=== PATIENT | male | born 1940 | race Caucasian/White ===

== ENCOUNTER → 2017-01-31 | Outpatient (CLI) | payer OTHER, MEDICARE ==
[~2017-01-31] MED LIST: ASPI-435 PO; CHOL100027 PO; CLOP1TAB5 PO; DIVA500T5 PO; FOLIC ACID PO; GLC500 PO; INSDGI SC; INSU100I SC; LAMO1TAB21 PO; LISI-787 PO; LPR50X PO; MULT-506 PO; RANI150C4 PO; ROSU40TA PO
--- NOTE | 2017-01-31 11:24 | DIAGNOSTIC IMAGING REPORT ---
LEFT SHOULDER 3 VIEWS HISTORY: Fall. LEFT SHOULDER PAIN COMPARISON: None. FINDINGS: Poststernotomy changes. Mild degenerative changes within the acromioclavicular and glenohumeral joints. Punctate calcification at the distal supraspinatus tendon consistent with calcific tendinitis. The left clavicle is intact. No radiopaque foreign bodies. IMPRESSION: No fracture or dislocation within the left shoulder. Electronically signed by: Cruz Chery M.D. 01/31/2017 11:23 AM Dictated Date/Time: 01/31/2017 11:21 AM
== END | disposition home or self-care (01) ==
LOC: C.RDSM 10:44
PROVIDERS: ATTEND Physical Medicine & Rehabilitation Sports Medicine
DX: M25.512 Pain in left shoulder (principal)

== ENCOUNTER → 2017-04-19 | Outpatient (CLI) | payer OTHER, MEDICARE ==
[2017-04-19 14:37] LABS: HEMATOCRIT 42.2 % (42-52); MEAN CELL VOLUME 97.9 fL (80-100); MEAN CORPUSCULAR HEMOGLOBIN 31.1 pg (25-34); MEAN CORPUSCULAR HGB CONC 31.8 g/dl (32-36); MEAN PLATELET VOLUME 12.1 fL (7.4-10.4); PLATELET COUNT 276 K/uL (130-400); RED BLOOD COUNT 4.31 M/uL (4.7-6.1); WHITE BLOOD COUNT 8.96 K/uL (4.8-10.8)
[2017-04-19 14:46] LABS: URINE APPEARANCE CLEAR (CLEAR); URINE BILIRUBIN NEG (NEG); URINE COLOR YELLOW; URINE EPITHELIAL CELL AUTO 0-5 /lpf (0-5); URINE NITRITE NEG (NEG); URINE PH 5.5 (4.5-7.5); URINE SPECIFIC GRAVITY 1.021 (1.000-1.030); UROBILINOGEN NEG (NEG)
[2017-04-19 15:01] LABS: BLOOD UREA NITROGEN 24 mg/dl (7-18); BUN/CREATININE RATIO 16.1 (10-20); CARBON DIOXIDE 29 mmol/L (21-32); CHLORIDE 100 mmol/L (98-107); GLUCOSE 233 mg/dl (70-99); PHOSPHORUS 1.7 mg/dl (2.5-4.9); POTASSIUM 4.8 mmol/L (3.5-5.1); SODIUM 137 mmol/L (136-145)
[2017-04-19 15:01] LABS: MANUAL MICROSCOPIC REQUIRED? NO; REVIEW REQ? NO
[2017-04-19 15:15] LABS: URINE PROTIEN/CREAT RATIO 0.6 (0-0.2); URINE TOTAL PROTEIN 56.4 mg/dl (0-11.9)
== END | disposition home or self-care (01) ==
LOC: C.LAB1850 13:06
PROVIDERS: ATTEND Internal Medicine Nephrology
DX: N18.3 Chronic kidney disease, stage 3 (moderate) (principal); D64.9 Anemia, unspecified; E55.9 Vitamin D deficiency, unspecified; R80.9 Proteinuria, unspecified; I12.9 Hypertensive chronic kidney disease with stage 1 through stage 4 chronic kidney disease, or unspecified chronic kidney disease

== ENCOUNTER → 2017-10-14 | Outpatient (CLI) | payer OTHER, MEDICARE ==
[2017-10-14 15:32] LABS: HEMATOCRIT 40.7 % (42-52); MEAN CELL VOLUME 97.6 fL (80-100); MEAN CORPUSCULAR HEMOGLOBIN 31.9 pg (25-34); MEAN CORPUSCULAR HGB CONC 32.7 g/dl (32-36); MEAN PLATELET VOLUME 11.9 fL (7.4-10.4); PLATELET COUNT 241 K/uL (130-400); RED BLOOD COUNT 4.17 M/uL (4.7-6.1)
[2017-10-14 16:01] LABS: ALT/SGPT 21 U/L (12-78); AST/SGOT 25 U/L (15-37); BLOOD UREA NITROGEN 29 mg/dl (7-18); BUN/CREATININE RATIO 18.6 (10-20); CALCIUM 9.3 mg/dl (8.5-10.1); CARBON DIOXIDE 30 mmol/L (21-32); CHLORIDE 97 mmol/L (98-107); CREATININE 1.54 mg/dl (0.60-1.40); GLUCOSE 275 mg/dl (70-99); POTASSIUM 4.4 mmol/L (3.5-5.1); SODIUM 133 mmol/L (136-145)
[2017-10-14 16:04] LABS: ALB/GLOB RATIO 0.8 (0.9-2); ALKALINE PHOSPHATASE 82 U/L (45-117)
[2017-10-14 16:25] LABS: URINE APPEARANCE CLEAR (CLEAR); URINE BILIRUBIN NEG (NEG); URINE COLOR YELLOW; URINE EPITHELIAL CELL AUTO 0-5 /lpf (0-5); URINE NITRITE NEG (NEG); URINE SPECIFIC GRAVITY 1.023 (1.000-1.030); UROBILINOGEN NEG (NEG)
[2017-10-14 16:27] LABS: MANUAL MICROSCOPIC REQUIRED? NO; REVIEW REQ? NO
[2017-10-14 16:46] LABS: URINE PROTIEN/CREAT RATIO 0.5 (0-0.2); URINE TOTAL PROTEIN 87.1 mg/dl (0-11.9)
== END | disposition home or self-care (01) ==
LOC: C.LAB1850 14:49
PROVIDERS: ATTEND Internal Medicine Nephrology
DX: N18.3 Chronic kidney disease, stage 3 (moderate) (principal); I12.9 Hypertensive chronic kidney disease with stage 1 through stage 4 chronic kidney disease, or unspecified chronic kidney disease; D64.9 Anemia, unspecified; R80.9 Proteinuria, unspecified; E55.9 Vitamin D deficiency, unspecified

== ENCOUNTER 2019-03-15 10:54 | Inpatient (IN) ==
[2019-03-15] MEDS ORDERED: SODIUM CHLORIDE 0.9% 1000ML 1,000 ML IV ONE (11:14)
[2019-03-15] MEDS ORDERED: ONDANSETRON INJ 2 MG/ML 2 ML VIAL IV STA (11:14)
[2019-03-15] MEDS ORDERED: MoRPHine SULFATE 4 MG/ML 1 ML CARP\\VIAL IV PRN ×2 (11:14→16:59)
[2019-03-15 11:49] LABS: Basophils # (auto) 0.03 K/uL (0-0.2); Basophils % (auto) 0.3 %; Eosinophils # (auto) 0.27 K/uL (0-0.5); Hematocrit (blood only) 39.4 % (42-52); Hemoglobin 13.3 g/dL (14.0-18.0); Immature Granulocytes # (auto) 0.03 K/uL (0.00-0.02); Immature Granulocytes % (auto) 0.3 %; Lymphocytes # (auto) 3.42 K/uL (1.2-3.4); Lymphocytes % (auto) 37.4 %; Mean Corpuscular Hgb Conc 33.8 g/dL (32-36); Mean Corpuscular Volume 95.6 fL (80-100); Mean Platelet Volume 12.3 fL (7.4-10.4); Monocytes # (auto) 1.28 K/uL (0.11-0.59); Neutrophils # (auto) 4.11 K/uL (1.4-6.5); Platelet Count 210 K/uL (130-400); RDW Coefficient of Variation 13.5 % (11.5-14.5); RDW Standard Deviation 47.2 fL (36.4-46.3); Red Blood Count 4.12 M/uL (4.7-6.1); White Blood Count 9.14 K/uL (4.8-10.8)
[2019-03-15 12:09] LABS: Albumin Level 3.6 gm/dl (3.4-5.0); BUN Creatinine Ratio 18.9 (10-20); Calcium 9.8 mg/dl (8.5-10.1); Creatinine Clr Calc Pharmacy 39.1 ml/min; Est GFR (African American) 39.3; Est GFR (Non-African American) 33.9; Potassium 4.3 mmol/L (3.5-5.1)
[2019-03-15 12:12] LABS: Albumin Globulin Ratio 0.8 (0.9-2); Bilirubin,Total 0.3 mg/dl (0.2-1); Globulin 4.4 gm/dl (2.5-4.0)
[2019-03-15 12:46] LABS: Appearance Urine Clear (Clear); Bacteria Urine Automated Negative (Negative); Bilirubin Urine Negative (Negative); Color Urine Yellow; Glucose Urine UA Negative (Negative); Ketones Urine Negative (Negative); Leukocyte Esterase Urine 2+ (Negative); Nitrite Urine Negative (Negative); Protein Urine Trace (Negative); Specific Gravity Urine 1.016 (1.000-1.030); Urobilinogen Urine Negative (Negative)
[2019-03-15] MEDS ORDERED: GADOBUTROL 65ML VIAL IV PRN (13:22)
--- NOTE | 2019-03-15 14:50 | Magnetic Resonance Report ---
MR lumbar spine wo/w con CLINICAL HISTORY: 78 years-old Male with sent by PCP for MRI, hx of splenectomy. Acute severe low ba ck pain with radiation into the right lower extremity COMPARISON: CT abdomen and pelvis 01/30/2019. TECHNIQUE: Multiplanar, multi sequence MRI of the lumbar spine was performed both with and without th e use of 10 mL Gadavist FINDINGS: The large [id number] disassembler product localizer images demonstrate no gross extraspinal abnormality. Conus me dullaris terminates at the T12-L1 level. Signal within imaged thoracic spinal cord appears unremarkab le. No aortic aneurysm or adenopathy. Bilateral perinephric stranding. Modic type I and II endplate c hanges at L3-L4 and L4-L5. There is no acute fracture or subluxation. Transitional lumbosacral anatom y with small disc space at S1-S2. There is no abnormal enhancement. T12-L1: Mild to moderate facet arthrosis. No central canal or foraminal narrowing. L1-L2: Mild disc space narrowing with mild to moderate facet arthrosis. No central canal or foramina l narrowing. L2-L3: Mild disc space narrowing with spondylitic spurring, small posterior annular disc bulge, mode rate facet arthrosis with ligamentum flavum thickening. Mild central canal stenosis with mild inferio r bilateral foraminal narrowing. L3-L4: Moderate disc space narrowing with spondylitic spurring, circumferential annular disc bulge a nd severe facet arthrosis with ligamentum flavum thickening. There is resultant severe central canal stenosis, AP dimension of the thecal sac measuring 3 mm. Moderate to severe bilateral foraminal narro wing. L4-L5: Moderate to severe disc space narrowing with spondylitic spurring, circumferential annular di sc bulge with central disc extrusion which extends 9 mm above the inferior endplate L4. Severe facet arthrosis with ligamentum flavum thickening. AP dimension of the thecal sac measures 3 mm. There is s evere central canal stenosis with severe bilateral foraminal narrowing. L5-S1: Moderate disc space narrowing with spondylitic spurring, circumferential annular disc bulge, advanced facet arthrosis with ligamentum flavum thickening. Flattening of the ventral thecal sac with out significant central canal stenosis. Mild to moderate bilateral foraminal narrowing. IMPRESSION: 1. No acute fracture or subluxation. 2. Severe central canal stenosis at L3-L4 and L4-L5. 3. Multilevel foraminal narrowing, severe bilaterally at L4-L5. 4. No abnormal enhancement. The above report was generated using voice recognition software. It may contain grammatical, syntax o r spelling errors. Electronically signed by: Vishnu Billings M.D. 03/15/2019 2:49 PM
[2019-03-15] MEDS ORDERED: DEXAMETHASONE SOD INJ 4 MG/ML VIAL IV STA (15:10)
--- NOTE | 2019-03-15 15:35 | History & Physical Report ---
Date of Service March 15, 2019 Assessment & Plan (1) Lumbar spinal stenosis: Patient's clinical symptoms associate with lumbar spinal stenosis is seen on MRI scan. Patient will have steroids given his dexamethasone pain medicines with parenteral opiates and orthopedic spine surgery consultation. 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 be sure that he has his Pneumovax (7) DVT prophylaxis: -Abuse for DVT prevention (8) CKD (chronic kidney disease) stage 3, GFR 30-59 ml/min: Patient is appropriate dosing of medications, creatinine is up from baseline may be having him having some acute kidney injury we will hydrate him and repeat in the morning History of Present Illness Primary Care Provider: Ml Matthews MD 78 yo male presented with radicular b/l leg pain and hyperreflexia and spasticity found to have lumbar spinal stenosis seen on mri, pt has some urinary retention Allergies Allergy/AdvReac Type Severity Reaction Status Date / Time Bactrim Allergy Severe SEVERE RASH Verified 03/16/16 10:11 sulfamethoxazole Allergy Severe SEVERE RASH Verified 03/15/19 11:54 trimethoprim Allergy Severe SEVERE RASH Verified 03/15/19 11:54 amoxicillin AdvReac Mild VOMITING Verified 03/15/19 11:54 clavulanic acid AdvReac Mild VOMITING Verified 03/15/19 11:54 Home Medications Home Medications Medication Instructions Recorded Confirmed Type aspirin 81 mg PO QAM 01/26/19 03/15/19 History cholecalciferol (vitamin D3) 3,000 unit PO QAM 01/26/19 03/15/19 History [Vitamin D3] clopidogrel 75 mg PO QAM 01/26/19 03/15/19 History cyclobenzaprine 5 mg PO BID PRN 01/26/19 03/15/19 History divalproex 500 mg PO BID 01/26/19 03/15/19 History gabapentin 300 mg PO UD 01/26/19 03/15/19 History insulin glargine [Lantus Solostar 28 unit SUBCUT QAM 01/26/19 03/15/19 History U-100 Insulin] insulin lispro [Humalog KwikPen 12 unit SUBCUT QAM 01/26/19 03/15/19 History Insulin] lamotrigine 200 mg PO PM 01/26/19 03/15/19 History lisinopril-hydrochlorothiazide 1 tab PO QAM 01/26/19 03/15/19 History metformin 1,000 mg PO BIDM 01/26/19 03/15/19 History metoprolol tartrate 50 mg PO BID 01/26/19 03/15/19 History nitroglycerin [Nitrostat] 0.4 mg SUBLINGUAL UD 01/26/19 03/15/19 History prednisolone acetate 1 drp OPL QID 01/26/19 03/15/19 History ranitidine HCl 150 mg PO BID 01/26/19 03/15/19 History rosuvastatin 40 mg PO PM 01/26/19 03/15/19 History tramadol 50 mg PO Q4H PRN 01/26/19 03/15/19 History vitamin X80-jexce acid [Foltrate] 1 tab PO QAM 01/26/19 03/15/19 History Past Med/Surg History Family History Other Family history non-contributory Social History Preferred Language: Indonesian Communication Ability: Effective 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 Weapons 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: No Beliefs That Will Affect Care: None Current Living Situation: Significant Other Other Information That Helps Us Care for You: No Feels Safe at Home: Yes Safety Concerns: Feels Safe At This Time Smoking Status: Never smoker Do You Dip or Chew Tobacco: No Second Hand Exposure: No Tobacco Cessation Education Requested by Patient: No Hx Alcohol Use: Yes Alcohol type: beer, wine and hard liquor Hx Substance Use: No Review of Systems Constitutional: + fatigue and + weakness Respiratory: no cough, no chest congestion and no dyspnea Cardiovascular: no chest pain and no dyspnea on exertion Gastrointestinal: no abdominal pain, no nausea and no vomiting Musculoskeletal: no joint pain and no swelling Integumentary: no rash and no lesions Neurologic: Patient has intact sensation pain straight leg raising and hyperreflexia at the patella bilaterally. He claims to have continence of bowel and bladder Physical Exam Physical Exam: The patient appeared well nourished and normally developed. Vital signs as documented. Head exam is unremarkable. normocephalic, atraumatic Neck is without jugular venous distension, thyromegaly, or lymphademopathy Lungs are clear to auscultation and percussion. Cardiac exam reveals Rhythm is regular. First and second heart sounds normal. Abdominal exam reveals normal bowel sounds, no masses, no organomegaly Extremities are nonedematous and both pedal pulses are present Neurologic exam is A&Ox3, patient has decreased sensation but he has definite pain to straight leg raising and hyperreflexia Psychologically seems neither anxious or depressed Skin is warm Dry without bruises or lesions Results & Data Vital Signs (Past 12 Hours) Vital Signs Temp Pulse Pulse Resp BP BP Pulse Ox 03/15/19 13:45 66 20 141/60 H 95 03/15/19 11:27 37 C 62 20 130/74 96 Diagnostic Findings mri lumbar spine No acute fracture or subluxation. Severe central canal stenosis at L3-L4 and L4-L5. Multilevel foraminal narrowing, severe bilaterally at L4-L5. No abnormal enhancement.
--- NOTE | 2019-03-15 16:46 | Emergency Department Note ---
Entered by Ana Luisa Obando acting as a scribe for Ibrahima Alex DO History of Present Illness General Chief complaint: Back Injury/Pain Stated complaint: back pain Time Seen by Provider: 03/15/19 10:57 Source: patient History of Present Illness Provider complaint: back pain Onset (ago): week(s) 2 Location: back Radiation: other (legs, left groin) Quality: + other (pain) Associated symptoms: + other (constipation, urinating slowly) Treatments prior to arrival: other (Gabapentin) The patient is a 78 year old male who presents to the Emergency Department with complaints of constant back pain over the last 2 weeks. He states that his pain began in the lumbar region. He states that he feels like a "bomb is going" and states that his pain also radiates down his legs and left groin, but not to his feet. He states that his pain wakes him in the middle of the night and states that he is only able to sleep for a couple of hours during the night. He reports that he has been urinating slowly. The patient states that he was started on Gabapentin. He states that he also developed a pilonidal cyst which he had drained in the hospital. He states that he was then tapered off of the Gabapentin. He states that he also had Flexeril and Tramadol. The patient states that he does not have a pacemaker. The patient reports a history of diabetes. He states that he has been constipated for 3 days. Home Medications Home Medications Medication Instructions Recorded Confirmed Type aspirin 81 mg PO QAM 01/26/19 03/15/19 History cholecalciferol (vitamin D3) 3,000 unit PO QAM 01/26/19 03/15/19 History [Vitamin D3] clopidogrel 75 mg PO QAM 01/26/19 03/15/19 History cyclobenzaprine 5 mg PO BID PRN 01/26/19 03/15/19 History divalproex 500 mg PO BID 01/26/19 03/15/19 History gabapentin 300 mg PO UD 01/26/19 03/15/19 History insulin glargine [Lantus Solostar 28 unit SUBCUT QAM 01/26/19 03/15/19 History U-100 Insulin] insulin lispro [Humalog KwikPen 12 unit SUBCUT QAM 01/26/19 03/15/19 History Insulin] lamotrigine 200 mg PO PM 01/26/19 03/15/19 History lisinopril-hydrochlorothiazide 1 tab PO QAM 01/26/19 03/15/19 History metformin 1,000 mg PO BIDM 01/26/19 03/15/19 History metoprolol tartrate 50 mg PO BID 01/26/19 03/15/19 History nitroglycerin [Nitrostat] 0.4 mg SUBLINGUAL UD 01/26/19 03/15/19 History prednisolone acetate 1 drp OPL QID 01/26/19 03/15/19 History ranitidine HCl 150 mg PO BID 01/26/19 03/15/19 History rosuvastatin 40 mg PO PM 01/26/19 03/15/19 History tramadol 50 mg PO Q4H PRN 01/26/19 03/15/19 History vitamin P80-[id number] acid [Foltrate] 1 tab PO QAM 01/26/19 03/15/19 History Allergies Allergy/AdvReac Type Severity Reaction Status Date / Time Bactrim Allergy Severe SEVERE RASH Verified 03/16/16 10:11 sulfamethoxazole Allergy Severe SEVERE RASH Verified 03/15/19 11:54 trimethoprim Allergy Severe SEVERE RASH Verified 03/15/19 11:54 amoxicillin AdvReac Mild VOMITING Verified 03/15/19 11:54 clavulanic acid AdvReac Mild VOMITING Verified 03/15/19 11:54 Past Med/Surg History Family History Other Family history non-contributory Social History Preferred Language: Samoan Feels Safe at Home: Yes Smoking Status: Never smoker Review of Systems See HPI for pertinent positives & negatives. and A total of 10 systems reviewed and were otherwise negative Physical Exam Vital Signs Vital Signs - 24 hr 03/15/19 11:27 03/15/19 13:45 03/15/19 13:47 Temperature 37 C Temperature Source Oral Sepsis Recent Fever Within 48 Hours No Sepsis Action Taken by Nursing No Action Required Pulse Rate 62 Pulse Rate [Right Finger] 66 Respiratory Rate 20 20 Blood Pressure 130/74 Blood Pressure [Left Arm] 141/60 H Blood Pressure Mean 92 Blood Pressure Mean [Left Arm] 87 Pulse Oximetry 96 95 Oxygen Delivery Method Room Air Room Air Room Air 03/15/19 15:00 03/15/19 16:31 Temperature Temperature Source Sepsis Recent Fever Within 48 Hours Sepsis Action Taken by Nursing Pulse Rate Pulse Rate [Right Finger] 70 72 Respiratory Rate 20 18 Blood Pressure Blood Pressure [Left Arm] 138/72 126/73 Blood Pressure Mean Blood Pressure Mean [Left Arm] 94 90 Pulse Oximetry 96 94 Oxygen Delivery Method Room Air GENERAL: Patient is awake, alert. Very anxious and uncomfortable appearing. EYES: The conjunctivae are clear. The pupils are round and reactive. EARS, NOSE, MOUTH AND THROAT: The nose is without any evidence of any deformity. Mucous membranes are moist.Tongue is midline NECK: The neck is nontender and supple. RESPIRATORY: Normal respiratory effort is noted. There is no evidence of w heezing rhonchi or rales to auscultation. CARDIOVASCULAR: Regular rate and rhythm noted. There no murmurs rubs or gallops normal S1 normal S2 GASTROINTESTINAL: The abdomen is soft. Bowel sounds are present in all quadrants. Abdomen is nontender. BACK: There is lower lumbar tenderness to palpation. Range of motion elicited significant pain. PELVIS: The Pelvis is stable. No tenderness to palpation is noted. MUSCULOSKELETAL/EXTREMITIES: There is no evidence of gross deformity. Full range of motion is noted in the hips and shoulders. SKIN: There is no obvious evidence of any rash. There are no petechiae, pallor or cyanosis noted. NEUROLOGIC: Patient is awake alert and oriented x3. Strength is symmetric. Patellar reflexes are 2+ bilaterally. Achilles tendon reflexes were 1+ bilaterally. Great toe raise was symmetric. Positive straight leg raise. Course 1108: The patient was evaluated in room C7. A history and physical were performed. 1447: I spoke with Dr. Billings-Radiology who said that the patient has bad canal stenosis. 1450: I updated and reevaluated the patient. He verbalized agreement and understanding of the treatment plan. 1508: I discussed the patient's case with Dr. Desi Moreno who will evaluate the patient for further management. Consultations Consultation #1: Dr. Desi Moreno Time: 15:08 Administered Medications Gadobutrol (Gadavist 65ml) 10 ml IV ONCE PRN PRN Reason: Interaction Checking Stop: 03/19/19 13:21 Last Admin: 03/15/19 13:22 Dose: 10 ml Documented by: [id number] Morphine Sulfate (Morphine Sulfate) 4 mg IV Q15M PRN PRN Reason: Pain Stop: 03/29/19 11:13 Last Admin: 03/15/19 12:10 Dose: 4 mg Documented by: [id number] Discontinued Medications Dexamethasone (Decadron) 10 mg IV NOW STA Stop: 03/15/19 15:11 Last Admin: 03/15/19 15:34 Dose: 10 mg Documented by: [id number] Sodium Chloride (Nss 1000ml) 1,000 mls @ 999 mls/hr IV .Q1H1M ONE Stop: 03/15/19 12:14 Last Infusion: 03/15/19 13:18 Dose: 0 mls/hr Documented by: [id number] Admin: 03/15/19 12:00 Dose: 999 mls/hr Documented by: [id number] Ondansetron HCl (Zofran) 4 mg IV NOW STA Stop: 03/15/19 11:15 Last Admin: 03/15/19 12:10 Dose: 4 mg Documented by: [id number] Medical Decision Making Differential Diagnosis Etiologies such as muscular strain, fracture, metastatic disease, disc herniati on, sciatica, epidural abscess, vertebral osteomyelitis, discitis, spinal epidural hematoma, cord compression, cauda equina/conus medullaris syndrome, aortic disease, infection, shingles, renal colic, gastrointestinal, acute exacerbation of chronic back pain, as well as others were entertained. Medical Records Attestation: I reviewed the patient's medical records. Home Medications Current Medication List: was personally reviewed by me Laboratory Data Attestation: I reviewed the patient's lab results. Result diagrams: 03/15/19 11:37 03/15/19 11:37 Lab Results 03/15/19 03/15/19 03/15/19 Range/Units 11:37 11:37 11:37 WBC 9.14 (4.8-10.8) K/uL RBC 4.12 L (4.7-6.1) M/uL Hgb 13.3 L (14.0-18.0) g/dL Hct 39.4 L (42-52) % MCV 95.6 (80-100) fL MCH 32.3 (25-34) pg MCHC 33.8 (32-36) g/dL RDW Std Deviation 47.2 H (36.4-46.3) fL RDW Coeff of Tennille 13.5 (11.5-14.5) % Plt Count 210 (130-400) K/uL MPV 12.3 H (7.4-10.4) fL Immature Gran % (Auto) 0.3 % Neut % (Auto) 45.0 % Lymph % (Auto) 37.4 % Richardson % (Auto) 14.0 % Eos % (Auto) 3.0 % Baso % (Auto) 0.3 % Immature Gran # (Auto) 0.03 H (0.00-0.02) K/uL Neut # (Auto) 4.11 (1.4-6.5) K/uL Lymph # (Auto) 3.42 H (1.2-3.4) K/uL Richardson # (Auto) 1.28 H (0.11-0.59) K/uL Eos # (Auto) 0.27 (0-0.5) K/uL Baso # (Auto) 0.03 (0-0.2) K/uL Sodium 131 L (136-145) mmol/L Potassium 4.3 (3.5-5.1) mmol/L Chloride 97 L (98-107) mmol/L Carbon Dioxide 29 (21-32) mmol/L Anion Gap 5.0 (3-11) BUN 36 H (7-18) mg/dl Creatinine 1.88 H (0.6-1.4) mg/dl Est Cr Clr Drug Dosing 39.1 ml/min Est GFR ( Amer) 39.3 Est GFR (Non-Af Amer) 33.9 BUN/Creatinine Ratio 18.9 (10-20) Glucose 146 H (70-99) mg/dl Calcium 9.8 (8.5-10.1) mg/dl Total Bilirubin 0.3 (0.2-1) mg/dl AST 26 (15-37) U/L ALT 14 (12-78) U/L Alkaline Phosphatase 75 (45-117) U/L Total Protein 8.0 (6.4-8.2) gm/dl Albumin 3.6 (3.4-5.0) gm/dl Globulin 4.4 H (2.5-4.0) gm/dl Albumin/Globulin Ratio 0.8 L (0.9-2) Lipase 104 (73-393) U/L Urine Color Urine Appearance (Clear) Urine pH (4.5-7.5) Ur Specific Collbran (1.000-1.030) Urine Protein (Negative) Urine Glucose (UA) (Negative) Urine Ketones (Negative) Urine Blood (Negative) Urine Nitrite (Negative) Urine Bilirubin (Negative) Urine Urobilinogen (Negative) Ur Leukocyte Esterase (Negative) Urine WBC (Auto) (0-5) /hpf Urine RBC (Auto) (0-4) /hpf U Hyaline Cast (Auto) (0-5) /lpf U Epithel Cells (Auto) (0-5) /lpf Urine Bacteria (Auto) (Negative) Valproic Acid 54 (50-100) mcg/ml 03/15/19 Range/Units 11:55 WBC (4.8-10.8) K/uL RBC (4.7-6.1) M/uL Hgb (14.0-18.0) g/dL Hct (42-52) % MCV (80-100) fL MCH (25-34) pg MCHC (32-36) g/dL RDW Std Deviation (36.4-46.3) fL RDW Coeff of Tennille (11.5-14.5) % Plt Count (130-400) K/uL MPV (7.4-10.4) fL Immature Gran % (Auto) % Neut % (Auto) % Lymph % (Auto) % Richardson % (Auto) % Eos % (Auto) % Baso % (Auto) % Immature Gran # (Auto) (0.00-0.02) K/uL Neut # (Auto) (1.4-6.5) K/uL Lymph # (Auto) (1.2-3.4) K/uL Richardson # (Auto) (0.11-0.59) K/uL Eos # (Auto) (0-0.5) K/uL Baso # (Auto) (0-0.2) K/uL Sodium (136-145) mmol/L Potassium (3.5-5.1) mmol/L Chloride (98-107) mmol/L Carbon Dioxide (21-32) mmol/L Anion Gap (3-11) BUN (7-18) mg/dl Creatinine (0.6-1.4) mg/dl Est Cr Clr Drug Dosing ml/min Est GFR ( Amer) Est GFR (Non-Af Amer) BUN/Creatinine Ratio (10-20) Glucose (70-99) mg/dl Calcium (8.5-10.1) mg/dl Total Bilirubin (0.2-1) mg/dl AST (15-37) U/L ALT (12-78) U/L Alkaline Phosphatase (45-117) U/L Total Protein (6.4-8.2) gm/dl Albumin (3.4-5.0) gm/dl Globulin (2.5-4.0) gm/dl Albumin/Globulin Ratio (0.9-2) Lipase (73-393) U/L Urine Color Yellow Urine Appearance Clear (Clear) Urine pH 5.0 (4.5-7.5) Ur Specific Collbran 1.016 (1.000-1.030) Urine Protein Trace H (Negative) Urine Glucose (UA) Negative (Negative) Urine Ketones Negative (Negative) Urine Blood Negative (Negative) Urine Nitrite Negative (Negative) Urine Bilirubin Negative (Negative) Urine Urobilinogen Negative (Negative) Ur Leukocyte Esterase 2+ H (Negative) Urine WBC (Auto) 5-10 H (0-5) /hpf Urine RBC (Auto) 0-4 (0-4) /hpf U Hyaline Cast (Auto) 5-10 H (0-5) /lpf U Epithel Cells (Auto) 10-20 H (0-5) /lpf Urine Bacteria (Auto) Negative (Negative) Valproic Acid (50-100) mcg/ml Imaging Data Radiologist's Impression: Radiology results as stated below per my review and the radiologist's interpretation: MR lumbar spine wo/w con CLINICAL HISTORY: 78 years-old Male with sent by PCP for MRI, hx of splenectomy. Acute severe low back pain with radiation into the right lower extremity COMPARISON: CT abdomen and pelvis 01/30/2019. TECHNIQUE: Multiplanar, multi sequence MRI of the lumbar spine was performed both with and without the use of 10 mL Gadavist FINDINGS: The large [id number] child nutrition director localizer images demonstrate no gross extraspinal abnormality. Conus medullaris terminates at the T12-L1 level. Signal within imaged thoracic spinal cord appears unremarkable. No aortic aneurysm or adenopathy. Bilateral perinephric stranding. Modic type I and II endplate c hanges at L3-L4 and L4-L5. There is no acute fracture or subluxation. Transitional lumbosacral anatomy with small disc space at S1-S2. There is no abnormal enhancement. T12-L1: Mild to moderate facet arthrosis. No central canal or foraminal narrowing. L1-L2: Mild disc space narrowing with mild to moderate facet arthrosis. No central canal or foraminal narrowing. L2-L3: Mild disc space narrowing with spondylitic spurring, small posterior annular disc bulge, moderate facet arthrosis with ligamentum flavum thickening. Mild central canal stenosis with mild inferior bilateral foraminal narrowing. L3-L4: Moderate disc space narrowing with spondylitic spurring, circumferential annular disc bulge and severe facet arthrosis with ligamentum flavum thickening. There is resultant severe central canal stenosis, AP dimension of the thecal sac measuring 3 mm. Moderate to severe bilateral foraminal narrowing. L4-L5: Moderate to severe disc space narrowing with spondylitic spurring, circumferential annular disc bulge with central disc extrusion which extends 9 mm above the inferior endplate L4. Severe facet arthrosis with ligamentum flavum thickening. AP dimension of the thecal sac measures 3 mm. There is severe central canal stenosis with severe bilateral foraminal narrowing. L5-S1: Moderate disc space narrowing with spondylitic spurring, circumferential annular disc bulge, advanced facet arthrosis with ligamentum flavum thickening. Flattening of the ventral thecal sac without significant central canal stenosis. Mild to moderate bilateral foraminal narrowing. IMPRESSION: 1. No acute fracture or subluxation. 2. Severe central canal stenosis at L3-L4 and L4-L5. 3. Multilevel foraminal narrowing, severe bilaterally at L4-L5. 4. No abnormal enhancement. The above report was generated using voice recognition software. It may contain grammatical, syntax or spelling errors. Electronically signed by: Vishnu Billings M.D. 03/15/2019 2:49 PM Blood Pressure Blood Pressure Findings: Elevated blood pressure Blood Pressure Disposition: further management by hospitalist CECILIA Mojica The patient is a 78-year-old male who presented to the emergency department for an evaluation of low back pain. The patient has been dealing with low back pain for many months. He has been managed by his primary care physician without relief of his symptoms. He had very severe symptoms and when he went to see his doctor today was sent to the emergency department immediately for further evaluation. The patient had some symptoms which could be consistent with disc herniation versus cauda equina syndrome. For this reason MRI was obtained with and without contrast given the patient's diabetic as well as splenectomy history. The patient treated with pain medication in the emergency department. He was also given IV steroids. On subsequent reevaluation he was only minimally improved. Given his findings and his degree of pain I discussed his case with the on-call [facility] hospitalist. They have agreed to evaluate the patient in the emergency department for further management and disposition. Impression & Plan Lumbar spinal stenosis, Intractable low back pain Discharge Plan Visit Data Chief Complaint: Back Injury/Pain Stated Complaint: back pain ED Provider: Ibrahima Alex Discharge Problem: Lumbar spinal stenosis, Intractable low back pain Patient Disposition: Being Evaluated by Hospitalist Discharge Instructions Interventions: ED Discharge Assessment Last Done: 03/15/19 16:22 Discharge Problem: Lumbar spinal stenosis Qualifiers: Neurogenic claudication status: unspecified Qualified Code(s): M48.061 - Spinal stenosis, lumbar region without neurogenic claudication The scribe's documentation has been prepared under my direction and personally reviewed by me in its entirety. I confirm that the note above accurately reflects all work, treatment, procedures, and medical decision making performed by me.
[2019-03-15] MEDS ORDERED: ACETAMINOPHEN 325 MG TAB PO PRN (16:59)
[2019-03-15] MEDS ORDERED: GLUCOSE 10 TABS/TUBE PO PRN (16:59)
[2019-03-15] MEDS ORDERED: CYCLOBENZAPRINE HCL 5 MG TAB PO PRN (16:59)
[2019-03-15] MEDS ORDERED: ALUMINUM/MAGNESIUM SUSP 30 ML UDC PO PRN (16:59)
[2019-03-15] MEDS ORDERED: NITROGLYCERIN SL 0.4 MG/TAB TAB SL SCH (16:59)
[2019-03-15] MEDS ORDERED: DEXTROSE 50% 50 ML SYRINGE IV PRN (16:59)
[2019-03-15] MEDS ORDERED: ONDANSETRON INJ 2 MG/ML 2 ML VIAL IV PRN (16:59)
[2019-03-15] MEDS ORDERED: GLUCAGON FOR INJ 1 MG VIAL SQ PRN (16:59)
[2019-03-15] MEDS ORDERED: GLUCOSE 40% GEL 15 GM TUBE PO PRN (16:59)
[2019-03-15] MEDS ORDERED: CARBOHYDRATES FOR HYPOGLYCEMIA PO PRN (16:59)
[2019-03-15 17:28] LABS: Prothrombin Time 10.1 Seconds (9.0-12.0)
[2019-03-15] MEDS ORDERED: SODIUM CHLORIDE 0.9% 1000ML 1,000 ML IV SCH (17:45)
[2019-03-15] MEDS ORDERED: DEXAMETHASONE IV SCH (18:00)
[2019-03-15] MEDS ORDERED: DEXTROSE 5% IV SCH (18:00)
[2019-03-15] MEDS: INSULIN ASPART 100 UNITS/ML 3 ML PEN SC SCH ×2 (18:24→21:14)
[2019-03-15] MEDS: prednisoLONE acetate 1% OP SUSP 5 ML BTL OPL SCH ×2 (19:08→20:59)
[2019-03-15] MEDS: OXYCODONE HCL IR 5 MG TAB (IMMEDIATE RELEASE) PO PRN ×2 (19:08→23:29)
[2019-03-15] MEDS: DIVALPROEX DELAY RELEASE 500 MG TAB PO SCH (20:57)
[2019-03-15] MEDS: ROSUVASTATIN CALCIUM 20 MG TAB PO SCH (20:57)
[2019-03-15] MEDS: GABAPENTIN 300 MG CAP PO SCH (20:58)
[2019-03-15] MEDS: lamoTRIgine 100 MG TAB PO SCH (20:58)
[2019-03-15] MEDS: METOPROLOL TARTRATE 50 MG TAB PO SCH (21:06)
[2019-03-15] MEDS: HEPARIN SOD 5,000 UNIT/0.5 ML VIAL SQ SCH (21:15)
[2019-03-15] MEDS: DEXAMETHASONE SOD PHOSPHATE 4 MG in SYRINGE 0 ML IV SCH (21:23)
[2019-03-15] MEDS: POLYETHYLENE (MIRALAX) 17 GM PACK PO SCH (21:40)
[2019-03-16] MEDS ORDERED: Nursing to Pharmacy Communication ONE ×2 (02:18→13:33)
[2019-03-16] MEDS: DEXAMETHASONE SOD PHOSPHATE 4 MG in SYRINGE 0 ML IV SCH ×4 (04:17→21:34)
[2019-03-16] MEDS: INSULIN ASPART 100 UNITS/ML 3 ML PEN SC SCH ×4 (06:36→21:47)
--- NOTE | 2019-03-16 07:03 | Magnetic Resonance Report ---
MR thoracic spine wo con HISTORY: 78 years-old Male eval for additional chord impingement, acute mid back pain with radiation into the right lower extremity. COMPARISON: MRI of the lumbar spine 03/15/2019. TECHNIQUE: Multiplanar multisequence MRI of the thoracic spine was obtained without the use of IV con trast. FINDINGS: Cardiomegaly. The imaged extraspinal structures demonstrate no acute abnormality. Distended urinary b ladder with bladder wall thickening and trabeculation. Degenerative changes are noted throughout the cervical spine. Sternotomy wires are noted. Signal within the imaged cervical and thoracic spinal cor d appears normal. There is no acute fracture, subluxation or focal bone marrow edema. No epidural flu id collections or focal bone mass lesion identified. There is multilevel disc space narrowing with mo derate facet arthrosis and mild uncovertebral spurring. At the T8-T9 level there is a left paracentra l disc protrusion which results in mild central canal and mild to moderate left lateral recess stenos is. No significant associated foraminal narrowing. No additional significant disc bulging, central ca nal or foraminal narrowing identified. IMPRESSION: 1. No acute fracture, subluxation or focal bone marrow edema. 2. Left paracentral disc protrusion at T8-T9 results in mild central canal with mild to moderate left lateral recess stenosis. 3. No significant foraminal narrowing. The above report was generated using voice recognition software. It may contain grammatical, syntax o r spelling errors. Dictated: 03/16/2019 6:51 AM Transcribed: 03/16/2019 7:03 AM [id number] [id number] [email or web address] Electronically signed by: Vishnu Billings M.D. 03/16/2019 7:05 AM
[2019-03-16 07:26] LABS: Estimated Average Glucose 157 mg/dl
[2019-03-16 07:35] LABS: BUN Creatinine Ratio 18.9 (10-20); Creatinine Clr Calc Pharmacy 42.3 ml/min; Est GFR (African American) 44.1; Potassium 4.5 mmol/L (3.5-5.1)
[2019-03-16] MEDS ORDERED: INSULIN GLARGINE SOLOSTAR 100 UNITS/ML 3 ML PEN SQ SCH (09:00)
[2019-03-16] MEDS: GABAPENTIN 300 MG CAP PO SCH ×3 (09:55→21:36)
[2019-03-16] MEDS: METOPROLOL TARTRATE 50 MG TAB PO SCH ×2 (09:57→21:35)
[2019-03-16] MEDS: DIVALPROEX DELAY RELEASE 500 MG TAB PO SCH ×2 (09:58→21:36)
[2019-03-16] MEDS: POLYETHYLENE (MIRALAX) 17 GM PACK PO SCH (09:58)
[2019-03-16] MEDS: LISINOPRIL/HCTZ 20/25MG 1 TAB PO SCH (09:58)
[2019-03-16] MEDS: prednisoLONE acetate 1% OP SUSP 5 ML BTL OPL SCH ×4 (09:59→21:34)
--- NOTE | 2019-03-16 10:36 | Cardiology Consultation ---
Date of Consultation March 16, 2019 Assessment & Plan (1) Lumbar spinal stenosis: 2. CAD s/p CABG x4 in 1994 3. Hypertension 4. Dyslipidemia 5. Diabetes mellitus 6. CKD 7. Prior TIA Patient presented to the ED yesterday with increased bilateral hip/leg pain with associated hyperreflexia and spasticity. MRI demonstrated severe lumbar spinal stenosis and orthopedic spine surgery has been consulted for further evaluation/treatment. He is currently stable and asymptomatic from a cardiovascular standpoint with no anginal symptoms. He has no signs or symptoms of CHF or significant valvular abnormality. Heart rate and blood pressure are adequately controlled. ECG shows sinus rhythm with no acute ischemic changes. If urgent inpatient surgery is indicated given the severe narrowing of his spine, patient is an acceptable risk to proceed with surgery from a cardiovascular standpoint. He should remain on his beta joe therapy throughout the perioperative period. If elective outpatient surgery is the planned course of action, could consider additional cardiovascular evaluation prior to proceeding given his limited functional status. Patient discussed with Dr. Toney, and the plan was made in association with him. History of Present Illness Reason for Consultation: Pre-operative cardiovascular evaluation Requesting Physician: Dr. Deal History of Present Illness Mr. 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 Patient presented to the ED yesterday with worsening pain in his hips and legs with associated hyperreflexia and spasticity. MRI demonstrated severe central canal stenosis at L3-L4 and L4-L5 and multilevel foraminal narrowing, severe bilaterally at L4-L5. He will be seen by orthopedic spine surgery for further evaluation and treatment. He reports today that his leg/hip pain has been chronic and progressive, especially over the last 2 months. His functional status has been rather limited secondary to the discomfort. He has required a cane when ambulating, and he is able to ambulate up-stairs, but he has to take them very slowly. He denies any chest discomfort, other anginal type symptoms, or limiting dyspnea. He further denies shortness of breath at rest, orthopnea, PND, or edema. He denies palpitations, syncope, or presyncope. He denies abnormal bleeding such as melena, hematochezia, or hematuria. He notes some constipation. ROS: All other ROS are reviewed and otherwise negative. Allergies Allergy/AdvReac Type Severity Reaction Status Date / Time Bactrim Allergy Severe SEVERE RASH Verified 03/16/16 10:11 sulfamethoxazole Allergy Severe SEVERE RASH Verified 03/15/19 11:54 trimethoprim Allergy Severe SEVERE RASH Verified 03/15/19 11:54 amoxicillin AdvReac Mild VOMITING Verified 03/15/19 11:54 clavulanic acid AdvReac Mild VOMITING Verified 03/15/19 11:54 Home Medications Home Medications Medication Instructions Recorded Confirmed Type aspirin 81 mg PO QAM 01/26/19 03/15/19 History cholecalciferol (vitamin D3) 3,000 unit PO QAM 01/26/19 03/15/19 History [Vitamin D3] clopidogrel 75 mg PO QAM 01/26/19 03/15/19 History cyclobenzaprine 5 mg PO BID PRN 01/26/19 03/15/19 History divalproex 500 mg PO BID 01/26/19 03/15/19 History gabapentin 300 mg PO UD 01/26/19 03/15/19 History insulin glargine [Lantus Solostar 28 unit SUBCUT QAM 01/26/19 03/15/19 History U-100 Insulin] insulin lispro [Humalog KwikPen 12 unit SUBCUT QAM 01/26/19 03/15/19 History Insulin] lamotrigine 200 mg PO PM 01/26/19 03/15/19 History lisinopril-hydrochlorothiazide 1 tab PO QAM 01/26/19 03/15/19 History metformin 1,000 mg PO BIDM 01/26/19 03/15/19 History metoprolol tartrate 50 mg PO BID 01/26/19 03/15/19 History nitroglycerin [Nitrostat] 0.4 mg SUBLINGUAL UD 01/26/19 03/15/19 History prednisolone acetate 1 drp OPL QID 01/26/19 03/15/19 History ranitidine HCl 150 mg PO BID 01/26/19 03/15/19 History rosuvastatin 40 mg PO PM 01/26/19 03/15/19 History tramadol 50 mg PO Q4H PRN 01/26/19 03/15/19 History vitamin [id number] acid [Foltrate] 1 tab PO QAM 01/26/19 03/15/19 History oxycodone 5 mg PO Q4 PRN #3 tab 03/21/19 Rx Patient History Medical History Diabetes (Chronic) Heart disease (Chronic) Hypertension (Chronic) Surgical History Hx of CABG (Resolved) History of splenectomy (Resolved) Family History Other Family history non-contributory Social History Preferred Language: Welsh Communication Ability: Effective Cuff Stitcher Required: No Beliefs That Will Affect Care: None Current Living Situation: Significant Other Other Information That Helps Us Care for You: No Feels Safe at Home: Yes Safety Concerns: Feels Safe At This Time Smoking Status: Never smoker Do You Dip or Chew Tobacco: No Second Hand Exposure: No Tobacco Cessation Education Requested by Patient: No Hx Alcohol Use: Yes Alcohol type: beer, wine and hard liquor Hx Substance Use: No Physical Exam Physical Exam: Constitutional: Alert, oriented, in no acute distress HEENT: Head is atraumatic and normocephalic. EOMs intact. Sclera anicteric. Face is symmetric. No perioral cyanosis. Mucous membranes moist. Neck: Supple, no JVD Pulmonary: Normal respiratory effort, clear to auscultation bilaterally Cardiac: Regular rate and rhythm, normal S1 and S2, no gallops, no rubs, no murmurs Extremities: No clubbing, cyanosis, or edema. Pulses 2+ and symmetric Abdomen: Normal bowel sounds, soft, non-tender, no abdominal mass palpated Skin: Normal skin color, turgor, and pigmentation, no rash, no skin lesions Neurological: Oriented to person, place, and time Results & Data Vital Signs (Past 12 Hours) Vital Signs Temp Pulse Resp BP Pulse Ox 03/16/19 06:43 36.7 C 58 L 14 129/64 92 03/15/19 23:10 37.2 C 58 L 14 142/55 H 92 Laboratory Results Laboratory Results WBC 9.14 K/uL (4.8-10.8) 03/15/19 11:37 RBC 4.12 M/uL (4.7-6.1) L 03/15/19 11:37 Hgb 13.3 g/dL (14.0-18.0) L 03/15/19 11:37 Hct 39.4 % (42-52) L 03/15/19 11:37 MCV 95.6 fL (80-100) 03/15/19 11:37 MCH 32.3 pg (25-34) 03/15/19 11:37 MCHC 33.8 g/dL (32-36) 03/15/19 11:37 RDW Std Deviation 47.2 fL (36.4-46.3) H 03/15/19 11:37 RDW Coeff of Tennille 13.5 % (11.5-14.5) 03/15/19 11:37 Plt Count 210 K/uL (130-400) 03/15/19 11:37 MPV 12.3 fL (7.4-10.4) H 03/15/19 11:37 Immature Gran % (Auto) 0.3 % 03/15/19 11:37 Neut % (Auto) 45.0 % 03/15/19 11:37 Lymph % (Auto) 37.4 % 03/15/19 11:37 Bell % (Auto) 14.0 % 03/15/19 11:37 Eos % (Auto) 3.0 % 03/15/19 11:37 Baso % (Auto) 0.3 % 03/15/19 11:37 Immature Gran # (Auto) 0.03 K/uL (0.00-0.02) H 03/15/19 11:37 Neut # (Auto) 4.11 K/uL (1.4-6.5) 03/15/19 11:37 Lymph # (Auto) 3.42 K/uL (1.2-3.4) H 03/15/19 11:37 Bell # (Auto) 1.28 K/uL (0.11-0.59) H 03/15/19 11:37 Eos # (Auto) 0.27 K/uL (0-0.5) 03/15/19 11:37 Baso # (Auto) 0.03 K/uL (0-0.2) 03/15/19 11:37 PT 10.1 Seconds (9.0-12.0) 03/15/19 11:45 INR 1.0 (0.9-1.1) 03/15/19 11:45 Sodium 133 mmol/L (136-145) L 03/16/19 06:44 Potassium 4.5 mmol/L (3.5-5.1) 03/16/19 06:44 Chloride 101 mmol/L (98-107) 03/16/19 06:44 Carbon Dioxide 27 mmol/L (21-32) 03/16/19 06:44 Anion Gap 5.0 (3-11) 03/16/19 06:44 BUN 32 mg/dl (7-18) H 03/16/19 06:44 Creatinine 1.71 mg/dl (0.6-1.4) H 03/16/19 06:44 Est Cr Clr Drug Dosing 42.3 ml/min 03/16/19 06:44 Est GFR ( Amer) 44.1 03/16/19 06:44 Est GFR (Non-Af Amer) 38.0 03/16/19 06:44 BUN/Creatinine Ratio 18.9 (10-20) 03/16/19 06:44 Glucose 203 mg/dl (70-99) H 03/16/19 06:44 POC Glucose 201 (70-99) H 03/16/19 06:29 Estimat Average Glucose 157 mg/dl 03/16/19 06:44 Hemoglobin A1c 7.1 % (4.5-5.6) H 03/16/19 06:44 Calcium 9.0 mg/dl (8.5-10.1) 03/16/19 06:44 Total Bilirubin 0.3 mg/dl (0.2-1) 03/15/19 11:37 AST 26 U/L (15-37) 03/15/19 11:37 ALT 14 U/L (12-78) 03/15/19 11:37 Alkaline Phosphatase 75 U/L (45-117) 03/15/19 11:37 Total Protein 8.0 gm/dl (6.4-8.2) 03/15/19 11:37 Albumin 3.6 gm/dl (3.4-5.0) 03/15/19 11:37 Globulin 4.4 gm/dl (2.5-4.0) H 03/15/19 11:37 Albumin/Globulin Ratio 0.8 (0.9-2) L 03/15/19 11:37 Lipase 104 U/L (73-393) 03/15/19 11:37 Urine Color Yellow 03/15/19 11:55 Urine Appearance Clear (Clear) 03/15/19 11:55 Urine pH 5.0 (4.5-7.5) 03/15/19 11:55 Ur Specific Marshall 1.016 (1.000-1.030) 03/15/19 11:55 Urine Protein Trace (Negative) H 03/15/19 11:55 Urine Glucose (UA) Negative (Negative) 03/15/19 11:55 Urine Ketones Negative (Negative) 03/15/19 11:55 Urine Blood Negative (Negative) 03/15/19 11:55 Urine Nitrite Negative (Negative) 03/15/19 11:55 Urine Bilirubin Negative (Negative) 03/15/19 11:55 Urine Urobilinogen Negative (Negative) 03/15/19 11:55 Ur Leukocyte Esterase 2+ (Negative) H 03/15/19 11:55 Urine WBC (Auto) 5-10 /hpf (0-5) H 03/15/19 11:55 Urine RBC (Auto) 0-4 /hpf (0-4) 03/15/19 11:55 U Hyaline Cast (Auto) 5-10 /lpf (0-5) H 03/15/19 11:55 U Epithel Cells (Auto) 10-20 /lpf (0-5) H 03/15/19 11:55 Urine Bacteria (Auto) Negative (Negative) 03/15/19 11:55 Valproic Acid 54 mcg/ml (50-100) 03/15/19 11:37 Diagnostic Findings ECG 03/15/19: Sinus rhythm at 66 bpm. Premature supraventricular complexes. Nonspecific intraventricular conduction delay. Minimal voltage criteria for LVH.
[2019-03-16] MEDS: HEPARIN SOD 5,000 UNIT/0.5 ML VIAL SQ SCH ×2 (12:17→21:37)
[2019-03-16] MEDS ORDERED: PHARMACY GLYCEMIC MGMT CONSULT PRN (15:20)
[2019-03-16] MEDS ORDERED: MAGNESIUM CITRATE 296 ML/BTL PO STA (15:32)
--- NOTE | 2019-03-16 15:32 | Hospitalist Progress Note ---
Date of Service March 16, 2019 Assessment & Plan (1) Lumbar spinal stenosis: Severe central canal stenosis at L3-L4 and L4-L5 & multilevel foraminal narrowing, severe bilaterally at L4-L5 seen on MRI on 03/15. - Orthopedic spine consult - Pain control, gabapentin - Steroids started by admitting physician; will try to quickly taper given his DM (2) CKD (chronic kidney disease) stage 3, GFR 30-59 ml/min: Baseline Cr ~1.3-1.5; eGFR 40-50. - Cr was 1.9 on admission. - On 03/16, after IV fluids, Cr was down to 1.7. - Renally-dose medication - Monitor Cr (3) Diabetes: A1c wa 7.1% on admission. - Continue long-acting and sliding scale insulin - Glycemic pharmacist consult (4) Heart disease: Prior CABG. - Holding ASA/Plavix for possible surgery - Continue lisinopril, metoprolol, statin (5) Hypertension: BP has been 130/65 to 160/75 while inpatient. - Continue ACEi and beta-joe as above (6) Bipolar disorder: Patient is on Lamictal & Depakote for mood stabilization due to his bipolar disorder he states this is been doing well for him. Valproic acid level was 54 (in desired range) on 03/15/2019. 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 - Pneumovax (8) DVT prophylaxis: SCDs for DVT prevention Subjective Still with pain in the lower back with sciatica. Constipation. Review of Systems Review of Systems: All systems reviewed & are unremarkable except as noted in HPI & below Constitutional: + fatigue and + weakness Physical Exam Constitutional: WD/WN, vitals as above Eyes: EOM intact bilaterally; no conjunctival abnormality ENMT: external ear and nose normal, oropharynx normal Neck: trachea midline, no thyromegaly normal visual inspection Respiratory: normal respiratory effort, lungs clear to auscultation no respiratory distress Cardiovascular: RRR, no murmur, no edema Gastrointestinal (Abdomen): Inspection/Auscultation: abdomen normal to inspection; abdomen not distended Musculoskeletal: no cyanosis or clubbing, extremities motor strength 5/5 Skin: no rashes, warm and dry Neurologic: moves all extremities and awake Psychiatric: Orientation: alert, oriented to person and cooperative Results & Data Vital Signs (Past 12 Hours) Vital Signs Temp Pulse Resp BP Pulse Ox 03/16/19 06:43 36.7 C 58 L 14 129/64 92
--- NOTE | 2019-03-16 15:35 | Pharmacy Report ---
Glycemic Control Consultation - Date of Service March 16, 2019 - Scope Scope: Glycemic Pharmacist consulted by Dr Damon Cornejo on 03/16/19 for glycemic control and to write orders per [facility] inpatient glycemic control protocol - Objective Weight: 97.6 kg Accuchecks BSG (last 24hrs): 03/15/19 03/15/19 03/16/19 17:18 21:04 06:29 Glucose POC Glucose 204 H 188 H 201 H 03/16/19 03/16/19 06:44 12:02 Glucose 203 H POC Glucose 173 H Laboratory Data (last 24hrs): 03/16/19 06:44 Potassium 4.5 Carbon Dioxide 27 Anion Gap 5.0 Creatinine 1.71 H Est Cr Clr Drug Dosing 42.3 HbA1c: Hemoglobin A1c 7.1 % (4.5-5.6) H 03/16/19 06:44 - Recent Pertinent Medications Outpatient Anti-diabetic Regimen: * Lantus 28 units SQ qAM * A1c = 7.1 % 03/16/19 The patient is currently receiving: * Basal insulin: Lantus 14 units every 24 hours * Correctional Insulin: Novolog Correction per scale ACHS Goal Range: Low 80 mg/dL - High 140 mg/dL Correction Factor: 20 mg/dL/unit * Prandial insulin: Per carb ratio of 1 unit per 10 grams CHO consumed * Oral Agents: Risk Factors for Insulin Resistance: * Steroids: dexamethasone 10 mg x 1 then dexamethasone 4 mg IV q6 hours * Diet: NPO now T2D - Assessment & Plan Assessment & Plan: ASSESSMENT: * Mr De La Rosa is a 78 y/o M with a PMH of well controlled T2DM who presents with intractable back pain. Patient was previously not eating so blood sugars were not that elevated. Now patient has diet ordered so expect blood sugars to increase substantially. * Patient received half dose of Lantus this morning since he was NPO. Will order subsequent Lantus 14 units now to make 28 units plus additional dose this evening based upon blood sugars. Uncertain how fast blood sugars will trend upwards. * For Novolog, will utilize weight-based stress of 3 for Novolog. Tested patient's home dose of 40 units stressed but weight-based was more aggressive. Utilize this for now. * Pt is maintained on oral antidiabetic agents as an outpatient * Oral agents are not recommended for inpatient use d/t drug interactions, changing PO intake, and difficulty titrating for acute hyper/hypoglycemia. ADA recommends re-initiating outpatient oral agents 1-2 days prior to discharge if/when appropriate if they were held on admission. * Will hold oral agents for admission and utilize SQ basal bolus insulin regimen which is the recommended regimen for inpatient glycemic control. * Will initiate weight based insulin dosing for insulin tr patient and titrate based on BSG trends. PLAN FOR INPATIENT GLYCEMIC CONTROL: * Holding outpatient oral diabetes medications * Basal insulin * Lantus 28 units SQ in AM plus Lantus 0-15 units HS (0 units if blood sugar below 140 mg/dL; 10 units if blood sugar 140-180 mg/dL; 15 units if blood sugar greater than 180 mg/dL) * Bolus insulin * NovoLog per scale ACHS or Q6hrs while NPO * Goal Range: Low 110 mg/dL - High 140 mg/dL * Correction Factor: 15 mg/dL/unit * Nutritional / Prandial insulin per carb ratio of 1 unit per 5 grams CHO consumed * Please note that the plan above was derived based on current level of insulin resistance and hospital stress. These recommendations are appropriate for inpatient admission only. Plan of care upon discharge will need to be reassessed to avoid potential outpatient hypo/hyperglycemia. Thank you.
--- NOTE | 2019-03-16 16:28 | Orthopedic Consultation ---
Date of Consultation March 16, 2019 Assessment & Plan (1) Lumbar spinal stenosis: Patient has severe multilevel spinal stenosis mostly at 3445. Is markedly limiting in nature. We had a long discussion today with his in the room regarding treatment options. We could consider a course of epidural injections however I did emphasize his stenosis is markedly severe and it would not anticipate any significant results. We discussed surgical treatment which would require a lumbar decompression and possible fusion L3-4 L4-5. Risk benefits pros cons and alternatives were outlined in detail. Risks include but not limited to from anesthesia blindness stroke paralysis nerve damage blood loss current transfusion infection requiring reoperation. This will be marked improvement of his neurogenic claudication. This time the patient is markedly uncomfortable like to pursue surgery. We will have him undergo preoperative assessment throughout the weekend and plan for ORIF Tuesday if possible. Present on Admission?: Yes History of Present Illness Reason for Consultation: Back and bilateral leg pain Attending Physician: Blair Cornejo MD History of Present Illness Is a very pleasant 78-year-old male who presents the emergency room last evening with worsening incapacitating back and bilateral leg pain. Is progressed over the past several months. Is markedly limited his ability to stand and ambulate any distance. It has on occasion awaken him from sleep. Denies any loss of bowel bladder control. He is undergone physical therapy many years ago for spinal stenosis has not had any recent epidural injections. Allergies Allergy/AdvReac Type Severity Reaction Status Date / Time Bactrim Allergy Severe SEVERE RASH Verified 03/16/16 10:11 sulfamethoxazole Allergy Severe SEVERE RASH Verified 03/15/19 11:54 trimethoprim Allergy Severe SEVERE RASH Verified 03/15/19 11:54 amoxicillin AdvReac Mild VOMITING Verified 03/15/19 11:54 clavulanic acid AdvReac Mild VOMITING Verified 03/15/19 11:54 Home Medications Home Medications Medication Instructions Recorded Confirmed Type aspirin 81 mg PO QAM 01/26/19 03/15/19 History cholecalciferol (vitamin D3) 3,000 unit PO QAM 01/26/19 03/15/19 History [Vitamin D3] clopidogrel 75 mg PO QAM 01/26/19 03/15/19 History cyclobenzaprine 5 mg PO BID PRN 01/26/19 03/15/19 History divalproex 500 mg PO BID 01/26/19 03/15/19 History gabapentin 300 mg PO UD 01/26/19 03/15/19 History insulin glargine [Lantus Solostar 28 unit SUBCUT QAM 01/26/19 03/15/19 History U-100 Insulin] insulin lispro [Humalog KwikPen 12 unit SUBCUT QAM 01/26/19 03/15/19 History Insulin] lamotrigine 200 mg PO PM 01/26/19 03/15/19 History lisinopril-hydrochlorothiazide 1 tab PO QAM 01/26/19 03/15/19 History metformin 1,000 mg PO BIDM 01/26/19 03/15/19 History metoprolol tartrate 50 mg PO BID 01/26/19 03/15/19 History nitroglycerin [Nitrostat] 0.4 mg SUBLINGUAL UD 01/26/19 03/15/19 History prednisolone acetate 1 drp OPL QID 01/26/19 03/15/19 History ranitidine HCl 150 mg PO BID 01/26/19 03/15/19 History rosuvastatin 40 mg PO PM 01/26/19 03/15/19 History tramadol 50 mg PO Q4H PRN 01/26/19 03/15/19 History vitamin P35-pvwim acid [Foltrate] 1 tab PO QAM 01/26/19 03/15/19 History Patient History Family History Other Family history non-contributory Social History Preferred Language: Portuguese Communication Ability: Effective Floral Specialist Required: No Beliefs That Will Affect Care: None Current Living Situation: Significant Other Other Information That Helps Us Care for You: No Feels Safe at Home: Yes Safety Concerns: Feels Safe At This Time Smoking Status: Never smoker Do You Dip or Chew Tobacco: No Second Hand Exposure: No Tobacco Cessation Education Requested by Patient: No Hx Alcohol Use: Yes Alcohol type: beer, wine and hard liquor Hx Substance Use: No Physical Exam Physical Exam: On exam he has reasonable plantar flexion dorsiflexion extensor hallucis longus. No gross tension signs. He was able to stand for me. But quickly had to sit down secondary to shooting pains in his back and bilateral buttocks. Sensory appears to be symmetric and intact. Results & Data Vital Signs (Past 12 Hours) Vital Signs Temp Pulse Resp BP Pulse Ox 03/16/19 15:35 36.5 C 59 L 17 134/63 96 03/16/19 06:43 36.7 C 58 L 14 129/64 92
[2019-03-16] MEDS ORDERED: INSULIN GLARGINE SOLOSTAR 100 UNITS/ML 3 ML PEN SC ONE (16:30)
[2019-03-16] MEDS: lamoTRIgine 100 MG TAB PO SCH (21:35)
[2019-03-16] MEDS: ROSUVASTATIN CALCIUM 20 MG TAB PO SCH (21:35)
[2019-03-16] MEDS: INSULIN GLARGINE SOLOSTAR 100 UNITS/ML 3 ML PEN SC SCH (21:49)
[2019-03-17] MEDS: DEXAMETHASONE SOD PHOSPHATE 4 MG in SYRINGE 0 ML IV SCH ×3 (04:36→15:20)
[2019-03-17 08:00] LABS: Hemoglobin 12.6 g/dL (14.0-18.0); Mean Corpuscular Hgb Conc 34.1 g/dL (32-36); Mean Corpuscular Volume 94.9 fL (80-100); Mean Platelet Volume 12.5 fL (7.4-10.4); Platelet Count 200 K/uL (130-400); RDW Coefficient of Variation 13.6 % (11.5-14.5); RDW Standard Deviation 47.3 fL (36.4-46.3); White Blood Count 15.76 K/uL (4.8-10.8)
[2019-03-17 08:40] LABS: BUN Creatinine Ratio 23.1 (10-20); Calcium 9.5 mg/dl (8.5-10.1); Creatinine Clr Calc Pharmacy 41.9 ml/min; Est GFR (African American) 43.5; Est GFR (Non-African American) 37.5; Potassium 4.5 mmol/L (3.5-5.1)
[2019-03-17] MEDS ORDERED: INSULIN GLARGINE SOLOSTAR 100 UNITS/ML 3 ML PEN SQ SCH (09:00)
[2019-03-17] MEDS: GABAPENTIN 300 MG CAP PO SCH ×3 (09:04→21:12)
[2019-03-17] MEDS: LISINOPRIL/HCTZ 20/25MG 1 TAB PO SCH (09:05)
[2019-03-17] MEDS: HEPARIN SOD 5,000 UNIT/0.5 ML VIAL SQ SCH ×2 (09:06→21:12)
[2019-03-17] MEDS: METOPROLOL TARTRATE 50 MG TAB PO SCH ×2 (09:07→21:12)
[2019-03-17] MEDS: DIVALPROEX DELAY RELEASE 500 MG TAB PO SCH ×2 (09:07→21:16)
[2019-03-17] MEDS: prednisoLONE acetate 1% OP SUSP 5 ML BTL OPL SCH ×4 (09:07→21:12)
[2019-03-17] MEDS: POLYETHYLENE (MIRALAX) 17 GM PACK PO SCH (09:08)
[2019-03-17] MEDS: INSULIN GLARGINE SOLOSTAR 100 UNITS/ML 3 ML PEN SQ SCH (09:09)
[2019-03-17] MEDS: INSULIN ASPART 100 UNITS/ML 3 ML PEN SC SCH ×4 (09:10→21:14)
--- NOTE | 2019-03-17 09:11 | Pharmacy Report ---
Pharmacy Glycemic Short Note 2 - Date of Service March 17, 2019 - Glycemic Short BSG Results (Last 24 hours): 03/16/19 03/16/19 03/16/19 12:02 17:35 20:08 Glucose POC Glucose 173 H 246 H 301 H* 03/16/19 03/17/19 03/17/19 21:02 07:45 08:10 Glucose 164 H POC Glucose 278 H 177 H OUTPATIENT ANTIDIABETIC REGIMEN: * Lantus 28 units SQ AM * Humalog 12 units AC * Metformin 1,000mg PO BIDM ASSESSMENT: * 78yo T2DM male with excellent outpatient control per A1c of 7.1% on 03/16/19 * Pt with significant, sustained, hyperglycemia secondary to RTC high dose steroids with dexamethasone 4mg IV Q6hrs * Typically patients require ~0.4units/kg (~ 40 units for patient) additional insulin (on top of baseline needs) for high dose steroids. * Will continue outpatient regimen of Lantus 28 units SQ AM for easy transition back to outpatient * Will add HS dose of Lantus and aggressive CF/CR to equal ~ 40 additional units split 50%:50% basal/prandial * Estimated total daily dose ~ 100 units/day while on steroids. * Will decrease steroids with each step down in steroid dosing to prevent hypoglycemia PLAN FOR INPATIENT GLYCEMIC CONTROL: * Hold outpatient oral diabetes medications * Basal insulin * Lantus 28 units SQ AM * Lantus 20-30 units SQ HS depending on degree of hyperglycemia * Bolus insulin: weight and high stress/steroid dosing parameters * NovoLog per scale ACHS or Q6hrs while NPO * Goal Range: Low 110 mg/dL - High 140 mg/dL * Correction Factor: 15 mg/dL/unit * Nutritional / Prandial insulin per carb ratio of 1 unit per 5 grams CHO consumed PLAN FOR DISCHARGE: * No changes needed to outpatient regimen based on adequate A1c. Patient may require insulin adjustment if dc on steroid taper.
--- NOTE | 2019-03-17 11:21 | Orthopedic Progress Note ---
Date of Service March 17, 2019 Assessment & Plan (1) Lumbar spinal stenosis: This time we will plan for surgery on Tuesday. Will require a lumbar decompression and fusion L3-4 and L4-5. He will be off Plavix for several days at this point which is of course ideal. Risk benefits pros cons and description of the surgery were again reviewed. He did hold heparin and make him n.p.o. beginning Tuesday evening. Present on Admission?: Yes Subjective Patient still has back and leg pain though getting some modest results from the steroids. Physical Exam Physical Exam: On exam he was standing for short period time with me today. He does have reasonable strength testing lower extremities. Results & Data Vital Signs (Past 12 Hours) Vital Signs Temp Pulse Pulse Resp BP BP Pulse Ox 03/17/19 08:06 36.7 C 54 L 16 170/80 H 95 03/16/19 23:28 37.0 C 58 L 14 132/67 96 (1) Lumbar spinal stenosis Neurogenic claudication status: unspecified Qualified Code(s): M48.061 - Spinal stenosis, lumbar region without neurogenic claudication
--- NOTE | 2019-03-17 17:31 | Hospitalist Progress Note ---
Date of Service March 17, 2019 Assessment & Plan (1) Lumbar spinal stenosis: Severe central canal stenosis at L3-L4 and L4-L5 & multilevel foraminal narrowing, severe bilaterally at L4-L5 seen on MRI on 03/15. - Orthopedic spine consulted - Plan for surgery on Tuesday - Pain control, gabapentin - Steroids started by admitting physician; will try to quickly taper given his DM Patient has had multiple procedures in the past without anesthesia complications. Fernando Gertrude-operative score is 0.8% (ASA 3, with elevated troponin). Per AHA/ACC guidelines, does not need additional pre-operative testing. Seen by cardiology on 03/16 with thought that if the patient needs urgent inpatient surgery, he is an acceptable risk to proceed with surgery. (2) CKD (chronic kidney disease) stage 3, GFR 30-59 ml/min: Baseline Cr ~1.3-1.5; eGFR 40-50. - Cr was 1.9 on admission. - On 03/16, after IV fluids, Cr was down to 1.7; stable on 03/17 - Renally-dose medications - Monitor Cr (3) Diabetes: A1c wa 7.1% on admission. - Continue long-acting and sliding scale insulin - Glycemic pharmacist consult (4) Heart disease: Prior CABG. - Holding ASA/Plavix for possible surgery - Continue lisinopril, metoprolol, statin (5) Hypertension: BP has been 130/65 to 160/75 while inpatient. - Continue ACEi and beta-joe as above (6) Bipolar disorder: Patient is on Lamictal & Depakote for mood stabilization due to his bipolar disorder he states this is been doing well for him. Valproic acid level was 54 (in desired range) on 03/15/2019. 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 - Pneumovax (8) DVT prophylaxis: SCDs for DVT prevention Subjective Significantly improved on the steroids. Review of Systems Review of Systems: All systems reviewed & are unremarkable except as noted in HPI & below Physical Exam Constitutional: WD/WN, vitals as above Eyes: EOM intact bilaterally; no conjunctival abnormality ENMT: external ear and nose normal, oropharynx normal Neck: trachea midline, no thyromegaly normal visual inspection Respiratory: normal respiratory effort, lungs clear to auscultation no respiratory distress Cardiovascular: RRR, no murmur, no edema Gastrointestinal (Abdomen): Inspection/Auscultation: abdomen normal to inspection; abdomen not distended Musculoskeletal: no cyanosis or clubbing, extremities motor strength 5/5 Skin: no rashes, warm and dry Neurologic: moves all extremities and awake Psychiatric: Orientation: alert, oriented to person and cooperative Results & Data Vital Signs (Past 12 Hours) Vital Signs Temp Pulse Resp BP BP Pulse Ox 03/17/19 15:23 36.9 C 57 L 17 140/82 98 03/17/19 11:45 36.7 C 58 L 18 120/70 99 03/17/19 08:06 36.7 C 54 L 16 170/80 H 95
[2019-03-17] MEDS: INSULIN GLARGINE SOLOSTAR 100 UNITS/ML 3 ML PEN SC SCH (21:13)
[2019-03-17] MEDS: lamoTRIgine 100 MG TAB PO SCH (21:16)
[2019-03-17] MEDS: ROSUVASTATIN CALCIUM 20 MG TAB PO SCH (21:16)
[2019-03-18] MEDS: DEXAMETHASONE SOD PHOSPHATE 4 MG in SYRINGE 0 ML IV SCH ×3 (00:29→15:49)
[2019-03-18] MEDS: LORazepam 0.5 MG/1 ML VIAL IV PRN (00:55)
--- NOTE | 2019-03-18 09:09 | XRay Report ---
TWO VIEW CHEST CLINICAL HISTORY: Preoperative examination.. FINDINGS: PA and lateral chest radiographs are compared to study dated 03/17/2012. The patient is statu s post midline sternotomy. The heart is enlarged and there is atherosclerotic calcification of the th oracic aorta. The pulmonary vasculature is noncongested. The lungs and pleural spaces are clear. The re is no pneumothorax. The skeletal structures are osteopenic. Degenerative change is seen throughout the thoracic spine. The bony thorax appears intact. IMPRESSION: Cardiomegaly with no active disease in the chest. Electronically signed by: Larry Chirinos M.D. 03/18/2019 9:07 AM
[2019-03-18] MEDS: HEPARIN SOD 5,000 UNIT/0.5 ML VIAL SQ SCH (09:39)
[2019-03-18] MEDS: prednisoLONE acetate 1% OP SUSP 5 ML BTL OPL SCH ×4 (09:39→21:28)
[2019-03-18] MEDS: POLYETHYLENE (MIRALAX) 17 GM PACK PO SCH (09:39)
[2019-03-18] MEDS: DIVALPROEX DELAY RELEASE 500 MG TAB PO SCH ×2 (09:39→21:23)
[2019-03-18] MEDS: LISINOPRIL/HCTZ 20/25MG 1 TAB PO SCH (09:39)
[2019-03-18] MEDS: GABAPENTIN 300 MG CAP PO SCH ×3 (09:39→21:24)
[2019-03-18] MEDS: INSULIN GLARGINE SOLOSTAR 100 UNITS/ML 3 ML PEN SQ SCH (09:40)
[2019-03-18] MEDS: INSULIN ASPART 100 UNITS/ML 3 ML PEN SC SCH ×4 (09:41→21:25)
[2019-03-18] MEDS: METOPROLOL TARTRATE 50 MG TAB PO SCH ×2 (09:42→21:23)
--- NOTE | 2019-03-18 12:21 | Pharmacy Report ---
Pharmacy Glycemic Short Note 2 - Date of Service March 18, 2019 - Glycemic Short BSG Results (Last 24 hours): 03/17/19 03/17/19 03/17/19 12:30 17:32 20:46 POC Glucose 260 H 193 H 259 H 03/17/19 03/18/19 23:55 08:13 POC Glucose 213 H 144 H OUTPATIENT ANTIDIABETIC REGIMEN: * Lantus 28 units SQ AM * Humalog 12 units AC * Metformin 1,000mg PO BIDM ASSESSMENT: * 78yo T2DM male with excellent outpatient control per A1c of 7.1% on 03/16/19 * Pt with significant, sustained, hyperglycemia secondary to RTC high dose steroids with dexamethasone 4mg IV Q6hrs --> just tapered to Q8hrs yesterday. May see a mild improvement with this step down in dosing but still need to dose insulin with high stress dosing * Typically patients require ~0.4units/kg (~ 40 units for patient) additional insulin (on top of baseline needs) for high dose steroids. * Will continue outpatient regimen of Lantus 28 units SQ AM for easy transition back to outpatient * Will add HS dose of Lantus and aggressive CF/CR to equal ~ 40 additional units split 50%:50% basal/prandial * Estimated total daily dose ~ 100 units/day while on steroids. * Pt received 121 units of insulin over the past 24hrs * BSGs ranging 144-260 mg/dl * AM fasting BSG in goal range. No changes needed to Lantus * Post-prandial BSGs still elevated, will tighten CR * Will decrease steroids with each step down in steroid dosing to prevent hypoglycemia PLAN FOR INPATIENT GLYCEMIC CONTROL: * Hold outpatient oral diabetes medications * Basal insulin * Lantus 30 units SQ BID * Will need decreased significantly when dxm dc * Bolus insulin: weight and high stress/steroid dosing parameters; tighten CR from 5 to 4 * NovoLog per scale ACHS or Q6hrs while NPO * Goal Range: Low 110 mg/dL - High 140 mg/dL * Correction Factor: 15 mg/dL/unit * Nutritional / Prandial insulin per carb ratio of 1 unit per 4 grams CHO consumed PLAN FOR DISCHARGE: * No changes needed to outpatient regimen based on adequate A1c. Patient may require insulin adjustment if dc on steroid taper.
--- NOTE | 2019-03-18 17:42 | Hospitalist Progress Note ---
Date of Service March 18, 2019 Assessment & Plan (1) Lumbar spinal stenosis: Severe central canal stenosis at L3-L4 and L4-L5 & multilevel foraminal narrowing, severe bilaterally at L4-L5 seen on MRI on 03/15. - Orthopedic spine consulted - Plan for surgery on Tuesday - Pain control, gabapentin - Steroids started by admitting physician; will stop prior to surgery to prevent post-op wound healing issues. (2) CKD (chronic kidney disease) stage 3, GFR 30-59 ml/min: Baseline Cr ~1.3-1.5; eGFR 40-50. - Cr was 1.9 on admission. - On 03/16, after IV fluids, Cr was down to 1.7; stable on 03/17 - Renally-dose medications - Monitor Cr (3) Diabetes: A1c wa 7.1% on admission. - Continue long-acting and sliding scale insulin - Glycemic pharmacist consult (4) Heart disease: Prior CABG. - Continue lisinopril, metoprolol, statin - Holding ASA/Plavix for surgery - Restart when cleared by surgery (5) Hypertension: BP has been 130/65 to 160/75 while inpatient. - Continue ACEi and beta-joe as above (6) Bipolar disorder: Patient is on Lamictal & Depakote for mood stabilization due to his bipolar disorder he states this is been doing well for him. Valproic acid level was 54 (in desired range) on 03/15/2019. 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 - Pneumovax (8) DVT prophylaxis: SCDs for DVT prevention Subjective Back pain almost entirely resolved. Will proceed with surgery tomorrow. Review of Systems Review of Systems: All systems reviewed & are unremarkable except as noted in HPI & below Physical Exam Constitutional: WD/WN, vitals as above Eyes: EOM intact bilaterally; no conjunctival abnormality ENMT: external ear and nose normal, oropharynx normal Neck: trachea midline, no thyromegaly normal visual inspection Respiratory: normal respiratory effort, lungs clear to auscultation no respiratory distress Cardiovascular: RRR, no murmur, no edema Gastrointestinal (Abdomen): Inspection/Auscultation: abdomen normal to inspection; abdomen not distended Musculoskeletal: no cyanosis or clubbing, extremities motor strength 5/5 Skin: no rashes, warm and dry Neurologic: moves all extremities and awake Psychiatric: Orientation: alert, oriented to person and cooperative Results & Data Vital Signs (Past 12 Hours) Vital Signs Temp Pulse Resp BP BP Pulse Ox 03/18/19 16:49 138/71 03/18/19 15:39 36.9 C 56 L 16 181/73 H 97 03/18/19 09:30 71 116/57 L 03/18/19 07:09 36.7 C 48 L 18 133/69 95
[2019-03-18] MEDS: ROSUVASTATIN CALCIUM 20 MG TAB PO SCH (21:24)
[2019-03-18] MEDS: lamoTRIgine 100 MG TAB PO SCH (21:24)
[2019-03-18] MEDS: INSULIN GLARGINE SOLOSTAR 100 UNITS/ML 3 ML PEN SC SCH (21:26)
[2019-03-19] MEDS ORDERED: Nursing to Pharmacy Communication ONE ×2 (01:31→17:22)
--- NOTE | 2019-03-19 04:24 | Progress Note ---
Date of Service March 19, 2019 Received a page from the bedside nurse reviewing patient's recent history, planned surgery today, and noted glucose levels trending downwards. Has been getting steroids. She spoke with pharmacy who recommended, while NPO, to start some dextrose-containing fluids. On brief chart review, no reports of heart failure by history or exam. - Will start D5 1/2 NS at 100 mL/hr. - Glucose checks ongoing. Vishnu Kim, PGY2 Overnight call Results & Data Vital Signs (Past 12 Hours) Vital Signs Temp Pulse Resp BP Pulse Ox 03/18/19 23:15 36.8 C 50 L 14 138/80 94 03/18/19 16:49 138/71
[2019-03-19] MEDS: D5W AND 1/2NSS 1,000 ML IV SCH ×2 (04:34→14:46)
[2019-03-19] MEDS: INSULIN ASPART 100 UNITS/ML 3 ML PEN SC SCH ×4 (06:18→21:54)
[2019-03-19 06:22] LABS: Hematocrit (blood only) 38.2 % (42-52); Hemoglobin 13.2 g/dL (14.0-18.0); Mean Corpuscular Hgb Conc 34.6 g/dL (32-36); Mean Corpuscular Volume 94.8 fL (80-100); Mean Platelet Volume 12.6 fL (7.4-10.4); Platelet Count 208 K/uL (130-400); RDW Coefficient of Variation 13.7 % (11.5-14.5); RDW Standard Deviation 47.3 fL (36.4-46.3); Red Blood Count 4.03 M/uL (4.7-6.1)
[2019-03-19 07:05] LABS: BUN Creatinine Ratio 22.8 (10-20); Calcium 9.1 mg/dl (8.5-10.1); Creatinine Clr Calc Pharmacy 49.3 ml/min; Est GFR (African American) 52.9; Est GFR (Non-African American) 45.7; Magnesium 2.6 mg/dl (1.8-2.4)
[2019-03-19] MEDS: INSULIN GLARGINE SOLOSTAR 100 UNITS/ML 3 ML PEN SQ SCH ×2 (09:17→09:24)
[2019-03-19] MEDS: METOPROLOL TARTRATE 50 MG TAB PO SCH ×2 (09:25→21:48)
[2019-03-19] MEDS: DIVALPROEX DELAY RELEASE 500 MG TAB PO SCH ×2 (09:26→21:48)
[2019-03-19] MEDS: GABAPENTIN 300 MG CAP PO SCH ×3 (09:26→21:48)
[2019-03-19] MEDS: prednisoLONE acetate 1% OP SUSP 5 ML BTL OPL SCH ×4 (09:27→21:49)
[2019-03-19] MEDS: LISINOPRIL/HCTZ 20/25MG 1 TAB PO SCH (09:28)
[2019-03-19] MEDS: POLYETHYLENE (MIRALAX) 17 GM PACK PO SCH (09:28)
[2019-03-19] MEDS ORDERED: fentaNYL citrate 100 MCG/2 ML VIAL ONE ×3 (10:20→13:21)
[2019-03-19] MEDS ORDERED: HYDROmorphone INJ 2 MG/ML SYR/VIAL IV PRN (11:14)
[2019-03-19] MEDS ORDERED: ONDANSETRON INJ 2 MG/ML 2 ML VIAL IV PRN ×2 (11:14→15:53)
[2019-03-19] MEDS ORDERED: fentaNYL citrate 100 MCG/2 ML VIAL IV PRN (11:14)
[2019-03-19] MEDS ORDERED: ATROPINE SULFATE 0.1 MG/ML 10ML SYR IV PRN (11:14)
[2019-03-19] MEDS ORDERED: ePHEDrine sulfate 50 MG/ML AMP IV PRN (11:14)
--- NOTE | 2019-03-19 11:14 | Anesthesiology Consultation ---
Date of Service March 19, 2019 CABG IDDM HTN CKD (resolving TAMY) Bipolar Assessment & Plan (1) Encounter for pre-operative examination: Chart Review Chart Review: Acceptable Risk for Surgery and Patient NOT seen in Pre Admission Testing Consults Requested none ASA ASA3 Proposed Anesthesia Anesthesia Type: General Risk / Benefits Reviewed With: PT / POA / Parent / Guardian, Accepts Plan and Informed Consent Obtained History Surgery Operation Date: 03/19/19 12:05 Proposed Procedures p L3-L4, L4-L5 Lumbar Decompression and Fusion - Dio Rodriguez, Height/Weight Height: 5 ft 9 in Weight: 97.6 kg Allergies Allergy/AdvReac Type Severity Reaction Status Date / Time Bactrim Allergy Severe SEVERE RASH Verified 03/16/16 10:11 sulfamethoxazole Allergy Severe SEVERE RASH Verified 03/15/19 11:54 trimethoprim Allergy Severe SEVERE RASH Verified 03/15/19 11:54 amoxicillin AdvReac Mild VOMITING Verified 03/15/19 11:54 clavulanic acid AdvReac Mild VOMITING Verified 03/15/19 11:54 Medications Home Medications Medication Instructions Recorded Confirmed Last Taken aspirin 81 mg PO QAM 01/26/19 03/15/19 01/30/19 cholecalciferol (vitamin D3) 3,000 unit PO QAM 01/26/19 03/15/19 01/30/19 [Vitamin D3] clopidogrel 75 mg PO QAM 01/26/19 03/15/19 01/30/19 cyclobenzaprine 5 mg PO BID PRN 01/26/19 03/15/19 01/30/19 divalproex 500 mg PO BID 01/26/19 03/15/19 01/30/19 gabapentin 300 mg PO UD 01/26/19 03/15/19 01/30/19 insulin glargine [Lantus Solostar 28 unit SUBCUT QAM 01/26/19 03/15/19 01/30/19 U-100 Insulin] insulin lispro [Humalog KwikPen 12 unit SUBCUT QAM 01/26/19 03/15/19 01/30/19 Insulin] lamotrigine 200 mg PO PM 01/26/19 03/15/19 01/29/19 lisinopril-hydrochlorothiazide 1 tab PO QAM 01/26/19 03/15/19 01/30/19 metformin 1,000 mg PO BIDM 01/26/19 03/15/19 01/30/19 metoprolol tartrate 50 mg PO BID 01/26/19 03/15/19 01/30/19 nitroglycerin [Nitrostat] 0.4 mg SUBLINGUAL UD 01/26/19 03/15/19 Unknown prednisolone acetate 1 drp OPL QID 01/26/19 03/15/19 01/30/19 ranitidine HCl 150 mg PO BID 01/26/19 03/15/19 01/30/19 rosuvastatin 40 mg PO PM 01/26/19 03/15/19 01/29/19 tramadol 50 mg PO Q4H PRN 01/26/19 03/15/19 01/29/19 vitamin [id number] [Foltrate] 1 tab PO QAM 01/26/19 03/15/19 01/30/19 Active Medications Generic Name Dose Route Start Last Admin Trade Name Freq PRN Reason Stop Dose Admin Divalproex Sodium 500 mg 03/15/19 21:00 03/19/19 09:26 Depakote Delay Release PO 04/14/19 20:59 Not Given BID LAMONT Gabapentin 300 mg 03/15/19 21:00 03/19/19 09:26 Neurontin PO 04/14/19 20:59 Not Given TID LAMONT Lisinopril/HCTZ 1 tab 03/16/19 09:00 03/19/19 09:28 Prinzide 20/25mg PO 04/15/19 08:59 Not Given QAM [facility] Heparin Sodium (Porcine) 5,000 units 03/15/19 21:00 03/18/19 09:39 Heparin Sodium (Porcine) SQ 04/14/19 20:59 5,000 units Q12 L[facility]ONT Administration Lorazepam 0.5 mg in 1 mls @ 1 mls/min 03/15/19 16:59 03/18/19 00:55 Ativan IV 04/14/19 16:58 1 mls/min Q4H PRN Administration Agitation Dextrose/Sodium Chloride 1,000 mls @ 100 mls/hr 03/19/19 04:30 03/19/19 06:21 D5w And 1/2nss IV 04/18/19 04:29 100 mls/hr .Q10H L[facility]ONT Infusion Insulin Aspart 0 units 03/19/19 06:00 03/19/19 06:18 Novolog Flexpen SC 04/18/19 05:59 Not Given Q6 [facility] Insulin Glargine 0 units 03/16/19 21:00 03/18/19 21:26 Lantus Solostar Pen SC 04/15/19 20:59 30 units HS LAMONT Administration Protocol Insulin Glargine 0 units 03/17/19 09:00 03/19/19 09:24 Lantus Solostar Pen SQ 04/16/19 08:59 Not Given QAM [facility] Protocol Lamotrigine 200 mg 03/15/19 21:00 03/18/19 21:24 Lamictal PO 04/14/19 20:59 200 mg PM L[facility]ONT Administration Metoprolol Tartrate 50 mg 03/15/19 21:00 03/19/19 09:25 Lopressor PO 04/14/19 20:59 Not Given BID LAMONT Oxycodone HCl 10 mg 03/15/19 16:59 03/15/19 23:29 Roxicodone Immediate Rel PO 03/29/19 16:58 10 mg Q4 PRN Administration Pain Polyethylene Glycol 17 gm 03/15/19 20:00 03/19/19 09:28 Miralax Powder Packet PO 04/14/19 19:59 Not Given DAILY [facility]ONT Prednisolone Acetate 1 drops 03/15/19 17:00 03/19/19 09:27 Pred Forte 1% OPL 04/14/19 16:59 1 drops QID L[facility]ONT Administration Ranitidine HCl 150 mg 03/15/19 21:00 03/19/19 09:27 Zantac PO 04/14/19 20:59 Not Given BID L[facility]ONT Rosuvastatin Calcium 40 mg 03/15/19 21:00 03/18/19 21:24 Crestor PO 04/14/19 20:59 40 mg PM LAMONT Administration NPO Date Last Intake of Fluids: 03/19/19 Time Last Intake of Fluids: 23:15 Last Intake of Fluids Comment: allowed sips with meds. Date Last Intake of Solids: 03/18/19 Time Last Intake of Solids: 23:15 Last Intake of Solids Comment: prior to shift. Past Medical History Medical History Diabetes (Chronic) Heart disease (Chronic) Hypertension (Chronic) Exercise / Class Metabolic Activity II 4-5 Yardwork/Stairs/Walk up hill Past Family History Family History Other Family history non-contributory Past Surgical History Surgical History Hx of CABG (Resolved) History of splenectomy (Resolved) Past Anesthesia History No Hx of Anesthesia Complications and No Family Hx of Anesthesia Complications History of PONV No Hx of PONV and No Hx of Motion Sickness Social History Smoking Status: Never smoker Do You Dip or Chew Tobacco: No Hx Alcohol Use: Yes Alcohol type: beer, wine and hard liquor alcohol intake frequency: 0-2 drinks per day Hx Substance Use: No Physical Exam Vital Signs Last Vital Signs Temp 36.6 C 03/19/19 10:09 Pulse 52 L 03/19/19 10:09 Resp 16 03/19/19 10:09 BP 188/78 H 03/19/19 10:09 Pulse Ox 96 03/19/19 10:09 ENMT Mouth: no dentition abnormality Thyromental Distance: > or= 3.5 Finger Breadths Mallampati Class: II Neck normal visual inspection Respiratory normal respiratory effort Auscultation: lungs clear to auscultation bilaterally Cardiovascular Rate/Rhythm: regular rate and regular rhythm Psychiatric Orientation: alert Testing Laboratory Results 03/19/19 06:00 03/19/19 06:00 PT 10.1 Seconds (9.0-12.0) 03/15/19 11:45 INR 1.0 (0.9-1.1) 03/15/19 11:45 Hemoglobin A1c 7.1 % (4.5-5.6) H 03/16/19 06:44 Urine Color Yellow 03/15/19 11:55 Urine Appearance Clear (Clear) 03/15/19 11:55 Urine pH 5.0 (4.5-7.5) 03/15/19 11:55 Ur Specific [place] 1.016 (1.000-1.030) 03/15/19 11:55 Urine Protein Trace (Negative) H 03/15/19 11:55 Urine Glucose (UA) Negative (Negative) 03/15/19 11:55 Urine Ketones Negative (Negative) 03/15/19 11:55 Urine Nitrite Negative (Negative) 03/15/19 11:55 Ur Leukocyte Esterase 2+ (Negative) H 03/15/19 11:55 Urine WBC (Auto) 5-10 /hpf (0-5) H 03/15/19 11:55 Urine RBC (Auto) 0-4 /hpf (0-4) 03/15/19 11:55 U Hyaline Cast (Auto) 5-10 /lpf (0-5) H 03/15/19 11:55 U Epithel Cells (Auto) 10-20 /lpf (0-5) H 03/15/19 11:55 Urine Bacteria (Auto) Negative (Negative) 03/15/19 11:55 03/15/19 12:23 Urine Culture - Final Urine,Indwelling Cath No growth - less than 1,000 colonies/mL. 03/19/19 03/19/19 03/19/19 10:16 06:01 03:52 POC Glucose 99 92 81 03/19/19 01:57 POC Glucose 111 H
--- NOTE | 2019-03-19 11:17 | History & Physical Bridge Note ---
Date of Service March 19, 2019 History & Physical Bridge Note I have examined the patient, reviewed the History & Physical and in the interval since the performance of the History & Physical I have noted the following changes of clinical significance: no changes noted plan to move forward with a lumbar decompression fusion L3-4 L4-5.
[2019-03-19] MEDS ORDERED: BUPIVACAINE/EPINEPHRINE 0.5% MPF 1:200,000 30 ML VIAL ONE (11:36)
[2019-03-19] MEDS ORDERED: BACITRACIN INJ 50,000 UNIT VIAL ONE (11:36)
[2019-03-19] MEDS ORDERED: CLINDAMYCIN 600 MG/54 ML D5W IV ONE (11:45)
[2019-03-19] MEDS ORDERED: NEOSTIGMINE METHYLSULFATE 1 MG/ML 10ML VIAL ONE (13:13)
[2019-03-19] MEDS ORDERED: PROPOFOL IV EMULSION 10 MG/ML 20 ML VIAL IV ONE (13:13)
[2019-03-19] MEDS ORDERED: ePHEDrine sulfate 50 MG/ML SYR ONE (13:13)
[2019-03-19] MEDS ORDERED: DEXAMETHASONE SOD INJ 4 MG/ML VIAL ONE (13:13)
[2019-03-19] MEDS ORDERED: GLYCOPYRROLATE 0.2 MG/ML VIAL ONE (13:13)
[2019-03-19] MEDS ORDERED: LIDOCAINE HCL 2% 2 ML VIAL/AMP(20MG/ML) INFIL ONE (13:13)
[2019-03-19] MEDS ORDERED: ONDANSETRON INJ 2 MG/ML 2 ML VIAL ONE (13:13)
[2019-03-19] MEDS ORDERED: FLOSEAL HEMOSTATIC MATRIX 10ML TOP ONE (13:29)
[2019-03-19] MEDS ORDERED: PROPOFOL IV EMULSION 10 MG/ML 100 ML VIAL IV ONE (13:33)
--- NOTE | 2019-03-19 14:22 | Operative Report ---
Post Operative Report Pre & Post Diagnosis Operation Date: 03/19/19 12:05 Pre-Op Diagnosis: Intractable Back Pain with severe spinal stenosis Post-Op Diagnosis: Same Procedure Operation Date: 03/19/19 12:05 Actual Procedures #1 lumbar decompression medial facetectomy foraminotomies L2-3 L3-4 L4-5. #2 posterior spinal fusion L3-4 L4-5 per #3 please posterior segmental instrum entation using globus L3-4 L4-5. #4 interbody fusion L3-4 L4-5 per #5 placed a peek cage 11 x 26 mm at L3-4 and L4-5. #6 placement of local autograft in the posterior lateral gutters per #7 placement infuse collagen sponge, mass graft in the posterior lateral gutters and ostial amp and interbody space. Surgeon Dio Rodriguez, DO Supervisor [employer] Jennifer Reddy Estimated Blood Loss 200 Findings See Below Patient is 5 foot 9 and 97 kg with a BMI of 32. Patient is a severe multilevel spinal stenosis this in combination with his body habitus created significant technical difficulty throughout the procedure. He did require our largest retractors and instrumentation to perform the procedure. This added a minimum of 25% increase in total operative time. Specimens None Indications This is a 78-year-old male presents with severe back and bilateral leg pain becoming incapacitating nature with inability to ambulate any distance. Subsequently he elected to go the above-mentioned procedure. Description of Procedure Patient was met with identified and informed consent obtained. Patient was then taken to the operative suite underwent intubation placed in a prone position [facility] frame. All bony prominences well-padded eyes inspected to ensure no external pressure placed upon the peer at this point the lumbar spine was prepped and draped in a normal sterile fashion. Sharp dissection with the assistance of Bovie cautery was performed down to and exposing the lamina and transverse processes of L3-L4 5 bilaterally. From a caudal to cephalad fashion complete laminectomy of L4 L3 and partial imaging of L2 was performed including bilateral medial facetectomies and foraminotomies to address severe multilevel stenosis. Pedicle screws were then placed in L3-L4-L5 bilaterally with assistance of fluoroscopy the purposes tim placed. By way of a transforaminal approach on the right complete discectomy was performed in plate coated to subcortical mean bone and a 11 x 26 mm peek cage filled with osteo-amp bone graft tapped in position. Then proceeded to L3-[address] of transfemoral approach complete discectomy performed in plate graded to subcortical bleeding bone and again an 11 x 26 mm peek cage filled with ostium bone graft tapped in position. The rods were then locked into final position bilaterally. Transverse processes of L3-L4-L5 bur to subcortical B bone. Infuse collagen sponge mass graft local autograft placed in the posterior lateral gutters. 15 round YANIQUE drain inserted. The incision was then closed with 1 Vicryl in the fascia 2-0 Vicryl substantially and 4-0 Monocryl for final skin closure. Steri-Strip sterile dressing placed. Patient will continue PACU stable disc. Please note Jennifer Reddy present on the entire procedure involved in patient positioning complex portions of the surgery and final skin closure. Lastly spinal cord monitoring was utilized throughout the procedure and no abnormalities were noted. I attest to the content of the Intraoperative Record and any orders documented therein. Any exceptions are noted below.
--- NOTE | 2019-03-19 14:28 | Fluoroscopy Report ---
FL lumbar spine 2-3V CLINICAL HISTORY: LUMBAR SPINAL DECOMPRESSION AND FUSION COMPARISON STUDY: Lumbar spine dated 01/26/2019 FLUOROSCOPY TIME: 2 seconds. NUMBER OF FLUOROSCOPIC IMAGES: 3 FINDINGS: 3 intraoperative fluoroscopic spot images reveal postsurgical changes of discectomies and i nterbody fusions at the L3-4 and L4-5 levels. There is evidence for posterior spinal fusion with pedi pj screw fixation. IMPRESSION: Postsurgical changes at L3-L5 spinal decompression and fusion. Electronically signed by: Raul Chatterjee M.D. 03/19/2019 2:27 PM
--- NOTE | 2019-03-19 15:13 | Anesthesiology Progress Note ---
Date of Service March 19, 2019 Anesthesia Post Procedure Vital Signs Vital Signs: Temp Pulse Pulse Pulse Resp BP BP 03/19/19 15:06 54 L 16 133/53 L 03/19/19 14:55 53 L 16 120/56 L 03/19/19 14:45 53 L 16 130/62 03/19/19 14:39 37.1 C 60 16 149/54 H 03/19/19 10:09 36.6 C 52 L 16 188/78 H 03/19/19 09:25 49 L 146/60 H 03/19/19 07:35 36.5 C 50 L 18 166/94 H 03/19/19 01:55 65 151/67 H 03/18/19 23:15 36.8 C 50 L 14 138/80 03/18/19 16:49 138/71 03/18/19 15:39 36.9 C 56 L 16 181/73 H Pulse Ox 03/19/19 15:06 95 03/19/19 14:55 100 03/19/19 14:45 100 03/19/19 14:39 100 03/19/19 10:09 96 03/19/19 09:25 03/19/19 07:35 95 03/19/19 01:55 94 03/18/19 23:15 94 03/18/19 16:49 03/18/19 15:39 97 Pain Intensity Back: Pain Intensity: 5 Transfer of Care Handoff Completed per policy Notes Mental Status: alert / awake / arousable Patient Amnestic to Procedure: Yes Nausea / Vomiting: adequately controlled Pain: adequately controlled Airway Patency, RR, SpO2: stable & adequate BP & HR: stable & adequate Hydration State: stable & adequate Anesthetic Complications: no major complications apparent
--- NOTE | 2019-03-19 15:30 | Pharmacy Report ---
Pharmacy Glycemic Short Note 2 - Date of Service March 19, 2019 - Glycemic Short BSG Results (Last 24 hours): 03/18/19 03/18/19 03/19/19 17:35 20:50 01:57 Glucose POC Glucose 279 H 244 H 111 H 03/19/19 03/19/19 03/19/19 03:52 06:00 06:01 Glucose 89 POC Glucose 81 92 03/19/19 03/19/19 03/19/19 09:23 10:16 14:41 Glucose POC Glucose 100 H 99 124 H OUTPATIENT ANTIDIABETIC REGIMEN: * Lantus 28 units SQ AM * Humalog 12 units AC * Metformin 1,000mg PO BIDM * HbA1c: 7.1% (03/16/19) ASSESSMENT: 03/19/19: * IV Dexamethasone was discontinued yesterday evening. BSGs have been much improved today. * Insulin needs are expected to be significantly reduced with the discontinuation of steroids, so Lantus was reduced this morning and Novolog parameters were loosened. * Patient is NPO today for spinal procedure in the OR today. * IVF with dextrose were added last evening after steroids were d/c'd and when pt became PO. Would recommend discontinuing these fluids when patient's diet is resumed post-op. 03/18/19 * 78yo T2DM male with excellent outpatient control per A1c of 7.1% on 03/16/19 * Pt with significant, sustained, hyperglycemia secondary to RTC high dose steroids with dexamethasone 4mg IV Q6hrs --> just tapered to Q8hrs yesterday. May see a mild improvement with this step down in dosing but still need to dose insulin with high stress dosing * Typically patients require ~0.4units/kg (~ 40 units for patient) additional insulin (on top of baseline needs) for high dose steroids. * Will continue outpatient regimen of Lantus 28 units SQ AM for easy transition back to outpatient * Will add HS dose of Lantus and aggressive CF/CR to equal ~ 40 additional units split 50%:50% basal/prandial * Estimated total daily dose ~ 100 units/day while on steroids. * Pt received 121 units of insulin over the past 24hrs * BSGs ranging 144-260 mg/dl * AM fasting BSG in goal range. No changes needed to Lantus * Post-prandial BSGs still elevated, will tighten CR * Will decrease steroids with each step down in steroid dosing to prevent hypoglycemia PLAN FOR INPATIENT GLYCEMIC CONTROL: * Hold outpatient oral diabetes medications * Basal insulin * Lantus 20 units SQ this morning * Lantus supplemental dose x1 this evening, ONLY if patient is hyperglycemic * goal is to transition back to home dose (Lantus 28 units qAM) tomorrow, if BSGs allow * Bolus insulin: loosened * NovoLog per scale ACHS or Q6hrs while NPO * Goal Range: Low 110 mg/dL - High 140 mg/dL * Correction Factor: 20 mg/dL/unit * Nutritional / Prandial insulin per carb ratio of 1 unit per 8 grams CHO consumed PLAN FOR DISCHARGE: * No changes needed to outpatient regimen based on adequate A1c. * Patient may require insulin adjustment if dc on steroid taper.
[2019-03-19] MEDS ORDERED: ONDANSETRON 4 MG TAB PO PRN (15:53)
[2019-03-19] MEDS ORDERED: METOCLOPRAMIDE HCL INJ 5 MG/ML 2 ML VIAL IV PRN (15:53)
[2019-03-19] MEDS ORDERED: SOD PHOSPHATE/SOD BIPHOSPHATE ENEMA 132 ML BTL PR PRN (15:53)
[2019-03-19] MEDS ORDERED: PROMETHAZINE HCL 12.5 MG in SODIUM CHLORIDE 0.9% 50 ML IV PRN (15:53)
[2019-03-19] MEDS ORDERED: DO NOT ADMINISTER FLU VACCINE PRN (15:53)
[2019-03-19] MEDS ORDERED: ALUMINUM/MAGNESIUM SUSP 30 ML UDC PO PRN (15:53)
[2019-03-19] MEDS ORDERED: DO NOT ADMINISTER PNEUMOCOCCAL VACCINE PRN (15:53)
[2019-03-19] MEDS ORDERED: PHARMACY GLYCEMIC MGMT CONSULT PRN (16:20)
[2019-03-19] MEDS: SODIUM CHLORIDE 0.9% 1000ML 1,000 ML IV SCH ×2 (16:35→23:40)
[2019-03-19] MEDS: ACETAMINOPHEN 1,000 MG/100 ML VIAL IV PRN (16:50)
[2019-03-19] MEDS: OXYCODONE HCL IR 5 MG TAB (IMMEDIATE RELEASE) PO PRN (18:29)
[2019-03-19] MEDS: CLINDAMYCIN 600 MG in DEXTROSE 5% 50 ML IV SCH (21:42)
[2019-03-19] MEDS: DOCUSATE SODIUM/SENNA 50/8.6MG TAB PO SCH (21:47)
[2019-03-19] MEDS: ROSUVASTATIN CALCIUM 20 MG TAB PO SCH (21:49)
[2019-03-19] MEDS: lamoTRIgine 100 MG TAB PO SCH (21:49)
[2019-03-19] MEDS: HYDROmorphone INJ 0.5 MG/0.5 ML SYR IV PRN (23:35)
--- NOTE | 2019-03-19 23:38 | Hospitalist Progress Note ---
Date of Service March 19, 2019 Assessment & Plan (1) Lumbar spinal stenosis: Severe central canal stenosis at L3-L4 and L4-L5 & multilevel foraminal narrowing, severe bilaterally at L4-L5 seen on MRI on 03/15. - Orthopedic spine consulted - Patient had surgery today. - Pain control, gabapentin - Steroids started by admitting physician; stopped prior to surgery to prevent post-op wound healing issues. (2) CKD (chronic kidney disease) stage 3, GFR 30-59 ml/min: Baseline Cr ~1.3-1.5; eGFR 40-50. - Cr was 1.9 on admission. - On 03/16, after IV fluids, Cr was down to 1.7; stable on 03/19 - Renally-dose medications - Monitor Cr (3) Diabetes: A1c wa 7.1% on admission. - Continue long-acting and sliding scale insulin - Glycemic pharmacist consult (4) Heart disease: Prior CABG. - Continue lisinopril, metoprolol, statin - Holding ASA/Plavix for surgery - Restart when cleared by surgery (5) Hypertension: BP has been 130/65 to 160/75 while inpatient. - Continue ACEi and beta-joe as above (6) Bipolar disorder: Patient is on Lamictal & Depakote for mood stabilization due to his bipolar disorder he states this is been doing well for him. Valproic acid level was 54 (in desired range) on 03/15/2019. 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 - Pneumovax (8) DVT prophylaxis: SCDs for DVT prevention Spent 25 minutes in management Subjective Patient reports feeling well after surgery. He currently denies any pain today. Patient has no new complaints. Review of Systems Review of Systems: All systems reviewed & are unremarkable except as noted in HPI & below Physical Exam Physical Exam: Constitutional: WD/WN, vitals as above Eyes: EOM intact bilaterally; no conjunctival abnormality ENMT: external ear and nose normal, oropharynx normal Neck: trachea midline, no thyromegaly normal visual inspection Respiratory: normal respiratory effort, lungs clear to auscultation no respiratory distress Cardiovascular: RRR, no murmur, no edema Gastrointestinal (Abdomen): Inspection/Auscultation: abdomen normal to inspection; abdomen not distended Musculoskeletal: no cyanosis or clubbing, extremities motor strength 5/5 Skin: no rashes, warm and dry Neurologic: moves all extremities and awake Psychiatric: Orientation: alert, oriented to person and cooperative Results & Data Vital Signs (Past 12 Hours) Vital Signs Temp Pulse Pulse Pulse Resp BP BP 03/19/19 21:40 64 120/57 L 03/19/19 18:49 36.6 C 65 18 161/74 H 03/19/19 17:52 36.6 C 54 L 18 168/72 H 03/19/19 16:45 36.3 C L 47 L 18 146/55 H 03/19/19 16:14 36.4 C L 58 L 18 150/61 H 03/19/19 15:45 36.7 C 43 L 18 158/63 H 03/19/19 15:25 36.8 C 44 L 18 146/53 H 03/19/19 15:15 45 L 18 137/56 L 03/19/19 15:06 54 L 16 133/53 L 03/19/19 14:55 53 L 16 120/56 L 03/19/19 14:45 53 L 16 130/62 03/19/19 14:39 37.1 C 60 16 149/54 H Pulse Ox 03/19/19 21:40 03/19/19 18:49 96 03/19/19 17:52 95 03/19/19 16:45 96 03/19/19 16:14 93 03/19/19 15:45 95 03/19/19 15:25 95 03/19/19 15:15 99 03/19/19 15:06 95 03/19/19 14:55 100 03/19/19 14:45 100 03/19/19 14:39 100
[2019-03-20] MEDS: OXYCODONE HCL IR 5 MG TAB (IMMEDIATE RELEASE) PO PRN ×3 (01:54→13:45)
[2019-03-20] MEDS: CLINDAMYCIN 600 MG in DEXTROSE 5% 50 ML IV SCH (04:01)
[2019-03-20] MEDS: HYDROmorphone INJ 0.5 MG/0.5 ML SYR IV PRN ×3 (05:31→15:43)
[2019-03-20] MEDS: SODIUM CHLORIDE 0.9% 1000ML 1,000 ML IV SCH (07:13)
[2019-03-20 07:41] LABS: Hematocrit (blood only) 34.3 % (42-52); Hemoglobin 11.5 g/dL (14.0-18.0); Mean Corpuscular Hgb Conc 33.5 g/dL (32-36); Mean Corpuscular Volume 95.5 fL (80-100); Mean Platelet Volume 12.4 fL (7.4-10.4); Platelet Count 175 K/uL (130-400); RDW Coefficient of Variation 13.8 % (11.5-14.5); RDW Standard Deviation 48.1 fL (36.4-46.3); Red Blood Count 3.59 M/uL (4.7-6.1); White Blood Count 16.76 K/uL (4.8-10.8)
[2019-03-20 08:13] LABS: Calcium 8.4 mg/dl (8.5-10.1); Creatinine Clr Calc Pharmacy 51.4 ml/min; Est GFR (African American) 55.7; Potassium 4.5 mmol/L (3.5-5.1)
[2019-03-20 08:24] LABS: Basophils # (auto) 0.02 K/uL (0-0.2); Basophils % (auto) 0.1 %; Echinocytes 1+; Eosinophils # (auto) 0.03 K/uL (0-0.5); Eosinophils % (auto) 0.2 %; Immature Granulocytes # (auto) 0.08 K/uL (0.00-0.02); Immature Granulocytes % (auto) 0.5 %; Lymphocytes # (auto) 5.78 K/uL (1.2-3.4); Lymphocytes % (auto) 34.5 %; Monocytes # (auto) 2.55 K/uL (0.11-0.59); Monocytes % (auto) 15.2 %; Neutrophils % (auto) 49.5 %
[2019-03-20] MEDS ORDERED: INSULIN LISPRO 12 UNIT SQ SCH (09:00)
[2019-03-20] MEDS: CYANOCOBALAMIN 500 MCG TABLET (VITAMIN B-12) PO SCH (09:17)
[2019-03-20] MEDS: ASPIRIN 81 MG ECTAB PO SCH (09:17)
[2019-03-20] MEDS: CHOLECALCIFEROL 1,000 UNITS TAB PO SCH (09:17)
[2019-03-20] MEDS: GABAPENTIN 300 MG CAP PO SCH ×3 (09:18→21:47)
[2019-03-20] MEDS: LISINOPRIL/HCTZ 20/25MG 1 TAB PO SCH (09:18)
[2019-03-20] MEDS: DIVALPROEX DELAY RELEASE 500 MG TAB PO SCH ×2 (09:18→21:47)
[2019-03-20] MEDS: FOLIC ACID 1 MG TAB PO SCH (09:18)
[2019-03-20] MEDS: POLYETHYLENE (MIRALAX) 17 GM PACK PO SCH (09:18)
[2019-03-20] MEDS: prednisoLONE acetate 1% OP SUSP 5 ML BTL OPL SCH ×4 (09:19→21:47)
[2019-03-20] MEDS: METOPROLOL TARTRATE 50 MG TAB PO SCH ×2 (09:19→21:51)
--- NOTE | 2019-03-20 09:26 | Pharmacy Report ---
Pharmacy Glycemic Short Note 2 - Date of Service March 20, 2019 - Glycemic Short BSG Results (Last 24 hours): 03/19/19 03/19/19 03/19/19 09:23 10:16 14:41 Glucose POC Glucose 100 H 99 124 H 03/19/19 03/19/19 03/20/19 17:58 20:56 07:25 Glucose 147 H POC Glucose 172 H 275 H 03/20/19 08:13 Glucose POC Glucose 163 H OUTPATIENT ANTIDIABETIC REGIMEN: * Lantus 28 units SQ AM * Humalog 12 units AC * Metformin 1,000mg PO BIDM * HbA1c: 7.1% (03/16/19) ASSESSMENT: 03/20/19 * Mr. De La Rosa received only 35 units of insulin yesterday (with 20 of this being basal) * His dextrose IVFs were stopped after surgery since BSGs were improved and diet had resumed. It also appears that he received Decadron in the OR yesterday (up to 12 mg total). No postop steroids have been ordered. * Of note, he did not receive the additional dose of Lantus last night since this order was discontinued on transfer. This would have aided in improved BSG control this AM; however, I was surprised to see the significant improvement in BSG from last night to this AM: 275 -> 147 * Plan for today will be to resume outpatient dose of basal insulin and be more aggressive with prandial coverage until the Decadron wears off (should be by the end of the day) 03/19/19: * IV Dexamethasone was discontinued yesterday evening. BSGs have been much improved today. * Insulin needs are expected to be significantly reduced with the discontinuation of steroids, so Lantus was reduced this morning and Novolog parameters were loosened. * Patient is NPO today for spinal procedure in the OR today. * IVF with dextrose were added last evening after steroids were d/c'd and when pt became PO. Would recommend discontinuing these fluids when patient's diet is resumed post-op. 03/18/19 * 78yo T2DM male with excellent outpatient control per A1c of 7.1% on 03/16/19 * Pt with significant, sustained, hyperglycemia secondary to RTC high dose steroids with dexamethasone 4mg IV Q6hrs --> just tapered to Q8hrs yesterday. May see a mild improvement with this step down in dosing but still need to dose insulin with high stress dosing * Typically patients require ~0.4units/kg (~ 40 units for patient) additional insulin (on top of baseline needs) for high dose steroids. * Will continue outpatient regimen of Lantus 28 units SQ AM for easy transition back to outpatient * Will add HS dose of Lantus and aggressive CF/CR to equal ~ 40 additional units split 50%:50% basal/prandial * Estimated total daily dose ~ 100 units/day while on steroids. * Pt received 121 units of insulin over the past 24hrs * BSGs ranging 144-260 mg/dl * AM fasting BSG in goal range. No changes needed to Lantus * Post-prandial BSGs still elevated, will tighten CR * Will decrease steroids with each step down in steroid dosing to prevent hypoglycemia PLAN FOR INPATIENT GLYCEMIC CONTROL: * Continue to hold outpatient oral diabetes medications * Basal insulin - transition back to outpatient dose * Lantus qAM per the following scale: * 25 units for BSG < 140 * 28 units (home dose) for BSG 140 or above * Bolus insulin: tighten CR * NovoLog per scale ACHS or Q6hrs while NPO * Goal Range: Low 110 mg/dL - High 140 mg/dL * Correction Factor: 20 mg/dL/unit * Nutritional / Prandial insulin per carb ratio of 1 unit per 6 grams CHO consumed PLAN FOR DISCHARGE: * No changes needed to outpatient regimen based on adequate A1c.
[2019-03-20] MEDS: INSULIN ASPART 100 UNITS/ML 3 ML PEN SC SCH ×4 (09:30→22:44)
[2019-03-20] MEDS: INSULIN GLARGINE SOLOSTAR 100 UNITS/ML 3 ML PEN SQ SCH (09:30)
--- NOTE | 2019-03-20 14:22 | Orthopedic Progress Note ---
Date of Service March 20, 2019 Assessment & Plan (1) Lumbar spinal stenosis: At this time we will continue physical therapy monitor his YANIQUE output consider possible rehab in the next day or so. Present on Admission?: Yes Subjective Patient's back pain is controlled leg symptoms improved. Physical Exam Physical Exam: On exam his strength is intact appears comfortable. Results & Data Vital Signs (Past 12 Hours) Vital Signs Temp Pulse Resp BP Pulse Ox 03/20/19 07:17 36.9 C 73 18 116/66 91 03/20/19 03:30 37.0 C 67 16 128/66 96 (1) Lumbar spinal stenosis Neurogenic claudication status: unspecified Qualified Code(s): M48.061 - Spinal stenosis, lumbar region without neurogenic claudication
[2019-03-20] MEDS: ACETAMINOPHEN 1,000 MG/100 ML VIAL IV PRN (15:57)
[2019-03-20] MEDS ORDERED: LACTATED RINGER'S 1,000 ML IV ONE (18:12)
[2019-03-20 18:48] LABS: Hematocrit (blood only) 34.7 % (42-52); Hemoglobin 11.5 g/dL (14.0-18.0)
[2019-03-20] MEDS ORDERED: NURSING DECISION MEDICATION ONE (19:49)
[2019-03-20] MEDS ORDERED: LIDOCAINE 2% JELLY 5 ML TUBE EXT ONE (20:15)
[2019-03-20] MEDS: lamoTRIgine 100 MG TAB PO SCH (21:46)
[2019-03-20] MEDS: ROSUVASTATIN CALCIUM 20 MG TAB PO SCH (21:46)
[2019-03-20] MEDS: DOCUSATE SODIUM/SENNA 50/8.6MG TAB PO SCH (21:47)
--- NOTE | 2019-03-20 21:49 | Progress Note ---
Date of Service March 20, 2019 Received a text page from patient's nurse asking if the patient's metoprolol should be held. She mentions the following blood pressures: "At the beginning of the shift at 1500 he was 106/58. When he was OOB in the chair at 1745 he was 86/56 and the left arm was 98/61. Lying in bed at 1800 he was 124/70. The bolus started at 1835 he was 108/57. At the end of the bolus he was 137/71 at 2000. And the 150/69 is the most recent BP." Plan: - Will hold this evening's dose of metoprolol. - This may need to be restarted in the morning. Vishnu Kim, PGY2 Overnight call Results & Data Vital Signs (Past 12 Hours) Vital Signs Temp Pulse Resp BP Pulse Ox 03/20/19 15:35 36.7 C 75 18 106/58 L 92
--- NOTE | 2019-03-20 22:41 | Hospitalist Progress Note ---
Date of Service March 20, 2019 Assessment & Plan (1) Lumbar spinal stenosis: Severe central canal stenosis at L3-L4 and L4-L5 & multilevel foraminal narrowing, severe bilaterally at L4-L5 seen on MRI on 03/15. - Orthopedic spine consulted - Patient had surgery#1 lumbar decompression medial facetectomy foraminotomies L2- 3 L3-4 L4-5. #2 posterior spinal fusion L3-4 L4-5 per #3 please posterior segmental instrumentation using globus L3-4 L4-5. #4 interbody fusion L3-4 L4-5 per #5 placed a peek cage 11 x 26 mm at L3-4 and L4-5. #6 placement of local autograft in the posterior lateral gutters per #7 placement infuse collagen sponge, mass graft in the posterior lateral gutters and ostial amp and interbody space. - Pain control, gabapentin - Steroids started by admitting physician; stopped prior to surgery to prevent post-op wound healing issues. (2) CKD (chronic kidney disease) stage 3, GFR 30-59 ml/min: Baseline Cr ~1.3-1.5; eGFR 40-50. - Cr was 1.9 on admission. - On 03/16, after IV fluids, Cr was down to 1.7; stable on 03/19 - Renally-dose medications - Monitor Cr (3) Diabetes: A1c wa 7.1% on admission. - Continue long-acting and sliding scale insulin - Glycemic pharmacist consult (4) Heart disease: Prior CABG. - Continue lisinopril, metoprolol, statin - Holding Plavix for surgery - Restart when cleared by surgery Back on ASA. (5) Hypertension: BP has been 130/65 to 160/75 while inpatient. - Continue ACEi and beta-joe as above (6) Bipolar disorder: Patient is on Lamictal & Depakote for mood stabilization due to his bipolar disorder he states this is been doing well for him. Valproic acid level was 54 (in desired range) on 03/15/2019. 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 - Pneumovax (8) Orthostatic hypotension: Likely from blood loss from surgery. Palced on IVF. will be monitoring hemoglobin. Patient will remain in bed in afternoon to evening. will recheck in AM. (9) DVT prophylaxis: SCDs for DVT prevention Spent 25 minutes in management Subjective Patient reports no new complaints aside from having dizzzinees when sitting up. I was called by nurse as BP was low when he stood up. But BP normalized when he laid down. Patient denies any other symptoms Review of Systems Review of Systems: All systems reviewed & are unremarkable except as noted in HPI & below Physical Exam Physical Exam: Constitutional: WD/WN, vitals as above Eyes: EOM intact bilaterally; no conjunctival abnormality ENMT: external ear and nose normal, oropharynx normal Neck: trachea midline, no thyromegaly normal visual inspection Respiratory: normal respiratory effort, lungs clear to auscultation no respiratory distress Cardiovascular: RRR, no murmur, no edema Gastrointestinal (Abdomen): Inspection/Auscultation: abdomen normal to inspection; abdomen not distended Musculoskeletal: no cyanosis or clubbing, extremities motor strength 5/5 Skin: no rashes, warm and dry Neurologic: moves all extremities and awake Psychiatric: Orientation: alert, oriented to person and cooperative Results & Data Vital Signs (Past 12 Hours) Vital Signs Temp Pulse Resp BP Pulse Ox 03/20/19 15:35 36.7 C 75 18 106/58 L 92
[2019-03-21] MEDS: LORazepam 0.5 MG/1 ML VIAL IV PRN (00:30)
[2019-03-21] MEDS: OXYCODONE HCL IR 5 MG TAB (IMMEDIATE RELEASE) PO PRN (04:22)
[2019-03-21] MEDS: TRAMADOL HCL 50 MG TABLET PO PRN ×3 (07:35→23:46)
[2019-03-21] MEDS: prednisoLONE acetate 1% OP SUSP 5 ML BTL OPL SCH ×4 (09:13→21:48)
[2019-03-21] MEDS: GABAPENTIN 300 MG CAP PO SCH ×3 (09:13→21:47)
[2019-03-21] MEDS: CHOLECALCIFEROL 1,000 UNITS TAB PO SCH (09:13)
[2019-03-21] MEDS: CYANOCOBALAMIN 500 MCG TABLET (VITAMIN B-12) PO SCH (09:13)
[2019-03-21] MEDS: ASPIRIN 81 MG ECTAB PO SCH (09:14)
[2019-03-21] MEDS: FOLIC ACID 1 MG TAB PO SCH (09:14)
[2019-03-21] MEDS: POLYETHYLENE (MIRALAX) 17 GM PACK PO SCH (09:14)
[2019-03-21] MEDS: LISINOPRIL/HCTZ 20/25MG 1 TAB PO SCH (09:14)
[2019-03-21] MEDS: DIVALPROEX DELAY RELEASE 500 MG TAB PO SCH ×2 (09:14→21:47)
[2019-03-21] MEDS: INSULIN ASPART 100 UNITS/ML 3 ML PEN SC SCH ×4 (09:16→21:54)
[2019-03-21] MEDS: INSULIN GLARGINE SOLOSTAR 100 UNITS/ML 3 ML PEN SQ SCH (09:17)
[2019-03-21] MEDS: MAGNESIUM HYDROXIDE SUSP 30 ML UDC PO PRN ×2 (09:25→18:40)
--- NOTE | 2019-03-21 13:28 | Pharmacy Report ---
Glycemic Control Progress Note - Date of Service March 21, 2019 - Scope Glycemic Pharmacist consulted for glycemic control to write orders per [facility] inpatient glycemic control protocol. - Objective Accuchecks BSG(last 24 hours):: 03/20/19 03/20/19 03/20/19 17:10 21:32 22:25 POC Glucose 120 H 109 H 110 H 03/21/19 08:19 POC Glucose 175 H HbA1c:: Hemoglobin A1c 7.1 % (4.5-5.6) H 03/16/19 06:44 - Recent Pertinent Medications The patient is currently receiving: * Basal insulin: Lantus 25-28 units every 24 hours * Correctional Insulin: Novolog Correction per scale ACHS Goal Range: Low 110 mg/dL - High 140 mg/dL Correction Factor: 20 mg/dL/unit * Prandial insulin: Per carb ratio of 1 unit per 6 grams CHO consumed - Outpatient Anti-Diabetic Meds Lantus 28 units in the morning + Humalog 12 units TID metformin 1 gm PO BID - Assessment & Plan ASSESSMENT: * See progress note from 03/17/19 for more background info, in short: * Pt receiving SQ basal bolus insulin regimen for hyperglycemia secondary to baseline DM (outpatient regimen on hold), POD 2 for lumbar surgery. * Patient is currently receiving an average of 56 units of insulin per day * 28 units of basal insulin * 28 units of prandial/correctional insulin * BSGs ranging 110 - 198 mg/dl over the past 24hrs * Changes needed to insulin regimen: * AM Fasting BSG = 175 mg/dl. This is slightly above goal range for patient based on inpatient targets and co-morbidities. Will provide a higher basal dose if blood sugar continues to trend upwards tomorrow. Patient is at his home dose for Lantus so hesitant to increase Lantus much more. * Post-prandial BSGs are in range therefore no changes needed to CF/CR. * Total daily dose = ~60 units. * Additional notes / comments: Patient is post-op day 2 plus has good kidney f unction and good PO intake. Restart metformin. PLAN FOR INPATIENT GLYCEMIC CONTROL: * Increasing Lantus to 25-31 units SQ BID * Lantus 25 units if blood sugar under 120 mg/dL * Lantus 28 units if blood sugar 120-180 mg/dL * Lantus 31 units if blood sugar over 180 mg/dL * Continuing correction factor of 20 mg/dl/unit * Continuing carb ratio of 1 unit per 6 grams CHO consumed * Continuing goal range of Low 110 mg/dL - High 140 mg/dL RECOMMENDATIONS FOR DISCHARGE: * please see note from 03/20/19 * Please note that the plan above was derived based on current level of insulin resistance and hospital stress. These recommendations are appropriate for inpatient admission only. Plan of care upon discharge will need to be reassessed to avoid potential outpatient hypo/hyperglycemia. Thank you.
--- NOTE | 2019-03-21 14:27 | Orthopedic Progress Note ---
Date of Service March 21, 2019 Assessment & Plan (1) Lumbar spinal stenosis: This time we will continue physical therapy occupational therapy monitor his YANIQUE output anticipate discharge to rehab in the next few days. Present on Admission?: Yes Subjective Patient's back pain is controlled leg symptoms improved. Physical Exam Physical Exam: On exam he is in bed at this time. Resting comfortably. Is good strength testing. Results & Data Vital Signs (Past 12 Hours) Vital Signs Temp Pulse Resp BP Pulse Ox 03/21/19 11:46 102/59 L 03/21/19 11:41 37.0 C 94 H 16 71/50 L 96 03/21/19 07:25 37.3 C 89 18 107/56 L 95
[2019-03-21] MEDS: METFORMIN HCL 500 MG TAB PO SCH (17:44)
[2019-03-21] MEDS ORDERED: MAGNESIUM HYDROXIDE SUSP 30 ML UDC PO ONE (18:16)
[2019-03-21] MEDS: DOCUSATE SODIUM/SENNA 50/8.6MG TAB PO SCH (21:47)
[2019-03-21] MEDS: lamoTRIgine 100 MG TAB PO SCH (21:47)
[2019-03-21] MEDS: ROSUVASTATIN CALCIUM 20 MG TAB PO SCH (21:48)
--- NOTE | 2019-03-21 23:46 | Hospitalist Progress Note ---
Date of Service March 21, 2019 Assessment & Plan (1) Lumbar spinal stenosis: Severe central canal stenosis at L3-L4 and L4-L5 & multilevel foraminal narrowing, severe bilaterally at L4-L5 seen on MRI on 03/15. - Orthopedic spine consulted - Patient had surgery on 03/19: lumbar decompression medial facetectomy foraminotomies L2-3 L3-4 L4-5. #2 posterior spinal fusion L3-4 L4-5 per #3 please posterior segmental instrumentation using globus L3-4 L4-5. #4 interbody fusion L3-4 L4-5 per #5 placed a peek cage 11 x 26 mm at L3-4 and L4-5. #6 placement of local autograft in the posterior lateral gutters per #7 placement infuse collagen sponge, mass graft in the posterior lateral gutters and ostial amp and interbody space. - Pain control, gabapentin - Steroids started by admitting physician; stopped prior to surgery to prevent post-op wound healing issues. (2) CKD (chronic kidney disease) stage 3, GFR 30-59 ml/min: Baseline Cr ~1.3-1.5; eGFR 40-50. - Cr was 1.9 on admission. - On 03/16, after IV fluids, Cr was down to 1.7; stable on 03/19 - Renally-dose medications - Monitor Cr (3) Diabetes: A1c wa 7.1% on admission. - Continue long-acting and sliding scale insulin - Glycemic pharmacist consult (4) Heart disease: Prior CABG. - Continue lisinopril, metoprolol, statin - Holding Plavix for surgery - Restart when cleared by surgery -hOLDING PLAVIX ATIENT WAS HAVING LARGE AMOUNT OF DR-On ASA. (5) Hypertension: BP has been 130/65 to 160/75 while inpatient. - Continue ACEi and beta-joe as above (6) Bipolar disorder: Patient is on Lamictal & Depakote for mood stabilization due to his bipolar disorder he states this is been doing well for him. Valproic acid level was 54 (in desired range) on 03/15/2019. 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 - Pneumovax (8) Orthostatic hypotension: Likely from blood loss from surgery. Hemglobin has stayed relatively normal: droppped from 13 to 11, but has stayed at same level since. Clinically appears to be improving today. Patient does not require any transfusions at this time. (9) DVT prophylaxis: SCDs for DVT prevention Spent 25 minutes in management Subjective D/W nurse, patient appears to be doing better. Patient reports that he feels his dizziness has improved, it is still present when he sits up but it is less prominent. Review of Systems Review of Systems: All systems reviewed & are unremarkable except as noted in HPI & below Physical Exam Physical Exam: Constitutional: WD/WN, vitals as above Eyes: EOM intact bilaterally; no conjunctival abnormality ENMT: external ear and nose normal, oropharynx normal Neck: trachea midline, no thyromegaly normal visual inspection Respiratory: normal respiratory effort, lungs clear to auscultation no respiratory distress Cardiovascular: RRR, no murmur, no edema Gastrointestinal (Abdomen): Inspection/Auscultation: abdomen normal to inspection; abdomen not distended Musculoskeletal: no cyanosis or clubbing, extremities motor strength 5/5 Skin: no rashes, warm and dry Neurologic: moves all extremities and awake Psychiatric: Orientation: alert, oriented to person and cooperative Results & Data Vital Signs (Past 12 Hours) Vital Signs Temp Pulse Resp BP Pulse Ox 03/21/19 15:31 36.7 C 92 H 18 106/67 93
[2019-03-22] MEDS: METFORMIN HCL 500 MG TAB PO SCH ×2 (08:26→17:21)
[2019-03-22] MEDS: CHOLECALCIFEROL 1,000 UNITS TAB PO SCH (08:27)
[2019-03-22] MEDS: DIVALPROEX DELAY RELEASE 500 MG TAB PO SCH ×2 (08:27→22:25)
[2019-03-22] MEDS: LISINOPRIL/HCTZ 20/25MG 1 TAB PO SCH (08:27)
[2019-03-22] MEDS: ASPIRIN 81 MG ECTAB PO SCH (08:27)
[2019-03-22] MEDS: CYANOCOBALAMIN 500 MCG TABLET (VITAMIN B-12) PO SCH (08:27)
[2019-03-22] MEDS: GABAPENTIN 300 MG CAP PO SCH ×3 (08:28→22:15)
[2019-03-22] MEDS: FOLIC ACID 1 MG TAB PO SCH (08:28)
[2019-03-22] MEDS: POLYETHYLENE (MIRALAX) 17 GM PACK PO SCH ×4 (08:28→19:42)
[2019-03-22] MEDS: prednisoLONE acetate 1% OP SUSP 5 ML BTL OPL SCH ×4 (08:28→22:26)
--- NOTE | 2019-03-22 08:30 | Orthopedic Progress Note ---
Date of Service March 22, 2019 Assessment & Plan (1) Lumbar spinal stenosis: This time we will advance his bowel regiment we are working for possible rehab placement tomorrow. Present on Admission?: Yes Subjective Back pain is controlled leg symptoms improved. Physical Exam Physical Exam: Patient appears comfortable has good strength testing. Results & Data Vital Signs (Past 12 Hours) Vital Signs Temp Pulse Resp BP Pulse Ox 03/22/19 07:32 36.5 C 88 20 121/67 95 03/21/19 23:33 36.6 C 94 H 16 105/64 94 (1) Lumbar spinal stenosis Neurogenic claudication status: unspecified Qualified Code(s): M48.061 - Spinal stenosis, lumbar region without neurogenic claudication
[2019-03-22] MEDS: INSULIN ASPART 100 UNITS/ML 3 ML PEN SC SCH ×4 (09:43→22:11)
[2019-03-22] MEDS: INSULIN GLARGINE SOLOSTAR 100 UNITS/ML 3 ML PEN SQ SCH (09:44)
[2019-03-22] MEDS: BISACODYL 10 MG SUPP PR PRN (13:04)
[2019-03-22] MEDS: OXYCODONE HCL IR 5 MG TAB (IMMEDIATE RELEASE) PO PRN (17:20)
--- NOTE | 2019-03-22 22:14 | Hospitalist Progress Note ---
Date of Service March 22, 2019 Assessment & Plan (1) Lumbar spinal stenosis: Severe central canal stenosis at L3-L4 and L4-L5 & multilevel foraminal narrowing, severe bilaterally at L4-L5 seen on MRI on 03/15. - Orthopedic spine consulted - Patient had surgery on 03/19: #1 lumbar decompression medial facetectomy foraminotomies L2-3 L3-4 L4-5. #2 posterior spinal fusion L3-4 L4-5 per #3 please posterior segmental instrumentation using globus L3-4 L4-5. #4 interbody fusion L3-4 L4-5 per #5 placed a peek cage 11 x 26 mm at L3-4 and L4-5. #6 placement of local autograft in the posterior lateral gutters per #7 placement infuse collagen sponge, mass graft in the posterior lateral gutters and ostial amp and interbody space. - Pain control, gabapentin - Steroids started by admitting physician; stopped prior to surgery to prevent post-op wound healing issues. (2) CKD (chronic kidney disease) stage 3, GFR 30-59 ml/min: Baseline Cr ~1.3-1.5; eGFR 40-50. - Cr was 1.9 on admission. - On 03/16, after IV fluids, Cr was down to 1.7; stable on 03/20 -improved to 1.41 on 03/20; patient still making urine 03/22 - Renally-dose medications - Monitor Cr (3) Diabetes: A1c wa 7.1% on admission. - Continue long-acting and sliding scale insulin - Glycemic pharmacist consult (4) Heart disease: Prior CABG. - Continue lisinopril, metoprolol, statin - Holding Plavix for surgery - Restart when cleared by surgery -hOLDING PLAVIX PATIENT WAS HAVING LARGE AMOUNT OF DR-On ASA. (5) Hypertension: BP has been 130/65 to 160/75 while inpatient. - Continue ACEi and beta-joe as above (6) Bipolar disorder: Patient is on Lamictal & Depakote for mood stabilization due to his bipolar disorder he states this is been doing well for him. Valproic acid level was 54 (in desired range) on 03/15/2019. 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 - Pneumovax (8) Orthostatic hypotension: Likely from blood loss from surgery. Hemglobin has stayed relatively normal: droppped from 13 to 11, but has stayed at same level since. Clinically appears to be improving today. Patient does not require any transfusions at this time. (9) DVT prophylaxis: SCDs for DVT prevention Spent 25 minutes in management Subjective Patient appears to be less confused today. He looks less pale as well. He is a poor historian due to his confusion. Review of Systems Review of Systems: Unobtainable due to mental health condition Physical Exam Physical Exam: Constitutional: WD/WN, vitals as above Eyes: EOM intact bilaterally; no conjunctival abnormality ENMT: external ear and nose normal, oropharynx normal Neck: trachea midline, no thyromegaly normal visual inspection Respiratory: normal respiratory effort, lungs clear to auscultation no respiratory distress Cardiovascular: RRR, no murmur, no edema Gastrointestinal (Abdomen): Inspection/Auscultation: abdomen normal to inspection; abdomen not distended Musculoskeletal: no cyanosis or clubbing, extremities motor strength 5/5 Skin: no rashes, warm and dry Neurologic: moves all extremities and awake Psychiatric: Orientation: alert, oriented to person and cooperative Results & Data Vital Signs (Past 12 Hours) Vital Signs Temp Pulse Resp BP Pulse Ox Pulse Ox 03/22/19 15:38 36.9 C 88 18 110/63 92 03/22/19 15:02 78 18 146/77 H 95 03/22/19 12:54 91 03/22/19 10:47 70/40 L
[2019-03-22] MEDS: ROSUVASTATIN CALCIUM 20 MG TAB PO SCH (22:16)
[2019-03-22] MEDS: lamoTRIgine 100 MG TAB PO SCH (22:16)
[2019-03-22] MEDS: DOCUSATE SODIUM/SENNA 50/8.6MG TAB PO SCH (22:25)
[2019-03-23] MEDS ORDERED: LISINOPRIL 20 MG TAB PO SCH (09:00)
[2019-03-23] MEDS: FOLIC ACID 1 MG TAB PO SCH (09:33)
[2019-03-23] MEDS: DIVALPROEX DELAY RELEASE 500 MG TAB PO SCH ×2 (09:33→20:41)
[2019-03-23] MEDS: ASPIRIN 81 MG ECTAB PO SCH (09:34)
[2019-03-23] MEDS: METFORMIN HCL 500 MG TAB PO SCH (09:34)
[2019-03-23] MEDS: GABAPENTIN 300 MG CAP PO SCH ×3 (09:34→20:39)
[2019-03-23] MEDS: INSULIN ASPART 100 UNITS/ML 3 ML PEN SC SCH ×4 (09:35→20:44)
[2019-03-23] MEDS: INSULIN GLARGINE SOLOSTAR 100 UNITS/ML 3 ML PEN SQ SCH (09:37)
[2019-03-23] MEDS: CHOLECALCIFEROL 1,000 UNITS TAB PO SCH (09:49)
[2019-03-23] MEDS: prednisoLONE acetate 1% OP SUSP 5 ML BTL OPL SCH ×4 (09:49→20:43)
[2019-03-23] MEDS: CYANOCOBALAMIN 500 MCG TABLET (VITAMIN B-12) PO SCH (09:50)
[2019-03-23 12:05] LABS: Hematocrit (blood only) 27.3 % (42-52); Hemoglobin 9.2 g/dL (14.0-18.0); Mean Corpuscular Hgb Conc 33.7 g/dL (32-36); Mean Corpuscular Volume 94.8 fL (80-100); Platelet Count 147 K/uL (130-400); RDW Coefficient of Variation 14.1 % (11.5-14.5); RDW Standard Deviation 49.1 fL (36.4-46.3); Red Blood Count 2.88 M/uL (4.7-6.1); White Blood Count 14.26 K/uL (4.8-10.8)
[2019-03-23 12:29] LABS: BUN Creatinine Ratio 20.2 (10-20); Calcium 9.1 mg/dl (8.5-10.1); Creatinine Clr Calc Pharmacy 23.4 ml/min; Est GFR (African American) 21.5; Est GFR (Non-African American) 18.5; Potassium 4.2 mmol/L (3.5-5.1)
[2019-03-23 14:00] LABS: Basophils # (auto) 0.01 K/uL (0-0.2); Basophils % (auto) 0.1 %; Echinocytes 1+; Eosinophils # (auto) 0.34 K/uL (0-0.5); Eosinophils % (auto) 2.4 %; Immature Granulocytes # (auto) 0.07 K/uL (0.00-0.02); Immature Granulocytes % (auto) 0.5 %; Lymphocytes # (auto) 1.87 K/uL (1.2-3.4); Lymphocytes % (auto) 13.1 %; Monocytes # (auto) 1.93 K/uL (0.11-0.59); Monocytes % (auto) 13.5 %; Neutrophils # (auto) 10.04 K/uL (1.4-6.5); Neutrophils % (auto) 70.4 %; Polychromasia 1+
--- NOTE | 2019-03-23 14:47 | Orthopedic Progress Note ---
Date of Service March 23, 2019 Assessment & Plan (1) Lumbar spinal stenosis: This time we will continue to advance his bowel regiment. We are hoping for placement to rehab facility soon. Present on Admission?: Yes Subjective Patient states his back pain is controlled and that he is tolerating physical therapy. Physical Exam Physical Exam: On exam is good strength testing. He is in bed. Results & Data Vital Signs (Past 12 Hours) Vital Signs Temp Pulse Resp BP Pulse Ox 03/23/19 11:07 96 03/23/19 08:01 36.7 C 81 18 115/64 92 (1) Lumbar spinal stenosis Neurogenic claudication status: unspecified Qualified Code(s): M48.061 - Spinal stenosis, lumbar region without neurogenic claudication
--- NOTE | 2019-03-23 15:34 | Pharmacy Report ---
Pharmacy Glycemic Short Note 2 - Date of Service March 23, 2019 - Glycemic Short BSG Results (Last 24 hours): 03/22/19 03/22/19 03/23/19 17:36 20:43 08:03 Glucose POC Glucose 190 H 203 H 206 H 03/23/19 03/23/19 11:40 12:02 Glucose 145 H POC Glucose 154 H OUTPATIENT ANTIDIABETIC REGIMEN: * Lantus 28 units SQ AM * Humalog 12 units AC * Metformin 1,000mg PO BIDM * HbA1c: 7.1% (03/16/19) ASSESSMENT: * Patient received total of 54 units of insulin yesterday, of which 28 units was basal Lantus. * Fasting BSG was high today; AM Lantus order based on scale so pt received 31 units this AM. * Novolog CF and CR was tightened this AM due to high fasting BSG if 206 but since lunch BSG was 50 units lower at 154; CR was loosened again for lunch. * Patient's home dose of Metformin was resumed on 03/21; however creatinine increased to 3.1 (Crcl = 23) today. Metformin is contra-indicated for Crcl less than 30 so it was put on hold. Pt did receive AM dose of Metformin. PLAN FOR INPATIENT GLYCEMIC CONTROL: * Hold Metformin for increased creatinine. * Basal insulin - continued * Lantus qAM per the following scale: * 25 units for BSG < 120 * 28 units (home dose) for BSG 120-180 * 31 units for BSG > 180 * Bolus insulin: tightened CF * NovoLog per scale ACHS or Q6hrs while NPO * Goal Range: Low 110 mg/dL - High 140 mg/dL * Correction Factor: 18 mg/dL/unit * Nutritional / Prandial insulin per carb ratio of 1 unit per 6 grams CHO consumed PLAN FOR DISCHARGE: * No changes needed to outpatient regimen based on adequate A1c.
[2019-03-23] MEDS ORDERED: LACTATED RINGER'S 1,000 ML IV ONE (17:45)
[2019-03-23] MEDS: ROSUVASTATIN CALCIUM 20 MG TAB PO SCH (20:42)
[2019-03-23] MEDS: lamoTRIgine 100 MG TAB PO SCH (20:43)
[2019-03-23 22:10] LABS: Hematocrit (blood only) 26.2 % (42-52); Hemoglobin 8.9 g/dL (14.0-18.0)
--- NOTE | 2019-03-23 22:13 | Progress Note ---
Date of Service March 23, 2019 Assessment & Plan (1) Confusion: Called regarding plan for confusion. Nursing was awaiting order for blood per Dr. Parra. No consent on record. Plan; 1. Reviewed H/H--Hgb of 9.2, vitals stable, WNL 2. Reordered labs 3. Holding off on giving blood with an H/H of 9.2 with stability and no signs of acute blood loss. 4. Nursing, please message me with the results of the labs or if there are significant mental status changes Results & Data Vital Signs (Past 12 Hours) Vital Signs Temp Pulse Resp BP Pulse Ox 03/23/19 21:00 36.9 C 91 H 20 120/66 99 03/23/19 19:24 124/62 03/23/19 15:15 36.5 C 91 H 17 94/54 L 90 03/23/19 11:07 96
[2019-03-23 22:28] LABS: BUN Creatinine Ratio 23.1 (10-20); Calcium 9.2 mg/dl (8.5-10.1); Creatinine Clr Calc Pharmacy 23.9 ml/min; Est GFR (African American) 22.1; Est GFR (Non-African American) 19.1; Potassium 4.3 mmol/L (3.5-5.1)
[2019-03-23] MEDS ORDERED: SODIUM CHLORIDE 0.9% 1000ML 1,000 ML IV SCH (22:30)
--- NOTE | 2019-03-23 23:57 | Hospitalist Progress Note ---
Date of Service March 23, 2019 Assessment & Plan (1) Lumbar spinal stenosis: Severe central canal stenosis at L3-L4 and L4-L5 & multilevel foraminal narrowing, severe bilaterally at L4-L5 seen on MRI on 03/15. - Orthopedic spine consulted - Patient had surgery on 03/19: #1 lumbar decompression medial facetectomy foraminotomies L2-3 L3-4 L4-5. #2 posterior spinal fusion L3-4 L4-5 per #3 please posterior segmental instrumentation using globus L3-4 L4-5. #4 interbody fusion L3-4 L4-5 per #5 placed a peek cage 11 x 26 mm at L3-4 and L4-5. #6 placement of local autograft in the posterior lateral gutters per #7 placement infuse collagen sponge, mass graft in the posterior lateral gutters and ostial amp and interbody space. - Pain control, gabapentin - Steroids started by admitting physician; stopped prior to surgery to prevent post-op wound healing issues. (2) CKD (chronic kidney disease) stage 3, GFR 30-59 ml/min: Baseline Cr ~1.3-1.5; eGFR 40-50. - Cr was 1.9 on admission. - -improved to 1.41 on 03/20; but worsened to over 3 on 03/23. Will restart fluids. This is likley worsened with the diarrhea as well. Givne his elevated BUN, this is likely from dehydration. -Anemia may also be contributing to this. - Renally-dose medications - Monitor Cr (3) Diabetes: A1c wa 7.1% on admission. - Continue long-acting and sliding scale insulin - Glycemic pharmacist consult (4) Heart disease: Prior CABG. - Continue lisinopril, metoprolol, statin - Holding Plavix for surgery - Restart when cleared by surgery -HOLDING PLAVIX PATIENT WAS HAVING LARGE AMOUNT OF [place]-On ASA. (5) Hypertension: BP has been 130/65 to 160/75 while inpatient. - Continue ACEi and beta-joe as above (6) Bipolar disorder: Patient is on Lamictal & Depakote for mood stabilization due to his bipolar disorder he states this is been doing well for him. Valproic acid level was 54 (in desired range) on 03/15/2019. 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 - Pneumovax (8) Orthostatic hypotension: Likely from blood loss from surgery. Hemglobin has stayed relatively normal: droppped from 13 to 11 and now to 9, Concern that patient may even be lower as he is hemoconcentrated. Will reinitaite IVF and will place on [place]. Clinically appears to be improving today. May consider transfusion but discussed with evening Doc, will monitor hemoglobin and if it drops will transfuse/. (9) Diarrhea: will monitor diarrhea. check c. diff. will hold agents such as laxatives and stool softeners for the moment. (10) Metabolic encephalopathy: Likely uremic encephalopathy. Will rehydrate and replace the fluid loss likely from anemia and GI fluid loss with a bolus of LR. Expect confusion to improve once he is replenished. (11) DVT prophylaxis: SCDs for DVT prevention Spent 45 minutes in management Subjective 78 YO male continues to be more confused. He has not been making much urine today. His is at bedside and is updated. D/W nurse patient has not been very active, and has been having large bouts of diarrhea. Review of Systems Review of Systems: Unobtainable due to mental health condition Physical Exam Physical Exam: Constitutional: WD/WN, vitals as above Eyes: EOM intact bilaterally; no conjunctival abnormality ENMT: external ear and nose normal, oropharynx normal Neck: trachea midline, no thyromegaly normal visual inspection Respiratory: normal respiratory effort, lungs clear to auscultation no respiratory distress Cardiovascular: RRR, no murmur, no edema Gastrointestinal (Abdomen): Inspection/Auscultation: abdomen normal to inspection; abdomen not distended Musculoskeletal: no cyanosis or clubbing, extremities motor strength 5/5 Skin: no rashes, warm and dry Neurologic: moves all extremities and awake Psychiatric: Orientation: alert, oriented to person and cooperative Results & Data Vital Signs (Past 12 Hours) Vital Signs Temp Pulse Resp BP Pulse Ox 03/23/19 23:05 36.4 C L 79 18 117/54 L 95 03/23/19 21:00 36.9 C 91 H 20 120/66 99 03/23/19 19:24 124/62 03/23/19 15:15 36.5 C 91 H 17 94/54 L 90
[2019-03-24 07:53] LABS: Eosinophils # (auto) 0.49 K/uL (0-0.5); Eosinophils % (auto) 3.4 %; Hematocrit (blood only) 26.1 % (42-52); Hemoglobin 8.8 g/dL (14.0-18.0); Immature Granulocytes # (auto) 0.08 K/uL (0.00-0.02); Immature Granulocytes % (auto) 0.6 %; Lymphocytes # (auto) 1.54 K/uL (1.2-3.4); Lymphocytes % (auto) 10.6 %; Mean Corpuscular Hgb Conc 33.7 g/dL (32-36); Mean Corpuscular Volume 94.6 fL (80-100); Mean Platelet Volume 11.8 fL (7.4-10.4); Monocytes # (auto) 2.07 K/uL (0.11-0.59); Monocytes % (auto) 14.3 %; Neutrophils % (auto) 71.1 %; Platelet Count 175 K/uL (130-400); RDW Coefficient of Variation 13.9 % (11.5-14.5); RDW Standard Deviation 48.3 fL (36.4-46.3); Red Blood Count 2.76 M/uL (4.7-6.1); White Blood Count 14.48 K/uL (4.8-10.8)
[2019-03-24 08:22] LABS: Albumin Level 1.8 gm/dl (3.4-5.0); BUN Creatinine Ratio 25.9 (10-20); Calcium 9.1 mg/dl (8.5-10.1); Creatinine Clr Calc Pharmacy 30.2 ml/min; Est GFR (African American) 29.3; Est GFR (Non-African American) 25.3; Potassium 4.1 mmol/L (3.5-5.1)
[2019-03-24 08:25] LABS: Albumin Globulin Ratio 0.4 (0.9-2); Bilirubin,Total 0.3 mg/dl (0.2-1); Globulin 4.2 gm/dl (2.5-4.0)
[2019-03-24] MEDS: prednisoLONE acetate 1% OP SUSP 5 ML BTL OPL SCH ×4 (09:34→21:06)
[2019-03-24] MEDS: CHOLECALCIFEROL 1,000 UNITS TAB PO SCH (09:35)
[2019-03-24] MEDS: DIVALPROEX DELAY RELEASE 500 MG TAB PO SCH ×2 (09:35→21:10)
[2019-03-24] MEDS: CYANOCOBALAMIN 500 MCG TABLET (VITAMIN B-12) PO SCH (09:36)
[2019-03-24] MEDS: GABAPENTIN 300 MG CAP PO SCH ×3 (09:36→21:07)
[2019-03-24] MEDS: ASPIRIN 81 MG ECTAB PO SCH (09:36)
[2019-03-24] MEDS: FOLIC ACID 1 MG TAB PO SCH (09:37)
[2019-03-24] MEDS: INSULIN GLARGINE SOLOSTAR 100 UNITS/ML 3 ML PEN SQ SCH (09:38)
[2019-03-24] MEDS: INSULIN ASPART 100 UNITS/ML 3 ML PEN SC SCH ×4 (09:38→21:11)
--- NOTE | 2019-03-24 11:04 | XRay Report ---
XR chest 1V portable CLINICAL HISTORY: hypoxia dyspnea COMPARISON STUDY: 03/18/2019 FINDINGS: Mild stable cardiomegaly. Prior median sternotomy. The lungs remain clear. The diaphragms a re smooth. IMPRESSION: Mild stable cardiomegaly. No acute process. The above report was generated using voice recognition software. It may contain grammatical, syntax or spelling errors. Electronically signed by: Renard Guthrie M.D. 03/24/2019 11:03 AM
--- NOTE | 2019-03-24 11:07 | Orthopedic Progress Note ---
Date of Service March 24, 2019 Assessment & Plan (1) Lumbar spinal stenosis: This time I would hope that he could begin more physical therapy today with ambulation in the halls. He would be scheduled for rehab placement next week. Present on Admission?: Yes Subjective Patient is alert today. He states his back pain is controlled. Denies any leg pain. Physical Exam Physical Exam: On exam he is sitting in bed. He does appear more alert today. His is at the bedside. He is neurologically intact. Results & Data Vital Signs (Past 12 Hours) Vital Signs Temp Pulse Resp BP Pulse Ox 03/24/19 07:18 36.4 C L 76 18 128/72 91
[2019-03-24] MEDS: ROSUVASTATIN CALCIUM 20 MG TAB PO SCH (21:09)
[2019-03-24] MEDS: lamoTRIgine 100 MG TAB PO SCH (21:10)
--- NOTE | 2019-03-24 22:29 | Hospitalist Progress Note ---
Date of Service March 24, 2019 Assessment & Plan (1) Lumbar spinal stenosis: Severe central canal stenosis at L3-L4 and L4-L5 & multilevel foraminal narrowing, severe bilaterally at L4-L5 seen on MRI on 03/15. - Orthopedic spine consulted - Patient had surgery on 03/19: #1 lumbar decompression medial facetectomy foraminotomies L2-3 L3-4 L4-5. #2 posterior spinal fusion L3-4 L4-5 per #3 please posterior segmental instrumentation using globus L3-4 L4-5. #4 interbody fusion L3-4 L4-5 per #5 placed a peek cage 11 x 26 mm at L3-4 and L4-5. #6 placement of local autograft in the posterior lateral gutters per #7 placement infuse collagen sponge, mass graft in the posterior lateral gutters and ostial amp and interbody space. - Pain control, gabapentin - Steroids started by admitting physician; stopped prior to surgery to prevent post-op wound healing issues. (2) CKD (chronic kidney disease) stage 3, GFR 30-59 ml/min: Baseline Cr ~1.3-1.5; eGFR 40-50. - Cr was 1.9 on admission. - -improved to 1.41 on 03/20; but worsened to over 3 on 03/23. Will restart fluids. [place] down on 03/24. This is likely exacerbated by diarrhea as well. Givne his elevated BUN, this is likely from dehydration. -Anemia may also be contributing to this. - Renally-dose medications - Monitor Cr (3) Diabetes: A1c wa 7.1% on admission. - Continue long-acting and sliding scale insulin - Glycemic pharmacist consult (4) Heart disease: Prior CABG. - Continue lisinopril, metoprolol, statin - Holding Plavix for surgery - Restart when cleared by surgery -HOLDING PLAVIX PATIENT WAS HAVING LARGE AMOUNT OF [place]-On ASA. (5) Hypertension: BP has been 130/65 to 160/75 while inpatient. - Continue beta-joe as above -Held Jenaro inhibitor due to renal failure (6) Bipolar disorder: Patient is on Lamictal & Depakote for mood stabilization due to his bipolar disorder he states this is been doing well for him. Valproic acid level was 54 (in desired range) on 03/15/2019. 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 - Pneumovax (8) Orthostatic hypotension: Likely from blood loss from surgery. Hemglobin has stayed relatively normal: droppped from 13 to 11 and now to 9, Concern that patient may even be lower as he is hemoconcentrated. Will reinitaite IVF and will place on [place]. Clinically appears to be improving today. May consider transfusion but discussed with evening Doc, will monitor hemoglobin and if it drops will transfuse/. (9) Diarrhea: will monitor diarrhea. check c. diff. will hold agents such as laxatives and stool softeners for the moment. (10) Metabolic encephalopathy: Likely uremic encephalopathy. Will rehydrate and replace the fluid loss likely from anemia and GI fluid loss with a bolus of LR. continue OVF fluids Expect confusion to improve once he is replenished. (11) DVT prophylaxis: SCDs for DVT prevention Spent 35 minutes in management Subjective Patient continues to be confused and is apoor historian. is at bedside and is updated. Review of Systems Review of Systems: Unobtainable due to mental health condition Physical Exam Physical Exam: Constitutional: WD/WN, vitals as above Eyes: EOM intact bilaterally; no conjunctival abnormality ENMT: external ear and nose normal, oropharynx normal Neck: trachea midline, no thyromegaly normal visual inspection Respiratory: normal respiratory effort, lungs clear to auscultation no respiratory distress Cardiovascular: RRR, no murmur, no edema Gastrointestinal (Abdomen): Inspection/Auscultation: abdomen normal to inspection; abdomen not distended Musculoskeletal: no cyanosis or clubbing, extremities motor strength 5/5 Skin: no rashes, warm and dry Neurologic: moves all extremities and awake Psychiatric: Orientation: alert, oriented to person and cooperative Results & Data Vital Signs (Past 12 Hours) Vital Signs Temp Pulse Resp BP Pulse Ox 03/24/19 15:15 36.4 C L 75 16 127/64 97
[2019-03-24] MEDS: LACTATED RINGER'S 1,000 ML IV SCH (22:50)
[2019-03-25] MEDS: LACTATED RINGER'S 1,000 ML IV SCH ×3 (06:39→23:30)
[2019-03-25] MEDS: TRAMADOL HCL 50 MG TABLET PO PRN (08:21)
[2019-03-25] MEDS: MAGNESIUM HYDROXIDE SUSP 30 ML UDC PO PRN (08:21)
[2019-03-25] MEDS: DIVALPROEX DELAY RELEASE 500 MG TAB PO SCH ×2 (08:22→21:08)
[2019-03-25] MEDS: FOLIC ACID 1 MG TAB PO SCH (08:22)
[2019-03-25] MEDS: ASPIRIN 81 MG ECTAB PO SCH (08:23)
[2019-03-25] MEDS: GABAPENTIN 300 MG CAP PO SCH ×3 (08:23→21:07)
[2019-03-25] MEDS: CYANOCOBALAMIN 500 MCG TABLET (VITAMIN B-12) PO SCH (08:23)
[2019-03-25] MEDS: CHOLECALCIFEROL 1,000 UNITS TAB PO SCH (08:23)
[2019-03-25] MEDS: prednisoLONE acetate 1% OP SUSP 5 ML BTL OPL SCH ×4 (08:23→21:08)
[2019-03-25] MEDS: INSULIN GLARGINE SOLOSTAR 100 UNITS/ML 3 ML PEN SQ SCH (08:24)
[2019-03-25] MEDS: INSULIN ASPART 100 UNITS/ML 3 ML PEN SC SCH ×4 (08:36→21:18)
--- NOTE | 2019-03-25 09:58 | Pharmacy Report ---
Pharmacy Glycemic Short Note 2 - Date of Service March 25, 2019 - Glycemic Short BSG Results (Last 24 hours): 03/24/19 03/24/19 03/24/19 12:10 17:13 20:17 POC Glucose 207 H 185 H 201 H 03/25/19 08:10 POC Glucose 116 H OUTPATIENT ANTIDIABETIC REGIMEN: * Lantus 28 units SQ AM * Humalog 12 units AC * Metformin 1,000mg PO BIDM * HbA1c: 7.1% (03/16/19) ASSESSMENT: * Reji received total of 57 units of insulin yesterday * 28 units of basal insulin * 29 units of bolus insulin * Fasting BSG of 116 mg/dL is at goal. No changes will be made to basal insulin. * Post prandial BSGs were elevated over the past 24 hours. I will tighten Novolog carb ratio. PLAN FOR INPATIENT GLYCEMIC CONTROL: * Hold Metformin for increased creatinine. * Basal insulin * Lantus 28 units SQ qAM * Bolus insulin: tightened carb ratio * NovoLog per scale ACHS or Q6hrs while NPO * Goal Range: Low 110 mg/dL - High 140 mg/dL * Correction Factor: 18 mg/dL/unit * Nutritional / Prandial insulin per carb ratio of 1 unit per 5 grams CHO consumed PLAN FOR DISCHARGE: * No changes needed to outpatient regimen based on adequate A1c.
--- NOTE | 2019-03-25 11:04 | Orthopedic Progress Note ---
Date of Service March 25, 2019 Assessment & Plan (1) Lumbar spinal stenosis: At this time we will hopefully begin transfers from bed to chair today. Ambulate as tolerated. A long discussion with his today regarding his condition. I suspect he will improve over the course of the next few days. Present on Admission?: Yes Subjective Back pain is still limiting. He has no leg pain. Physical Exam Physical Exam: On exam his incision is clean dry and intact. He is neurologically intact. He is still very sensitive. He cries easily. Does appear to be alert and oriented however. Results & Data Vital Signs (Past 12 Hours) Vital Signs Temp Pulse Pulse Resp BP BP Pulse Ox 03/25/19 07:18 36.5 C 67 18 158/68 H 95 03/24/19 23:13 36.8 C 72 16 137/67 96
[2019-03-25 11:07] LABS: Basophils # (auto) 0.01 K/uL (0-0.2); Basophils % (auto) 0.1 %; Eosinophils # (auto) 0.36 K/uL (0-0.5); Eosinophils % (auto) 2.7 %; Hematocrit (blood only) 30.2 % (42-52); Hemoglobin 10.5 g/dL (14.0-18.0); Immature Granulocytes # (auto) 0.08 K/uL (0.00-0.02); Immature Granulocytes % (auto) 0.6 %; Lymphocytes # (auto) 1.45 K/uL (1.2-3.4); Mean Corpuscular Hgb Conc 34.8 g/dL (32-36); Mean Corpuscular Volume 94.1 fL (80-100); Mean Platelet Volume 11.3 fL (7.4-10.4); Monocytes # (auto) 1.35 K/uL (0.11-0.59); Monocytes % (auto) 10.2 %; Neutrophils # (auto) 9.93 K/uL (1.4-6.5); Neutrophils % (auto) 75.4 %; Platelet Count 252 K/uL (130-400); RDW Coefficient of Variation 14.1 % (11.5-14.5); RDW Standard Deviation 48.8 fL (36.4-46.3); Red Blood Count 3.21 M/uL (4.7-6.1); White Blood Count 13.18 K/uL (4.8-10.8)
[2019-03-25 11:30] LABS: BUN Creatinine Ratio 27.4 (10-20); Calcium 9.6 mg/dl (8.5-10.1); Creatinine Clr Calc Pharmacy 44.4 ml/min; Est GFR (African American) 46.7; Est GFR (Non-African American) 40.3; Potassium 3.9 mmol/L (3.5-5.1)
[2019-03-25] MEDS: ROSUVASTATIN CALCIUM 20 MG TAB PO SCH (21:05)
[2019-03-25] MEDS: lamoTRIgine 100 MG TAB PO SCH (21:07)
--- NOTE | 2019-03-25 22:38 | Hospitalist Progress Note ---
Date of Service March 25, 2019 Assessment & Plan (1) Lumbar spinal stenosis: Severe central canal stenosis at L3-L4 and L4-L5 & multilevel foraminal narrowing, severe bilaterally at L4-L5 seen on MRI on 03/15. - Orthopedic spine consulted - Patient had surgery on 03/19: #1 lumbar decompression medial facetectomy foraminotomies L2-3 L3-4 L4-5. #2 posterior spinal fusion L3-4 L4-5 per #3 please posterior segmental instrumentation using globus L3-4 L4-5. #4 interbody fusion L3-4 L4-5 per #5 placed a peek cage 11 x 26 mm at L3-4 and L4-5. #6 placement of local autograft in the posterior lateral gutters per #7 placement infuse collagen sponge, mass graft in the posterior lateral gutters and ostial amp and interbody space. - Pain control, gabapentin - Steroids started by admitting physician; stopped prior to surgery to prevent post-op wound healing issues. (2) CKD (chronic kidney disease) stage 3, GFR 30-59 ml/min: Baseline Cr ~1.3-1.5; eGFR 40-50. - Cr was 1.9 on admission. - -improved to 1.41 on 03/20; but worsened to over 3 on 03/23. Will restart fluids. [place] down on 03/25. Now down to 1.6 This was likely exacerbated by diarrhea, anemia as well. Given his elevated BUN, this is likely from dehydration. - Renally-dose medications - Monitor Cr -continue IVF. On andersen for monitoring Is and Os (3) Diabetes: A1c wa 7.1% on admission. - Continue long-acting and sliding scale insulin - Glycemic pharmacist consult (4) Heart disease: Prior CABG. - Continue lisinopril, metoprolol, statin - Holding Plavix for surgery - Restart when cleared by surgery -HOLDING PLAVIX PATIENT WAS HAVING LARGE AMOUNT OF [place]-On ASA. (5) Hypertension: BP has been 130/65 to 160/75 while inpatient. - Continue beta-joe as above -Held Jenaro inhibitor due to renal failure (6) Bipolar disorder: Patient is on Lamictal & Depakote for mood stabilization due to his bipolar disorder he states this is been doing well for him. Valproic acid level was 54 (in desired range) on 03/15/2019. 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 - Pneumovax (8) Orthostatic hypotension: Likely from blood loss from surgery. Hemglobin has stayed relatively normal: droppped from 13 to 11 and now to 9, Concern that patient may even be lower as he is hemoconcentrated. Will reinitaite IVF and will place on [place]. Clinically appears to be improving today. May consider transfusion but discussed with evening Doc, will monitor hemoglobin and if it drops will transfuse/. (9) Diarrhea: will monitor diarrhea. Improving. check c. diff: this was negative. will hold agents such as laxatives and stool softeners for the moment. (10) Metabolic encephalopathy: Likely uremic encephalopathy. Will rehydrate and replace the fluid loss likely from anemia and GI fluid loss with a bolus of LR. continue IVF fluids Expect confusion to improve once he is replenished. On andersen as patient is receiving IVF, so that he does not need to awaken overnight to urinate and perhaps help with his delirium. Will continue to monitor (11) DVT prophylaxis: SCDs for DVT prevention Spent 25 minutes in management Subjective Patient continues to be a poor historian. He communicates better and is more awake than yesterday. However he continues to discuss topics that are not pertinent to the hospital stay. Review of Systems Review of Systems: Unobtainable due to mental health condition Physical Exam Physical Exam: Constitutional: WD/WN, vitals as above Eyes: EOM intact bilaterally; no conjunctival abnormality ENMT: external ear and nose normal, oropharynx normal Neck: trachea midline, no thyromegaly normal visual inspection Respiratory: normal respiratory effort, lungs clear to auscultation no respiratory distress Cardiovascular: RRR, no murmur, no edema Gastrointestinal (Abdomen): Inspection/Auscultation: abdomen normal to inspecti on; abdomen not distended Musculoskeletal: no cyanosis or clubbing, extremities motor strength 5/5 Skin: no rashes, warm and dry Neurologic: moves all extremities and awake Psychiatric: Orientation: alert, oriented to person and cooperative Results & Data Vital Signs (Past 12 Hours) Vital Signs Temp Pulse Resp BP Pulse Ox 03/25/19 15:16 36.5 C 73 17 127/66 92
[2019-03-26] MEDS: TRAMADOL HCL 50 MG TABLET PO PRN (04:04)
[2019-03-26] MEDS: LACTATED RINGER'S 1,000 ML IV SCH ×2 (07:52→16:07)
[2019-03-26 07:55] LABS: Hematocrit (blood only) 25.4 % (42-52); Hemoglobin 8.4 g/dL (14.0-18.0); Mean Corpuscular Hgb Conc 33.1 g/dL (32-36); Mean Corpuscular Volume 95.1 fL (80-100); Mean Platelet Volume 10.9 fL (7.4-10.4); Platelet Count 267 K/uL (130-400); RDW Coefficient of Variation 14.2 % (11.5-14.5); RDW Standard Deviation 49.6 fL (36.4-46.3); Red Blood Count 2.67 M/uL (4.7-6.1); White Blood Count 14.82 K/uL (4.8-10.8)
[2019-03-26 08:30] LABS: BUN Creatinine Ratio 26.7 (10-20); Calcium 9.4 mg/dl (8.5-10.1); Creatinine Clr Calc Pharmacy 52.5 ml/min; Est GFR (African American) 57.2; Est GFR (Non-African American) 49.3; Potassium 4.2 mmol/L (3.5-5.1)
[2019-03-26] MEDS: FOLIC ACID 1 MG TAB PO SCH (08:57)
[2019-03-26] MEDS: ASPIRIN 81 MG ECTAB PO SCH (08:57)
[2019-03-26] MEDS: DIVALPROEX DELAY RELEASE 500 MG TAB PO SCH ×2 (08:57→20:10)
[2019-03-26] MEDS: CYANOCOBALAMIN 500 MCG TABLET (VITAMIN B-12) PO SCH (08:58)
[2019-03-26] MEDS: prednisoLONE acetate 1% OP SUSP 5 ML BTL OPL SCH ×4 (08:58→20:11)
[2019-03-26] MEDS: GABAPENTIN 300 MG CAP PO SCH ×2 (08:58→13:19)
[2019-03-26] MEDS: CHOLECALCIFEROL 1,000 UNITS TAB PO SCH (08:58)
[2019-03-26] MEDS: INSULIN GLARGINE SOLOSTAR 100 UNITS/ML 3 ML PEN SQ SCH (08:59)
[2019-03-26] MEDS: INSULIN ASPART 100 UNITS/ML 3 ML PEN SC SCH ×4 (09:00→21:44)
--- NOTE | 2019-03-26 09:37 | Hospitalist Progress Note ---
Date of Service March 26, 2019 Assessment & Plan (1) Lumbar spinal stenosis: Severe central canal stenosis at L3-L4 and L4-L5 & multilevel foraminal narrowing, severe bilaterally at L4-L5 seen on MRI on 03/15. - Orthopedic spine consulted - Patient had surgery on 03/19: #1 lumbar decompression medial facetectomy foraminotomies L2-3 L3-4 L4-5. #2 posterior spinal fusion L3-4 L4-5 per #3 please posterior segmental instrumentation using globus L3-4 L4-5. #4 interbody fusion L3-4 L4-5 per #5 placed a peek cage 11 x 26 mm at L3-4 and L4-5. #6 placement of local autograft in the posterior lateral gutters per #7 placement infuse collagen sponge, mass graft in the posterior lateral gutters and ostial amp and interbody space. - Pain control, gabapentin - Steroids started by admitting physician; stopped prior to surgery to prevent post-op wound healing issues. (2) CKD (chronic kidney disease) stage 3, GFR 30-59 ml/min: Baseline Cr ~1.3-1.5; eGFR 40-50. - Cr was 1.9 on admission. this pt likely had acute kidney injury in the setting of dehydration and acute blood loss anemia( after the surgery) treated wtih IVF - -improved to 1.41 on 03/20; but worsened to over 3 on 03/23. Will restart fluids. Trending down on 03/25. Now down to 1.6 This was likely exacerbated by diarrhea, anemia as well. Given his elevated BUN, this is likely from dehydration. - Renally-dose medications - Monitor Cr -continue IVF. On andersen for monitoring Is and Os (3) Diabetes: A1c wa 7.1% on admission. - Continue long-acting and sliding scale insulin - Glycemic pharmacist consult (4) Heart disease: Prior CABG. - Continue lisinopril, metoprolol, statin - Holding Plavix for surgery - Restart when cleared by surgery -HOLDING PLAVIX PATIENT WAS HAVING LARGE AMOUNT OF Dra[place]age-On ASA. (5) Hypertension: BP has been 130/65 to 160/75 while inpatient. - Continue beta-joe as above -Held Jenaro inhibitor due to renal failure (6) Bipolar disorder: Patient is on Lamictal & Depakote for mood stabilization due to his bipolar disorder he states this is been doing well for him. Valproic acid level was 54 (in desired range) on 03/15/2019. 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 - Pneumovax (8) Orthostatic hypotension: Likely from blood loss from surgery. Hemeglobin has stayed relatively normal: droppped from 13 to 11 and now to 9, Concern that patient may even be lower as he is hemoconcentrated. Will re-initiate IVF and will place on Andersen. (9) Diarrhea: will monitor diarrhea. Improving. checked c. diff: this was negative. will hold agents such as laxatives and stool softeners for the moment. (10) Metabolic encephalopathy: confusion continues, will check urine culture, stop any offending toxic meds and follow (11) DVT prophylaxis: SCDs for DVT prevention Subjective Mr. De La Rosa is slightly confused and a little bit more than last I remember him. He had back surgery for spinal stenosis. Many medications on his ER which could be contributing to some of his encephalopathy these were all held on 03/26 additionally we are doing a urine analysis to look for urinary tract infection which could be Andersen catheter related and would cause metabolic encephalopathy he does have a persistent elevation of his white count although having no diarrhea at this time Review of Systems Review of Systems: ROS: well nourished well developed. No double vision blurry vision No problems with speech or swallowing No palpitations, chest pain or pressure No Wheezing or breathing issues No abdominal pain nausea vomiting diarrhea changes in appetite or weight No burning urine urine frequency or changes in color No focal joint pain or muscle pain No skin rashes or oral lesions No unusual bruising or bleeding Persistent but improved lower back pain but no numbness or loss of strength Slight confusion Physical Exam Physical Exam: The patient appeared well nourished and normally developed. Vital signs as documented. Head exam is unremarkable. normocephalic, atraumatic Neck is without jugular venous distension, thyromegaly, or lymphademopathy Lungs are clear to auscultation and percussion. Cardiac exam reveals Rhythm is regular. First and second heart sounds normal. Abdominal exam reveals normal bowel sounds, no masses, no organomegaly Extremities are nonedematous and both pedal pulses are present Neurologic exam is A&Ox2, no focal deficits, strength is equal bilateral, sensation intact to feet Psychologically seems neither anxious or depressed Skin is warm Dry without bruises or lesions Results & Data Vital Signs (Past 12 Hours) Vital Signs Temp Pulse Pulse Resp BP BP Pulse Ox 03/26/19 09:12 94 03/26/19 07:35 37.1 C 68 17 158/64 H 92 03/25/19 22:50 36.3 C L 73 16 124/66 93
--- NOTE | 2019-03-26 11:16 | Orthopedic Progress Note ---
Date of Service March 26, 2019 Assessment & Plan (1) Lumbar spinal stenosis: At this time we will continue to encourage bed to chair activity and ambulate as tolerated. Present on Admission?: Yes Subjective Patient is improving today. Back pain is controlled. He was in the chair for several hours and tolerated well. Physical Exam Physical Exam: On exam he is more alert and oriented today. He is neurologically intact. Results & Data Vital Signs (Past 12 Hours) Vital Signs Temp Pulse Resp BP Pulse Ox 03/26/19 09:12 94 03/26/19 07:35 37.1 C 68 17 158/64 H 92 (1) Lumbar spinal stenosis Neurogenic claudication status: unspecified Qualified Code(s): M48.061 - Spi nal stenosis, lumbar region without neurogenic claudication
--- NOTE | 2019-03-26 13:47 | Pharmacy Report ---
Pharmacy Glycemic Short Note 2 - Date of Service March 26, 2019 - Glycemic Short BSG Results (Last 24 hours): 03/25/19 03/25/19 03/26/19 17:26 21:03 07:40 Glucose 103 H POC Glucose 149 H 153 H 03/26/19 03/26/19 08:14 12:09 Glucose POC Glucose 109 H 171 H OUTPATIENT ANTIDIABETIC REGIMEN: * Lantus 28 units SQ AM * Humalog 12 units AC * Metformin 1,000mg PO BIDM * HbA1c: 7.1% (03/16/19) ASSESSMENT: 03/26 * Reji received 60 units of insulin yesterday * 28 units of basal * 32 units of bolus * Fasting 109 is slightly below goal of 110, currently on home dosing, will continue but may need decreased if downtrend continues * Post-prandial BSGs slightly above goal, improving with tightened parameters, will continue * TAMY improving, metformin continues to be on hold 03/25 * Reji received total of 57 units of insulin yesterday * 28 units of basal insulin * 29 units of bolus insulin * Fasting BSG of 116 mg/dL is at goal. No changes will be made to basal insulin. * Post prandial BSGs were elevated over the past 24 hours. I will tighten Novolog carb ratio. PLAN FOR INPATIENT GLYCEMIC CONTROL: * Hold Metformin for increased creatinine. * Basal insulin-no change * Lantus 28 units SQ qAM * Bolus insulin: no change * NovoLog per scale ACHS or Q6hrs while NPO * Goal Range: Low 110 mg/dL - High 140 mg/dL * Correction Factor: 18 mg/dL/unit * Nutritional / Prandial insulin per carb ratio of 1 unit per 5 grams CHO consumed PLAN FOR DISCHARGE: * No changes needed to outpatient regimen based on adequate A1c.
[2019-03-26 18:16] LABS: Appearance Urine Clear (Clear); Bacteria Urine Automated Negative (Negative); Bilirubin Urine Negative (Negative); Color Urine Yellow; Epithelial Cell Urine Auto >30 /lpf (0-5); Glucose Urine UA Negative (Negative); Ketones Urine Negative (Negative); Leukocyte Esterase Urine Negative (Negative); Nitrite Urine Negative (Negative); Protein Urine 1+ (Negative); Specific Gravity Urine 1.016 (1.000-1.030); Urobilinogen Urine Negative (Negative)
[2019-03-26 18:25] LABS: Renal Epithelial Cells Urine 0-5 /lpf (0-5)
[2019-03-26] MEDS: lamoTRIgine 100 MG TAB PO SCH (20:10)
[2019-03-26] MEDS: ROSUVASTATIN CALCIUM 20 MG TAB PO SCH (20:10)
[2019-03-26] MEDS ORDERED: GABAPENTIN 300 MG CAP PO SCH (21:00)
[2019-03-27] MEDS: LACTATED RINGER'S 1,000 ML IV SCH ×4 (00:03→23:39)
[2019-03-27 07:01] LABS: BUN Creatinine Ratio 20.1 (10-20); Calcium 9.3 mg/dl (8.5-10.1); Creatinine Clr Calc Pharmacy 53.2 ml/min; Est GFR (African American) 58.2; Est GFR (Non-African American) 50.2; Potassium 4.2 mmol/L (3.5-5.1)
[2019-03-27] MEDS: MAGNESIUM HYDROXIDE SUSP 30 ML UDC PO PRN (08:10)
[2019-03-27] MEDS: CYANOCOBALAMIN 500 MCG TABLET (VITAMIN B-12) PO SCH (08:46)
[2019-03-27] MEDS: CHOLECALCIFEROL 1,000 UNITS TAB PO SCH (08:46)
[2019-03-27] MEDS: ASPIRIN 81 MG ECTAB PO SCH (08:47)
[2019-03-27] MEDS: FOLIC ACID 1 MG TAB PO SCH (08:47)
[2019-03-27] MEDS: DIVALPROEX DELAY RELEASE 500 MG TAB PO SCH ×2 (08:47→22:04)
[2019-03-27] MEDS: INSULIN GLARGINE SOLOSTAR 100 UNITS/ML 3 ML PEN SQ SCH (08:48)
[2019-03-27] MEDS: prednisoLONE acetate 1% OP SUSP 5 ML BTL OPL SCH ×4 (08:48→22:09)
[2019-03-27] MEDS: INSULIN ASPART 100 UNITS/ML 3 ML PEN SC SCH ×4 (08:49→22:10)
[2019-03-27] MEDS: ACETAMINOPHEN 500 MG TAB PO PRN ×2 (09:00→18:04)
--- NOTE | 2019-03-27 12:47 | Orthopedic Progress Note ---
Date of Service March 27, 2019 Assessment & Plan (1) Lumbar spinal stenosis: This time we will continue physical therapy urged him to ambulate as much as tolerated. Present on Admission?: Yes Subjective Patient is not complaining of pain at this time. Physical Exam Physical Exam: Neurologically intact. Appears comfortable. Results & Data Vital Signs (Past 12 Hours) Vital Signs Temp Pulse Resp BP Pulse Ox 03/27/19 07:11 36.9 C 69 16 169/62 H 91 (1) Lumbar spinal stenosis Neurogenic claudication status: unspecified Qualified Code(s): M48.061 - Spinal stenosis, lumbar region without neurogenic claudication
--- NOTE | 2019-03-27 18:48 | Hospitalist Progress Note ---
Date of Service March 27, 2019 Assessment & Plan (1) Lumbar spinal stenosis: Severe central canal stenosis at L3-L4 and L4-L5 & multilevel foraminal narrowing, severe bilaterally at L4-L5 seen on MRI on 03/15. - Orthopedic spine consulted - Patient had surgery on 03/19: #1 lumbar decompression medial facetectomy foraminotomies L2-3 L3-4 L4-5. #2 posterior spinal fusion L3-4 L4-5 per #3 please posterior segmental instrumentation using globus L3-4 L4-5. #4 interbody fusion L3-4 L4-5 per #5 placed a peek cage 11 x 26 mm at L3-4 and L4-5. #6 placement of local autograft in the posterior lateral gutters per #7 placement infuse collagen sponge, mass graft in the posterior lateral gutters and ostial amp and interbody space. - Pain control, is acceptable now off gabapentin altogether to avoid any COM[employer]ACH[employer]PERATOR influence - Steroids have been discontinued (2) CKD (chronic kidney disease) stage 3, GFR 30-59 ml/min: Baseline Cr ~1.3-1.5; eGFR 40-50. - Cr was 1.9 on admission. this pt likely had acute kidney injury in the setting of dehydration and acute blood loss anemia( after the surgery) treated wtih IVF - This was likely exacerbated by diarrhea, acute blood loss anemia as well. - Renally-dose medications - Please discontinued (3) Diabetes: A1c wa 7.1% on admission. - Continue long-acting and sliding scale insulin - Glycemic pharmacist consult (4) Heart disease: Prior CABG. is mainly symptomatic - Continue lisinopril, metoprolol, statin Resume antiplatelet agents likely time of discharge (5) Hypertension: - Continue beta-joe as above -Held Jenaro inhibitor due to renal failure Blood pressures been variable but acceptable (6) Bipolar disorder: Patient is on Lamictal & Depakote for mood stabilization due to his bipolar disorder he states this is been doing well for him. 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 - Pneumovax (8) Orthostatic hypotension: Hypovolemia from blood loss from surgery. Has been stable (9) Diarrhea: checked c. diff: this was negative. will hold agents such as laxatives and stool softeners for the moment. (10) Metabolic encephalopathy: confusion continues, pending final urine culture, continue gabapentin altogether patient has had some improvement over the last 24 hours (11) DVT prophylaxis: SCDs for DVT prevention Subjective Patient still in his baseline but remains somewhat lethargic or confused he is oriented upon questioning but tends to be tangential in his reasoning He is still no radicular discomfort his back pain is acceptable he has been able to urinate without his catheter is at the bedside and updated Review of Systems Review of Systems: ROS: well nourished well developed. He is slightly off of his mental thinking No double vision blurry vision No problems with speech or swallowing No palpitations, chest pain or pressure No Wheezing or breathing issues No abdominal pain nausea vomiting diarrhea changes in appetite or weight No burning urine urine frequency or changes in color still with some difficulty urinating after catheter removed No focal joint pain or muscle pain No skin rashes or oral lesions No unusual bruising or bleeding No focused back pain or numbness or loss of strength No new changes in memory or confusion Physical Exam Physical Exam: The patient appeared well nourished and normally developed. Vital signs as documented. Head exam is unremarkable. normocephalic, atraumatic Neck is without jugular venous distension, thyromegaly, or lymphademopathy Lungs are clear to auscultation and percussion. Cardiac exam reveals Rhythm is regular. First and second heart sounds normal. Abdominal exam reveals normal bowel sounds, no masses, no organomegaly Extremities are nonedematous and both pedal pulses are present Neurologic exam is A&Ox3, no focal deficits, strength is equal bilateral Psychologically somewhat depressed Skin is warm Dry without bruises or lesions Results & Data Vital Signs (Past 12 Hours) Vital Signs Temp Pulse Resp BP Pulse Ox 03/27/19 16:00 165/62 H 03/27/19 15:07 36.5 C 81 19 186/69 H 94 03/27/19 07:11 36.9 C 69 16 169/62 H 91
[2019-03-27] MEDS: lamoTRIgine 100 MG TAB PO SCH (22:05)
[2019-03-27] MEDS: ROSUVASTATIN CALCIUM 20 MG TAB PO SCH (22:05)
[2019-03-28] MEDS: ACETAMINOPHEN 500 MG TAB PO PRN ×2 (01:03→18:23)
[2019-03-28] MEDS ORDERED: KETOROLAC TROMETHAMINE 15 MG/ML VIAL IV ONE (07:02)
[2019-03-28 07:56] LABS: Hemoglobin 9.2 g/dL (14.0-18.0); Mean Corpuscular Hgb Conc 32.9 g/dL (32-36); Mean Corpuscular Volume 95.6 fL (80-100); Mean Platelet Volume 10.3 fL (7.4-10.4); Platelet Count 409 K/uL (130-400); RDW Coefficient of Variation 14.3 % (11.5-14.5); RDW Standard Deviation 50.1 fL (36.4-46.3); Red Blood Count 2.93 M/uL (4.7-6.1); White Blood Count 12.93 K/uL (4.8-10.8)
[2019-03-28] MEDS: LACTATED RINGER'S 1,000 ML IV SCH ×2 (08:11→16:29)
[2019-03-28 08:16] LABS: BUN Creatinine Ratio 17.3 (10-20); Calcium 9.6 mg/dl (8.5-10.1); Creatinine Clr Calc Pharmacy 52.9 ml/min; Est GFR (African American) 57.7; Est GFR (Non-African American) 49.7; Potassium 4.2 mmol/L (3.5-5.1)
[2019-03-28] MEDS: ASPIRIN 81 MG ECTAB PO SCH (08:23)
[2019-03-28] MEDS: CYANOCOBALAMIN 500 MCG TABLET (VITAMIN B-12) PO SCH (08:23)
[2019-03-28] MEDS: CHOLECALCIFEROL 1,000 UNITS TAB PO SCH (08:23)
[2019-03-28] MEDS: FOLIC ACID 1 MG TAB PO SCH (08:23)
[2019-03-28] MEDS: DIVALPROEX DELAY RELEASE 500 MG TAB PO SCH ×2 (08:23→20:29)
[2019-03-28] MEDS: prednisoLONE acetate 1% OP SUSP 5 ML BTL OPL SCH ×4 (08:24→20:29)
[2019-03-28] MEDS: INSULIN GLARGINE SOLOSTAR 100 UNITS/ML 3 ML PEN SQ SCH (09:33)
[2019-03-28] MEDS: INSULIN ASPART 100 UNITS/ML 3 ML PEN SC SCH ×4 (09:34→21:57)
[2019-03-28] MEDS ORDERED: BISACODYL 10 MG SUPP PR STA (11:43)
[2019-03-28] MEDS: OXYCODONE HCL IR 5 MG TAB (IMMEDIATE RELEASE) PO PRN (12:22)
--- NOTE | 2019-03-28 12:34 | Orthopedic Progress Note ---
Date of Service March 28, 2019 Assessment & Plan (1) Lumbar spinal stenosis: This time we will continue physical therapy anticipate discharge to rehab tomorrow. Present on Admission?: Yes Subjective Back pain is controlled leg pain improved. Physical Exam Physical Exam: On exam he is in the chair at the bedside. Is much more alert today. He is neurologically intact. Results & Data Vital Signs (Past 12 Hours) Vital Signs Temp Pulse Resp BP Pulse Ox 03/28/19 11:56 36.8 C 74 22 175/78 H 96 03/28/19 07:55 37 C 80 22 170/70 H 92 (1) Lumbar spinal stenosis Neurogenic claudication status: unspecified Qualified Code(s): M48.061 - Spinal stenosis, lumbar region without neurogenic claudication
--- NOTE | 2019-03-28 17:28 | Hospitalist Progress Note ---
Date of Service March 28, 2019 Assessment & Plan (1) Lumbar spinal stenosis: Severe central canal stenosis at L3-L4 and L4-L5 & multilevel foraminal narrowing, severe bilaterally at L4-L5 seen on MRI on 03/15. - Orthopedic spine consulted - Patient had surgery on 03/19: #1 lumbar decompression medial facetectomy foraminotomies L2-3 L3-4 L4-5. #2 posterior spinal fusion L3-4 L4-5 per #3 please posterior segmental instrumentation using globus L3-4 L4-5. #4 interbody fusion L3-4 L4-5 per #5 placed a peek cage 11 x 26 mm at L3-4 and L4-5. #6 placement of local autograft in the posterior lateral gutters per #7 placement infuse collagen sponge, mass graft in the posterior lateral gutters and ostial amp and interbody space. - Pain control, is acceptable now off gabapentin altogether offering low doses of oxycodone as needed - Steroids have been discontinued (2) CKD (chronic kidney disease) stage 3, GFR 30-59 ml/min: Baseline Cr ~1.3-1.5; eGFR 40-50. - Cr was 1.9 on admission. this pt likely had acute kidney injury in the setting of dehydration and acute blood loss anemia( after the surgery) treated wtih IVF - This was likely exacerbated by diarrhea, acute blood loss anemia as well. - Renally-dose medications - (3) Diabetes: A1c wa 7.1% on admission. - Continue long-acting and sliding scale insulin - Glycemic pharmacist consult (4) Heart disease: Prior CABG. is mainly symptomatic -Remains on lisinopril, metoprolol, statin Resume antiplatelet agents likely time of discharge (5) Hypertension: - Continue beta-joe as above -Held Jenaro inhibitor due to renal failure Blood pressures been variable but acceptable (6) Bipolar disorder: Patient is on Lamictal & Depakote for mood stabilization due to his bipolar disorder he states this is been doing well for him. 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 - Pneumovax (8) Orthostatic hypotension: Hypovolemia from blood loss from surgery. Has been stable (9) Diarrhea: checked c. diff: this was negative. will hold agents such as laxatives and stool softeners for the moment. (10) Metabolic encephalopathy: This is likely not metabolic encephalopathy with toxic encephalopathy urine culture is been negative (11) DVT prophylaxis: SCDs for DVT prevention Subjective Patient is mentally more clear after discontinuation of the final doses of his gabapentin. He still having some minor back pain and complains of constipation. If he continues to improve in this way will likely have him moved to rehab facility Review of Systems Review of Systems: ROS: well nourished well developed. No double vision blurry vision No problems with speech or swallowing No palpitations, chest pain or pressure No Wheezing or breathing issues No abdominal pain nausea vomiting diarrhea changes in appetite or weight No burning urine urine frequency or changes in color No focal joint pain or muscle pain No skin rashes or oral lesions No unusual bruising or bleeding Minor postoperative back pain which is acceptable at this point of his healing Improving changes in memory or confusion Physical Exam Physical Exam: The patient appeared well nourished and normally developed. Vital signs as documented. Head exam is unremarkable. normocephalic, atraumatic Neck is without jugular venous distension, thyromegaly, or lymphademopathy Lungs are clear to auscultation and percussion. Cardiac exam reveals Rhythm is regular. First and second heart sounds normal. Abdominal exam reveals normal bowel sounds, no masses, no organomegaly Extremities are nonedematous and both pedal pulses are present Neurologic exam is A&Ox3, no focal deficits, strength is equal bilateral Psychologically seems more clear Skin is warm Dry without bruises or lesions wound on his back is clean dry and intact Results & Data Vital Signs (Past 12 Hours) Vital Signs Temp Pulse Pulse Resp BP Pulse Ox 03/28/19 14:58 36.6 C 86 19 170/66 H 94 03/28/19 11:56 36.8 C 74 22 175/78 H 96 03/28/19 07:55 37 C 80 22 170/70 H 92
[2019-03-28] MEDS: MAGNESIUM HYDROXIDE SUSP 30 ML UDC PO PRN (18:23)
[2019-03-28] MEDS: ROSUVASTATIN CALCIUM 20 MG TAB PO SCH (20:29)
[2019-03-28] MEDS: lamoTRIgine 100 MG TAB PO SCH (20:29)
[2019-03-29] MEDS: OXYCODONE HCL IR 5 MG TAB (IMMEDIATE RELEASE) PO PRN ×2 (04:05→09:00)
[2019-03-29 07:25] LABS: BUN Creatinine Ratio 15.6 (10-20); Calcium 9.1 mg/dl (8.5-10.1); Est GFR (African American) 59.2; Est GFR (Non-African American) 51.1; Potassium 4.3 mmol/L (3.5-5.1)
[2019-03-29] MEDS: BISACODYL 10 MG SUPP PR PRN (07:49)
[2019-03-29] MEDS ORDERED: SOD PHOSPHATE/SOD BIPHOSPHATE ENEMA 132 ML BTL PR PRN (07:50)
[2019-03-29] MEDS: prednisoLONE acetate 1% OP SUSP 5 ML BTL OPL SCH ×4 (09:00→21:36)
[2019-03-29] MEDS: DIVALPROEX DELAY RELEASE 500 MG TAB PO SCH ×2 (09:00→21:35)
[2019-03-29] MEDS: CYANOCOBALAMIN 500 MCG TABLET (VITAMIN B-12) PO SCH (09:01)
[2019-03-29] MEDS: FOLIC ACID 1 MG TAB PO SCH (09:01)
[2019-03-29] MEDS: ASPIRIN 81 MG ECTAB PO SCH (09:01)
[2019-03-29] MEDS: CHOLECALCIFEROL 1,000 UNITS TAB PO SCH (09:01)
[2019-03-29] MEDS: INSULIN GLARGINE SOLOSTAR 100 UNITS/ML 3 ML PEN SQ SCH (09:02)
[2019-03-29] MEDS: INSULIN ASPART 100 UNITS/ML 3 ML PEN SC SCH ×4 (09:05→21:28)
--- NOTE | 2019-03-29 09:36 | Pharmacy Report ---
Pharmacy Glycemic Short Note 2 - Date of Service March 29, 2019 - Glycemic Short BSG Results (Last 24 hours): 03/28/19 03/28/19 03/28/19 12:24 16:56 20:35 Glucose POC Glucose 123 H 108 H 175 H 03/29/19 03/29/19 06:27 08:13 Glucose 113 H POC Glucose 117 H OUTPATIENT ANTIDIABETIC REGIMEN: * Lantus 28 units SQ AM * Humalog 12 units AC * Metformin 1,000mg PO BIDM * HbA1c: 7.1% (03/16/19) ASSESSMENT: 03/29 * Blood sugars at goal, no changes needed at this time * Per ortho - pt may be discharged today 03/26 * Reji received 60 units of insulin yesterday * 28 units of basal * 32 units of bolus * Fasting 109 is slightly below goal of 110, currently on home dosing, will continue but may need decreased if downtrend continues * Post-prandial BSGs slightly above goal, improving with tightened parameters, will continue * TAMY improving, metformin continues to be on hold 03/25 * Reji received total of 57 units of insulin yesterday * 28 units of basal insulin * 29 units of bolus insulin * Fasting BSG of 116 mg/dL is at goal. No changes will be made to basal insulin. * Post prandial BSGs were elevated over the past 24 hours. I will tighten Novolog carb ratio. PLAN FOR INPATIENT GLYCEMIC CONTROL: * Hold Metformin for increased creatinine. * Basal insulin-no change * Lantus 28 units SQ qAM * Bolus insulin: no change * NovoLog per scale ACHS or Q6hrs while NPO * Goal Range: Low 110 mg/dL - High 140 mg/dL * Correction Factor: 18 mg/dL/unit * Nutritional / Prandial insulin per carb ratio of 1 unit per 5 grams CHO consumed PLAN FOR DISCHARGE: * No changes needed to outpatient regimen based on adequate A1c for patient's age and comorbidities.
--- NOTE | 2019-03-29 15:44 | Hospitalist Progress Note ---
Date of Service March 29, 2019 Assessment & Plan (1) Lumbar spinal stenosis: Severe central canal stenosis at L3-L4 and L4-L5 & multilevel foraminal narrowing, severe bilaterally at L4-L5 seen on MRI on 03/15. - Orthopedic spine consulted - s/p surgery on 03/19: #1 lumbar decompression medial facetectomy foraminotomies L2-3 L3-4 L4-5. #2 posterior spinal fusion L3-4 L4-5 per #3 please posterior segmental instrumentation using globus L3-4 L4-5. #4 interbody fusion L3-4 L4-5 per #5 placed a peek cage 11 x 26 mm at L3-4 and L4-5. #6 placement of local autograft in the posterior lateral gutters per #7 placement infuse collagen sponge, mass graft in the posterior lateral gutters and ostial amp and interbody space. Patient has significant postoperative delirium and encephalopathy this improved with removal of many of the BRICK PICKER affecting medications and will probably improve after removal of gabapentin. Patient is using PRN oxycodone for pain control (2) CKD (chronic kidney disease) stage 3, GFR 30-59 ml/min: Baseline Cr ~1.3-1.5; eGFR 40-50. - Cr was 1.9 on admission. this pt likely had acute kidney injury in the setting of dehydration and acute blood loss anemia( after the surgery) treated wtih IVF - This was likely exacerbated by diarrhea, acute blood loss anemia as well. The patient is constipated - Renally-dose medications - (3) Diabetes: A1c wa 7.1% on admission. - Continue long-acting and sliding scale insulin we will continue basal bolus insulin while rehab facility (4) Heart disease: Prior CABG. is mainly symptomatic and stable -Remains on lisinopril, metoprolol, statin Resume antiplatelet agents likely time of discharge (5) Hypertension: Controlled with beta-joe as above -Holding Jenaro inhibitor due to renal failure Blood pressures have been acceptable (6) Bipolar disorder: Patient is on Lamictal & Depakote for mood stabilization due to his bipolar disorder he states this is been doing well for him. 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 - Pneumovax (8) Orthostatic hypotension: Hypovolemia from blood loss from surgery. Resolved (9) Diarrhea: Resolved previously had checked c. diff: this was negative. (10) Metabolic encephalopathy: This is likely not metabolic encephalopathy with toxic encephalopathy urine culture is been negative (11) DVT prophylaxis: SCDs for DVT prevention Subjective Patient's biggest concern now seems revolve around he said some small bowel movement productions but nothing significant. His mental status has cleared greatly with cessation of many of his pain control medication PRN oxycodone for pain control at this time Review of Systems Review of Systems: ROS: well nourished well developed. No double vision blurry vision No problems with speech or swallowing No palpitations, chest pain or pressure No Wheezing or breathing issues Patient having mild abdominal pain feeling rectal urgency and constipation No burning urine urine frequency or changes in color No focal joint pain some back pain in his surgical site nothing that would raise alarm No skin rashes or oral lesions No unusual bruising or bleeding other than the surgical site No numbness or radicular pain down his legs No changes in memory or confusion Physical Exam Physical Exam: The patient appeared well nourished and normally developed. Vital signs as documented. Head exam is unremarkable. normocephalic, atraumatic Neck is without jugular venous distension, thyromegaly, or lymphademopathy Lungs are clear to auscultation and percussion. Cardiac exam reveals Rhythm is regular. First and second heart sounds normal. Abdominal exam reveals normal bowel sounds, mild distention no focal guarding or acute abdomen Extremities are nonedematous and both pedal pulses are present Neurologic exam is A&Ox3, no focal deficits, strength is equal bilateral but diminished his lower legs this is improving daily Psychologically seems neither anxious or depressed Skin is warm Dry without bruises or lesions Results & Data Vital Signs (Past 12 Hours) Vital Signs Temp Pulse Resp BP BP Pulse Ox 03/29/19 15:11 36.9 C 78 18 171/73 H 93 03/29/19 11:57 145/79 H 03/29/19 07:35 37.1 C 79 18 160/70 H 93
--- NOTE | 2019-03-29 17:18 | XRay Report ---
XR abdomen 2V w PA chest CLINICAL HISTORY: eval for obstipation ABDOMINAL DISCOMFORT COMPARISON STUDY: Chest x-ray dated 03/24/2019 FINDINGS: The heart is mildly enlarged. There are postsurgical changes of a midline sternotomy. There is blunting of both lateral costophrenic angle suggesting trace effusions. There is no free intraper itoneal air. Erect and supine views the abdomen reveal postsurgical changes within the lumbar spine. There is moderate fecal retention. There are no transition zones indicate bowel obstruction. IMPRESSION: 1. No evidence of bowel obstruction. No evidence of free air 2. Moderate fecal retention Electronically signed by: Raul Chatterjee M.D. 03/29/2019 5:17 PM
[2019-03-29] MEDS: LAVAGE SOLUTION 4000ML PO SCH ×3 (17:39→23:55)
[2019-03-29] MEDS: ROSUVASTATIN CALCIUM 20 MG TAB PO SCH (21:35)
[2019-03-29] MEDS: lamoTRIgine 100 MG TAB PO SCH (21:35)
[2019-03-29] MEDS: METOPROLOL TARTRATE 50 MG TAB PO SCH (22:29)
[2019-03-30] MEDS: OXYCODONE HCL IR 5 MG TAB (IMMEDIATE RELEASE) PO PRN (00:36)
[2019-03-30] MEDS: LAVAGE SOLUTION 4000ML PO SCH ×2 (03:06→06:10)
[2019-03-30 06:31] LABS: Hematocrit (blood only) 27.3 % (42-52); Hemoglobin 9.1 g/dL (14.0-18.0); Mean Corpuscular Hgb Conc 33.3 g/dL (32-36); Mean Corpuscular Volume 95.1 fL (80-100); Mean Platelet Volume 10.1 fL (7.4-10.4); Platelet Count 515 K/uL (130-400); RDW Coefficient of Variation 14.2 % (11.5-14.5); RDW Standard Deviation 49.3 fL (36.4-46.3); Red Blood Count 2.87 M/uL (4.7-6.1)
[2019-03-30 07:01] LABS: BUN Creatinine Ratio 13.9 (10-20); Calcium 9.2 mg/dl (8.5-10.1); Creatinine Clr Calc Pharmacy 53.6 ml/min; Est GFR (African American) 58.7; Est GFR (Non-African American) 50.6; Potassium 4.5 mmol/L (3.5-5.1)
--- NOTE | 2019-03-30 08:53 | Orthopedic Progress Note ---
Date of Service March 30, 2019 Assessment & Plan (1) Lumbar spinal stenosis: This time he is scheduled for rehab possibly today. In the office the next 1 to 2 weeks to obtain x-rays and assess his progress. Present on Admission?: Yes Subjective Patient's back pain is well controlled. He denies any leg pain. Physical Exam Physical Exam: On exam he is sitting in a chair at the bedside. He is alert and oriented much more comfortable today. Strength is intact. Results & Data Vital Signs (Past 12 Hours) Vital Signs Temp Pulse Pulse Pulse Resp BP BP 03/30/19 07:35 36.5 C 82 17 158/80 H 03/29/19 23:00 36.6 C 73 16 158/62 H 03/29/19 21:38 71 162/70 H 157/85 H Pulse Ox 03/30/19 07:35 82 L 03/29/19 23:00 92 03/29/19 21:38 (1) Lumbar spinal stenosis Neurogenic claudication status: unspecified Qualified Code(s): M48.061 - Spinal stenosis, lumbar region without neurogenic claudication
[2019-03-30] MEDS: INSULIN ASPART 100 UNITS/ML 3 ML PEN SC SCH ×2 (09:17→13:29)
[2019-03-30] MEDS: INSULIN GLARGINE SOLOSTAR 100 UNITS/ML 3 ML PEN SQ SCH (09:17)
[2019-03-30] MEDS: METOPROLOL TARTRATE 50 MG TAB PO SCH (09:18)
[2019-03-30] MEDS: CYANOCOBALAMIN 500 MCG TABLET (VITAMIN B-12) PO SCH (09:19)
[2019-03-30] MEDS: CHOLECALCIFEROL 1,000 UNITS TAB PO SCH (09:19)
[2019-03-30] MEDS: FOLIC ACID 1 MG TAB PO SCH (09:19)
[2019-03-30] MEDS: prednisoLONE acetate 1% OP SUSP 5 ML BTL OPL SCH ×2 (09:19→14:21)
[2019-03-30] MEDS: DIVALPROEX DELAY RELEASE 500 MG TAB PO SCH (09:19)
[2019-03-30] MEDS: ASPIRIN 81 MG ECTAB PO SCH (09:19)
--- NOTE | 2019-03-30 18:30 | Discharge Summary ---
Date of Service March 30, 2019 Admission HPI Per Admitting Provider 78 yo male presented with radicular b/l leg pain and hyperreflexia and spasticity found to have lumbar spinal stenosis seen on mri, pt has some urinary retention Principal Diagnosis spinal stenosis s/p surgery post op toxic encephalopathy post op constipation Discharge Exam The patient appeared well nourished and normally developed. Vital signs as documented. Head exam is unremarkable. normocephalic, atraumatic Neck is without jugular venous distension, thyromegaly, or lymphademopathy Lungs are clear to auscultation and percussion. Cardiac exam reveals Rhythm is regular. First and second heart sounds normal. Abdominal exam reveals normal bowel sounds, no masses, no organomegaly Extremities are nonedematous and both pedal pulses are present Neurologic exam is A&Ox3, no focal deficits, strength is equal bilateral Psychologically seems neither anxious or depressed Skin is warm Dry without bruises or lesions Discharge Data Allergies Allergy/AdvReac Type Severity Reaction Status Date / Time Bactrim Allergy Severe SEVERE RASH Verified 03/16/16 10:11 sulfamethoxazole Allergy Severe SEVERE RASH Verified 03/15/19 11:54 trimethoprim Allergy Severe SEVERE RASH Verified 03/15/19 11:54 amoxicillin AdvReac Mild VOMITING Verified 03/15/19 11:54 clavulanic acid AdvReac Mild VOMITING Verified 03/15/19 11:54 Consultations 03/15/19 15:05 ED Decision to Admit Stat 03/15/19 16:59 Consult Case Management - Discharge Planning Routine 03/15/19 17:31 Consult Cardiology Routine 03/15/19 20:12 Consult Orthopedic Surgery Routine 03/16/19 09:05 Consult Patient Rep / Service Excellence [Consult Patient Services] Routine 03/19/19 15:53 Consult Case Management - Discharge Planning Routine Procedures Performed Operation Date: 03/19/19 12:05 Actual Procedures p L3-L4, L4-L5 Lumbar Decompression and Fusion, Interbody fusion using infuse, osteoamp and spinal cord monitoring(Not Applicable) - Dio Rodriguez, Ordered Studies 03/15/19 11:14 MR lumbar spine wo/w con Stat 03/16/19 00:20 MR thoracic spine wo con Routine 03/19/19 12:00 FL fluoroscopy <1hr Routine FL lumbar spine 2-3V Routine Hospital Course (1) Lumbar spinal stenosis: Severe central canal stenosis at L3-L4 and L4-L5 & multilevel foraminal narrowing, severe bilaterally at L4-L5 seen on MRI on 03/15. - Orthopedic spine consulted - s/p surgery on 03/19: #1 lumbar decompression medial facetectomy foraminotomies L2-3 L3-4 L4-5. #2 posterior spinal fusion L3-4 L4-5 per #3 please posterior segmental instrumentation using globus L3-4 L4-5. #4 interbody fusion L3-4 L4-5 per #5 placed a peek cage 11 x 26 mm at L3-4 and L4-5. #6 placement of local autograft in the posterior lateral gutters per #7 placement infuse collagen sponge, mass graft in the posterior lateral gutters and ostial amp and interbody space. Patient had significant postoperative delirium and encephalopathy this improved with removal of many of the TRAINING COORDINATOR affecting medications and will probably improve after removal of gabapentin. Patient is using PRN oxycodone for pain control without deleterious effects on his mental state (2) CKD (chronic kidney disease) stage 3, GFR 30-59 ml/min: Baseline Cr ~1.3-1.5; eGFR 40-50. - Cr was 1.9 on admission. this pt likely had acute kidney injury in the setting of dehydration and acute blood loss anemia( after the surgery) treated wtih IVF - This was likely exacerbated by diarrhea, acute blood loss anemia as well. The patient is constipated - Renally-dose medications - (3) Diabetes: A1c wa 7.1% on admission. 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 - Pneumovax (8) Orthostatic hypotension: Hypovolemia from blood loss from surgery. Resolved (9) Diarrhea: Resolved previously had checked c. diff: this was negative. (10) Metabolic encephalopathy: This is likely not metabolic encephalopathy with toxic encephalopathy urine culture is been negative Total Time Total Time Spent Total Time Spent (In Minutes): greater than 30 minutes were required to prepare discharge Discharge Plan Discharge Items Patient Disposition: Transfer Inpatient Rehab Fac Reason For Visit: INTRACTABLE BACK PAIN Discharge Diagnosis: lumbar stenosis Discharge Goals: Improve function Activity: Per 'Additional Instructions' section Non-emergency contact: Primary Care Provider Call non-emergency contact if: you have any medication questions Follow-up/Referrals: Ml Matthews MD [Primary Care Provider] - Diet: Regular Addtl Provider Instructions: ACTIVITY RECOMMENDATIONS: SELF CARE INSTRUCTIONS AFTER THORACIC/LUMBAR FUSIONS 1. You may walk to your tolerance. It is good exercise for your legs and back. Expect some back and intermittent leg aches and pains. 2. You may perform "counter-top" level activities (make a sandwich, amara with a project, etc.). 3. No bending or lifting of more than 10 pounds or back twisting of any nature (roll like a log when turning in bed). 4. You may ride in a car for 20-30 minutes at a time. No driving until after your first visit with your doctor. 5. Frequent changes of position and restricting sitting to 30 minutes at a time will help limit the amount of back spasms and stiffness you may experience. 6. You may discontinue the use of ambulatory aids (cane, crutches, etc.) once your strength and confidence allow. 7. You may leaf binner the shower and let water strike your incision when you arrive home at least once daily. Do not take a tub bath, sit in a hot tub or go into a swimming pool until after your first recheck in the office. SPECIAL CARE INSTRUCTIONS: VERY IMPORTANT TO READ AND REVIEW A. Your surgical incision has been closed with a cosmetic suture under the skin that will dissolve in about 6 weeks. In 14 days, you can use a pair of clean scissors and cut the suture that is left outside of the skin at the ends of your incision. 1. The small skin tapes can be removed 7 days after surgery if they have not fallen off by that point. 2. You may keep the wound open to air as much as possible to promote healing after post-op day number 5 unless told otherwise by your doctor. 3. If you think the wound looks like it is becoming infected (redness or worsening drainage) and/or you are experiencing fever, chill or worsening back pain and muscle spasms, contact the office so that we may evaluate you as soon as possible. B. Complications are uncommon, but please contact us if you have any signs or symptoms of: 1. wound infection (fever higher than 102.5 degrees F, redness, separation of wound, drainage, or increasing pain from the incision) 2. blood clots in legs (pain, swelling, redness and warmth in legs) 3. urinary tract infection (fever higher than 102.5 degrees F, burning upon urination or increased frequency of urination) 4. nerve problems (inability to walk on your toes or heels, numbness, loss of bowel or bladder control) 5. any other symptoms that concern you C. Please call the office at if you have any concerns or questions about your operation or recovery. D. No smoking! Smoking drastically decreases the chance of a solid fusion. E. Do not take any anti-inflammatory medications (Indocin, Advil, Motrin, Aspirin, Naprosyn, etc.) as these may inhibit the chance of a solid fusion. Tylenol is okay to take for pain. MANAGING PAIN AFTER SPINAL SURGERY 1. Narcotic medication is intended for short-term use and will be provided for surgical pain. Surgical pain usually lasts for a period of 4-6 weeks. Narcotic medication includes Percocet, Vicodin, Darvocet, Tylenol #3 or Lortab. 2. Longer-term pain is more appropriately treated with non-narcotic medication such as Tylenol ES. 3. Muscle spasm is not appropriately treated with narcotics. Muscle relaxers such as Soma, Flexeril or Skelaxin can be used along with Tylenol ES. 4. Remember that we all live with some "aches and pains". This is not unusual or uncommon after an injury or as we get older. a. Back pain is expected and may include muscle spasms for 4 to 6 weeks after surgery. The pain should gradually improve. If the pain worsens for no apparent reason, please contact the office. b. Intermittent leg pain may also be experienced and should not be concerned about unless it worsens for no apparent reason. If so, please contact the office. 5. We will provide appropriate medication within the normal guidelines of their prescribed use. We will also be very cautious and aware of potential abuse and extended duration of patients' medication needs. a. Pain medications are for your comfort and to assist with sleep and rest so that the tissue can heal. They are not provided in order to return to normal activity and should not be used through the day. To do so or worsening pain at night can result from ongoing tissue damage and development of tolerance to the prescribed medicine. 6. Please allow 2-3 days to process refills. Prescriptions will not be mailed but must be picked up at the office. FOLLOW UP VISIT: Keep your scheduled follow-up appointment. Any questions, please call the office at . Prescriptions: New oxycodone 5 mg Tablet 5 mg PO Q4 PRN (Reason: Pain) Qty: 3 RF: 0 sennosides-docusate sodium [Senokot-S] 8.6-50 mg Tablet 2 tab PO HS Qty: 60 RF: 0 Novolog Flexpen U-100 Insulin 100 unit/mL (3 mL) Insulin Pen 1 units SC ACHS Qty: 15 RF: 0 Continued clopidogrel 75 mg tablet 75 mg PO QAM RF: 0 divalproex 500 mg tablet,delayed release (DR/EC) 500 mg PO BID RF: 0 aspirin 81 mg Tablet,Delayed Release (Dr/Ec) 81 mg PO QAM RF: 0 prednisolone acetate 1 % drops,suspension 1 drp OPL QID RF: 0 metformin 1,000 mg tablet 1,000 mg PO BIDM RF: 0 ranitidine HCl 150 mg tablet 150 mg PO BID RF: 0 metoprolol tartrate 50 mg tablet 50 mg PO BID RF: 0 nitroglycerin [Nitrostat] 0.4 mg Tablet, Sublingual 0.4 mg Sublingual UD RF: 0 lisinopril-hydrochlorothiazide 20-25 mg tablet 1 tab PO QAM RF: 0 lamotrigine 100 mg tablet 200 mg PO PM RF: 0 rosuvastatin 40 mg tablet 40 mg PO PM RF: 0 Foltrate 0.5-1 mg Tablet 1 tab PO QAM RF: 0 cholecalciferol (vitamin D3) [Vitamin D3] 1,000 unit Tablet 3,000 unit PO QAM RF: 0 Lantus Solostar U-100 Insulin 100 unit/mL (3 mL) insulin pen 28 unit subcut QAM RF: 0 Discontinued tramadol 50 mg tablet 50 mg PO Q4H PRN (Reason: Pain) RF: 0 insulin lispro [Humalog KwikPen Insulin] 100 unit/mL insulin pen 12 unit subcut QAM RF: 0 cyclobenzaprine 5 mg tablet 5 mg PO BID PRN (Reason: Muscle Spasm) RF: 0 gabapentin 300 mg capsule 300 mg PO UD RF: 0 Stand-Alone Forms: [facility], [facility] [employer]/Other Patient Handouts: Safety Back Bending, Safety Back Lifting, Safety Back Push Pull, Safety Back Sleep Pos, Safety Back Sit, Safety Back Stand, Safety Back Turning Discharge Orders: Discharge Order (Routine); Ordered 03/30/19 Ordered By: Dontae Deal Skilled Items Patient informed of condition?: Yes DNR: No Discharge Level of Care: Acute rehab Communicable Disease: No Discharge Prognosis: Stable Admission Data Admit Date/Time: 03/15/19 15:30 Attending Provider: Dontae Deal Admit Provider: Dontae Deal Primary Care Provider: Ml Matthews Other Providers: Dontae Deal ; Dio Rodriguez George A Service: Surgical Services Other Interventions: Discharge Summary Assessment (RN) Last Done: 03/30/19 11:55 DC Date/Time DO NOT enter until pt leaves facility: 03/30/19 15:46
== END 2019-03-30 15:46 | DRG 453 ==
LOC: ED 10:54 → 3N 15:30 → SUATTDRO 15:30 → 3N 16:22

== ENCOUNTER 2021-06-01 11:25 | Observation (INO) ==
[2021-06-01] MEDS ORDERED: SODIUM CHLORIDE 0.9% 1000ML 1,000 ML IV ONE (13:54)
[2021-06-01 14:32] LABS: Basophils # (auto) 0.03 K/uL (0-0.2); Basophils % (auto) 0.2 %; Eosinophils # (auto) 0.23 K/uL (0-0.5); Eosinophils % (auto) 1.6 %; Hemoglobin 10.6 g/dL (14.0-18.0); Immature Granulocytes # (auto) 0.09 K/uL (0.00-0.02); Immature Granulocytes % (auto) 0.6 %; Lymphocytes % (auto) 20.3 %; Mean Corpuscular Hemoglobin 31.8 pg (25-34); Mean Corpuscular Hgb Conc 33.1 g/dL (32-36); Mean Corpuscular Volume 96.1 fL (80-100); Mean Platelet Volume 10.5 fL (7.4-10.4); Monocytes # (auto) 1.68 K/uL (0.11-0.59); Monocytes % (auto) 11.7 %; Neutrophils # (auto) 9.37 K/uL (1.4-6.5); Neutrophils % (auto) 65.6 %; Platelet Count 522 K/uL (130-400); RDW Standard Deviation 49.5 fL (36.4-46.3); Red Blood Count 3.33 M/uL (4.7-6.1)
[2021-06-01 14:47] LABS: Partial Thromboplastin Time 26.9 Seconds (21.0-31.0); Prothrombin Time 10.5 Seconds (9.0-12.0)
--- NOTE | 2021-06-01 14:50 | XRay Report ---
XR chest 1V portable CLINICAL HISTORY: Chest Pain chest radiograph January 08, 2021. Chest CT August 07, 2019. COMPARISON STUDY: No previous studies for comparison. FINDINGS: Lung volumes are normal. There is no pneumothorax or pleural effusion. Median sternotomy wi res and mediastinal surgical clips are noted. Cardiomegaly is unchanged. There is no evidence for pul monary edema. IMPRESSION: No acute cardiopulmonary findings. No change in appearance of the chest. ACT 112: Negative or not required by law. Electronically signed by: Larry Ghosh M.D. 06/01/2021 2:49 PM
[2021-06-01 14:51] LABS: Alanine Aminotransferase 76 U/L (12-78); Albumin Level 2.3 gm/dl (3.4-5.0); Aspartate Aminotransferase 111 U/L (15-37); BUN Creatinine Ratio 20.8 (10-20); Bilirubin Direct 0.1 mg/dl (0-0.2); Blood Urea Nitrogen 35 mg/dl (7-18); Calcium 9.5 mg/dl (8.5-10.1); Carbon Dioxide 27 mmol/L (21-32); Chloride 99 mmol/L (98-107); Est GFR (African American) 44.8 ml/min; Est GFR (Non-African American) 38.6 ml/min; Glucose 137 mg/dl (70-99); Lipase 131 U/L (73-393); Magnesium 2.9 mg/dl (1.8-2.4); Potassium 4.3 mmol/L (3.5-5.1); Sodium 132 mmol/L (136-145)
[2021-06-01 15:00] LABS: Albumin Globulin Ratio 0.3 (0.9-2); Alkaline Phosphatase 109 U/L (45-117); Bilirubin,Total 0.3 mg/dl (0.2-1); Globulin 6.8 gm/dl (2.5-4.0); Phosphorus 2.5 mg/dl (2.5-4.9); Total Protein 9.1 gm/dl (6.4-8.2); Troponin I < 0.015 ng/ml (0-0.045)
[2021-06-01] MEDS ORDERED: OPTIRAY 320 125ml IV ONE (15:07)
--- NOTE | 2021-06-01 15:19 | CT Scan Report ---
CT head/brain wo con CLINICAL HISTORY: confusion, dizziness, imbalance COMPARISON STUDY: No previous studies for comparison. TECHNIQUE: Axial CT of the brain is performed from the vertex to the skull base. IV contrast was not administered for this examination. A dose lowering technique was utilized adhering to the principles of ALARA. CT DOSE: FINDINGS: No acute intracranial hemorrhage, no midline shift or space occupying lesions are seen. Tubbs-white matter differentiation is preserved. Diffuse atrophic changes of brain parenchyma are seen associated with ex vacuo dilatation of ventricl es. Diffuse mild decrease in attenuation within periventricular white matter might represent chronic smal l vessel ischemia. There is no acute depressed skull fractures are seen. Visualized paranasal sinuses and mastoid air ce lls are patent and well-aerated. IMPRESSION: 1. No acute intracranial hemorrhage, no midline shift or space occupying lesions. 2. Diffuse atrophic changes of brain parenchyma associated with ex vacuo dilatation of ventricles. 3. Chronic small vessel ischemia. ACT 112: Negative or not required by law. The above report was generated using voice recognition software. It may contain grammatical, syntax o r spelling errors. Electronically signed by: Juana Sousa DO 06/01/2021 3:18 PM
--- NOTE | 2021-06-01 15:24 | CT Scan Report ---
CT ANGIOGRAM OF THE BRAIN CLINICAL HISTORY: Change in mental status. Dizziness. COMPARISON STUDY: Unenhanced CT of the brain performed concurrently on 06/01/2021. TECHNIQUE: Following the IV administration of 120 cc of Optiray 320, CT angiogram of the brain was pe rformed from the skull base to the vertex. Images are reviewed in the axial, sagittal, and coronal pl anes. 3-D MIPS images are created and assessed. IV contrast was administered without complication. A dose lowering technique was utilized adhering to the principles of ALARA. FINDINGS: Brain parenchyma: There is age-related involutional change noting mild to moderate subcortical and pe riventricular microangiopathic disease. There is no hemorrhage, mass effect, or evidence of acute ter ritorial ischemia by CT criteria. There is no evidence of enhancing mass lesion on the angiogram phas e images. No extra-axial fluid collection is seen. Tubbs-white matter differentiation is preserved. Ventricles, sulci, and cisterns: Prominent secondary to involutional change. CT angiogram of the brain: There is atherosclerotic calcification of the cavernous carotid and verteb ral arteries. There is a large right posterior communicating artery. The internal carotid arteries ar e widely patent, as are the anterior and middle cerebral arteries. The vertebrobasilar system and pos terior cerebral arteries are widely patent. The right vertebral artery is dominant. There is no aneur ysm, high-grade stenosis, or focal vessel cutoff identified throughout the intracranial circulation. Dural sinuses: Clear as visualized. Orbits: The bony orbits are intact. The orbital contents are normal as visualized noting bilateral oc ular lens implants. Sinuses and mastoids: The paranasal sinuses are clear. The mastoid air cells are well pneumatized. Calvarium: Unremarkable. IMPRESSION: 1. There is no evidence of hemorrhage, mass effect, or acute territorial ischemia by CT criteria noti ng angiographic phase technique. 2. Unremarkable CT angiogram of the brain. ACT 112: Negative or not required by law. Electronically signed by: Larry Chirinos M.D. 06/01/2021 3:22 PM
--- NOTE | 2021-06-01 15:28 | CT Scan Report ---
CT angio neck with con CLINICAL HISTORY: confusion, dizziness, imbalance COMPARISON STUDY: No previous studies for comparison. TECHNIQUE: CT angiography was performed from the aortic arch to the skull base. MIP imaging was perfo rmed. The patient was scanned in a dynamic helical fashion during intravenous administration of 120 c c of Optiray. A dose lowering technique was utilized adhering to the principles of ALARA. CT DOSE: 1277.20 mGy.cm Technique: CT angiogram of the carotid and vertebral arteries was obtained using intravenous contrast and 3-D reconstruction. NASCET criteria was utilized. Findings: The right carotid revealed no evidence of aneurysm and no evidence of dissection. There is no evidenc e of hemodynamic significant stenosis. There is moderate atheromatous changes the level the left carotid bulb without evidence of hemodynami nitin significant stenosis. There is no evidence of dissection. There is a 30% diameter stenosis of both vertebral artery origins. There is no evidence of hemodynami nitin significant vertebral artery stenosis. There is no evidence of vertebral artery dissection. IMPRESSION: 1. Mild to moderate atherosclerotic changes 2. No evidence of hemodynamically significant carotid or vertebral artery stenosis. No evidence of di ssection. ACT 112: Negative or not required by law. Electronically signed by: Raul Chatterjee M.D. 06/01/2021 3:26 PM
--- NOTE | 2021-06-01 16:04 | Electrocardiogram Report ---
Test Reason : Blood Pressure : / mmHG Vent. Rate : 074 BPM Atrial Rate : 074 BPM P-R Int : 176 ms QRS Dur : 118 ms QT Int : 424 ms P-R-T Axes : -11 -10 092 degrees QTc Int : 470 ms Normal sinus rhythm Poor R wave progression, consider anterior [place] vs. lead placement vs. LVH Abnormal ECG When compared with ECG of 08-APR-2019 09:02, Premature atrial complexes are no longer Present Nonspecific T wave abnormality, worse in Anterolateral leads Confirmed by Ibrahima Toney ([id number]) on 06/01/2021 4:04:10 PM Referred By: Cedric Alvarenga Confirmed By:Ibrahima Toney
--- NOTE | 2021-06-01 16:18 | Emergency Department Note ---
Impression & Plan Confusion, Word finding difficulty, Ambulatory dysfunction, Cerebral microvascular disease, Borderline results on serologic testing for Lyme disease ED Provider Note NAME: WIL WEIR IV AGE: 81 SEX: M ARRIVES VIA: Walk-In INFORMANT: Patient, ED PROVIDER(S): Miguel Webber MD CHIEF COMPLAINT: Word finding difficulty. Balance problems. PLAN: Disposition: Admit MEDICAL DECISION MAKING: The patient is a pleasant 81-year-old gentleman with a past medical history of hypertension, hyperlipidemia, CAD, status post CABG, diabetes, CKD bipolar dis order who presents emergency department accompanied by his for evaluation of worsening gait instability and word finding difficulty/confusion that became more severe over the past week in the setting of having a fall over May weekend where he did not seek medical evaluation despite having a head strike. They describe this event as the onset of his symptoms yet he has been seen by his PCP and in the emergency department twice and the patient had not noted any concern for these symptoms. Patient denies any fevers, chills, cough, congestion, GI or symptoms. Both he and his describe that they had a very difficult emotional time over the past week due to attending a of the of the patient's [id number] due to suicide. He does become tearful when thinking about this and his own health in concerns for the new onset of his aphasia and gait disturbance. On arrival the patient is fatigued appearing no acute distress, afebrile with stable vital signs. He appears clinically dry. He has intermittent subtle word finding difficulty but no overt aphasia or dysarthria. He has normal uytszl-[id number]-rmpi and alternating palms. 5/5 strength and SILT x 4 extremities. EKG without overt acute ischemia. Chest x-ray negative for acute cardiopulmonary process. WBC 14.3, nonspecific and similar to recent. H/H 10.6/32 within prior range of values. Platelets 500K nonspecific. Chemistry without metabolic acidosis. Creatinine 1.6 within prior advised in the setting of CKD. LFTs without significant abnormality. Electrolytes without significant abnormality. AST is elevated at 111 where he has had similar values in the past. Ammonia was undetectable. Troponin negative/undetectable. Depakote level was not elevated. Blood alcohol was undetectable. COVID-[address] of the head and CT of the head and neck were performed did not show evidence of acute ICH or CVA. Note is made of diffuse atrophic changes of brain parenchyma associated with ex vacuo dilatation of ventricles. and chronic small vessel ischemia. Findings were reviewed with the patient and his at the bedside. Given they report that the patient's symptoms are entirely new reasonable to admit the patient for further evaluation for possible stroke. The patient and his at the bedside are in agreement with this plan. Case was discussed with Dr. Vera [facility] hospitalist, who will evaluate the patient for admission. Lyme screen subsequently equivocal for IgM AB. Will defer decision for treatment per admitting team. Triage Nursing notes reviewed and agree them. Prior medical records reviewed Vital Signs: reviewed and remarkable for no significant abnormalities Differential diagnosis: Infection, dehydration, metabolic abnormality, hypo/hyperglycemia, electrolyte disturbance, anemia, hypoxia, cardiac sources, intracerebral event, toxicologic, neurologic, as well as other pathologies. ER treatment provided: See below. Diagnostics interpreted by me: ECG: Normal sinus rhythm, 74 bpm, no ectopy, no overt ST elevation or depression, QTC 470, QRS 118. Cardiac Monitoring: An order for continuous cardiac monitoring was placed and demonstrated Normal sinus rhythm, 74 bpm, no ectopy. Laboratory studies: See below Imaging studies: See below Consultation(s): Case was discussed with Dr. Vera [facility] hospitalist, who will evaluate the patient for admission. HPI: The patient is a pleasant 81-year-old gentleman with a past medical history of hypertension, hyperlipidemia, CAD, status post CABG, diabetes, CKD bipolar disorder who presents emergency department accompanied by his for evaluation of worsening gait instability and word finding difficulty/confusion that became more severe over the past week in the setting of having a fall over May weekend where he did not seek medical evaluation despite having a head strike. They describe this event as the onset of his symptoms yet he has been seen by his PCP and in the emergency department twice and the patient had not noted any concern for these symptoms. Patient denies any fevers, chills, cough, congestion, GI or symptoms. Both he and his describe that they had a very difficult emotional time over the past week due to attending a of the of the patient's [id number] due to suicide. He does become tearful when thinking about this and his own health in concerns for the new onset of his aphasia and gait disturbance. ROS: See above HPI for pertinent positives & negatives. A total of 10 systems reviewed and were otherwise negative. PAST MEDICAL HISTORY:See Below PAST SURGICAL HISTORY:See Below FAMILY HISTORY:See Below SOCIAL HISTORY:See Below HOME MEDICATIONS:See Below ALLERGIES:See Below VITALS:See Below PHYSICAL EXAMINATION: GENERAL: Awake, alert, fatigued/melancholy-appearing, in no distress HENT: Normocephalic, atraumatic. Oropharynx with dry mucous membranes and otherwise unremarkable. EYES: Normal conjunctiva. Sclera non-icteric. EOMI. No nystamgus. PEARRL. NECK: Supple. No nuchal rigidity. FROM. No JVD. RESPIRATORY: Clear to auscultation. CARDIAC: Regular rate, normal rhythm. Extremities warm and well perfused. Pulses equal. ABDOMEN: Soft, non-distended. No tenderness to palpation. No rebound or guarding. No masses. RECTAL: Deferred. MUSCULOSKELETAL: Chest examination reveals no tenderness. The back is sym metrical on inspection without obvious abnormality. There is no CVA tenderness to palpation. No joint edema. LOWER EXTREMITIES: Calves are equal size bilaterally and non-tender. No edema. No discoloration. NEURO: Normal sensorium. No sensory or motor deficits noted. 5/5 strength and SILT x 4 extremities. Cerebellar function intact including [id number]-[id number], alternating palms. SKIN: Light blanchable patch of erythema on dorsal aspect of right ankle. No warmth or tenderness. No rash or jaundice noted. Miguel Webber MD Past Med/Surg History Medical History (Updated 06/01/21 @ 22:05 by Miguel Webber MD) Bipolar disorder Chronic kidney disease, stage III (moderate) Confusion Diabetes Diarrhea Dyslipidemia Hypertension Intractable low back pain Lumbar spinal stenosis Metabolic encephalopathy Old inferior wall myocardial infarction Orthostatic hypotension Parotitis Vitamin D deficiency Surgical History H/O submandibular gland removal Hx of CABG (1994) Hx of decompressive lumbar laminectomy (03/2019) S/P cystoscopy S/P splenectomy (~195) Family History Brother Prostate cancer Social History Smoking Status: Never smoker Second Hand Exposure: No; Hx Alcohol Use: No Hx Substance Use: No Preferred Language: Kuwaiti Communication Ability: Effective Part Maker Required: No Beliefs That Will Affect Care: None Current Living Situation: Spouse Other Information That Helps Us Care for You: No Feels Safe at Home: Yes Safety Concerns: Feels Safe At This Time Assistive Devices: None Allergies Allergies Allergy/AdvReac Type Severity Reaction Status Date / Time sulfamethoxazole Allergy Severe SEVERE RASH Verified 06/01/21 14:50 trimethoprim Allergy Severe SEVERE RASH Verified 06/01/21 14:50 amoxicillin AdvReac Mild VOMITING Verified 06/01/21 14:50 clavulanic acid AdvReac Mild VOMITING Verified 06/01/21 14:50 Home Meds Home Medications Medication Instructions Recorded Confirmed aspirin 81 mg tablet,delayed 81 mg PO QAM 01/26/19 06/01/21 release clopidogrel 75 mg tablet 75 mg PO QAM 01/26/19 06/01/21 divalproex 500 mg tablet,delayed 500 mg PO BID 01/26/19 06/01/21 release metformin 1,000 mg tablet 1,000 mg PO BIDM 01/26/19 06/01/21 metoprolol tartrate 50 mg tablet 50 mg PO BID 01/26/19 06/01/21 rosuvastatin 40 mg tablet 40 mg PO PM 01/26/19 06/01/21 multivitamin (Daily Multi-Vitamin) 1 tab PO BID tab 06/06/19 06/01/21 insulin syringe-needle U-100 0.5 #1 ea 06/12/19 04/22/21 mL 30 gauge x 1/2" (BD Insulin Syringe Ultra-Fine) lamotrigine 100 mg tablet 100 mg PO PM tab 10/29/19 06/01/21 prednisolone acetate 1 % eye 1 drp OPL 4XWK ml 10/29/19 06/01/21 drops,suspension insulin glargine 100 unit/mL (3 24 units SUBCUT QAM ml 12/13/19 06/01/21 mL) subcutaneous pen (Lantus Solostar U-100 Insulin) insulin lispro 100 unit/mL 1 sliding scale dose SQ 04/16/20 06/01/21 subcutaneous solution (Humalog USEASDIRECTD U-100 Insulin) lisinopril 20 1 tab PO QAM 06/17/20 06/01/21 mg-hydrochlorothiazide 12.5 mg tablet famotidine 20 mg tablet 20 mg PO BID 06/01/21 06/01/21 nitroglycerin 0.4 mg sublingual 0.4 mg SUBLINGUAL DIRECTED PRN 06/01/21 06/01/21 tablet (Nitrostat) Results & Data (ED) Vital Signs Vital Signs - 24 hr 06/01/21 11:41 06/01/21 14:23 06/01/21 14:25 Temperature 36.8 C Temperature Source Temporal Artery Scan Pulse Rate 78 76 Pulse Rate [Apical] 73 Pulse Rate from SpO2 Sensor 76 Pulse Rhythm [Apical] Pulse Strength [Apical] Respiratory Rate 19 18 Respiratory Effort / Characteristics Respiratory Depth Respiratory Pattern Blood Pressure 104/64 133/73 Blood Pressure [Left Arm] 133/73 Blood Pressure Mean 77 93 Blood Pressure Mean [Left Arm] 93 Blood Pressure Position [Left Arm] Semi-fowlers Pulse Oximetry 96 95 96 Oxygen Delivery Method Room Air Room Air Room Air Sepsis Recent Fever Within 48 Hours No Sepsis New/Unexplained Change in Mental Status N/A Sepsis Action Taken by Nursing No Action Required 06/01/21 15:00 06/01/21 15:44 06/01/21 15:45 Temperature Temperature Source Pulse Rate 70 74 Pulse Rate [Apical] 76 Pulse Rate from SpO2 Sensor 74 Pulse Rhythm [Apical] Regular Pulse Strength [Apical] Normal Respiratory Rate 20 20 19 Respiratory Effort / Characteristics Non-Labored Spontaneous Respiratory Depth Normal Respiratory Pattern Regular Blood Pressure 136/72 133/74 Blood Pressure [Left Arm] 133/74 Blood Pressure Mean 93 93 Blood Pressure Mean [Left Arm] 93 Blood Pressure Position [Left Arm] Sitting Pulse Oximetry 96 96 95 Oxygen Delivery Method Room Air Room Air Room Air Sepsis Recent Fever Within 48 Hours Sepsis New/Unexplained Change in Mental Status Sepsis Action Taken by Nursing 06/01/21 16:00 06/01/21 17:00 Temperature Temperature Source Pulse Rate 73 75 Pulse Rate [Apical] Pulse Rate from SpO2 Sensor 73 75 Pulse Rhythm [Apical] Pulse Strength [Apical] Respiratory Rate 18 24 Respiratory Effort / Characteristics Respiratory Depth Respiratory Pattern Blood Pressure 127/57 L 139/67 Blood Pressure [Left Arm] Blood Pressure Mean 80 91 Blood Pressure Mean [Left Arm] Blood Pressure Position [Left Arm] Pulse Oximetry 95 96 Oxygen Delivery Method Room Air Sepsis Recent Fever Within 48 Hours Sepsis New/Unexplained Change in Mental Status Sepsis Action Taken by Nursing Laboratory Data Attestation: I reviewed the patient's lab results. Result diagrams: 06/01/21 14:18 06/01/21 14:18 Lab Results 06/01/21 06/01/21 06/01/21 Range/Units 13:27 14:18 14:18 WBC 14.30 H (4.8-10.8) K/uL RBC 3.33 L (4.7-6.1) M/uL Hgb 10.6 L (14.0-18.0) g/dL Hct 32.0 L (42-52) % MCV 96.1 (80-100) fL MCH 31.8 (25-34) pg MCHC 33.1 (32-36) g/dL RDW Std Deviation 49.5 H (36.4-46.3) fL RDW Coeff of Tennille 14.0 (11.5-14.5) % Plt Count 522 H (130-400) K/uL MPV 10.5 H (7.4-10.4) fL Immature Gran % (Auto) 0.6 % Neut % (Auto) 65.6 % Lymph % (Auto) 20.3 % Mccone % (Auto) 11.7 % Eos % (Auto) 1.6 % Baso % (Auto) 0.2 % Neut # (Auto) 9.37 H (1.4-6.5) K/uL Lymph # (Auto) 2.90 (1.2-3.4) K/uL Mccone # (Auto) 1.68 H (0.11-0.59) K/uL Eos # (Auto) 0.23 (0-0.5) K/uL Baso # (Auto) 0.03 (0-0.2) K/uL Immature Gran # (Auto) 0.09 H (0.00-0.02) K/uL PT 10.5 (9.0-12.0) Seconds INR 1.0 (0.9-1.1) APTT 26.9 (21.0-31.0) Seconds PTT Ratio 1.0 Sodium (136-145) mmol/L Potassium (3.5-5.1) mmol/L Chloride (98-107) mmol/L Carbon Dioxide (21-32) mmol/L Anion Gap (3-11) BUN (7-18) mg/dl Creatinine (0.6-1.4) mg/dl Est Cr Clr Drug Dosing Est GFR ( Amer) ml/min Est GFR (Non-Af Amer) ml/min BUN/Creatinine Ratio (10-20) Glucose (70-99) mg/dl POC Glucose 189 H (70-99) mg/dl Calcium (8.5-10.1) mg/dl Phosphorus (2.5-4.9) mg/dl Magnesium (1.8-2.4) mg/dl Total Bilirubin (0.2-1) mg/dl Direct Bilirubin (0-0.2) mg/dl AST (15-37) U/L ALT (12-78) U/L Alkaline Phosphatase (45-117) U/L Ammonia (11-32) umol/L Troponin I (0-0.045) ng/ml Total Protein (6.4-8.2) gm/dl Albumin (3.4-5.0) gm/dl Globulin (2.5-4.0) gm/dl Albumin/Globulin Ratio (0.9-2) Lipase (73-393) U/L TSH (0.300-4.500) uIu/ml Valproic Acid (50-100) mcg/ml Ethyl Alcohol mg/dL (0-3) mg/dl Lyme Disease IgG Ab (Negative) Lyme Disease IgM Ab (Negative) COVID-19 Eval Order SARS-CoV-2 (PCR) (Negative) 06/01/21 06/01/21 06/01/21 Range/Units 14:18 14:18 14:18 WBC (4.8-10.8) K/uL RBC (4.7-6.1) M/uL Hgb (14.0-18.0) g/dL Hct (42-52) % MCV (80-100) fL MCH (25-34) pg MCHC (32-36) g/dL RDW Std Deviation (36.4-46.3) fL RDW Coeff of Tennille (11.5-14.5) % Plt Count (130-400) K/uL MPV (7.4-10.4) fL Immature Gran % (Auto) % Neut % (Auto) % Lymph % (Auto) % Mccone % (Auto) % Eos % (Auto) % Baso % (Auto) % Neut # (Auto) (1.4-6.5) K/uL Lymph # (Auto) (1.2-3.4) K/uL Mccone # (Auto) (0.11-0.59) K/uL Eos # (Auto) (0-0.5) K/uL Baso # (Auto) (0-0.2) K/uL Immature Gran # (Auto) (0.00-0.02) K/uL PT (9.0-12.0) Seconds INR (0.9-1.1) APTT (21.0-31.0) Seconds PTT Ratio Sodium 132 L (136-145) mmol/L Potassium 4.3 (3.5-5.1) mmol/L Chloride 99 (98-107) mmol/L Carbon Dioxide 27 (21-32) mmol/L Anion Gap 6.0 (3-11) BUN 35 H (7-18) mg/dl Creatinine 1.66 H (0.6-1.4) mg/dl Est Cr Clr Drug Dosing Not Reportable Est GFR ( Amer) 44.8 ml/min Est GFR (Non-Af Amer) 38.6 ml/min BUN/Creatinine Ratio 20.8 H (10-20) Glucose 137 H (70-99) mg/dl POC Glucose (70-99) mg/dl Calcium 9.5 (8.5-10.1) mg/dl Phosphorus 2.5 (2.5-4.9) mg/dl Magnesium 2.9 H (1.8-2.4) mg/dl Total Bilirubin 0.3 (0.2-1) mg/dl Direct Bilirubin 0.1 (0-0.2) mg/dl AST 111 H (15-37) U/L ALT 76 (12-78) U/L Alkaline Phosphatase 109 (45-117) U/L Ammonia (11-32) umol/L Troponin I < 0.015 (0-0.045) ng/ml Total Protein 9.1 H (6.4-8.2) gm/dl Albumin 2.3 L (3.4-5.0) gm/dl Globulin 6.8 H (2.5-4.0) gm/dl Albumin/Globulin Ratio 0.3 L (0.9-2) Lipase 131 (73-393) U/L TSH 1.490 (0.300-4.500) uIu/ml Valproic Acid (50-100) mcg/ml Ethyl Alcohol mg/dL < 3.0 (0-3) mg/dl Lyme Disease IgG Ab Negative (Negative) Lyme Disease IgM Ab Equivocal A (Negative) COVID-19 Eval Order SARS-CoV-2 (PCR) (Negative) 06/01/21 06/01/21 06/01/21 Range/Units 14:18 14:18 14:24 WBC (4.8-10.8) K/uL RBC (4.7-6.1) M/uL Hgb (14.0-18.0) g/dL Hct (42-52) % MCV (80-100) fL MCH (25-34) pg MCHC (32-36) g/dL RDW Std Deviation (36.4-46.3) fL RDW Coeff of Tennille (11.5-14.5) % Plt Count (130-400) K/uL MPV (7.4-10.4) fL Immature Gran % (Auto) % Neut % (Auto) % Lymph % (Auto) % Mccone % (Auto) % Eos % (Auto) % Baso % (Auto) % Neut # (Auto) (1.4-6.5) K/uL Lymph # (Auto) (1.2-3.4) K/uL Mccone # (Auto) (0.11-0.59) K/uL Eos # (Auto) (0-0.5) K/uL Baso # (Auto) (0-0.2) K/uL Immature Gran # (Auto) (0.00-0.02) K/uL PT (9.0-12.0) Seconds INR (0.9-1.1) APTT (21.0-31.0) Seconds PTT Ratio Sodium (136-145) mmol/L Potassium (3.5-5.1) mmol/L Chloride (98-107) mmol/L Carbon Dioxide (21-32) mmol/L Anion Gap (3-11) BUN (7-18) mg/dl Creatinine (0.6-1.4) mg/dl Est Cr Clr Drug Dosing Est GFR ( Amer) ml/min Est GFR (Non-Af Amer) ml/min BUN/Creatinine Ratio (10-20) Glucose (70-99) mg/dl POC Glucose (70-99) mg/dl Calcium (8.5-10.1) mg/dl Phosphorus (2.5-4.9) mg/dl Magnesium (1.8-2.4) mg/dl Total Bilirubin (0.2-1) mg/dl Direct Bilirubin (0-0.2) mg/dl AST (15-37) U/L ALT (12-78) U/L Alkaline Phosphatase (45-117) U/L Ammonia < 10.0 L (11-32) umol/L Troponin I (0-0.045) ng/ml Total Protein (6.4-8.2) gm/dl Albumin (3.4-5.0) gm/dl Globulin (2.5-4.0) gm/dl Albumin/Globulin Ratio (0.9-2) Lipase (73-393) U/L TSH (0.300-4.500) uIu/ml Valproic Acid 48 L (50-100) mcg/ml Ethyl Alcohol mg/dL (0-3) mg/dl Lyme Disease IgG Ab (Negative) Lyme Disease IgM Ab (Negative) COVID-19 Eval Order Covid19 at [facility] SARS-CoV-2 (PCR) (Negative) 06/01/21 Range/Units 14:24 WBC (4.8-10.8) K/uL RBC (4.7-6.1) M/uL Hgb (14.0-18.0) g/dL Hct (42-52) % MCV (80-100) fL MCH (25-34) pg MCHC (32-36) g/dL RDW Std Deviation (36.4-46.3) fL RDW Coeff of Tennille (11.5-14.5) % Plt Count (130-400) K/uL MPV (7.4-10.4) fL Immature Gran % (Auto) % Neut % (Auto) % Lymph % (Auto) % Mccone % (Auto) % Eos % (Auto) % Baso % (Auto) % Neut # (Auto) (1.4-6.5) K/uL Lymph # (Auto) (1.2-3.4) K/uL Mccone # (Auto) (0.11-0.59) K/uL Eos # (Auto) (0-0.5) K/uL Baso # (Auto) (0-0.2) K/uL Immature Gran # (Auto) (0.00-0.02) K/uL PT (9.0-12.0) Seconds INR (0.9-1.1) APTT (21.0-31.0) Seconds PTT Ratio Sodium (136-145) mmol/L Potassium (3.5-5.1) mmol/L Chloride (98-107) mmol/L Carbon Dioxide (21-32) mmol/L Anion Gap (3-11) BUN (7-18) mg/dl Creatinine (0.6-1.4) mg/dl Est Cr Clr Drug Dosing Est GFR ( Amer) ml/min Est GFR (Non-Af Amer) ml/min BUN/Creatinine Ratio (10-20) Glucose (70-99) mg/dl POC Glucose (70-99) mg/dl Calcium (8.5-10.1) mg/dl Phosphorus (2.5-4.9) mg/dl Magnesium (1.8-2.4) mg/dl Total Bilirubin (0.2-1) mg/dl Direct Bilirubin (0-0.2) mg/dl AST (15-37) U/L ALT (12-78) U/L Alkaline Phosphatase (45-117) U/L Ammonia (11-32) umol/L Troponin I (0-0.045) ng/ml Total Protein (6.4-8.2) gm/dl Albumin (3.4-5.0) gm/dl Globulin (2.5-4.0) gm/dl Albumin/Globulin Ratio (0.9-2) Lipase (73-393) U/L TSH (0.300-4.500) uIu/ml Valproic Acid (50-100) mcg/ml Ethyl Alcohol mg/dL (0-3) mg/dl Lyme Disease IgG Ab (Negative) Lyme Disease IgM Ab (Negative) COVID-19 Eval Order SARS-CoV-2 (PCR) NEGATIVE (Negative) Administered Medications Divalproex Sodium (Divalproex Delay Release 500 Mg Tab) 500 mg PO BID LAMONT Stop: 07/01/21 20:59 Last Admin: 06/01/21 20:52 Dose: 500 mg Documented by: [id number] Famotidine (Famotidine 20 Mg Tab) 20 mg PO BID LAMONT Stop: 07/01/21 20:59 Last Admin: 06/01/21 20:52 Dose: 20 mg Documented by: [id number] Insulin Aspart (Insulin Aspart 100 Units/Ml 3 Ml Pen) 0 units SC ACHS LAMONT Stop: 07/01/21 20:59 Last Admin: 06/01/21 21:02 Dose: 1 units Documented by: [id number] Cosigned by: [id number] Lamotrigine (Lamotrigine 100 Mg Tab) 100 mg PO PM LAMONT Stop: 07/01/21 20:59 Last Admin: 06/01/21 20:53 Dose: 100 mg Documented by: [id number] Metoprolol Tartrate (Metoprolol Tartrate 50 Mg Tab) 50 mg PO BID LAMONT Stop: 07/01/21 20:59 Last Admin: 06/01/21 20:59 Dose: 50 mg Documented by: [id number] Multivitamins (Multivitamin Tab) 1 tab PO BID LAMONT Stop: 07/01/21 20:59 Last Admin: 06/01/21 20:55 Dose: 1 tab Documented by: [id number] Rosuvastatin Calcium (Rosuvastatin Calcium 20 Mg Tab) 40 mg PO PM LAMONT Stop: 07/01/21 20:59 Last Admin: 06/01/21 20:54 Dose: 40 mg Documented by: [id number] Discontinued Medications Sodium Chloride (Nss 1000ml) 1,000 mls @ 999 mls/hr IV .Q1H1M ONE Stop: 06/01/21 14:54 Last Infusion: 06/01/21 15:22 Dose: 0 mls/hr Documented by: [id number] Admin: 06/01/21 14:00 Dose: 999 mls/hr Documented by: [id number] Ioversol (Optiray 320 125ml) 120 ml IV ONCE ONE Stop: 06/01/21 15:08 Last Admin: 06/01/21 15:08 Dose: 120 ml Documented by: [id number] Imaging Data Radiologist's Impression: Chest X-Ray 06/01/21 13:42 XR chest 1V portable CLINICAL HISTORY: Chest Pain chest radiograph January 08, 2021. Chest CT August 07, 2019. COMPARISON STUDY: No previous studies for comparison. FINDINGS: Lung volumes are normal. There is no pneumothorax or pleural effusion. Median sternotomy wires and mediastinal surgical clips are noted. Cardiomegaly is unchanged. There is no evidence for pulmonary edema. IMPRESSION: No acute cardiopulmonary findings. No change in appearance of the chest. ACT 112: Negative or not required by law. Electronically signed by: Larry Ghosh M.D. 06/01/2021 2:[address] 06/01/21 13:48 CT head/brain wo con CLINICAL HISTORY: confusion, dizziness, imbalance COMPARISON STUDY: No previous studies for comparison. TECHNIQUE: Axial CT of the brain is performed from the vertex to the skull base. IV contrast was not administered for this examination. A dose lowering technique was utilized adhering to the principles of ALARA. CT DOSE: FINDINGS: No acute intracranial hemorrhage, no midline shift or space occupying lesions are seen. Tubbs-white matter differentiation is preserved. Diffuse atrophic changes of brain parenchyma are seen associated with ex vacuo dilatation of ventricles. Diffuse mild decrease in attenuation within periventricular white matter might represent chronic small vessel ischemia. There is no acute depressed skull fractures are seen. Visualized paranasal sinuses and mastoid air cells are patent and well-aerated. IMPRESSION: 1. No acute intracranial hemorrhage, no midline shift or space occupying lesions. 2. Diffuse atrophic changes of brain parenchyma associated with ex vacuo dilatation of ventricles. 3. Chronic small vessel ischemia. ACT 112: Negative or not required by law. The above report was generated using voice recognition software. It may contain grammatical, syntax or spelling errors. Electronically signed by: Juana Sousa DO 06/01/2021 3:18 PM Head CTA 06/01/21 13:48 CT ANGIOGRAM OF THE BRAIN CLINICAL HISTORY: Change in mental status. Dizziness. COMPARISON STUDY: Unenhanced CT of the brain performed concurrently on 06/01/2021. TECHNIQUE: Following the IV administration of 120 cc of Optiray 320, CT angiogram of the brain was performed from the skull base to the vertex. Images are reviewed in the axial, sagittal, and coronal planes. 3-D MIPS images are created and assessed. IV contrast was administered without complication. A dose lowering technique was utilized adhering to the principles of ALARA. FINDINGS: Brain parenchyma: There is age-related involutional change noting mild to moderate subcortical and periventricular microangiopathic disease. There is no hemorrhage, mass effect, or evidence of acute territorial ischemia by CT criteria. There is no evidence of enhancing mass lesion on the angiogram phase images. No extra-axial fluid collection is seen. Tubbs-white matter differentiation is preserved. Ventricles, sulci, and cisterns: Prominent secondary to involutional change. CT angiogram of the brain: There is atherosclerotic calcification of the cavernous carotid and vertebral arteries. There is a large right posterior communicating artery. The internal carotid arteries are widely patent, as are th e anterior and middle cerebral arteries. The vertebrobasilar system and posterior cerebral arteries are widely patent. The right vertebral artery is dominant. There is no aneurysm, high-grade stenosis, or focal vessel cutoff identified throughout the intracranial circulation. Dural sinuses: Clear as visualized. Orbits: The bony orbits are intact. The orbital contents are normal as visualized noting bilateral ocular lens implants. Sinuses and mastoids: The paranasal sinuses are clear. The mastoid air cells are well pneumatized. Calvarium: Unremarkable. IMPRESSION: 1. There is no evidence of hemorrhage, mass effect, or acute territorial ischemia by CT criteria noting angiographic phase technique. 2. Unremarkable CT angiogram of the brain. ACT 112: Negative or not required by law. Electronically signed by: Larry Chirinos M.D. 06/01/2021 3:22 PM Neck CTA 06/01/21 13:48 CT angio neck with con CLINICAL HISTORY: confusion, dizziness, imbalance COMPARISON STUDY: No previous studies for comparison. TECHNIQUE: CT angiography was performed from the aortic arch to the skull base. MIP imaging was performed. The patient was scanned in a dynamic helical fashion during intravenous administration of 120 cc of Optiray. A dose lowering technique was utilized adhering to the principles of ALARA. CT DOSE: 1277.20 mGy.cm Technique: CT angiogram of the carotid and vertebral arteries was obtained using intravenous contrast and 3-D reconstruction. NASCET criteria was utilized. Findings: The right carotid revealed no evidence of aneurysm and no evidence of dissection. There is no evidence of hemodynamic significant stenosis. There is moderate atheromatous changes the level the left carotid bulb without evidence of hemodynamically significant stenosis. There is no evidence of dissection. There is a 30% diameter stenosis of both vertebral artery origins. There is no evidence of hemodynamically significant vertebral artery stenosis. There is no evidence of vertebral artery dissection. IMPRESSION: 1. Mild to moderate atherosclerotic changes 2. No evidence of hemodynamically significant carotid or vertebral artery stenosis. No evidence of dissection. ACT 112: Negative or not required by law. Electronically signed by: Raul Chatterjee M.D. 06/01/2021 3:26 PM Discharge Plan Visit Data Chief Complaint: Fall Stated Complaint: HEAD PAIN, FALL ED Provider: Miguel Webber Discharge Problem: Confusion, Word finding difficulty, Ambulatory dysfunction, Cerebral microvascular disease, Borderline results on serologic testing for Lyme disease Patient Disposition: Admitted As Inpatient Discharge Instructions Interventions: ED Discharge Assessment Last Done: 06/01/21 18:20
[2021-06-01 16:21] LABS: Lyme Ab IgG w/WB Rflx Negative (Negative)
[2021-06-01 16:47] LABS: Lyme Ab IgM w/WB Rflx Equivocal (Negative)
--- NOTE | 2021-06-01 17:14 | History & Physical Report ---
Date of Service June 01, 2021 Assessment & Plan (1) Confusion: Plan: Work-up seems negative so far and patient is apparently at his baseline. Consider mild senile dementia versus depression versus mild postconcussive syndrome. CVA certainly possible seems much less likely Placed in monitored observation Neurochecks every 4 hours Check MRI of brain Continue medications as ordered, Plavix 75 mg and a low-dose aspirin PT/OT evaluation for ambulation We will ask neurology to evaluate for further recommendations Consider psychiatry evaluation as well (2) Diabetes mellitus, type 2: Plan: Patient is on glargine insulin along with lispro. We will add sliding scale Hold Metformin for 48 hours after dye studies Carb controlled diet Check hemoglobin A1c (3) Chronic kidney disease, stage III (moderate): Plan: Creatinine 1.66, actually seems around baseline. I will continue to monitor (4) Dyslipidemia: Plan: Patient is on Crestor 40 mg daily, will continue versus substitution with pharmacy equivalent Check fasting lipids (5) Infected pilonidal cyst: Plan: Patient was seen in the ER 05/23 for removal of packing of infected pilonidal cyst. Continue wound care with nursing. Does not appear any further treatment was recommended at that time. (6) Bipolar disorder: Plan: Continue Depakote and Lamictal as ordered History of Present Illness Chief Complaint: Aphasia and ataxia Primary Care Provider: Ml Matthews MD This is a 81-year-old male with past medical history of hypertension, hyperlipidemia, CAD, bipolar disorder on medication that presents today with chief complaint of aphasia and ataxia. Patient is accompanied by his , both give a good history. Patient feels that initial symptoms started on May 17. He was walking up stairs and fell backwards while carrying some trees. He struck the back of his head. He did not lose consciousness and was able to get up under his own power. Since then, the notices that he has had some ataxia, seems to think this is more of a balance issue. He does seem slightly more forgetful, forgetting names and places. He has had no dysphagia, weakness or numbness of any limbs, or other issues at this time. Over the last week, the patient attended a for his [id number] who had committed suicide. This is apparently very emotional for both the patient and the . The noticed that during this week the patient had more pronounced symptoms, seem to be much more forgetful had difficulty ambulating. Again, she did not note any localized neurological symptoms such as numbness, paresthesias, weakness. Patient denies any visual disturbances, headache, or other issues. At this time, they are concerned regarding possible CVA and presented emergency room for evaluation upon returning from [place]. The patient is awake and alert, speech is fluid and does not appear to have any acute localizing symptoms. Therefore, the patient would not be a TPA candidate. Allergies Allergy/AdvReac Type Severity Reaction Status Date / Time sulfamethoxazole Allergy Severe SEVERE RASH Verified 06/01/21 14:50 trimethoprim Allergy Severe SEVERE RASH Verified 06/01/21 14:50 amoxicillin AdvReac Mild VOMITING Verified 06/01/21 14:50 clavulanic acid AdvReac Mild VOMITING Verified 06/01/21 14:50 Home Medications Medication Instructions Recorded Confirmed Type aspirin 81 mg tablet,delayed 81 mg PO QAM 01/26/19 06/01/21 History release clopidogrel 75 mg tablet 75 mg PO QAM 01/26/19 06/01/21 History divalproex 500 mg tablet,delayed 500 mg PO BID 01/26/19 06/01/21 History release metformin 1,000 mg tablet 1,000 mg PO BIDM 01/26/19 06/01/21 History metoprolol tartrate 50 mg tablet 50 mg PO BID 01/26/19 06/01/21 History rosuvastatin 40 mg tablet 40 mg PO PM 01/26/19 06/01/21 History multivitamin (Daily Multi-Vitamin) 1 tab PO BID tab 06/06/19 06/01/21 History insulin syringe-needle U-100 0.5 #1 ea 06/12/19 04/22/21 History mL 30 gauge x 1/2" (BD Insulin Syringe Ultra-Fine) lamotrigine 100 mg tablet 100 mg PO PM tab 10/29/19 06/01/21 History prednisolone acetate 1 % eye 1 drp OPL 4XWK ml 10/29/19 06/01/21 History drops,suspension insulin glargine 100 unit/mL (3 24 units SUBCUT QAM ml 12/13/19 06/01/21 History mL) subcutaneous pen (Lantus Solostar U-100 Insulin) insulin lispro 100 unit/mL 1 sliding scale dose SQ 04/16/20 06/01/21 History subcutaneous solution (Humalog USEASDIRECTD U-100 Insulin) lisinopril 20 1 tab PO QAM 06/17/20 06/01/21 History mg-hydrochlorothiazide 12.5 mg tablet famotidine 20 mg tablet 20 mg PO BID 06/01/21 06/01/21 History nitroglycerin 0.4 mg sublingual 0.4 mg SUBLINGUAL DIRECTED PRN 06/01/21 06/01/21 History tablet (Nitrostat) Past Med/Surg History Medical History Bipolar disorder Chronic kidney disease, stage III (moderate) Confusion Diabetes Diarrhea Dyslipidemia Hypertension Intractable low back pain Lumbar spinal stenosis Metabolic encephalopathy Old inferior wall myocardial infarction Orthostatic hypotension Parotitis Vitamin D deficiency Surgical History H/O submandibular gland removal Hx of CABG (1994) Hx of decompressive lumbar laminectomy (03/2019) S/P cystoscopy S/P splenectomy (~1956) Family History Brother Prostate cancer Social History Smoking Status: Never smoker Second Hand Exposure: No; Hx Alcohol Use: Yes Alcohol type: beer, wine and hard liquor Hx Substance Use: No Preferred Language: [place]ian Communication Ability: Effective 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 Beliefs That Will Affect Care: None Current Living Situation: Significant Other Feels Safe at Home: Yes Assistive Devices: Walker Review of Systems Constitutional: no fever, no chills, no weakness, no weight loss and no weight gain Eyes: as per Subjective / HPI Respiratory: no cough, no chest congestion, no dyspnea and no dyspnea on exertion Cardiovascular: no chest pain, no orthopnea, no palpitations, no lightheadedness and no edema Gastrointestinal: no abdominal pain, no nausea, no vomiting, no constipation and no diarrhea/loose stools Musculoskeletal: no back pain, no neck pain, no joint pain, no stiffness and no myalgia Integumentary: no rash Neurologic: + gait abnormality, + unsteadiness, + falls, + lack of coordination, + abnormal speech and + memory loss; no generalized weakness, no tremor(s) and no seizure-like activity Results & Data Results & Data ([facility]) Vital Signs (Past 12 Hours) Vital Signs Temp Pulse Pulse Resp BP BP Pulse Ox 06/01/21 17:00 75 24 139/67 96 06/01/21 16:00 73 18 127/57 L 95 06/01/21 15:45 74 19 133/74 95 06/01/21 15:44 76 20 133/74 96 06/01/21 15:00 70 20 136/72 96 06/01/21 14:25 73 133/73 96 06/01/21 14:23 76 18 133/73 95 06/01/21 11:41 36.8 C 78 19 104/64 96 Laboratory Results Laboratory Results WBC 14.30 K/uL (4.8-10.8) H 06/01/21 14:18 RBC 3.33 M/uL (4.7-6.1) L 06/01/21 14:18 Hgb 10.6 g/dL (14.0-18.0) L 06/01/21 14:18 Hct 32.0 % (42-52) L 06/01/21 14:18 MCV 96.1 fL (80-100) 06/01/21 14:18 MCH 31.8 pg (25-34) 06/01/21 14:18 MCHC 33.1 g/dL (32-36) 06/01/21 14:18 RDW Std Deviation 49.5 fL (36.4-46.3) H 06/01/21 14:18 RDW Coeff of [place] 14.0 % (11.5-14.5) 06/01/21 14:18 Plt Count 522 K/uL (130-400) H 06/01/21 14:18 MPV 10.5 fL (7.4-10.4) H 06/01/21 14:18 Immature Gran % (Auto) 0.6 % 06/01/21 14:18 Neut % (Auto) 65.6 % 06/01/21 14:18 Lymph % (Auto) 20.3 % 06/01/21 14:18 [place] % (Auto) 11.7 % 06/01/21 14:18 Eos % (Auto) 1.6 % 06/01/21 14:18 Baso % (Auto) 0.2 % 06/01/21 14:18 Neut # (Auto) 9.37 K/uL (1.4-6.5) H 06/01/21 14:18 Lymph # (Auto) 2.90 K/uL (1.2-3.4) 06/01/21 14:18 [place] # (Auto) 1.68 K/uL (0.11-0.59) H 06/01/21 14:18 Eos # (Auto) 0.23 K/uL (0-0.5) 06/01/21 14:18 Baso # (Auto) 0.03 K/uL (0-0.2) 06/01/21 14:18 Immature Gran # (Auto) 0.09 K/uL (0.00-0.02) H 06/01/21 14:18 PT 10.5 Seconds (9.0-12.0) 06/01/21 14:18 INR 1.0 (0.9-1.1) 06/01/21 14:18 APTT 26.9 Seconds (21.0-31.0) 06/01/21 14:18 PTT Ratio 1.0 06/01/21 14:18 Sodium 132 mmol/L (136-145) L 06/01/21 14:18 Potassium 4.3 mmol/L (3.5-5.1) 06/01/21 14:18 Chloride 99 mmol/L (98-107) 06/01/21 14:18 Carbon Dioxide 27 mmol/L (21-32) 06/01/21 14:18 Anion Gap 6.0 (3-11) 06/01/21 14:18 BUN 35 mg/dl (7-18) H 06/01/21 14:18 Creatinine 1.66 mg/dl (0.6-1.4) H 06/01/21 14:18 Est Cr Clr Drug Dosing Not Reportable 06/01/21 14:18 Est GFR ( Amer) 44.8 ml/min 06/01/21 14:18 Est GFR (Non-Af Amer) 38.6 ml/min 06/01/21 14:18 BUN/Creatinine Ratio 20.8 (10-20) H 06/01/21 14:18 Glucose 137 mg/dl (70-99) H 06/01/21 14:18 POC Glucose 189 mg/dl (70-99) H 06/01/21 13:27 Calcium 9.5 mg/dl (8.5-10.1) 06/01/21 14:18 Phosphorus 2.5 mg/dl (2.5-4.9) 06/01/21 14:18 Magnesium 2.9 mg/dl (1.8-2.4) H 06/01/21 14:18 Total Bilirubin 0.3 mg/dl (0.2-1) 06/01/21 14:18 Direct Bilirubin 0.1 mg/dl (0-0.2) 06/01/21 14:18 AST 111 U/L (15-37) H 06/01/21 14:18 ALT 76 U/L (12-78) 06/01/21 14:18 Alkaline Phosphatase 109 U/L (45-117) 06/01/21 14:18 Ammonia < 10.0 umol/L (11-32) L 06/01/21 14:18 Troponin I < 0.015 ng/ml (0-0.045) 06/01/21 14:18 Total Protein 9.1 gm/dl (6.4-8.2) H 06/01/21 14:18 Albumin 2.3 gm/dl (3.4-5.0) L 06/01/21 14:18 Globulin 6.8 gm/dl (2.5-4.0) H 06/01/21 14:18 Albumin/Globulin Ratio 0.3 (0.9-2) L 06/01/21 14:18 Lipase 131 U/L (73-393) 06/01/21 14:18 TSH 1.490 uIu/ml (0.300-4.500) 06/01/21 14:18 Valproic Acid 48 mcg/ml (50-100) L 06/01/21 14:18 Ethyl Alcohol mg/dL < 3.0 mg/dl (0-3) 06/01/21 14:18 Lyme Disease IgG Ab Negative (Negative) 06/01/21 14:18 Lyme Disease IgM Ab Equivocal (Negative) A 06/01/21 14:18 COVID-19 Eval Order Covid19 at [facility] 06/01/21 14:24 SARS-CoV-2 (PCR) NEGATIVE (Negative) 06/01/21 14:24 Impressions Chest X-Ray 06/01/21 13:42 XR chest 1V portable CLINICAL HISTORY: Chest Pain chest radiograph January 08, 2021. Chest CT August 07, 2019. COMPARISON STUDY: No previous studies for comparison. FINDINGS: Lung volumes are normal. There is no pneumothorax or pleural effusion. Median sternotomy wires and mediastinal surgical clips are noted. Cardiomegaly is unchanged. There is no evidence for pulmonary edema. IMPRESSION: No acute cardiopulmonary findings. No change in appearance of the chest. ACT 112: Negative or not required by law. Electronically signed by: Larry Ghosh M.D. 06/01/2021 2:[address] 06/01/21 13:48 CT head/brain wo con CLINICAL HISTORY: confusion, dizziness, imbalance COMPARISON STUDY: No previous studies for comparison. TECHNIQUE: Axial CT of the brain is performed from the vertex to the skull base. IV contrast was not administered for this examination. A dose lowering technique was utilized adhering to the principles of ALARA. CT DOSE: FINDINGS: No acute intracranial hemorrhage, no midline shift or space occupying lesions are seen. Tubbs-white matter differentiation is preserved. Diffuse atrophic changes of brain parenchyma are seen associated with ex vacuo dilatation of ventricles. Diffuse mild decrease in attenuation within periventricular white matter might represent chronic small vessel ischemia. There is no acute depressed skull fractures are seen. Visualized paranasal sinuses and mastoid air cells are patent and well-aerated. IMPRESSION: 1. No acute intracranial hemorrhage, no midline shift or space occupying lesions. 2. Diffuse atrophic changes of brain parenchyma associated with ex vacuo dilatation of ventricles. 3. Chronic small vessel ischemia. ACT 112: Negative or not required by law. The above report was generated using voice recognition software. It may contain grammatical, syntax or spelling errors. Electronically signed by: Juana Sousa DO 06/01/2021 3:18 PM Head CTA 06/01/21 13:48 CT ANGIOGRAM OF THE BRAIN CLINICAL HISTORY: Change in mental status. Dizziness. COMPARISON STUDY: Unenhanced CT of the brain performed concurrently on 06/01/2021. TECHNIQUE: Following the IV administration of 120 cc of Optiray 320, CT angiogram of the brain was performed from the skull base to the vertex. Images are reviewed in the axial, sagittal, and coronal planes. 3-D MIPS images are created and assessed. IV contrast was administered without complication. A dose lowering technique was utilized adhering to the principles of ALARA. FINDINGS: Brain parenchyma: There is age-related involutional change noting mild to moderate subcortical and periventricular microangiopathic disease. There is no hemorrhage, mass effect, or evidence of acute territorial ischemia by CT criteria. There is no evidence of enhancing mass lesion on the angiogram phase images. No extra-axial fluid collection is seen. Tubbs-white matter differentiation is preserved. Ventricles, sulci, and cisterns: Prominent secondary to involutional change. CT angiogram of the brain: There is atherosclerotic calcification of the cavernous carotid and vertebral arteries. There is a large right posterior communicating artery. The internal carotid arteries are widely patent, as are the anterior and middle cerebral arteries. The vertebrobasilar system and posterior cerebral arteries are widely patent. The right vertebral artery is dominant. There is no aneurysm, high-grade stenosis, or focal vessel cutoff identified throughout the intracranial circulation. Dural sinuses: Clear as visualized. Orbits: The bony orbits are intact. The orbital contents are normal as visualized noting bilateral ocular lens implants. Sinuses and mastoids: The paranasal sinuses are clear. The mastoid air cells are well pneumatized. Calvarium: Unremarkable. IMPRESSION: 1. There is no evidence of hemorrhage, mass effect, or acute territorial ischemia by CT criteria noting angiographic phase technique. 2. Unremarkable CT angiogram of the brain. ACT 112: Negative or not required by law. Electronically signed by: Larry Chirinos M.D. 06/01/2021 3:22 PM Neck CTA 06/01/21 13:48 CT angio neck with con CLINICAL HISTORY: confusion, dizziness, imbalance COMPARISON STUDY: No previous studies for comparison. TECHNIQUE: CT angiography was performed from the aortic arch to the skull base. MIP imaging was performed. The patient was scanned in a dynamic helical fashion during intravenous administration of 120 cc of Optiray. A dose lowering technique was utilized adhering to the principles of ALARA. CT DOSE: 1277.20 mGy.cm Technique: CT angiogram of the carotid and vertebral arteries was obtained using intravenous contrast and 3-D reconstruction. NASCET criteria was utilized. Findings: The right carotid revealed no evidence of aneurysm and no evidence of dissection. There is no evidence of hemodynamic significant stenosis. There is moderate atheromatous changes the level the left carotid bulb without evidence of hemodynamically significant stenosis. There is no evidence of dissection. There is a 30% diameter stenosis of both vertebral artery origins. There is no evidence of hemodynamically significant vertebral artery stenosis. There is no evidence of vertebral artery dissection. IMPRESSION: 1. Mild to moderate atherosclerotic changes 2. No evidence of hemodynamically significant carotid or vertebral artery stenosis. No evidence of dissection. ACT 112: Negative or not required by law. Electronically signed by: Raul Chatterjee M.D. 06/01/2021 3:26 PM PG Care Time/CCT Total # of Minutes Spent Total Time Spent with Patient: Total time spent is greater than 50% in coordination of care (as documented) at patient's floor/unit and/or counseling patient: Coding Level of Care Code INT OBSERVATION CARE 70M LVL 3 Diagnoses Diabetes mellitus, type 2 E11.9 Chronic kidney disease, stage III (moderate) N18.3 Dyslipidemia E78.5 Confusion R41.0 Infected pilonidal cyst L05.91 Bipolar disorder F31.9
[2021-06-01] MEDS ORDERED: DEXTROSE 50% 50 ML SYRINGE IV PRN (19:06)
[2021-06-01] MEDS ORDERED: GLUCOSE 10 TABS/TUBE PO PRN (19:06)
[2021-06-01] MEDS ORDERED: GLUCAGON FOR INJ 1 MG VIAL SQ PRN (19:06)
[2021-06-01] MEDS ORDERED: GLUCOSE 40% GEL 15 GM TUBE PO PRN (19:06)
[2021-06-01] MEDS ORDERED: CARBOHYDRATES FOR HYPOGLYCEMIA PO PRN (19:06)
[2021-06-01] MEDS ORDERED: ACETAMINOPHEN 325 MG TAB PO PRN (19:06)
[2021-06-01] MEDS: FAMOTIDINE 20 MG TAB PO SCH (20:52)
[2021-06-01] MEDS: DIVALPROEX DELAY RELEASE 500 MG TAB PO SCH (20:52)
[2021-06-01] MEDS: MULTIVITAMIN TAB PO SCH (20:55)
[2021-06-01] MEDS: METOPROLOL TARTRATE 50 MG TAB PO SCH (20:59)
[2021-06-01] MEDS ORDERED: lamoTRIgine 100 MG TAB PO SCH (21:00)
[2021-06-01] MEDS ORDERED: ROSUVASTATIN CALCIUM 20 MG TAB PO SCH (21:00)
[2021-06-01] MEDS: INSULIN ASPART 100 UNITS/ML 3 ML PEN SC SCH (21:02)
[2021-06-01] MEDS: HEPARIN SOD 5,000 UNIT/0.5 ML VIAL SQ SCH (22:04)
[2021-06-02] MEDS: HEPARIN SOD 5,000 UNIT/0.5 ML VIAL SQ SCH ×2 (05:26→14:36)
[2021-06-02 06:30] LABS: Basophils # (auto) 0.02 K/uL (0-0.2); Basophils % (auto) 0.2 %; Eosinophils # (auto) 0.29 K/uL (0-0.5); Eosinophils % (auto) 2.6 %; Hematocrit (blood only) 30.2 % (42-52); Hemoglobin 9.8 g/dL (14.0-18.0); Immature Granulocytes # (auto) 0.06 K/uL (0.00-0.02); Immature Granulocytes % (auto) 0.5 %; Lymphocytes # (auto) 2.22 K/uL (1.2-3.4); Lymphocytes % (auto) 19.7 %; Mean Corpuscular Hemoglobin 31.3 pg (25-34); Mean Corpuscular Hgb Conc 32.5 g/dL (32-36); Mean Corpuscular Volume 96.5 fL (80-100); Mean Platelet Volume 10.6 fL (7.4-10.4); Monocytes % (auto) 11.5 %; Neutrophils # (auto) 7.38 K/uL (1.4-6.5); Neutrophils % (auto) 65.5 %; Platelet Count 498 K/uL (130-400); RDW Coefficient of Variation 14.3 % (11.5-14.5); RDW Standard Deviation 51.1 fL (36.4-46.3); Red Blood Count 3.13 M/uL (4.7-6.1); White Blood Count 11.27 K/uL (4.8-10.8)
[2021-06-02 07:10] LABS: Creatinine Clr Calc Pharmacy 50.5 ml/min; Est GFR (African American) 54.5 ml/min; Magnesium 2.7 mg/dl (1.8-2.4); Potassium 4.5 mmol/L (3.5-5.1)
[2021-06-02 07:37] LABS: Estimated Average Glucose 192 mg/dl; Hemoglobin A1C 8.3 % (4.5-5.6)
[2021-06-02] MEDS: METOPROLOL TARTRATE 50 MG TAB PO SCH (08:13)
[2021-06-02] MEDS: FAMOTIDINE 20 MG TAB PO SCH (08:13)
[2021-06-02] MEDS: DIVALPROEX DELAY RELEASE 500 MG TAB PO SCH (08:14)
[2021-06-02] MEDS: MULTIVITAMIN TAB PO SCH (08:14)
[2021-06-02] MEDS: INSULIN ASPART 100 UNITS/ML 3 ML PEN SC SCH ×2 (08:16→12:32)
[2021-06-02] MEDS ORDERED: LISINOPRIL/HCTZ 20/12.5MG 1 TAB TAB PO SCH (09:00)
[2021-06-02] MEDS ORDERED: ASPIRIN 81 MG ECTAB PO SCH (09:00)
[2021-06-02] MEDS ORDERED: INSULIN GLARGINE SOLOSTAR 100 UNITS/ML 3 ML PEN SQ SCH (09:00)
[2021-06-02] MEDS ORDERED: CLOPIDOGREL BISULFATE 75 MG TAB PO SCH (09:00)
--- NOTE | 2021-06-02 09:08 | Neurology Consultation ---
Date of Consultation June 02, 2021 Assessment & Plan (1) Head trauma: (2) Concussion: (3) Word finding difficulty: (4) Neck pain: (5) Ambulatory dysfunction: (6) Diabetic polyneuropathy: (7) Lumbar spinal stenosis: This patient has suffered a fall with closed head trauma May 17 resul ting in a concussion with head pain and increased neck pain. He has typical concussion symptoms with wooziness/vertiginous symptoms at 1st, balance difficulties, some confusion and word-finding difficulties, and headache. Currently he has scalp tenderness, neck pain with some radicular symptoms into the upper right upper extremity, and ambulatory dysfunction. there are no focal neurologic deficits. There is no encephalopathy or meningeal signs. If he has a very mild underlying dementia there is not much sign of that currently (his mentation seems quite good today ). The patient has a diabetic polyneuropathy and likely a sensory ataxia giving him ambulatory dysfunction ( the concussion just made his balance a little bit worse ). he also has a history of lumbar spinal stenosis post surgery in December of 2018. His legs and back were stable although the fall stirred his back pain up a little bit. He has new neck pain and radicular symptoms in the right upper extremity since the fall. I cannot exclude spinal stenosis in the cervical spine but there are no upper motor neuron signs on exam. Unfortunately, the presence of a polyneuropathy might mask potential upper motor neuron signs. The patient has a history of bipolar disorder stable on Depakote and Lamictal. Recommendations: 1. Consider MRI of the brain without contrast - I cannot totally exclude a small /mini-stroke 2. Consider MRI of the cervical spine. He likely has cervical spinal degenerative changes much like his lumbar spine. He is currently having radicular symptoms since the fall and we need to assess for cervical spinal stenosis. 3. Otherwise increase activity as able with physical and occupational therapy. Overall, I spent a total of 100 minutes with this case including review of records, review of CT films, direct evaluation the patient at bedside, and discussion of the case with patient at bedside, RN at bedside, and Dr. Vera including differential diagnosis and treatment options. History of Present Illness Reason for Consultation: patient is a 81-year-old, was asked to see at the request of Dr. Vera, for neurologic consultation regarding balance issues and recent head trauma Requesting Physician: Dr. Vera Attending Physician: Cecilio Vera, DO History of Present Illness patient has a longstanding history of hypertension , coronary artery disease, diabetes and bipolar disorder. He has been on aspirin for probably 40 years and Plavix since the year 1999 when he had some sort of TIA. We do not have these records. He has been on Depakote and Lamictal for bipolar disorder since 1999 also. He is post splenectomy. he has chronic kidney disease stage 3 ( moderate) followed by Dr. Pace. His edi coordinator is Dr. Balbuena. In March of 2019 he underwent decompression at L2 through L5 with fusion and cage by Dr. Rodriguez. He continues to have low back pain although he has made improvements over the last 2 years. His walking had been reasonable and he had not been falling. Patient has had numbness in his feet for many years and this has been labeled as a diabetic polyneuropathy. Patient was in his usual state of health when on May 17 he was coming up outside concrete steps carrying a tray, when he hit the top step he turned to see his coming into the driveway and then somehow lost his balance falling straight backward hitting his occipital on concrete. He also injured his right arm. He does not think he had a loss of consciousness because he remembers standing up by the time she got out of the car and walk over to the front porch. He felt woozy and somewhat lightheaded need to hold on to the door. He had a severe occipital headache with photophobia. He had neck pain and pain radiating down the right side of the neck into the right shoulder and into the upper arm on the right. Movement made his wooziness worse, and he felt that he had to lay down. His wanted to take him to the emergency but he declined. int erestingly, he came to the emergency room on May 21 but he only was therefore an infected pilonidal cyst. He continues to have tenderness of his occipital scalp bilaterally and some headache although the headache itself is better. He still has balance issues but does not have wooziness or vertiginous symptoms with movement. He has no vision problems or lightheadedness. He denies any pain, weakness, or numbness in the upper extremities but still has right-sided neck pain Into the right shoulder girdle. His legs are strong but have numbness and tingling in the feet. He has urgency and frequency but no incontinence. Because of gait issues and some word-finding problems he came to the emergency room June 01. At 1141 temperature was 36.8, pulse 78, respiratory rate 19, blood pressure 104/64, and O2 saturation 96 percent. He had some subtle word-finding difficulties but he was not encephalopathic and had no focal findings on exam. Gait was cautious. CT scan of the head showed atrophy and hydrocephalus ex vacuo and no acute changes. CT angiography of the head and neck were unremarkable with no significant vascular stenoses. CBC showed elevated white count and mild anemia. Chem profile had an elevated glucose and AST. Platelet count was elevated as well. Depakote level was 48 and TSH was 1.4. BUN was 35 and creatinine 1.6. This morning white count was elevated and he was still anemic with a hemoglobin A1c of 8.3. Total cholesterol was 149 and triglycerides 156. Blood pressure this morning was 148/70. Allergies Allergy/AdvReac Type Severity Reaction Status Date / Time sulfamethoxazole Allergy Severe SEVERE RASH Verified 06/01/21 14:50 trimethoprim Allergy Severe SEVERE RASH Verified 06/01/21 14:50 amoxicillin AdvReac Mild VOMITING Verified 06/01/21 14:50 clavulanic acid AdvReac Mild VOMITING Verified 06/01/21 14:50 Home Medications Medication Instructions Recorded Confirmed Type aspirin 81 mg tablet,delayed 81 mg PO QAM 01/26/19 06/01/21 History release clopidogrel 75 mg tablet 75 mg PO QAM 01/26/19 06/01/21 History divalproex 500 mg tablet,delayed 500 mg PO BID 01/26/19 06/01/21 History release metformin 1,000 mg tablet 1,000 mg PO BIDM 01/26/19 06/01/21 History metoprolol tartrate 50 mg tablet 50 mg PO BID 01/26/19 06/01/21 History rosuvastatin 40 mg tablet 40 mg PO PM 01/26/19 06/01/21 History multivitamin (Daily Multi-Vitamin) 1 tab PO BID tab 06/06/19 06/01/21 History insulin syringe-needle U-100 0.5 #1 ea 06/12/19 04/22/21 History mL 30 gauge x 1/2" (BD Insulin Syringe Ultra-Fine) lamotrigine 100 mg tablet 100 mg PO PM tab 10/29/19 06/01/21 History prednisolone acetate 1 % eye 1 drp OPL 4XWK ml 10/29/19 06/01/21 History drops,suspension insulin glargine 100 unit/mL (3 24 units SUBCUT QAM ml 12/13/19 06/01/21 History mL) subcutaneous pen (Lantus Solostar U-100 Insulin) insulin lispro 100 unit/mL 1 sliding scale dose SQ 04/16/20 06/01/21 History subcutaneous solution (Humalog USEASDIRECTD U-100 Insulin) lisinopril 20 1 tab PO QAM 06/17/20 06/01/21 History mg-hydrochlorothiazide 12.5 mg tablet famotidine 20 mg tablet 20 mg PO BID 06/01/21 06/01/21 History nitroglycerin 0.4 mg sublingual 0.4 mg SUBLINGUAL DIRECTED PRN 06/01/21 06/01/21 History tablet (Nitrostat) Patient History Medical History (Updated 06/02/21 @ 09:30 by Alphonse Mercado MD) Bipolar disorder Chronic kidney disease, stage III (moderate) Confusion Diabetes Diarrhea Dyslipidemia Hypertension Intractable low back pain Lumbar spinal stenosis Metabolic encephalopathy Old inferior wall myocardial infarction Orthostatic hypotension Parotitis Vitamin D deficiency Surgical History H/O submandibular gland removal Hx of CABG (1994) Hx of decompressive lumbar laminectomy (03/2019) S/P cystoscopy S/P splenectomy (~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) Family History Brother Prostate cancer Father , age 68 of GI cancer Cancer Mother , age 88 of non-Hodgkin's lymphoma Non Hodgkin's lymphoma Social History Smoking Status: Never smoker Second Hand Exposure: No; Hx Alcohol Use: Yes Alcohol type: hard liquor Alcohol Intake Frequency Comment: averages 2-3 drinks of vodka per day Hx Substance Use: No Preferred Language: Macedonian Communication Ability: Effective O And M Supervisor Required: No Beliefs That Will Affect Care: None Current Living Situation: Spouse current occupational status: retired 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 Other Information That Helps Us Care for You: No Feels Safe at Home: Yes Safety Concerns: Feels Safe At This Time Assistive Devices: Wheelchair Review of Systems Constitutional: no fever, no fatigue and no weakness Eyes: no diplopia, no eye pain and no worsening vision Ear, Nose, Mouth, Throat: no ear pain, no tinnitus, no hearing loss, no dizziness, no hoarseness and no dysphagia Respiratory: no cough and no dyspnea Cardiovascular: no chest pain, no palpitations and no lightheadedness Gastrointestinal: no abdominal pain, no nausea and no vomiting Musculoskeletal: + back pain and + neck pain; no radicular pain, no joint pain and no myalgia Integumentary: no rash and no lesions Neurologic: + gait abnormality and + numbness; no localized weakness, no generalized weakness, no tingling, no tremor(s), no abnormal movements, no headache(s), no abnormal speech, no confusion and no memory loss Psychiatric: + depression; no irritability, no anxiety, no difficulty concentrating, no confusion and no hallucinations Endocrine: no fatigue and no flushing Hematologic / Lymphatic: no easy bleeding and no easy bruising Allergy / Immunological: no urticaria and no problem reported Exam (Neuro) Physical Exam: The patient is right-handed. The patient is awake, alert, and attentive. Speech is normal without any aphasia or dysarthria. The patient can name objects, repeat phrases, and has normal spontaneous speech. Mentation and thought processes are intact, with orientation to person, place and time, and normal fund of knowledge. Attention and concentration are normal. Mood and affect are normal and appropriate. General appearance and grooming are normal. Short and long-term memory seem intact to conversation. Pupils are 3 mm bilaterally and reactive to light. Extraocular eye muscles are intact without nystagmus. Visual acuity and visual sy seem normal grossly to confrontation. There are no deficits to sensation in the face in all 3 distributions of the fifth cranial nerve bilaterally. Corneal reflexes are positive bilaterally. Facial strength and symmetry was normal bilaterally. Hearing seems normal bilaterally. Palate moves well without asymmetry. There is normal sternocleidomastoid and trapezius (shoulder shrug) strength bilaterally. Tongue is midline with good strength bilaterally. Neck has a full range of motion with some discomfort on the right with head turning to the right. There are no cervical bruits bilaterally. There are no cranial or ocular bruits. Heart is without murmur. There is a regular rhythm and rate. Cervical spine is tender on the right with paraspinals in the lateral aspect of the with spinous processesspared. Thoracic and lumbar spine are nontender to palpation. Gait is narrow based with good arm swing and he is very slow and cautious. Feet together and eyes open is unsteady and deteriorates more with eyes closed. With outstretched arms there is no drift. There are no resting, postural, or action tremors. There is no ataxia with finger to nose testing. There is good facility in the hands. No other abnormal involuntary movements are noted. Motor strength is 5/5 diffusely in the arms bilaterally including deltoids, biceps, triceps, brachioradialis, wrist flexors and extensors, tie in hand, and intrinsic hand muscles. Motor strength is 5/5 diffusely in the legs bilaterally including hip flexors, quadriceps, hamstrings, gastrocnemius, tibialis anterior, tibialis posterior, and Peroneii muscles. Toe extensors are normal and there is good bulk in the extensor digitorum brevis muscles bilaterally. The limbs have good tone without rigidity or spasticity. There is no atrophy noted in the muscles. Muscle bulk is normal, there is no tenderness to palpation, no myotonia to percussion, and no fasciculations seen. Sensory examination Reveals a stocking decreased pinprick sense loss to the mid lower legs bilaterally. There is moderate vibratory sense loss in the feet. Hand seems spared. Reflexes are 1/4 in the biceps, triceps, brachioradialis and quadriceps tendons bilaterally. Achilles tendon reflexes are absent bilaterally. There is no clonus bilaterally. Toes are downgoing with plantar stimulation bilaterally. Peripheral pulses are present and of normal quality distally in all 4 limbs. There is no peripheral edema noted in the limbs. Results & Data ([facility]) Vital Signs (Past 12 Hours) Vital Signs Temp Pulse Pulse Resp BP Pulse Ox 06/02/21 08:28 37.1 C 85 18 148/70 H 93 06/02/21 07:09 74 06/02/21 03:40 36.5 C 69 18 124/64 97 06/02/21 00:43 37.3 C 06/01/21 22:56 38.5 C H 75 18 117/64 93 06/01/21 22:20 80 PG Care Time/CCT Total # of Minutes Spent Total Time Spent with Patient: Total time spent is greater than 50% in coordination of care (as documented) at patient's floor/unit and/or counseling patient: Coding Level of Care Code 09231 Office/Outpt Visit, New Diagnoses Head trauma S09.90XA Concussion S06.0X9A Word finding difficulty R47.89 Ambulatory dysfunction R26.2 Diabetic polyneuropathy E11.42 Lumbar spinal stenosis M48.061 Neck pain M54.2 Time Spent (min) 100
--- NOTE | 2021-06-02 14:32 | Magnetic Resonance Report ---
MRI OF THE BRAIN WITHOUT CONTRAST CLINICAL HISTORY: Confusion. COMPARISON STUDY: Head CT and CTA of the head June 01, 2021. TECHNIQUE: Utilizing a 1.5 Mary magnet and dedicated coil, multiplanar, multiecho imaging of the bra in was performed without IV contrast. FINDINGS: There are no foci of restricted diffusion to suggest acute infarct. No acute intracranial h emorrhage, midline shift or mass effect is present. Ventricular system is unremarkable for age. Basil ar cisterns are patent. There are no extra-axial collections. No intracranial masses are identified o n this unenhanced exam. There is moderate atrophy. White matter T2 hyperintense foci suggest moderate small vessel disease. Calvarial signal is normal. There is no evidence for sinusitis. There is no ma stoid fluid. IMPRESSION: No acute intracranial findings. ACT 112: Negative or not required by law. Electronically signed by: Larry Ghosh M.D. 06/02/2021 2:31 PM
--- NOTE | 2021-06-02 14:52 | Magnetic Resonance Report ---
MR cervical spine wo con CLINICAL HISTORY: polyneuropathy TECHNIQUE: Sagittal and axial T1, T2 and STIR images were obtained. COMPARISON STUDY: No previous studies for comparison. There are no suspicious areas of marrow replacement. No intrinsic cervical cord lesions are visualize d. Multilevel degenerative changes of the spine and exaggerated cervical lordosis are seen. C2-3: Intervertebral disc space is preserved with disc desiccation and diffuse bulge of the disc whic h is causing flattening of thecal sac. Minimal narrowing of the right neural foramina. Left neurofora nuris is patent. C3-4: Intervertebral disc space is preserved. Disc desiccation and posterior osteophytes are seen. Th ere is right paracentral bulge of the disc is seen causing flattening of thecal sac. Moderate stenosi s of the right neuroforamina and mild stenosis of the left neuroforamina are seen at this level. C4-5: Intervertebral disc space is preserved. Disc desiccation and posterior osteophytes are seen. Di ffuse right paracentral bulge of the disc is seen causing mild stenosis of the central canal and terrence re stenosis of bilateral neuroforamina. C5-6 :Intervertebral disc space is preserved. Disc desiccation and posterior osteophytes are seen. Th ere is mild stenosis of the central canal. Moderate stenosis of bilateral neuroforamina are seen at t his level. C6-7: Intervertebral disc space is preserved. Disc desiccation and posterior osteophytes are seen. Mi ld stenosis of the central canal and moderate stenosis of bilateral neuroforamina are seen at this le candida. C7-T1: There is no evidence of disc bulge or focal herniation. There is no evidence of spinal or fora chau stenosis. IMPRESSION: 1. Multilevel degenerative changes of the spine with disc bulging, central canal and neural foramina l stenosis as detailed above. ACT 112: Positive. There are findings on this exam that require communication between the performing entity and the patient following Patient Test Result Information Act ([place] Act 112) guidelines. The above report was generated using voice recognition software. It may contain grammatical, syntax o r spelling errors. Electronically signed by: Juana Sousa DO 06/02/2021 2:50 PM
--- NOTE | 2021-06-02 15:14 | Discharge Summary ---
Date of Service June 02, 2021 Admission HPI Per Admitting Provider This is a 81-year-old male with past medical history of hypertension, hyperlipidemia, CAD, bipolar disorder on medication that presents today with chief complaint of aphasia and ataxia. Patient is accompanied by his , both give a good history. Patient feels that initial symptoms started on May 17. He was walking up stairs and fell backwards while carrying some trees. He struck the back of his head. He did not lose consciousness and was able to get up under his own power. Since then, the notices that he has had some ataxia, seems to think this is more of a balance issue. He does seem slightly more forgetful, forgetting names and places. He has had no dysphagia, weakness or numbness of any limbs, or other issues at this time. Over the last week, the patient attended a for his [id number] who had committed suicide. This is apparently very emotional for both the patient and the . The noticed that during this week the patient had more pronounced symptoms, seem to be much more forgetful had difficulty ambulating. Again, she did not note any localized neurological symptoms such as numbness, paresthesias, weakness. Patient denies any visual disturbances, headache, or o ther issues. At this time, they are concerned regarding possible CVA and presented emergency room for evaluation upon returning from [place]. The patient is awake and alert, speech is fluid and does not appear to have any acute localizing symptoms. Therefore, the patient would not be a TPA candidate. Admission Exam Per Admitting Provider General: Awake alert and oriented x3, no apparent distress. Speech fluid HEENT: Mucous membranes moist, oropharynx is clear Heart: Regular rate, no murmurs, no chest wall tenderness Pulm: Lungs clear to auscultation all sy GI: Abdomen is soft, nontender, nondistended. Good bowel sounds Neuro: Cranial nerves II to XII are intact, moving all limbs equally. EOMI. PERRLA Extremities: No edema Principal Diagnosis 0 Discharge Exam Constitutional cooperative; no acute distress Neck trachea midline, no thyromegaly Respiratory normal respiratory effort Auscultation: lungs clear to auscultation bilaterally; no crackles, no rales, no rhonchi and no wheezes Cardiovascular Rate/Rhythm: regular rate and regular rhythm Heart Sounds: normal S1 and normal S2 Gastrointestinal (Abdomen) Inspection/Auscultation: abdomen normal to inspection Percussion/Palpation: abdomen soft; abdomen nontender, no guarding, abdomen not rigid and no hepatosplenomegaly Skin no rashes, warm and dry Discharge Data Allergies Allergy/AdvReac Type Severity Reaction Status Date / Time sulfamethoxazole Allergy Severe SEVERE RASH Verified 06/01/21 14:50 trimethoprim Allergy Severe SEVERE RASH Verified 06/01/21 14:50 amoxicillin AdvReac Mild VOMITING Verified 06/01/21 14:50 clavulanic acid AdvReac Mild VOMITING Verified 06/01/21 14:50 Consultations 06/01/21 16:36 ED Decision to Admit Stat 06/01/21 19:06 Consult Neurology Routine Ordered Studies 06/01/21 13:48 CT angio head w con Stat CT angio neck with con Stat CT head/brain wo con Stat 06/02/21 09:46 MR cervical spine wo con Routine 06/02/21 12:28 MR brain wo con Routine Hospital Course (1) Confusion: Patient had no neurological changes in the 24 hours after admission. He was seen by neurology who felt that his symptoms may be secondary to recent concussion when he fell and hit the back of his head. He recommended an MRI of the brain along with the cervical spine. These were performed, no acute changes were found. Patient does have fairly extensive cervical disc disease but nothing that appear to be fractured or related to the injury in question. PT/OT saw the patient, there was the recommendation of possible short stay at acute rehab. However, the patient had wanted to go home and felt that he would do well using a cane that can be provided by his . Therefore, the patient be discharged home today in stable condition. He is to continue his medications as ordered including the aspirin and Plavix as per his previous medication list. He should follow with his primary care physician. I did also give the information a neurologist there is further concern regarding neurological symptoms has he described on this presentation. (2) Diabetes mellitus, type 2: Patient is on glargine insulin along with lispro. We will add sliding scale Hold Metformin for 48 hours after dye studies Carb controlled diet Check hemoglobin A1c (3) Chronic kidney disease, stage III (moderate): Creatinine 1.66, actually seems around baseline. I will continue to monitor (4) Dyslipidemia: Patient is on Crestor 40 mg daily, will continue versus substitution with pharmacy equivalent Check fasting lipids (5) Infected pilonidal cyst: Patient was seen in the ER 05/23 for removal of packing of infected pilonidal cyst. Continue wound care with nursing. Does not appear any further treatment was recommended at that time. (6) Bipolar disorder: Continue Depakote and Lamictal as ordered Total Time Total Time Spent Total Time Spent (In Minutes): 28 Discharge Plan Discharge Items Patient Disposition: Home - Self-Care Reason For Visit: ATAXIC GAIT Discharge Diagnosis: 1. Mild confusion/word finding difficulty, felt to be secondary to head trauma/concussion 2. Insulin-dependent diabetes mellitus 3. Diabetic polyneuropathy 4. Cervical disc degenerative disease 5. Chronic kidney disease stage III 6. History of infected pilonidal cyst 7. History of bipolar disorder Activity: Resume your previous activity Non-emergency contact: Primary Care Provider and Neurologist Call non-emergency contact if: you have any medication questions and your symptoms worsen Follow-up/Referrals: Alphonse Mercado MD [Physician] - (As needed if you have further concerns) Ml Matthews MD [Primary Care Provider] - Diet: Carb Consistent or DM2 Addtl Attending Provider Instructions: none Pending Studies at Discharge: No Stand-Alone Forms: My [employer], Smoking Cessation Medications and DC Order Prescriptions: Continued insulin lispro [Humalog U-100 Insulin] 100 unit/mL solution 1 sliding scale dose SQ USEASDIRECTD RF: 0 multivitamin [Daily Multi-Vitamin] tablet 1 tab PO BID RF: 0 (DME) insulin syringe-needle U-100 [BD Insulin Syringe Ultra-Fine] 0.5 mL 30 gauge x 1/2" syringe See Dose Instructions .ROUTE .MEDSUPPLY Qty: 1 RF: 0 lisinopril-hydrochlorothiazide 20-12.5 mg tablet 1 tab PO QAM RF: 0 clopidogrel 75 mg tablet 75 mg PO QAM RF: 0 divalproex 500 mg tablet,delayed release (DR/EC) 500 mg PO BID RF: 0 aspirin 81 mg Tablet,Delayed Release (Dr/Ec) 81 mg PO QAM RF: 0 metformin 1,000 mg tablet 1,000 mg PO BIDM RF: 0 metoprolol tartrate 50 mg tablet 50 mg PO BID RF: 0 rosuvastatin 40 mg tablet 40 mg PO PM RF: 0 prednisolone acetate 1 % drops,suspension 1 drp OPL [id number] RF: 0 lamotrigine 100 mg tablet 100 mg PO PM RF: 0 Lantus Solostar U-100 Insulin 100 unit/mL (3 mL) insulin pen 24 units subcut QAM RF: 0 famotidine 20 mg Tablet 20 mg PO BID RF: 0 nitroglycerin [Nitrostat] 0.4 mg tablet, sublingual 0.4 mg Sublingual DIRECTED PRN (Reason: Chest Pain) RF: 0 Discharge Orders: Discharge Order (Routine); Ordered 06/02/21 Ordered By: Cecilio Evans/Other Patient Handouts: A1C, High Blood Sugar (Hyperglycemia), Hypoglycemia (Low Blood Sugar), Managing Type 2 Diabetes Admission Data Admit Date/Time: 06/01/21 17:45 Attending Provider: Cecilio Vera Admit Provider: Cecilio Vera Primary Care Provider: Ml Matthews Other Providers: Cecilio Vera ; Alphonse Mercado Other Interventions: Discharge Summary Assessment (RN) Last Done: 06/02/21 15:03 Coding Level of Care Code 71826 OBS Care - Discharge Diagnoses Confusion R41.0 Diabetes mellitus, type 2 E11.9 Chronic kidney disease, stage III (moderate) N18.3 Dyslipidemia E78.5 Infected pilonidal cyst L05.91 Bipolar disorder F31.9
[2021-06-05 06:42] LABS: 18KDIGG Band NON-REACTIVE; 23KDIGG Band REACTIVE; 23KDIGM Band NON-REACTIVE; 28KDIGG Band NON-REACTIVE; 30KDIGG Band NON-REACTIVE; 39KDIGG Band REACTIVE; 39KDIGM Band NON-REACTIVE; 41KDIGG Band REACTIVE; 41KDIGM Band NON-REACTIVE; 45KDIGG Band NON-REACTIVE; 58KDIGG Band REACTIVE; 66KDIGG Band NON-REACTIVE; 93KDIGG Band REACTIVE; Lyme Antibodies, WB IgG POSITIVE (NEGATIVE); Lyme Antibodies, WB IgM NEGATIVE (NEGATIVE)
== END 2021-06-02 15:52 | disposition home or self-care (01) ==
LOC: ED 11:25 → 2N 11:25

== ENCOUNTER 2021-08-05 14:32 | Inpatient (IN) ==
[2021-08-05 15:15] LABS: Basophils # (auto) 0.02 K/uL (0-0.2); Basophils % (auto) 0.1 %; Eosinophils # (auto) 0.01 K/uL (0-0.5); Eosinophils % (auto) 0.1 %; Hematocrit (blood only) 32.4 % (42-52); Hemoglobin 10.3 g/dL (14.0-18.0); Immature Granulocytes # (auto) 0.03 K/uL (0.00-0.02); Immature Granulocytes % (auto) 0.2 %; Lymphocytes # (auto) 1.89 K/uL (1.2-3.4); Mean Corpuscular Hemoglobin 29.7 pg (25-34); Mean Corpuscular Hgb Conc 31.8 g/dL (32-36); Mean Corpuscular Volume 93.4 fL (80-100); Mean Platelet Volume 10.7 fL (7.4-10.4); Monocytes # (auto) 1.63 K/uL (0.11-0.59); Monocytes % (auto) 12.1 %; Neutrophils # (auto) 9.93 K/uL (1.4-6.5); Neutrophils % (auto) 73.5 %; Platelet Count 407 K/uL (130-400); RDW Coefficient of Variation 16.6 % (11.5-14.5); RDW Standard Deviation 56.9 fL (36.4-46.3); Red Blood Count 3.47 M/uL (4.7-6.1); White Blood Count 13.51 K/uL (4.8-10.8)
[2021-08-05 15:24] LABS: Prothrombin Time 10.5 Seconds (9.0-12.0)
--- NOTE | 2021-08-05 15:31 | Emergency Department Note ---
Impression & Plan Hypoxia, Non-ST elevation CT (NSTEMI), COVID-19, Weakness ED Provider Note Provider: David Redman MD DATE OF SERVICE: 08/05/2021 CHIEF COMPLAINT: Shortness of breath weak, fevers HISTORY OF PRESENT ILLNESS: Patient is a 81-year-old woman history of hypertension, CABG, CKD, prior concussion presenting here today with family with worsening illness over the past 2 days. Patient on Tuesday began with some slight cold type symptoms. This is worsened today and overnight. Coughing up a good amount of green sputum. with some mild cold symptoms. Patient is vaccinated for Covid. Patient had to be hypoxic and 79% at home and after telehealth with this came here for further evaluation. Patient states he is feeling weak with general myalgias. Denies significant focal chest pain or abdominal pain. Decreased oral intake today. Does relate some concern about his blood sugar as he not been eating well. REVIEW OF SYSTEMS: A total of 10 review of systems was obtained and negative except as stated above in the HPI. PAST MEDICAL HISTORY: As noted above MEDICATIONS: Reviewed home medications SOCIAL HISTORY: Non-smoker, lives at home with PHYSICAL EXAM: GENERAL: alert and oriented fatigued appearing on the distress or intermittently coughing. Head: normocephalic and atraumatic EYES: No injection, discharge or icterus. NECK: Trachea midline. ENT: Mucous membranes pink and moist. LUNGS: Airway patent. No retractions. Breath sounds clear diminished in the bases however with some mild transmitted upper airway secretion sounds HEART: Regular rate and rhythm. No chest wall tenderness ABDOMEN: Soft and non-tender, without guarding or rebound. SKIN: Acyanotic, warm, dry, without rashes EXTREMITIES: Without swelling, tenderness or deformity NEUROLOGICAL: No focal deficits. No aphasia. No facial droop or slurred speech. Patient does have some mild forgetfulness at times. EK bpm normal sinus rhythm with sinus arrhythmia. No PVC or PAC. No acute ST segment elevation. Some nonspecific anterior T wave flattening noted with a QTC of 469. CONTINUOUS CARDIAC MONITORING: was ordered and showed a heart rate of 70s to 90s bpm in normal sinus rhythm Patient's laboratory studies and imaging reviewed. Differential includes Reactive airway disease, pneumonia, pneumothorax, COPD, CHF, infections, cardiac ischemia, pulmonary embolism, musculoskeletal, gastrointestinal, as well as other pathologies. IMPRESSION/MEDICAL DECISION MAKING: Patient appears fatigued and with new oxygen requirement. Significant phlegm production and some subjective fevers reported with worsening overnight. Patient previously vaccinated for Covid however testing today returned positive for Covid. with some mild symptoms. Patient with 6 L now of oxygen supple mentation here. With a significant productive cough, elevated procalcitonin, and some mild leukocytosis (although some degree of chronicity) cover empirically with cefepime for broad coverage. Patient was hospitalized this prior May. Lactate minimally elevated but not significantly hypotensive here. Troponin is elevated and given additional aspirin here. Patient without active chest pain and EKG here without evidence of acute STEMI. Strongly believe this is likely demand from his generalized illness and likely his hypoxia at home. Given dose of dexamethasone with hypoxic Covid. Is requiring 4 to 6 L of nasal cannula oxygen for his hypoxia here in the ER. Discussed with and patient at bedside findings and need for further care here at the hospital. states very mild symptoms and she will continue to follow her self at home and quarantine. She will seek outpatient testing. Patient needs admission and the hospitalist was contacted. DIAGNOSIS: COVID-19 pneumonia, hypoxia, NSTEMI, weakness DISPOSITION: Hospitalist will evaluate Patient was agreeable with this plan. Critical Care I have personally spent 38 minutes of critical care time in the direct management of this patient. This includes bedside care, interpretation of diagnostic studies, and testing, discussion with consultants, patient, and family members, and other required patient management activities. These 38 minutes is in excess of all separately billable procedures. Past Med/Surg History Medical History (Updated 08/05/21 @ 18:10 by David Redman M.D.) Bipolar disorder Chronic kidney disease, stage III (moderate) Confusion Diabetes Diarrhea Dyslipidemia Hypertension Intractable low back pain Lumbar spinal stenosis Metabolic encephalopathy Old inferior wall myocardial infarction Orthostatic hypotension Parotitis Vitamin D deficiency Surgical History H/O submandibular gland removal Hx of CABG (1994) Hx of decompressive lumbar laminectomy (03/2019) S/P cystoscopy S/P splenectomy (~195) Family History Father Mother Prostate cancer Brother Non Hodgkin's lymphoma Mother Cancer Father Social History Smoking Status: Former smoker Tobacco Type: Cigarettes Second Hand Exposure: No; Hx Alcohol Use: Yes Alcohol type: hard liquor Alcohol Intake Frequency Comment: averages 2-3 drinks of vodka per day Hx Substance Use: No Preferred Language: Lao Communication Ability: Effective [employer] C[employer] Required: No Beliefs That Will Affect Care: None Current Living Situation: Spouse current occupational status: retired 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 Safe at Home: Yes Assistive Devices: Walker Allergies Allergies Allergy/AdvReac Type Severity Reaction Status Date / Time sulfamethoxazole Allergy Severe SEVERE RASH Verified 08/05/21 16:28 trimethoprim Allergy Severe SEVERE RASH Verified 08/05/21 16:28 amoxicillin AdvReac Mild VOMITING Verified 08/05/21 16:28 clavulanic acid AdvReac Mild VOMITING Verified 08/05/21 16:28 Home Meds Home Medications Medication Instructions Recorded Confirmed aspirin 81 mg tablet,delayed 81 mg PO QAM 01/26/19 08/05/21 release clopidogrel 75 mg tablet 75 mg PO QAM 01/26/19 08/05/21 divalproex 500 mg tablet,delayed 500 mg PO BID 01/26/19 08/05/21 release metformin 1,000 mg tablet 1,000 mg PO BIDM 01/26/19 08/05/21 metoprolol tartrate 50 mg tablet 50 mg PO BID 01/26/19 08/05/21 rosuvastatin 40 mg tablet 40 mg PO PM 01/26/19 08/05/21 multivitamin (Daily Multi-Vitamin) 1 tab PO BID tab 06/06/19 08/05/21 insulin syringe-needle U-100 0.5 #1 ea 06/12/19 07/27/21 mL 30 gauge x 1/2" (BD Insulin Syringe Ultra-Fine) lisinopril 20 1 tab PO QAM 06/17/20 08/05/21 mg-hydrochlorothiazide 12.5 mg tablet famotidine 20 mg tablet 20 mg PO BID 06/01/21 08/05/21 nitroglycerin 0.4 mg sublingual 0.4 mg SUBLINGUAL DIRECTED PRN 06/01/21 08/05/21 tablet (Nitrostat) lamotrigine 200 mg tablet 200 mg PO DAILY 06/18/21 08/05/21 insulin glargine 100 unit/mL (3 24 unit SUBCUT QAM ml 07/27/21 08/05/21 mL) subcutaneous pen (Lantus Solostar U-100 Insulin) insulin regular human 100 unit/mL 5 - 15 unit SUBCUT TIDM 08/05/21 08/05/21 (3 mL) subcutaneous pen (Novolin R Flexpen) Results & Data (ED) Vital Signs Vital Signs - 24 hr 08/05/21 14:41 08/05/21 14:53 08/05/21 17:58 Temperature 36.3 C L Temperature Source Oral Pulse Rate 89 84 85 Pulse Rate from SpO2 Sensor 85 Respiratory Rate 22 16 16 Respiratory Effort / Characteristics Non-Labored Spontaneous Respiratory Depth Normal Blood Pressure 173/77 H Blood Pressure Mean 109 Blood Pressure Position Sitting Pulse Oximetry 96 98 93 Oxygen Delivery Method Nasal Cannula Room Air Oxygen Flow Rate 4 Sepsis Recent Fever Within 48 Hours No Sepsis New/Unexplained Change in Mental Status N/A Sepsis Action Taken by Nursing No Action Required Laboratory Data Result diagrams: 08/05/21 15:06 08/05/21 15:06 Lab Results 08/05/21 08/05/21 08/05/21 Range/Units 14:59 14:59 15:06 WBC 13.51 H (4.8-10.8) K/uL RBC 3.47 L (4.7-6.1) M/uL Hgb 10.3 L (14.0-18.0) g/dL Hct 32.4 L (42-52) % MCV 93.4 (80-100) fL MCH 29.7 (25-34) pg MCHC 31.8 L (32-36) g/dL RDW Std Deviation 56.9 H (36.4-46.3) fL RDW Coeff of Tennille 16.6 H (11.5-14.5) % Plt Count 407 H (130-400) K/uL MPV 10.7 H (7.4-10.4) fL Immature Gran % (Auto) 0.2 % Neut % (Auto) 73.5 % Lymph % (Auto) 14.0 % Gregory % (Auto) 12.1 % Eos % (Auto) 0.1 % Baso % (Auto) 0.1 % Neut # (Auto) 9.93 H (1.4-6.5) K/uL Lymph # (Auto) 1.89 (1.2-3.4) K/uL Gregory # (Auto) 1.63 H (0.11-0.59) K/uL Eos # (Auto) 0.01 (0-0.5) K/uL Baso # (Auto) 0.02 (0-0.2) K/uL Immature Gran # (Auto) 0.03 H (0.00-0.02) K/uL PT (9.0-12.0) Seconds INR (0.9-1.1) VBG pH (7.36-7.41) VBG pCO2 (38-50) mmHg VBG pO2 mmHg VBG HCO3 mmol/L VBG O2 Saturation % VBG Base Excess mEq/L Barometric Pressure mm/Hg Sodium (136-145) mmol/L Potassium (3.5-5.1) mmol/L Chloride (98-107) mmol/L Carbon Dioxide (21-32) mmol/L Anion Gap (3-11) BUN (7-18) mg/dl Creatinine (0.6-1.4) mg/dl Est Cr Clr Drug Dosing Est GFR ( Amer) ml/min Est GFR (Non-Af Amer) ml/min BUN/Creatinine Ratio (10-20) Glucose (70-99) mg/dl Lactate (0.4-2.0) mmol/L Calcium (8.5-10.1) mg/dl Magnesium (1.8-2.4) mg/dl Total Bilirubin (0.2-1) mg/dl AST (15-37) U/L ALT (12-78) U/L Alkaline Phosphatase (45-117) U/L Troponin I (0-0.045) ng/ml Total Protein (6.4-8.2) gm/dl Albumin (3.4-5.0) gm/dl Globulin (2.5-4.0) gm/dl Albumin/Globulin Ratio (0.9-2) Procalcitonin (0-0.5) ng/ml TSH (0.300-4.500) uIu/ml Nasal Screen MRSA (PCR) (Negative) Valproic Acid (50-100) mcg/ml COVID-19 Eval Order Covid19 at [facility] SARS-CoV-2 (PCR) POSITIVE A* (Negative) 08/05/21 08/05/21 08/05/21 Range/Units 15:06 15:06 15:06 WBC (4.8-10.8) K/uL RBC (4.7-6.1) M/uL Hgb (14.0-18.0) g/dL Hct (42-52) % MCV (80-100) fL MCH (25-34) pg MCHC (32-36) g/dL RDW Std Deviation (36.4-46.3) fL RDW Coeff of Tennille (11.5-14.5) % Plt Count (130-400) K/uL MPV (7.4-10.4) fL Immature Gran % (Auto) % Neut % (Auto) % Lymph % (Auto) % Gregory % (Auto) % Eos % (Auto) % Baso % (Auto) % Neut # (Auto) (1.4-6.5) K/uL Lymph # (Auto) (1.2-3.4) K/uL Gregory # (Auto) (0.11-0.59) K/uL Eos # (Auto) (0-0.5) K/uL Baso # (Auto) (0-0.2) K/uL Immature Gran # (Auto) (0.00-0.02) K/uL PT 10.5 (9.0-12.0) Seconds INR 1.0 (0.9-1.1) VBG pH (7.36-7.41) VBG pCO2 (38-50) mmHg VBG pO2 mmHg VBG HCO3 mmol/L VBG O2 Saturation % VBG Base Excess mEq/L Barometric Pressure mm/Hg Sodium 132 L (136-145) mmol/L Potassium 4.1 (3.5-5.1) mmol/L Chloride 97 L (98-107) mmol/L Carbon Dioxide 25 (21-32) mmol/L Anion Gap 11.0 (3-11) BUN 27 H (7-18) mg/dl Creatinine 1.79 H (0.6-1.4) mg/dl Est Cr Clr Drug Dosing Not Reportable Est GFR ( Amer) 40.9 ml/min Est GFR (Non-Af Amer) 35.3 ml/min BUN/Creatinine Ratio 15.3 (10-20) Glucose 201 H (70-99) mg/dl Lactate 2.2 H* (0.4-2.0) mmol/L Calcium 9.7 (8.5-10.1) mg/dl Magnesium 1.9 (1.8-2.4) mg/dl Total Bilirubin 0.2 (0.2-1) mg/dl AST 28 (15-37) U/L ALT 8 L (12-78) U/L Alkaline Phosphatase 76 (45-117) U/L Troponin I 1.640 H* (0-0.045) ng/ml Total Protein 8.9 H (6.4-8.2) gm/dl Albumin 2.9 L (3.4-5.0) gm/dl Globulin 6.0 H (2.5-4.0) gm/dl Albumin/Globulin Ratio 0.5 L (0.9-2) Procalcitonin (0-0.5) ng/ml TSH 2.110 (0.300-4.500) uIu/ml Nasal Screen MRSA (PCR) (Negative) Valproic Acid (50-100) mcg/ml COVID-19 Eval Order SARS-CoV-2 (PCR) (Negative) 08/05/21 08/05/21 08/05/21 Range/Units 15:06 15:06 15:19 WBC (4.8-10.8) K/uL RBC (4.7-6.1) M/uL Hgb (14.0-18.0) g/dL Hct (42-52) % MCV (80-100) fL MCH (25-34) pg MCHC (32-36) g/dL RDW Std Deviation (36.4-46.3) fL RDW Coeff of Tennille (11.5-14.5) % Plt Count (130-400) K/uL MPV (7.4-10.4) fL Immature Gran % (Auto) % Neut % (Auto) % Lymph % (Auto) % Gregory % (Auto) % Eos % (Auto) % Baso % (Auto) % Neut # (Auto) (1.4-6.5) K/uL Lymph # (Auto) (1.2-3.4) K/uL Gregory # (Auto) (0.11-0.59) K/uL Eos # (Auto) (0-0.5) K/uL Baso # (Auto) (0-0.2) K/uL Immature Gran # (Auto) (0.00-0.02) K/uL PT (9.0-12.0) Seconds INR (0.9-1.1) VBG pH 7.38 (7.36-7.41) VBG pCO2 46 (38-50) mmHg VBG pO2 19 mmHg VBG HCO3 27 mmol/L VBG O2 Saturation < 60.0 % VBG Base Excess 1.3 mEq/L Barometric Pressure 728.4 mm/Hg Sodium (136-145) mmol/L Potassium (3.5-5.1) mmol/L Chloride (98-107) mmol/L Carbon Dioxide (21-32) mmol/L Anion Gap (3-11) BUN (7-18) mg/dl Creatinine (0.6-1.4) mg/dl Est Cr Clr Drug Dosing Est GFR ( Amer) ml/min Est GFR (Non-Af Amer) ml/min BUN/Creatinine Ratio (10-20) Glucose (70-99) mg/dl Lactate (0.4-2.0) mmol/L Calcium (8.5-10.1) mg/dl Magnesium (1.8-2.4) mg/dl Total Bilirubin (0.2-1) mg/dl AST (15-37) U/L ALT (12-78) U/L Alkaline Phosphatase (45-117) U/L Troponin I (0-0.045) ng/ml Total Protein (6.4-8.2) gm/dl Albumin (3.4-5.0) gm/dl Globulin (2.5-4.0) gm/dl Albumin/Globulin Ratio (0.9-2) Procalcitonin 1.10 H (0-0.5) ng/ml TSH (0.300-4.500) uIu/ml Nasal Screen MRSA (PCR) (Negative) Valproic Acid 40 L (50-100) mcg/ml COVID-19 Eval Order SARS-CoV-2 (PCR) (Negative) 08/05/21 08/05/21 Range/Units 16:17 17:16 WBC (4.8-10.8) K/uL RBC (4.7-6.1) M/uL Hgb (14.0-18.0) g/dL Hct (42-52) % MCV (80-100) fL MCH (25-34) pg MCHC (32-36) g/dL RDW Std Deviation (36.4-46.3) fL RDW Coeff of Tennille (11.5-14.5) % Plt Count (130-400) K/uL MPV (7.4-10.4) fL Immature Gran % (Auto) % Neut % (Auto) % Lymph % (Auto) % Gregory % (Auto) % Eos % (Auto) % Baso % (Auto) % Neut # (Auto) (1.4-6.5) K/uL Lymph # (Auto) (1.2-3.4) K/uL Gregory # (Auto) (0.11-0.59) K/uL Eos # (Auto) (0-0.5) K/uL Baso # (Auto) (0-0.2) K/uL Immature Gran # (Auto) (0.00-0.02) K/uL PT (9.0-12.0) Seconds INR (0.9-1.1) VBG pH (7.36-7.41) VBG pCO2 (38-50) mmHg VBG pO2 mmHg VBG HCO3 mmol/L VBG O2 Saturation % VBG Base Excess mEq/L Barometric Pressure mm/Hg Sodium (136-145) mmol/L Potassium (3.5-5.1) mmol/L Chloride (98-107) mmol/L Carbon Dioxide (21-32) mmol/L Anion Gap (3-11) BUN (7-18) mg/dl Creatinine (0.6-1.4) mg/dl Est Cr Clr Drug Dosing Est GFR ( Amer) ml/min Est GFR (Non-Af Amer) ml/min BUN/Creatinine Ratio (10-20) Glucose (70-99) mg/dl Lactate 1.3 (0.4-2.0) mmol/L Calcium (8.5-10.1) mg/dl Magnesium (1.8-2.4) mg/dl Total Bilirubin (0.2-1) mg/dl AST (15-37) U/L ALT (12-78) U/L Alkaline Phosphatase (45-117) U/L Troponin I (0-0.045) ng/ml Total Protein (6.4-8.2) gm/dl Albumin (3.4-5.0) gm/dl Globulin (2.5-4.0) gm/dl Albumin/Globulin Ratio (0.9-2) Procalcitonin (0-0.5) ng/ml TSH (0.300-4.500) uIu/ml Nasal Screen MRSA (PCR) Negative (Negative) Valproic Acid (50-100) mcg/ml COVID-19 Eval Order SARS-CoV-2 (PCR) (Negative) Administered Medications Remdesivir 200 mg/ Sodium (Chloride) 250 mls @ 125 mls/hr IV ONE STA; Protocol Stop: 08/05/21 18:40 Last Admin: 08/05/21 17:51 Dose: 125 mls/hr Documented by: [id number] Discontinued Medications Aspirin (Aspirin Chew 324 Mg) 324 mg PO NOW STA Stop: 08/05/21 16:14 Last Admin: 08/05/21 16:19 Dose: 324 mg Documented by: [id number] Dexamethasone Sodium Phosphate (DexamethasonePf 10 Mg/Ml Vial) 6 mg IV NOW ONE Stop: 08/05/21 16:10 Last Admin: 08/05/21 16:12 Dose: 6 mg Documented by: [id number] Cefepime HCl (Maxipime) 20 mls @ 5 mls/min IV NOW STA Stop: 08/05/21 15:54 Last Admin: 08/05/21 16:04 Dose: 5 mls/min Documented by: [id number] Lactated Ringer's (Lr) 1,000 mls @ 999 mls/hr IV .Q1H1M ONE Stop: 08/05/21 16:50 Last Admin: 08/05/21 16:23 Dose: Not Given Documented by: [id number] Imaging Data Radiologist's Impression: Chest X-Ray 08/05/21 14:59 XR chest 1V portable HISTORY: 81 years-old Male weakness acute weakness COMPARISON: Chest CT 06/12/2021, chest radiograph 06/01/2021 TECHNIQUE: Portable AP view of the chest FINDINGS: Cardiac silhouette is enlarged. Prior median sternotomy with CABG. No pneumothorax, large pleural effusion or overt pulmonary edema. No lobar airspace consolidation. Minimal bibasilar densities. Degenerative changes of the shoulders and spine. IMPRESSION: 1. Minimal bibasilar densities suggest atelectasis. A mild pneumonitis is considered less likely. 2. Cardiomegaly without overt pulmonary edema. ACT 112: Negative or not required by law. The above report was generated using voice recognition software. It may contain grammatical, syntax or spelling errors. Electronically signed by: Fuad Billings M.D. 08/05/2021 3:46 PM Discharge Plan Visit Data Chief Complaint: Illness Stated Complaint: COUGH,LOW BLOOD OXYGEN ED Provider: David Redman Discharge Problem: Hypoxia, Non-ST elevation CT (NSTEMI), COVID-19, Weakness Forms Stand Alone Forms: [facility] [employer] Prescriptions Prescriptions: No Action lamotrigine 200 mg tablet 200 mg PO DAILY RF: 0 multivitamin [Daily Multi-Vitamin] tablet 1 tab PO BID RF: 0 (DME) insulin syringe-needle U-100 [BD Insulin Syringe Ultra-Fine] 0.5 mL 30 gauge x 1/2" syringe See Dose Instructions .ROUTE .MEDSUPPLY Qty: 1 RF: 0 lisinopril-hydrochlorothiazide 20-12.5 mg tablet 1 tab PO QAM RF: 0 clopidogrel 75 mg tablet 75 mg PO QAM RF: 0 divalproex 500 mg tablet,delayed release (DR/EC) 500 mg PO BID RF: 0 aspirin 81 mg Tablet,Delayed Release (Dr/Ec) 81 mg PO QAM RF: 0 metformin 1,000 mg tablet 1,000 mg PO BIDM RF: 0 metoprolol tartrate 50 mg tablet 50 mg PO BID RF: 0 rosuvastatin 40 mg tablet 40 mg PO PM RF: 0 Lantus Solostar U-100 Insulin 100 unit/mL (3 mL) insulin pen 24 unit subcut QAM RF: 0 Novolin R Flexpen 100 unit/mL (3 mL) insulin pen 5 - 15 unit SUBCUT TIDM RF: 0 famotidine 20 mg Tablet 20 mg PO BID RF: 0 nitroglycerin [Nitrostat] 0.4 mg tablet, sublingual 0.4 mg Sublingual DIRECTED PRN (Reason: Chest Pain) RF: 0 Referrals Referrals: Ml Matthews MD [Primary Care Provider] -
[2021-08-05 15:34] LABS: Alanine Aminotransferase 8 U/L (12-78); Albumin Level 2.9 gm/dl (3.4-5.0); Aspartate Aminotransferase 28 U/L (15-37); BUN Creatinine Ratio 15.3 (10-20); Blood Urea Nitrogen 27 mg/dl (7-18); Calcium 9.7 mg/dl (8.5-10.1); Carbon Dioxide 25 mmol/L (21-32); Chloride 97 mmol/L (98-107); Est GFR (African American) 40.9 ml/min; Est GFR (Non-African American) 35.3 ml/min; Glucose 201 mg/dl (70-99); Magnesium 1.9 mg/dl (1.8-2.4); Potassium 4.1 mmol/L (3.5-5.1); Sodium 132 mmol/L (136-145)
[2021-08-05 15:38] LABS: Base Excess VBG 1.3 mEq/L; HCO3 VBG 27 mmol/L; PCO2 VBG 46 mmHg (38-50); PO2 VBG 19 mmHg; pH VBG 7.38 (7.36-7.41)
[2021-08-05 15:39] LABS: Oxygen Saturation VBG < 60.0 %
[2021-08-05 15:47] LABS: Albumin Globulin Ratio 0.5 (0.9-2); Alkaline Phosphatase 76 U/L (45-117); Bilirubin,Total 0.2 mg/dl (0.2-1); Total Protein 8.9 gm/dl (6.4-8.2)
--- NOTE | 2021-08-05 15:47 | XRay Report ---
XR chest 1V portable HISTORY: 81 years-old Male weakness acute weakness COMPARISON: Chest CT 06/12/2021, chest radiograph 06/01/2021 TECHNIQUE: Portable AP view of the chest FINDINGS: Cardiac silhouette is enlarged. Prior median sternotomy with CABG. No pneumothorax, large pleural eff usion or overt pulmonary edema. No lobar airspace consolidation. Minimal bibasilar densities. Degener ative changes of the shoulders and spine. IMPRESSION: 1. Minimal bibasilar densities suggest atelectasis. A mild pneumonitis is considered less likely. 2. Cardiomegaly without overt pulmonary edema. ACT 112: Negative or not required by law. The above report was generated using voice recognition software. It may contain grammatical, syntax o r spelling errors. Electronically signed by: Fuad Billings M.D. 08/05/2021 3:46 PM
[2021-08-05] MEDS ORDERED: LACTATED RINGER'S 1,000 ML IV ONE (15:50)
[2021-08-05] MEDS ORDERED: CEFEPIME 20 ML IV STA (15:51)
[2021-08-05] MEDS ORDERED: dexAMETHasone**PF** 10 MG/ML VIAL IV ONE (16:09)
[2021-08-05] MEDS ORDERED: ASPIRIN CHEW 324 MG PO STA (16:13)
--- NOTE | 2021-08-05 16:15 | History & Physical Report ---
Date of Service August 05, 2021 Assessment & Plan (1) Acute respiratory failure with hypoxia: Plan: Patient presents with acute hypoxemia has a Covid positive state, symptoms will admit for 2 days. He is hypoxic in the emergency department does qualify for remdesivir and dexamethasone although does not formally have significant changes on chest x-ray. He is coughing with production of sputum will therefore cover him for bronchitis but likely I expect his chest x-ray to progress given his clinical scenario Patient is a distant smoking history but does not usually require oxygen therapy We will check a CRP in the morning Patient will be on twice daily Covid DVT prevention (2) Bronchitis: Plan: Patient coughing green mucus in the emergency department we will add azithromycin at this time given the lack of focal infiltrates to treat for bronchitis and also hopefully help with anti-inflammatory effects. (3) Hypertension: Plan: Metoprolol and lisinopril hydrochlorothiazide are typical home medications hydrochlorothiazide will be held given his acute kidney injury if his creatinine does not improve lisinopril will also be held in subsequent days (4) Elevated troponin: Plan: Elevation of troponin with the absence of acute coronary syndrome symptoms. EKG is unrevealing. We will trend troponins but this likely may be due to his hypoxemia or even Covid, patient be started on aspirin consideration of echocardiogram in his convalescent phase of his acute hospital stay Patient may have an NSTEMI on presentation serial troponins will be checked as well as EKGs with chest pain patient denies any recent chest pain with exertion or nitroglycerin use at home (5) Diabetes: Plan: Patient on insulin and metformin he will be on basal bolus insulin with glycemic pharmacy oversight (6) Elevated lactic acid level: Plan: Mild elevation of lactic acid Covid pneumonia notes caution with overhydration try to avoid pulmonary edema therefore will follow his lactic acid if continues to go up we may consider fluid resuscitation (7) Bipolar disorder: Plan: Depakote and Lamictal (8) Concussion: Plan: Patient is being treated for concussion in short-term memory loss from physician in [place]. is concerned he is a fall risk and may need a sitter at times History of Present Illness Primary Care Provider: Ml Matthews MD 81-year-old male who presents with upper respiratory symptoms fever x2 days. He is Covid positive. He is acute hypoxic respiratory failure requiring supplemental oxygen. His cough is expectorating significant amount of green mucus however does not have a lobar infiltrate on chest x-ray. There is a history of CABG but has elevated troponin to 1.6 with a nonacute EKG he has acute kidney injury with creatinine 1.7 typically chronic kidney disease stage III, elevated lactic acid in 2 Patient did have a virtual visit with his primary care physician on 08/04 was given Mucinex and Tessalon Perles does not help his cough or mucus production he has very significant mucus production and upper airway breath sounds during my examination. Allergies Allergy/AdvReac Type Severity Reaction Status Date / Time sulfamethoxazole Allergy Severe SEVERE RASH Verified 08/05/21 16:28 trimethoprim Allergy Severe SEVERE RASH Verified 08/05/21 16:28 amoxicillin AdvReac Mild VOMITING Verified 08/05/21 16:28 clavulanic acid AdvReac Mild VOMITING Verified 08/05/21 16:28 Home Medications Medication Instructions Recorded Confirmed Type aspirin 81 mg tablet,delayed 81 mg PO QAM 01/26/19 08/05/21 History release clopidogrel 75 mg tablet 75 mg PO QAM 01/26/19 08/05/21 History divalproex 500 mg tablet,delayed 500 mg PO BID 01/26/19 08/05/21 History release metformin 1,000 mg tablet 1,000 mg PO BIDM 01/26/19 08/05/21 History metoprolol tartrate 50 mg tablet 50 mg PO BID 01/26/19 08/05/21 History rosuvastatin 40 mg tablet 40 mg PO PM 01/26/19 08/05/21 History multivitamin (Daily Multi-Vitamin) 1 tab PO BID tab 06/06/19 08/05/21 History insulin syringe-needle U-100 0.5 #1 ea 06/12/19 07/27/21 History mL 30 gauge x 1/2" (BD Insulin Syringe Ultra-Fine) lisinopril 20 1 tab PO QAM 06/17/20 08/05/21 History mg-hydrochlorothiazide 12.5 mg tablet famotidine 20 mg tablet 20 mg PO BID 06/01/21 08/05/21 History nitroglycerin 0.4 mg sublingual 0.4 mg SUBLINGUAL DIRECTED PRN 06/01/21 08/05/21 History tablet (Nitrostat) lamotrigine 200 mg tablet 200 mg PO DAILY 06/18/21 08/05/21 History insulin glargine 100 unit/mL (3 24 unit SUBCUT QAM ml 07/27/21 08/05/21 History mL) subcutaneous pen (Lantus Solostar U-100 Insulin) insulin regular human 100 unit/mL 5 - 15 unit SUBCUT TIDM 08/05/21 08/05/21 History (3 mL) subcutaneous pen (Novolin R Flexpen) Past Med/Surg History Medical History (Updated 08/05/21 @ 17:15 by Dontae Deal MD) Bipolar disorder Chronic kidney disease, stage III (moderate) Confusion Diabetes Diarrhea Dyslipidemia Hypertension Intractable low back pain Lumbar spinal stenosis Metabolic encephalopathy Old inferior wall myocardial infarction Orthostatic hypotension Parotitis Vitamin D deficiency Surgical History H/O submandibular gland removal Hx of CABG (1994) Hx of decompressive lumbar laminectomy (03/2019) S/P cystoscopy S/P splenectomy (~1956) Family History Father Mother Prostate cancer Brother Non Hodgkin's lymphoma Mother Cancer Father Social History Smoking Status: Former smoker Tobacco Type: Cigarettes Second Hand Exposure: No; Hx Alcohol Use: Yes Alcohol type: hard liquor Alcohol Intake Frequency Comment: averages 2-3 drinks of vodka per day Hx Substance Use: No Preferred Language: Latvian Communication Ability: Effective Ingredient Mixer Required: No Beliefs That Will Affect Care: None Current Living Situation: Spouse current occupational status: retired 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 Feels Safe at Home: Yes Assistive Devices: Walker Review of Systems Review of Systems: Moderate distress and fatigue no headache, no visual changes no speech or swallowing issues no chest pain, pressure or palpitations Patient has baseline shortness of breath productive cough and upper airway breath sounds easily audible across the room no abdominal pain, nausea or vomiting, diarrhea or constipation no dysuria, hematuria or frequency no focal joint pain or swelling no back pain, CVA tenderness or radicular pain no bruising, bleeding or rashes no focal signs of weakness or numbness or altered sensation no complaints of anxiety or depression.. Physical Exam Physical Exam: The patient appeared well nourished and normally developed. Vital signs as documented. Head exam is normocephalic atraumatic Neck is without JVD, thyromegaly, or carotid bruits. There is no stridor Lungs are with coarse rhonchi which is likely mostly transmitted breath sounds from upper airway or tubular breath sounds from bronchitis Cardiac exam, Rhythm is regular.. No murmurs, rubs or gallops. Abdominal exam reveals normal bowel sounds, soft non tender, no masses Extremities are nonedematous and both pedal pulses are present Neurologic exam is alert and oriented, no focal loss of strength or sensation Skin is without bruises or rashes Psychologically is without concerns for anxiety or depression Results & Data Results & Data ([facility]) Vital Signs (Past 12 Hours) Vital Signs Temp Pulse Resp Pulse Ox 08/05/21 14:41 97.3 F L 89 22 96 Diagnostic Findings Chest x-ray performed 08/05/2021 shows mild basilar densities suggestive of atelectasis or possible mild pneumonitis but does consider less likely cardiomegaly without overt pulmonary edema PG Care Time/CCT Total # of Minutes Spent Total Time Spent with Patient: Total time spent is greater than 50% in coordination of care (as documented) at patient's floor/unit and/or counseling patient: Coding Level of Care Code 59863 Initial Inpt Care Lvl 3 Diagnoses Diabetes E11.9 Hypertension I10 Bipolar disorder F31.9 Acute respiratory failure with hypoxia J96.01 Elevated troponin R77.8 Elevated lactic acid level R79.89 Bronchitis J40 Concussion S06.0X9A
[2021-08-05] MEDS ORDERED: REMDESIVIR 200 MG in SODIUM CHLORIDE 0.9% 210 ML IV STA (16:41)
[2021-08-05] MEDS ORDERED: NON-FORMULARY MEDICATION (Prednisolone Acetate 1 % drops,suspension) OPL SCH (22:16)
[2021-08-05] MEDS ORDERED: GLUCOSE 40% GEL 15 GM TUBE PO PRN (22:16)
[2021-08-05] MEDS ORDERED: ALUMINUM/MAGNESIUM SUSP 30 ML UDC PO PRN (22:16)
[2021-08-05] MEDS ORDERED: CARBOHYDRATES FOR HYPOGLYCEMIA PO PRN (22:16)
[2021-08-05] MEDS ORDERED: ACETAMINOPHEN 325 MG TAB PO PRN (22:16)
[2021-08-05] MEDS ORDERED: ONDANSETRON INJ 2 MG/ML 2 ML VIAL IV PRN (22:16)
[2021-08-05] MEDS ORDERED: DEXTROSE 50% 50 ML SYRINGE IV PRN (22:16)
[2021-08-05] MEDS ORDERED: PHARMACY GLYCEMIC MGMT CONSULT PRN (22:16)
[2021-08-05] MEDS ORDERED: GLUCAGON FOR INJ 1 MG VIAL SQ PRN (22:16)
[2021-08-05] MEDS ORDERED: NITROGLYCERIN SL 0.4 MG/TAB TAB SL PRN (22:16)
[2021-08-05] MEDS ORDERED: GLUCOSE 10 TABS/TUBE PO PRN (22:16)
[2021-08-05] MEDS: ENOXAPARIN INJ 40 MG/0.4 ML SYR SQ SCH (23:50)
[2021-08-05] MEDS: AZITHROMYCIN 500 MG in DEXTROSE 5% 250 ML IV SCH (23:50)
[2021-08-05] MEDS: guaiFENesin 600 MG TABCR PO SCH (23:50)
[2021-08-05] MEDS: DIVALPROEX DELAY RELEASE 500 MG TAB PO SCH (23:51)
[2021-08-05] MEDS: METOPROLOL TARTRATE 50 MG TAB PO SCH (23:51)
[2021-08-05] MEDS: FAMOTIDINE 20 MG TAB PO SCH (23:51)
[2021-08-05] MEDS: ROSUVASTATIN CALCIUM 20 MG TAB PO SCH (23:51)
[2021-08-05] MEDS: cefTRIAXone SODIUM 2,000 MG in DEXTROSE 5% 50 ML IV SCH (23:52)
[2021-08-05] MEDS: MULTIVITAMIN TAB PO SCH (23:52)
[2021-08-05] MEDS: INSULIN ASPART 100 UNITS/ML 3 ML PEN SC ONE (23:54)
[2021-08-05] MEDS: INSULIN ASPART 100 UNITS/ML 3 ML PEN SC SCH (23:56)
[2021-08-06] MEDS: INSULIN ASPART 100 UNITS/ML 3 ML PEN SC ONE (03:40)
[2021-08-06 04:03] LABS: Appearance Urine Clear (Clear); Bilirubin Urine Negative (Negative); Blood Urine Trace (Negative); Color Urine Dark Yellow; Epithelial Cell Urine Auto 20-30 /lpf (0-5); Glucose Urine UA Negative (Negative); Ketones Urine Trace (Negative); Leukocyte Esterase Urine Negative (Negative); Nitrite Urine Negative (Negative); Protein Urine 3+ (Negative); RBC Urine Automated 0-4 /hpf (0-4); Specific Gravity Urine 1.027 (1.000-1.030); Urobilinogen Urine Negative (Negative)
[2021-08-06 05:03] LABS: Bacteria Urine Automated 1+ (Negative)
[2021-08-06 05:05] LABS: Mucus Urine Present (None Prsent)
[2021-08-06 07:56] LABS: BUN Creatinine Ratio 17.8 (10-20); Creatinine Clr Calc Pharmacy 40.4 ml/min; Est GFR (African American) 47.5 ml/min; Magnesium 2.2 mg/dl (1.8-2.4)
[2021-08-06 07:57] LABS: Estimated Average Glucose 163 mg/dl; Hemoglobin A1C 7.3 % (4.5-5.6)
[2021-08-06 08:15] LABS: Troponin I 1.08 ng/ml (0-0.045)
[2021-08-06] MEDS: ASPIRIN 81 MG ECTAB PO SCH (08:48)
[2021-08-06] MEDS: CLOPIDOGREL BISULFATE 75 MG TAB PO SCH (08:48)
[2021-08-06] MEDS: DIVALPROEX DELAY RELEASE 500 MG TAB PO SCH ×2 (08:48→21:02)
[2021-08-06] MEDS: guaiFENesin 600 MG TABCR PO SCH ×2 (08:49→21:01)
[2021-08-06] MEDS: FAMOTIDINE 20 MG TAB PO SCH ×2 (08:49→21:00)
[2021-08-06] MEDS: MULTIVITAMIN TAB PO SCH ×2 (08:50→21:00)
[2021-08-06] MEDS: lamoTRIgine 100 MG TAB PO SCH (08:50)
[2021-08-06] MEDS: METOPROLOL TARTRATE 50 MG TAB PO SCH ×2 (08:50→21:00)
[2021-08-06] MEDS ORDERED: INSULIN GLARGINE SOLOSTAR 100 UNITS/ML 3 ML PEN SC SCH (09:00)
[2021-08-06] MEDS: INSULIN ASPART 100 UNITS/ML 3 ML PEN SC SCH ×3 (09:55→18:09)
[2021-08-06] MEDS: dexAMETHasone 6 MG in SYRINGE 0 ML IV SCH (09:55)
[2021-08-06] MEDS: INSULIN GLARGINE SOLOSTAR 100 UNITS/ML 3 ML PEN SC SCH (09:57)
[2021-08-06] MEDS: INSULIN HUMAN NPH SC SCH (09:58)
--- NOTE | 2021-08-06 10:31 | Electrocardiogram Report ---
Test Reason : Blood Pressure : / mmHG Vent. Rate : 073 BPM Atrial Rate : 073 BPM P-R Int : 192 ms QRS Dur : 110 ms QT Int : 416 ms P-R-T Axes : 047 064 121 degrees QTc Int : 458 ms Sinus rhythm with Premature atrial complexes Incomplete right bundle branch block Poor R wave progression, consider anterior [place] vs. lead placement vs. LVH Abnormal ECG When compared with ECG of 01-JUN-2021 14:11, Premature atrial complexes are now Present T wave inversion now evident in Anterior leads Confirmed by Sanchez Balbuena ([id number]) on 08/06/2021 10:31:40 AM Referred By: REFERRED SELF Confirmed By:Sanchez Balbuena
[2021-08-06] MEDS: ENOXAPARIN INJ 40 MG/0.4 ML SYR SQ SCH (10:56)
--- NOTE | 2021-08-06 12:05 | Pharmacy Report ---
Pharmacy Glycemic Short Note 2 - Date of Service August 06, 2021 - Glycemic Short BSG Results (Last 24 hours): 08/05/21 08/05/21 08/06/21 15:06 23:35 06:29 Glucose 201 H 131 H POC Glucose 233 H 08/06/21 08:23 Glucose POC Glucose 108 H OUTPATIENT ANTIDIABETIC REGIMEN: * Lantus 6 units SQ daily * Novolin R per sliding scale (5-15 units per meal) * Metformin 1000mg PO BID * A1c = 7.3% ASSESSMENT: * Type 2 diabetic admitted for hypoxemic resp failure in the setting of COVID19 * BSGs did climb into the low 200s yesterday however down to 108 this AM with receipt of 9 units correctional insulin * Will begin low dose Lantus once daily in the AM along with low dose NPH to offset post-prandial hyperglycemia associated with IV dexamethasone administration. Will provide half usual NPH dose for this indication as pt's out-pt insulin requirements were relatively low and A1c shows good control with outpt regimen. * Novolog doses were initially started at "severe" stress level based upon weight due to steroid provision. Will follow post-prandial BSG trend w/ NPH on board and adjust as needed. PLAN FOR INPATIENT GLYCEMIC CONTROL: * Hold outpatient oral diabetes medications (metformin) * Basal insulin * Lantus 10 units SQ Q AM * NPH 15 units once daily in the AM when IV dexamethasone given * Bolus insulin * NovoLog per scale ACHS or Q6hrs while NPO * Goal Range: Low 110 mg/dL - High 140 mg/dL * Correction Factor: 15 mg/dL/unit * Nutritional / Prandial insulin per carb ratio of 1 unit per 6 grams CHO consumed PLAN FOR DISCHARGE: * A1c 7.3% is at or near goal for this patient given age. Would recommend resuming outpt insulin and metformin regimen on discharge if not experiencing hypoglycemic episodes and if not contraindications to metformin therapy present at time of discharge.
--- NOTE | 2021-08-06 12:59 | XRay Report ---
XR chest 1V portable INDICATION: MN ^COVID pneumonia and/or CHF. TECHNIQUE: Single frontal radiograph of the chest was obtained. Comparison: Comparison is made to chest one view 08/05/2021 FINDINGS: Stable median sternotomy wires. The cardiomediastinal silhouette is normal. Left retrocardiac and rig ht lower lung airspace opacities are seen. A left pleural effusion is seen. IMPRESSION: 1. Bilateral lower lung predominant airspace opacities which may represent atelectasis, pneumonia, l ayering effusion, and/or aspiration. 2. Pleural effusion on the left. ACT 112: Negative or not required by law. Electronically signed by: Thanh Ware M.D. 08/06/2021 12:57 PM
[2021-08-06] MEDS ORDERED: Heparin IV Adult Wt-Based Standard *NO* Bolus Protocol IV SCH (15:35)
[2021-08-06] MEDS: HEPARIN SODIUM/DEXTROSE 25,000 UNITS/500 ML BAG IV SCH (16:21)
[2021-08-06 16:34] LABS: INR 1.1 (0.9-1.1); Partial Thromboplastin Ratio 1.3; Partial Thromboplastin Time 33.9 Seconds (21.0-31.0); Prothrombin Time 11.2 Seconds (9.0-12.0)
--- NOTE | 2021-08-06 17:25 | XCELERA ---
[id number]
[2021-08-06] MEDS ORDERED: FUROSEMIDE 20 MG in SYRINGE 0 ML IV ONE (18:46)
[2021-08-06] MEDS ORDERED: FUROSEMIDE 20 MG TAB PO ONE (18:49)
[2021-08-06] MEDS: REMDESIVIR 100 MG in SODIUM CHLORIDE 0.9% 230 ML IV SCH (20:59)
[2021-08-06] MEDS: ROSUVASTATIN CALCIUM 20 MG TAB PO SCH (21:01)
--- NOTE | 2021-08-06 21:38 | Hospitalist Progress Note ---
Date of Service August 06, 2021 Assessment & Plan (1) Pneumonia due to 2019-nCoV: Plan: Mod-severe. I am concerned that he is quite hypoxic only 5-6 days into the illness with marked CRP elevation. He has been vaccinated thus this is a "breakthrough" case. 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 He has the potential to worsen in the next few days. If his hypoxia worsens may be Tocilizumab candidate. In meantime - * cont dexamethasone 6mg IV daily; day 2 today * cont Remdesivir - day 2 of 5 today * cont NC O2 support to keep sats 92% or greater * added flutter and incentive * add bronchodilators given his rhonchi/wheezes * discussed proning - may not be able to do such due to chronic L-spine issues; thus, encourage at least side positioning * recheck CRP in am * procal mildly high - and given asplenic state - could have bacterial superinfection; Day 2 of rocephin, Day 2 of zithromax * DVT proph - heparin drip (see below) (2) Acute respiratory failure with hypoxia: Plan: 2nd to COVID-19 pneumonia. Can't exclude bacterial component (procal elevated, copious purulent sputum, asplenic state). Can't exclude element of pulmonary edema. See #1 above. (3) Non-ST elevation NV (NSTEMI): Plan: EKG today shows significant anterior T wave inversions. Prior EKGs demonstrated either upright or mildly flat T waves. His troponin was already high at time of ER presentation. Possible he could have had a small NSTEMI event in the days leading up to the admission. The troponin already peaked and has come down. Echo today shows old inferior wall akinesis with low-normal EF. His grafts are 27 years old and thus there is a strong likelihood that one or more grafts are occluded or significantly diseased. Would treat as if he had small NSTEMI. Start IV heparin x 48 hours. Asa, plavix, BB, statin. LDL 98 in May 2021 - is on max dose of crestor. Recheck LDL this admission and if LDL >70 still add zetia. Can't exclude noncompliance with crestor, however, given his memory issues this summer in midst of concussion. May need to involve Dr Balbuena from cardiology but as of this moment he is too sick to entertain invasive procedures (cath, etc). (4) Hx of CABG: Plan: 4-vessel, 27 years ago [facility]. No stents or NV events since. Follows w/ Dr Balbuena [facility]. (5) Bipolar disorder: Plan: Depakote. Lamictal. Depakote level 40 on 08/05/21. Son reports he has not seen psych in some time - will need to get him linked back up post-d/c down the line. 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 combo of NPH, lantus, and novology. thus far his BSGs are acceptable. (9) Post concussion syndrome: Plan: following with [facility] concussion clinic and [facility] [place] [place]. some memory issues have occurred since. supportive care. (10) Metabolic encephalopathy: Plan: based on son's report some of what I am seeing today could be superimposed met encephalopathy in setting of COVID. supportive care. (11) DVT prophylaxis: Plan: heparin infusion (12) Elevated C-reactive protein (CRP): Plan: repeat in am 2nd COVID-19 poor prognostic indicator Plan: son, Jerald - lives in [facility] - extensively updated by phone this evening total care coordination time today 65 min between ordering multiple studies, interpreting those studies, speaking with his son, bedside care, etc Admission and Anticipated Discharge Date Admission Date: August 05, 2021 Subjective tele overnight wnl during rounds the patient was resting comfortably in bed after introducing myself the patient immediately began to recount the events of his concussion from earlier this summer apparently had fallen at home and struck the back of his head has been to [facility] several times to their concussion clinic later in the evening I spoke with the pt's son, Jerald, who resides in [facility] he states that since the concussion his father has been quite sedentary and has had memory difficulties since the injury patient reports being sick since sometime last weekend he has mild TAPIA but none at rest he has very hoarse voice and severe cough with copious sputum production with respect to his CAD - had CABG ~27 yrs ago at [facility] no stents, NV events, etc since his 4-vessel CABG follows w/ Dr Balbuena [facility] patient denies any recent chest pain and in particular in the days leading up to this hospitalization does have chest tightness when he coughs Review of Systems Review of Systems: gen - fatigue, weakness, poor appetite CV - no angina/chest pain during or before the hospital stay pulm - TAPIA, cough, sputum GI - no pain, nausea/emesis psych - memory issues Physical Exam Physical Exam: gen - looks unwell, tends to repeat things and have slight thought blocking before speaking, mild tachypnea noted HEENT - MMM; hoarse voice neck - mild JVD heart - RRR, s1 s2 lungs - diffuse rhonchi and wheezes, minimal crackles - b/l; mild tachypnea abd - soft NT ND BS+ chest - sternal scar present ext - no edema, pulses 2+ b/l Results & Data Results & Data ([facility]) Vital Signs (Past 12 Hours) Vital Signs Temp Pulse Pulse Resp BP Pulse Ox 08/06/21 20:45 37.1 C 68 16 122/59 L 92 08/06/21 16:10 36.4 C L 66 20 108/50 L 94 08/06/21 15:41 68 08/06/21 12:24 37.4 C 70 18 108/50 L 91 Laboratory Results Laboratory Results - last 24 hr 08/05/21 08/06/21 08/06/21 23:35 03:15 06:28 PT INR APTT PTT Ratio Sodium Potassium Chloride Carbon Dioxide Anion Gap BUN Creatinine Est Cr Clr Drug Dosing Est GFR ( Amer) Est GFR (Non-Af Amer) BUN/Creatinine Ratio Glucose POC Glucose 233 H Estimat Average Glucose Hemoglobin A1c Calcium Magnesium Troponin I C-Reactive Protein C-React Prot High Sens Pending Urine Color Dark Yellow Urine Appearance Clear Urine pH 5.0 Ur Specific Ford 1.027 Urine Protein 3+ H Urine Glucose (UA) Negative Urine Ketones Trace H Urine Blood Trace H Urine Nitrite Negative Urine Bilirubin Negative Urine Urobilinogen Negative Ur Leukocyte Esterase Negative Urine WBC (Auto) 1-5 Urine RBC (Auto) 0-4 U Hyaline Cast (Auto) 1-5 U Epithel Cells (Auto) 20-30 H Urine Bacteria (Auto) 1+ H Granular Casts 5-10 H Urine Mucus Present A 08/06/21 08/06/21 08/06/21 06:29 06:29 08:23 PT INR APTT PTT Ratio Sodium 132 L Potassium 4.0 Chloride 100 Carbon Dioxide 28 Anion Gap 4.0 BUN 28 H Creatinine 1.58 H Est Cr Clr Drug Dosing 40.4 Est GFR ( Amer) 47.5 Est GFR (Non-Af Amer) 41.0 BUN/Creatinine Ratio 17.8 Glucose 131 H POC Glucose 108 H Estimat Average Glucose 163 Hemoglobin A1c 7.3 H Calcium 9.0 Magnesium 2.2 Troponin I 1.080 H* C-Reactive Protein C-React Prot High Sens Urine Color Urine Appearance Urine pH Ur Specific Ford Urine Protein Urine Glucose (UA) Urine Ketones Urine Blood Urine Nitrite Urine Bilirubin Urine Urobilinogen Ur Leukocyte Esterase Urine WBC (Auto) Urine RBC (Auto) U Hyaline Cast (Auto) U Epithel Cells (Auto) Urine Bacteria (Auto) Granular Casts Urine Mucus 08/06/21 08/06/21 08/06/21 12:23 15:52 15:56 PT 11.2 INR 1.1 APTT 33.9 H PTT Ratio 1.3 Sodium Potassium Chloride Carbon Dioxide Anion Gap BUN Creatinine Est Cr Clr Drug Dosing Est GFR ( Amer) Est GFR (Non-Af Amer) BUN/Creatinine Ratio Glucose POC Glucose 154 H Estimat Average Glucose Hemoglobin A1c Calcium Magnesium Troponin I C-Reactive Protein 16.80 H C-React Prot High Sens Urine Color Urine Appearance Urine pH Ur Specific Ford Urine Protein Urine Glucose (UA) Urine Ketones Urine Blood Urine Nitrite Urine Bilirubin Urine Urobilinogen Ur Leukocyte Esterase Urine WBC (Auto) Urine RBC (Auto) U Hyaline Cast (Auto) U Epithel Cells (Auto) Urine Bacteria (Auto) Granular Casts Urine Mucus 08/06/21 08/06/21 16:32 21:14 PT INR APTT PTT Ratio Sodium Potassium Chloride Carbon Dioxide Anion Gap BUN Creatinine Est Cr Clr Drug Dosing Est GFR ( Amer) Est GFR (Non-Af Amer) BUN/Creatinine Ratio Glucose POC Glucose 159 H 179 H Estimat Average Glucose Hemoglobin A1c Calcium Magnesium Troponin I C-Reactive Protein C-React Prot High Sens Urine Color Urine Appearance Urine pH Ur Specific Ford Urine Protein Urine Glucose (UA) Urine Ketones Urine Blood Urine Nitrite Urine Bilirubin Urine Urobilinogen Ur Leukocyte Esterase Urine WBC (Auto) Urine RBC (Auto) U Hyaline Cast (Auto) U Epithel Cells (Auto) Urine Bacteria (Auto) Granular Casts Urine Mucus PG Care Time/CCT Total # of Minutes Spent Total Time Spent with Patient: Total time spent is greater than 50% in coordination of care (as documented) at patient's floor/unit and/or counseling patient: Prolonged Care Time Prolonged Care Time: Yes (65 minutes ) Coding Level of Care Code 72991 Subseq Hosp Care Lvl 3 (25 - SIGNIFICANT, SEPARATELY IDENTIFIABLE ) Diagnoses Pneumonia due to 2019-nCoV U07.1; J12.82 Acute respiratory failure with hypoxia J96.01 Non-ST elevation NV (NSTEMI) I21.4 Hx of CABG Z95.1 Bipolar disorder F31.9 S/P splenectomy Z90.81 Chronic kidney disease, stage III (moderate) N18.3 Diabetes mellitus, type 2 E11.9 Post concussion syndrome F07.81 Metabolic encephalopathy G93.41 DVT prophylaxis Z29.9 Elevated C-reactive protein (CRP) R79.82 Additional Codes Prolonged Care Time - Prolonged Care Time: Yes ([id number])
[2021-08-06 23:05] LABS: Partial Thromboplastin Ratio 2.4
[2021-08-06 23:07] LABS: Partial Thromboplastin Time 64.3 Seconds (21.0-31.0)
[2021-08-07] MEDS: SODIUM CHLORIDE 0.9% 10ML FLUSH IV SCH ×2 (00:44→20:36)
[2021-08-07] MEDS: INSULIN ASPART 100 UNITS/ML 3 ML PEN SC SCH ×5 (00:44→21:52)
[2021-08-07] MEDS: cefTRIAXone SODIUM 2,000 MG in DEXTROSE 5% 50 ML IV SCH ×2 (01:06→22:29)
[2021-08-07] MEDS: AZITHROMYCIN 500 MG in DEXTROSE 5% 250 ML IV SCH ×2 (01:06→23:13)
[2021-08-07 06:34] LABS: Hematocrit (blood only) 27.2 % (42-52); Hemoglobin 8.5 g/dL (14.0-18.0); Mean Corpuscular Hemoglobin 28.7 pg (25-34); Mean Corpuscular Hgb Conc 31.3 g/dL (32-36); Mean Corpuscular Volume 91.9 fL (80-100); Mean Platelet Volume 11.5 fL (7.4-10.4); Platelet Count 330 K/uL (130-400); RDW Coefficient of Variation 16.6 % (11.5-14.5); RDW Standard Deviation 55.4 fL (36.4-46.3); Red Blood Count 2.96 M/uL (4.7-6.1); White Blood Count 12.33 K/uL (4.8-10.8)
[2021-08-07 07:01] LABS: Alanine Aminotransferase < 6 U/L (12-78); Aspartate Aminotransferase 23 U/L (15-37); BUN Creatinine Ratio 21.9 (10-20); Blood Urea Nitrogen 37 mg/dl (7-18); Calcium 9.1 mg/dl (8.5-10.1); Carbon Dioxide 28 mmol/L (21-32); Chloride 99 mmol/L (98-107); Creatinine Clr Calc Pharmacy 40.9 ml/min; Est GFR (African American) 43.5 ml/min; Est GFR (Non-African American) 37.5 ml/min; Glucose 134 mg/dl (70-99); Potassium 3.8 mmol/L (3.5-5.1); Sodium 134 mmol/L (136-145)
[2021-08-07 07:05] LABS: Creatine Kinase 64 U/L (39-308)
[2021-08-07 07:06] LABS: Partial Thromboplastin Ratio 2.9
[2021-08-07 07:13] LABS: Partial Thromboplastin Time 77.1 Seconds (21.0-31.0)
[2021-08-07] MEDS: ALBUTEROL HFA 8 GM INHALER INH SCH ×4 (07:51→20:06)
[2021-08-07] MEDS: IPRATROPIUM BROMIDE HFA INHALER INH SCH ×4 (07:51→20:05)
[2021-08-07] MEDS: DIVALPROEX DELAY RELEASE 500 MG TAB PO SCH ×2 (08:54→20:36)
[2021-08-07] MEDS: dexAMETHasone 6 MG in SYRINGE 0 ML IV SCH (08:54)
[2021-08-07] MEDS: METOPROLOL TARTRATE 50 MG TAB PO SCH ×2 (08:54→20:41)
[2021-08-07] MEDS: lamoTRIgine 100 MG TAB PO SCH (08:54)
[2021-08-07] MEDS: ASPIRIN 81 MG ECTAB PO SCH (08:55)
[2021-08-07] MEDS: FAMOTIDINE 20 MG TAB PO SCH ×2 (08:55→20:39)
[2021-08-07] MEDS: guaiFENesin 600 MG TABCR PO SCH ×2 (08:55→20:40)
[2021-08-07] MEDS: MULTIVITAMIN TAB PO SCH ×2 (08:55→20:41)
[2021-08-07] MEDS: CLOPIDOGREL BISULFATE 75 MG TAB PO SCH (08:55)
[2021-08-07] MEDS ORDERED: IPRATROPIUM BROMIDE/ALBUTEROL respimat INH INH SCH (09:00)
[2021-08-07] MEDS: INSULIN GLARGINE SOLOSTAR 100 UNITS/ML 3 ML PEN SC SCH (09:56)
[2021-08-07] MEDS: INSULIN HUMAN NPH SC SCH (09:56)
[2021-08-07] MEDS: HEPARIN SODIUM/DEXTROSE 25,000 UNITS/500 ML BAG IV SCH (09:57)
--- NOTE | 2021-08-07 10:28 | Pulmonary Consultation ---
Date of Consultation August 07, 2021 Assessment & Plan (1) Pneumonia due to 2019-nCoV: (2) COVID-19: (3) Acute respiratory failure with hypoxia: (4) Pleural effusion: Chest x-ray 08/06/21 personally reviewed: Portable film, fair inspiratory effort, increased cardiac silhouette, haziness in the left lower lobe, left costophrenic angle is blunted, minimal blunting of the right costophrenic angle as well --Acute hypoxic respiratory failure Secondary to multilobar COVID-19 pneumonia Patient is vaccinated against COVID-19. COVID-19 PCR positive CRP 18.8 Procalcitonin 1.1 (patient does have CKD) Continue with O2 supplementation to keep oxygen saturation between 90-92%. Awake proning will be helpful Continue with incentive spirometry Continue with flutter valve. Recommend patient to be kept euvolemic to negative balance Patient is agreeable to intubation if need be. 2D echo August 03, 2021: EF 50-55%, mild concentric LVH, right ventricle normal in size and function. Inferobasal akinesis/dyskinesis with wall thinning --Bilateral pleural effusion More in the left side Likely from underlying diastolic CHF Continue with diuresis --History of splenectomy Secondary to trauma Plan: Recommend diuresis to keep the patient negative balance. Strict in and out. I think patient is going to benefit from noninvasive ventilation like BiPAP/CPAP given that he has history of CHF Patient will be a candidate for Tocilizumab but unfortunately did not have yoly quate dose. He is at very high risk for opportunistic infection given the history of splenectomy. Giving any immunosuppressive medication will be high risk. In a patient who has CKD, history of CABG intubation would be very high risk. Follow BNP, continue with antibiotics. Patient's QTC is 458 would recommend monitoring it given that he is getting azithromycin. Increase dexamethasone 10 mg on a daily basis On the right side of the more beneficial for the patient given that he has been on the left Keep a close eye on GFR as patient is getting remdesivir. Please note the above document was generated using voice recognition software. It may contain grammatical, syntax or spelling errors.Any formal questions or concerns about the content, text or information contained within the body of this dictation should be directly addressed to the provider for clarification. History of Present Illness Attending Physician: Cedric R Siuta History of Present Illness 81-year-old male past medical history of CKD, CABG, history of splenectomy in the past present to the hospital with complaints of upper respiratory symptoms and shortness of breath going on since the last 2 days Patient was positive for COVID-19 Patient has been vaccinated against COVID-19 Pulmonary were consulted for increasing oxygen requirement Case was discussed with Dr. Rodriguez on the phone When I went into the room to see the patient he was on 90% FiO2, 50 L flow saturating 90% I gradually went down to 55% and 40 L. He was still saturating 93-94% He was lying in the left decubitus position. He was talking in full sentences. He says he is bringing up phlegm which is mostly clear now. He does not have any difficulty bringing up the phlegm. He seems to be doing better on high flow compared to when he was on nasal cannula. Denies any chest pain No dizziness No blurry vision. No fever no chills Fair appetite. Social history: Smoked from age of 17 to 22. Less than [id number] smoking history. Social alcohol, denies any illicit drug use Asthma: No personal or family history of asthma Allergies Allergy/AdvReac Type Severity Reaction Status Date / Time sulfamethoxazole Allergy Severe SEVERE RASH Verified 08/05/21 16:28 trimethoprim Allergy Severe SEVERE RASH Verified 08/05/21 16:28 amoxicillin AdvReac Mild VOMITING Verified 08/05/21 16:28 clavulanic acid AdvReac Mild VOMITING Verified 08/05/21 16:28 Home Medications Medication Instructions Recorded Confirmed Type aspirin 81 mg tablet,delayed 81 mg PO QAM 01/26/19 08/05/21 History release clopidogrel 75 mg tablet 75 mg PO QAM 01/26/19 08/05/21 History divalproex 500 mg tablet,delayed 500 mg PO BID 01/26/19 08/05/21 History release metformin 1,000 mg tablet 1,000 mg PO BIDM 01/26/19 08/05/21 History metoprolol tartrate 50 mg tablet 50 mg PO BID 01/26/19 08/05/21 History rosuvastatin 40 mg tablet 40 mg PO PM 01/26/19 08/05/21 History multivitamin (Daily Multi-Vitamin) 1 tab PO BID tab 06/06/19 08/05/21 History insulin syringe-needle U-100 0.5 #1 ea 06/12/19 07/27/21 History mL 30 gauge x 1/2" (BD Insulin Syringe Ultra-Fine) lisinopril 20 1 tab PO QAM 06/17/20 08/05/21 History mg-hydrochlorothiazide 12.5 mg tablet famotidine 20 mg tablet 20 mg PO BID 06/01/21 08/05/21 History nitroglycerin 0.4 mg sublingual 0.4 mg SUBLINGUAL DIRECTED PRN 06/01/21 08/05/21 History tablet (Nitrostat) lamotrigine 200 mg tablet 200 mg PO DAILY 06/18/21 08/05/21 History insulin glargine 100 unit/mL (3 6 unit SUBCUT QAM ml 07/27/21 08/06/21 History mL) subcutaneous pen (Lantus Solostar U-100 Insulin) insulin regular human 100 unit/mL 5 - 15 unit SUBCUT TIDM 08/05/21 08/05/21 History (3 mL) subcutaneous pen (Novolin R Flexpen) Patient History Medical History (Updated 08/07/21 @ 10:17 by Nicole Trimble MD) Bipolar disorder Chronic kidney disease, stage III (moderate) Confusion Diabetes Diarrhea Dyslipidemia Hypertension Intractable low back pain Lumbar spinal stenosis Metabolic encephalopathy Old inferior wall myocardial infarction Orthostatic hypotension Parotitis Vitamin D deficiency Surgical History H/O submandibular gland removal Hx of CABG (1994) Hx of decompressive lumbar laminectomy (03/2019) S/P cystoscopy S/P splenectomy (~195) Family History Father Mother Prostate cancer Brother Non Hodgkin's lymphoma Mother Cancer Father Social History Smoking Status: Former smoker Tobacco Type: Cigarettes Second Hand Exposure: No; Hx Alcohol Use: Yes Alcohol type: hard liquor Alcohol Intake Frequency Comment: averages 2-3 drinks of vodka per day Hx Substance Use: No Preferred Language: Bermudian Communication Ability: Effective Physical Therapist Clinic Director Required: No Beliefs That Will Affect Care: None Current Living Situation: Spouse current occupational status: retired 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 Other Information That Helps Us Care for You: No Feels Safe at Home: Yes Safety Concerns: Feels Safe At This Time Assistive Devices: Oxygen - Continuous Assistive Devices Comment: glasses for reading only Review of Systems Review of Systems: All systems reviewed & are unremarkable except as noted in HPI & below Physical Exam Physical Exam: Constitutional: No acute distress HEENT: EOMI, PERRLA Respiratory system: Decreased air entry bilaterally, no wheeze, rhonchi, positive crackles bilaterally CVS: S1-S2 positive, no murmurs or gallops Abdomen: Soft, nontender, nondistended, positive bowel sounds x4 Extremities: +2 pulses bilaterally radialis/ dorsalis pedis, no cyanosis, no edema Neuro: Awake alert oriented x3 Psych: Normal mood and affect G/U: Positive Malone Skin: no rashes, warm and dry Lymphatic: no cervical or axillary lymphadenopathy Results & Data Results & Data ([facility]) Vital Signs (Past 12 Hours) Vital Signs Temp Pulse Pulse Resp BP BP Pulse Ox 08/07/21 10:02 19 89 L 08/07/21 08:00 08/07/21 07:55 68 16 93 08/07/21 07:18 37.3 C 77 18 116/44 L 94 08/07/21 06:16 68 08/07/21 05:41 36.8 C 74 16 133/48 L 91 08/07/21 01:03 37.1 C 62 16 117/41 L 92 Pulse Ox 08/07/21 10:02 08/07/21 08:00 94 08/07/21 07:55 08/07/21 07:18 08/07/21 06:16 08/07/21 05:41 08/07/21 01:03 08/07/21 05:37 08/07/21 05:36 PG Care Time/CCT Total # of Minutes Spent Total Time Spent with Patient: Total time spent is greater than 50% in coordination of care (as documented) at patient's floor/unit and/or counseling patient: Coding Level of Care Code 09057 Initial Inpt Care Lvl 3 Diagnoses Pneumonia due to 2019-nCoV U07.1; J12.82 COVID-19 U07.1 Acute respiratory failure with hypoxia J96.01 Pleural effusion J90
[2021-08-07] MEDS ORDERED: dexAMETHasone 4 MG in SYRINGE 0 ML IV ONE (10:30)
[2021-08-07 12:01] LABS: C-Reactive Protein High Sens. >10.0 mg/L
[2021-08-07] MEDS ORDERED: FUROSEMIDE 20 MG in SYRINGE 0 ML IV ONE (12:15)
[2021-08-07] MEDS ORDERED: FUROSEMIDE 40 MG/4 ML VIAL IV ONE (12:23)
--- NOTE | 2021-08-07 13:47 | Hospitalist Progress Note ---
Date of Service August 07, 2021 Assessment & Plan (1) Pneumonia due to 2019-nCoV: Plan: Severe. Progressive. Significantly worse O2 requirement this am relative to yesterday am. Now on HFNC. CRP remains very elevated. He has been fully vaccinated thus this is a "breakthrough" case. 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 I consulted Dr Trimble from [facility] to determine if Mr De La Rosa is a candidate for immune-based therapy. We do not have tocilizumab however we may be able to secure baricitinib. This is an oral agent given for 14 days. Checking with pharmacy on this medication. In meantime - * cont dexamethasone IV daily; day 3 today - dose increased to 10mg by Dr Trimble * cont Remdesivir - day 3 of 5 today * cont HFNC support to keep sats 92% or greater * cont flutter and incentive * cont bronchodilators given his rhonchi/wheezes * discussed proning - he has stated several times he simply cannot do such; encouraged side positioning * procal mildly high - and given asplenic state - could have bacterial superinfection; Day 3 of rocephin, Day 3 of zithromax * DVT proph - heparin drip (see below) (2) Acute respiratory failure with hypoxia: Plan: 2nd to COVID-19 pneumonia. worse today. Can't exclude bacterial component (procal elevated, copious purulent sputum, asplenic state). Can't exclude element of pulmonary edema. See #1 above and #3, #4 below. (3) Non-ST elevation WI (NSTEMI): Plan: EKGs at admission showed anterior T wave inversions. Prior EKGs demonstrated either upright or mildly flat T waves anteriorly. His troponin was already high at time of ER presentation (1.6, trending down to 1 thereafter). Possible he could have had a small NSTEMI event in the days leading up to the admission. Echo shows old inferior wall akinesis with low-normal EF. His grafts are 27 years old and thus there is a strong likelihood that one or more grafts are occluded or significantly diseased. Would treat as if he had small NSTEMI. IV heparin x 48 hours. Started yesterday afternoon, 08/06. Cont Asa, plavix, BB, statin. LDL 98 in May 2021 - is on max dose of crestor. Recheck LDL this admission and if LDL >70 consider adding zetia. Can't exclude noncompliance with crestor, however, given his memory issues this summer in midst of concussion. 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 (4) Acute pulmonary edema: Plan: Suspected. Low-normal EF of 50-55%. BNP elevated >3000. Gave PO lasix yesterday; will give IV lasix today. I asked Dr Balbuena to check size of IVC on echo -- normal to reduced in size. Follow response to lasix and redose his diuretics if needed. (5) Sepsis: Plan: 2nd to COVID-19 pneumonia, possible bacterial pneumonia component, etc. Cont supportive care, IV abx, etc. Follow blood cx's. (6) Hx of CABG: Plan: 4-vessel, 27 years ago [facility]. No stents or WI events since. Follows w/ Dr Balbuena [facility]. (7) Bipolar disorder: Plan: Depakote. Lamictal. Depakote level 40 on 08/05/21. Son reports he has not seen psych in some time - will need to get him linked back up post-d/c down the line. 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 combo of NPH, lantus, and novology. thus far his BSGs are acceptable. (11) Post concussion syndrome: Plan: following with [facility] concussion clinic and [facility] neurology locally. some memory issues have occurred since. supportive care. concussion occurred early summer 2020 - fell & struck his head at home. (12) Metabolic encephalopathy: Plan: mentation modestly improved today with Rx of all of the above issues supportive care (13) DVT prophylaxis: Plan: heparin infusion (14) Elevated C-reactive protein (CRP): Plan: repeat again markedly elevated 2nd COVID-19 poor prognostic indicator Plan: sonJerald - lives in [facility] - extensively updated by phone 9/23 extensively updated by phone today she, too, is now experiencing COVID symptoms and is awaiting her COVID testing discussed current issues, plan of care, etc Admission and Anticipated Discharge Date Admission Date: August 05, 2021 Subjective was called early this am by nursing staff that patient's o2 sats were in the 70s high-flow NC ordered shortly after I entered COVID unit he was on 50 L and 90% FiO2 w/ sats in the low 90s he was not having distress he complained of ongoing anorexia, cough, sputum production and simply feeling unwell denied chest pain tele overnight wnl Review of Systems Review of Systems: gen - fatigue, weakness, anorexia pulm - cough, congestion, dyspnea CV - no chest pain or pleuritic pain GI - no nausea or emesis, no diarrhea - urinary incontinence Physical Exam Physical Exam: gen - looks unwell, very tired appearing, no distress, high- flow NC in place HEENT - MMM; hoarse voice improved today neck - no JVD heart - RRR, s1 s2, no murmur lungs - diffuse wheezes b/l; mild tachypnea but otherwise no distress; no crackles abd - soft NT ND BS+ chest - sternal scar present ext - no edema, pulses 2+ b/l Results & Data Results & Data ([facility]) Vital Signs (Past 12 Hours) Vital Signs Temp Pulse Pulse Resp BP Pulse Ox Pulse Ox 08/07/21 11:22 37.6 C H 73 20 139/70 94 08/07/21 11:19 74 20 94 08/07/21 10:02 19 95 08/07/21 08:00 94 08/07/21 07:55 68 16 93 08/07/21 07:18 37.3 C 77 18 116/44 L 94 08/07/21 06:16 68 08/07/21 05:41 36.8 C 74 16 133/48 L 91 Laboratory Results Laboratory Results - last 24 hr 08/06/21 08/06/21 08/07/21 06:28 22:20 05:36 WBC RBC Hgb Hct MCV MCH MCHC RDW Std Deviation RDW Coeff of [place] Plt Count MPV APTT 64.3 H* PTT Ratio 2.4 Sodium 134 L Potassium 3.8 Chloride 99 Carbon Dioxide 28 Anion Gap 7.0 BUN 37 H Creatinine 1.70 H Est Cr Clr Drug Dosing 40.9 Est GFR ( Amer) 43.5 Est GFR (Non-Af Amer) 37.5 BUN/Creatinine Ratio 21.9 H Glucose 134 H POC Glucose Calcium 9.1 AST 23 ALT < 6 L Total Creatine Kinase 64 C-Reactive Protein 16.20 H C-React Prot High Sens >10.0 H NT-Pro-B Natriuret Pep 08/07/21 08/07/21 08/07/21 05:36 05:36 05:37 WBC 12.33 H RBC 2.96 L Hgb 8.5 L Hct 27.2 L MCV 91.9 MCH 28.7 MCHC 31.3 L RDW Std Deviation 55.4 H RDW Coeff of [place] 16.6 H Plt Count 330 MPV 11.5 H APTT 77.1 H* PTT Ratio 2.9 Sodium Potassium Chloride Carbon Dioxide Anion Gap BUN Creatinine Est Cr Clr Drug Dosing Est GFR ( Amer) Est GFR (Non-Af Amer) BUN/Creatinine Ratio Glucose POC Glucose Calcium AST ALT Total Creatine Kinase C-Reactive Protein C-React Prot High Sens NT-Pro-B Natriuret Pep 3095 H 08/07/21 08/07/21 08/07/21 08:15 14:02 16:36 WBC RBC Hgb Hct MCV MCH MCHC RDW Std Deviation RDW Coeff of [place] Plt Count MPV APTT 65.6 H* PTT Ratio 2.5 Sodium Potassium Chloride Carbon Dioxide Anion Gap BUN Creatinine Est Cr Clr Drug Dosing Est GFR ( Amer) Est GFR (Non-Af Amer) BUN/Creatinine Ratio Glucose POC Glucose 123 H 177 H Calcium AST ALT Total Creatine Kinase C-Reactive Protein C-React Prot High Sens NT-Pro-B Natriuret Pep 08/07/21 20:45 WBC RBC Hgb Hct MCV MCH MCHC RDW Std Deviation RDW Coeff of [place] Plt Count MPV APTT PTT Ratio Sodium Potassium Chloride Carbon Dioxide Anion Gap BUN Creatinine Est Cr Clr Drug Dosing Est GFR ( Amer) Est GFR (Non-Af Amer) BUN/Creatinine Ratio Glucose POC Glucose 230 H Calcium AST ALT Total Creatine Kinase C-Reactive Protein C-React Prot High Sens NT-Pro-B Natriuret Pep PG Care Time/CCT Total # of Minutes Spent Total Time Spent with Patient: Total time spent is greater than 50% in coordination of care (as documented) at patient's floor/unit and/or counseling patient: Coding Level of Care Code 16421 Subseq Hosp Care Lvl 3 Diagnoses Pneumonia due to 2019-nCoV U07.1; J12.82 Acute respiratory failure with hypoxia J96.01 Non-ST elevation WI (NSTEMI) I21.4 Hx of CABG Z95.1 Bipolar disorder F31.9 S/P splenectomy Z90.81 Chronic kidney disease, stage III (moderate) N18.3 Diabetes mellitus, type 2 E11.9 Post concussion syndrome F07.81 Metabolic encephalopathy G93.41 DVT prophylaxis Z29.9 Elevated C-reactive protein (CRP) R79.82 Sepsis A41.9 Acute pulmonary edema J81.0
[2021-08-07 14:49] LABS: Partial Thromboplastin Ratio 2.5
[2021-08-07 14:51] LABS: Partial Thromboplastin Time 65.6 Seconds (21.0-31.0)
[2021-08-07] MEDS: REMDESIVIR 100 MG in SODIUM CHLORIDE 0.9% 230 ML IV SCH (19:35)
[2021-08-07] MEDS: ROSUVASTATIN CALCIUM 20 MG TAB PO SCH (20:42)
[2021-08-08] MEDS: HEPARIN SODIUM/DEXTROSE 25,000 UNITS/500 ML BAG IV SCH ×3 (03:23→22:21)
[2021-08-08] MEDS: IPRATROPIUM BROMIDE HFA INHALER INH SCH ×4 (07:41→20:24)
[2021-08-08] MEDS: ALBUTEROL HFA 8 GM INHALER INH SCH ×4 (07:41→20:24)
[2021-08-08] MEDS ORDERED: BARICITINIB 2 MG TAB PO SCH (09:00)
[2021-08-08 09:05] LABS: Hemoglobin 8.8 g/dL (14.0-18.0); Mean Corpuscular Hemoglobin 28.6 pg (25-34); Mean Corpuscular Hgb Conc 31.4 g/dL (32-36); Mean Corpuscular Volume 90.9 fL (80-100); Mean Platelet Volume 11.7 fL (7.4-10.4); Platelet Count 343 K/uL (130-400); RDW Coefficient of Variation 16.6 % (11.5-14.5); Red Blood Count 3.08 M/uL (4.7-6.1); White Blood Count 11.38 K/uL (4.8-10.8)
[2021-08-08] MEDS: dexAMETHasone 6 MG in SYRINGE 0 ML IV SCH (09:17)
[2021-08-08] MEDS: ASPIRIN 81 MG ECTAB PO SCH (09:18)
[2021-08-08] MEDS: FAMOTIDINE 20 MG TAB PO SCH ×2 (09:19→20:49)
[2021-08-08] MEDS: CLOPIDOGREL BISULFATE 75 MG TAB PO SCH (09:19)
[2021-08-08] MEDS: DIVALPROEX DELAY RELEASE 500 MG TAB PO SCH ×2 (09:19→20:49)
[2021-08-08] MEDS: METOPROLOL TARTRATE 50 MG TAB PO SCH ×2 (09:19→20:51)
[2021-08-08] MEDS: MULTIVITAMIN TAB PO SCH ×2 (09:19→20:51)
[2021-08-08] MEDS: guaiFENesin 600 MG TABCR PO SCH ×2 (09:19→20:50)
[2021-08-08] MEDS: lamoTRIgine 100 MG TAB PO SCH (09:19)
[2021-08-08 09:34] LABS: BUN Creatinine Ratio 26.1 (10-20); Calcium 8.7 mg/dl (8.5-10.1); Creatinine Clr Calc Pharmacy 48.8 ml/min; Est GFR (African American) 53.6 ml/min; Est GFR (Non-African American) 46.3 ml/min; Partial Thromboplastin Time 78.3 Seconds (21.0-31.0); Potassium 4.1 mmol/L (3.5-5.1)
[2021-08-08] MEDS: INSULIN HUMAN NPH SC SCH ×2 (09:38→11:24)
[2021-08-08] MEDS: INSULIN GLARGINE SOLOSTAR 100 UNITS/ML 3 ML PEN SC SCH ×2 (09:38→11:23)
[2021-08-08] MEDS: INSULIN ASPART 100 UNITS/ML 3 ML PEN SC SCH ×5 (09:38→21:46)
[2021-08-08] MEDS ORDERED: FUROSEMIDE 20 MG in SYRINGE 0 ML IV ONE (09:47)
[2021-08-08] MEDS ORDERED: FUROSEMIDE 40 MG/4 ML VIAL IV SCH (10:00)
[2021-08-08] MEDS ORDERED: dexAMETHasone 10 MG in SYRINGE 0 ML IV SCH (10:00)
--- NOTE | 2021-08-08 11:37 | Pulmonology Progress Note ---
Date of Service August 08, 2021 Assessment & Plan (1) Pneumonia due to 2019-nCoV: (2) COVID-19: (3) Acute respiratory failure with hypoxia: (4) Pleural effusion: Plan: Chest x-ray 08/06/21 personally reviewed: Portable film, fair inspiratory effort, increased cardiac silhouette, haziness in the left lower lobe, left costophrenic angle is blunted, minimal blunting of the right costophrenic angle as well --Acute hypoxic respiratory failure Secondary to multilobar COVID-19 pneumonia Patient is vaccinated against COVID-19. COVID-19 PCR positive CRP 18.8 Procalcitonin 1.1 (patient does have CKD) BNP 3095 08/07/2021 Continue with O2 supplementation to keep oxygen saturation between 90-92%. Awake proning will be helpful Continue with incentive spirometry Continue with flutter valve. Recommend patient to be kept euvolemic to negative balance Patient is agreeable to intubation if need be. He is at very high risk for opportunistic infection given the history of splenectomy. Giving any immunosuppressive medication will be high risk. Given the high requirement of oxygen I think benefit outweighs the risk. 2D echo August 03, 2021: EF 50-55%, mild concentric LVH, right ventricle normal in size and function. Inferobasal akinesis/dyskinesis with wall thinning --Bilateral pleural effusion More in the left side Likely from underlying diastolic CHF Continue with diuresis --History of splenectomy Secondary to trauma Plan: In/out: -310, urine output 1850 I will increase the Lasix to 40 mg on a daily basis Creatinine is improving Very important to keep the patient negative balance I will repeat CRP today if it is greater than 7.5 we will start the baricitinib I think patient is going to benefit from noninvasive ventilation like BiPAP/CPAP given that he has history of CHF Please note the above document was generated using voice recognition software. It may contain grammatical, syntax or spelling errors.Any formal questions or concerns about the content, text or information contained within the body of this dictation should be directly addressed to the provider for clarification. Admission and Anticipated Discharge Date Admission Date: August 05, 2021 Subjective Patient seen and examined at bedside. No acute distress, no adverse events overnight Patient said he did not get a good sleep overnight He did try CPAP at night but he was not able to tolerate it He was on 50 L 40% saturating 89-91% at the time of examination Not in any acute distress He says that he is bringing up phlegm which is clear. Denies any hemoptysis Poor appetite Denies any chest pain Review of Systems Review of Systems: All systems reviewed & are unremarkable except as noted in Subjective Physical Exam Physical Exam: Constitutional: No acute distress HEENT: EOMI, PERRLA Respiratory system: Decreased air entry bilaterally, no wheeze, rhonchi, positive crackles bilaterally CVS: S1-S2 positive, no murmurs or gallops Abdomen: Soft, nontender, nondistended, positive bowel sounds x4 Extremities: +2 pulses bilaterally radialis/ dorsalis pedis, no cyanosis, no edema Neuro: Awake alert oriented x3 Psych: Normal mood and affect G/U: Positive Malone Skin: no rashes, warm and dry Lymphatic: no cervical or axillary lymphadenopathy Results & Data Results & Data ([facility]) Vital Signs (Past 12 Hours) Vital Signs Temp Pulse Resp BP Pulse Ox Pulse Ox 08/08/21 10:53 73 16 92 08/08/21 08:00 92 08/08/21 07:42 69 20 91 08/08/21 07:33 36.8 C 69 20 159/52 H 93 08/08/21 04:48 37.1 C 67 18 138/52 L 92 08/08/21 02:08 63 20 95 08/07/21 23:39 36.6 C 63 16 144/51 H 93 08/07/21 23:36 18 93 08/08/21 07:55 08/08/21 07:55 PG Care Time/CCT Total # of Minutes Spent Total Time Spent with Patient: Total time spent is greater than 50% in coordination of care (as documented) at patient's floor/unit and/or counseling patient: [place] [address] Subseq Hosp Care Lvl 3 Patient Type Established Diagnoses Pneumonia due to 2019-nCoV U07.1; J12.82 COVID-19 U07.1 Acute respiratory failure with hypoxia J96.01 Pleural effusion J90
[2021-08-08 11:42] LABS: Partial Thromboplastin Ratio 2.6
[2021-08-08 11:45] LABS: C Reactive Protein 12.5 mg/dl (0-0.29)
[2021-08-08 12:00] LABS: Partial Thromboplastin Time 67.8 Seconds (21.0-31.0)
[2021-08-08] MEDS: FUROSEMIDE 40 MG in SYRINGE 0 ML IV SCH (13:44)
[2021-08-08] MEDS: 2 mg Once Daily x14 days PO SCH (13:46)
[2021-08-08 17:46] LABS: Partial Thromboplastin Ratio 2.3
[2021-08-08 17:47] LABS: Partial Thromboplastin Time 60.2 Seconds (21.0-31.0)
[2021-08-08] MEDS: REMDESIVIR 100 MG in SODIUM CHLORIDE 0.9% 230 ML IV SCH (19:33)
--- NOTE | 2021-08-08 20:00 | Hospitalist Progress Note ---
Date of Service August 08, 2021 Assessment & Plan (1) Pneumonia due to 2019-nCoV: Plan: Severe. Remains on HFNC but O2 requirements mildly better than previously. CRP remains very elevated this am. Patient was fully vaccinated - thus this is a "breakthrough" case. 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 Appreciate Dr Trimble's consult from [facility] Pulmonary. Given his escalating O2 requirements, elevated CRP, etc - felt to be a candidate for immune-based therapy. We do not have tocilizumab however we have baricitinib. This is an oral agent given for 14 days. * starting baricitinib 2mg daily x [address] Trimble * cont dexamethasone IV daily; day 4 today * cont Remdesivir - day 4 of 5 today * cont HFNC support to keep sats 92% or greater given his heart disease (CAD) and NSTEMI * cont flutter and incentive * cont bronchodilators given his rhonchi/wheezes * he cannot prone -- thus, encouraged side positioning * procal mildly high - and given asplenic state - could have bacterial superinfection; Day 4 of rocephin, Day 4 of zithromax * DVT proph - heparin drip (see below) (2) Acute respiratory failure with hypoxia: Plan: 2nd to COVID-19 pneumonia. Likely has acute systolic CHF / pulmonary edema as well contributing. Can't exclude bacterial component (procal elevated, copious purulent sputum, asplenic state). See #1 above and #3, #4 below. (3) Non-ST elevation AK (NSTEMI): Plan: EKGs at admission showed anterior T wave inversions. Prior EKGs demonstrated either upright or mildly flat T waves anteriorly. His troponin was already high at time of ER presentation (1.6, trending down to 1 thereafter). Possible he could have had a small NSTEMI event in the days leading up to the admission. Echo shows old inferior wall akinesis with low-normal EF. His grafts are 27 years old and thus there is a strong likelihood that one or more grafts are occluded or significantly diseased. Would treat as if he had small NSTEMI. IV heparin x minimum 48 hours. Started 08/06. Cont Asa, plavix, BB, statin. LDL 98 in May 2021 - is on max dose of crestor. LDL rechecked today - remains <70. He is too sick pulmonary-jackson from [facility] to entertain invasive procedures (cath, etc). Dr Balbuena his primary system planning engineer is aware. (4) Acute systolic CHF (congestive heart failure): Plan: Cont diuresis. Give 40mg IV x 1 this am. Cont metoprolol 40 BID. Mild CHF is on basis of ischemic cardiomyopathy. (5) Sepsis: Plan: 2nd to COVID-19 pneumonia, possible bacterial pneumonia component, etc. Cont supportive care, IV abx, etc. Follow blood cx's but thus far remain negative. (6) Hx of CABG: Plan: 4-vessel, 27 years ago [facility]. No stents or AK events since. Follows w/ Dr Balbuena [facility] Cardiology. Now with probable mild NSTEMI. (7) Bipolar disorder: Plan: Depakote. Lamictal. Depakote level 40 on 08/05/21. Son reports he has not seen psych in some time - will need to get him linked back up post-d/c down the line. 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 combo of NPH, lantus, and novolog. BSGs labile. defer management to pharmacy. (11) Post concussion syndrome: Plan: following with [facility] concussion clinic and [facility] neurology locally. some memory issues have occurred since. supportive care. concussion occurred early summer 2020 - fell & struck his head at home. (12) Metabolic encephalopathy: Plan: improved today (13) DVT prophylaxis: Plan: heparin infusion (14) Elevated C-reactive protein (CRP): Plan: repeat again markedly elevated 2nd COVID-19 poor prognostic indicator candidate for immune-based Rx for COVID pneumonia Plan: sonJerald - lives in [facility] - extensively updated by phone 08/06 extensively updated by phone 08/07 again updated 08/08 by phone has tested + for COVID prognosis is guarded Admission and Anticipated Discharge Date Admission Date: August 05, 2021 Subjective tele overnight wnl patient slept very poorly overnight still with poor appetite as well continues with cough - perhaps not as much sputum though no dyspnea at rest but has TAPIA no chest pain or abd pain he is concerned for his at home as she, too, is now ill (awaiting COVID test) Review of Systems Review of Systems: gen - no fevers or chills; anorexia, fatigue HEENT - no loss of taste or smell; +hoarse voice and congestion Pulm - no hemoptysis CV - no chest pain Physical Exam Physical Exam: gen - looks similar to yesterday, perhaps a bit more sleepy; but no distress HEENT - MMM; hoarse voice remains neck - no JVD heart - RRR, s1 s2, no murmur lungs - diffuse wheezes b/l - scantly better today; no rales; mild tachypnea abd - soft NT ND BS+ chest - sternal scar present ext - no edema, pulses 2+ b/l psych - tearful Results & Data Results & Data ([facility]) Vital Signs (Past 12 Hours) Vital Signs Temp Pulse Resp BP Pulse Ox Pulse Ox 08/08/21 19:35 36.6 C 71 16 130/74 94 08/08/21 16:13 36.9 C 70 19 137/63 90 08/08/21 15:28 68 20 89 L 08/08/21 12:12 36.7 C 78 19 132/79 90 08/08/21 10:53 73 16 92 08/08/21 08:00 92 Laboratory Results Laboratory Results - last 24 hr 08/07/21 08/08/21 08/08/21 20:45 07:55 07:55 WBC 11.38 H RBC 3.08 L Hgb 8.8 L Hct 28.0 L MCV 90.9 MCH 28.6 MCHC 31.4 L RDW Std Deviation 55.0 H RDW Coeff of [place]ille 16.6 H Plt Count 343 MPV 11.7 H APTT PTT Ratio Sodium 133 L Potassium 4.1 Chloride 100 Carbon Dioxide 28 Anion Gap 5.0 BUN 37 H Creatinine 1.43 H Est Cr Clr Drug Dosing 48.8 Est GFR ( Amer) 53.6 Est GFR (Non-Af Amer) 46.3 BUN/Creatinine Ratio 26.1 H Glucose 165 H POC Glucose 230 H Calcium 8.7 AST 39 H ALT 14 C-Reactive Protein 12.50 H Triglycerides 54 Cholesterol 73 LDL Cholesterol, Calc 23 VLDL Cholesterol, Calc 11 HDL Cholesterol 39 Cholesterol/HDL Ratio 2 08/08/21 08/08/21 08/08/21 07:55 08:01 10:35 WBC RBC Hgb Hct MCV MCH MCHC RDW Std Deviation RDW Coeff of [place] Plt Count MPV APTT 78.3 H* 67.8 H* PTT Ratio 3.0 2.6 Sodium Potassium Chloride Carbon Dioxide Anion Gap BUN Creatinine Est Cr Clr Drug Dosing Est GFR ( Amer) Est GFR (Non-Af Amer) BUN/Creatinine Ratio Glucose POC Glucose 176 H Calcium AST ALT C-Reactive Protein Triglycerides Cholesterol LDL Cholesterol, Calc VLDL Cholesterol, Calc HDL Cholesterol Cholesterol/HDL Ratio 08/08/21 08/08/21 08/08/21 11:44 17:05 17:10 WBC RBC Hgb Hct MCV MCH MCHC RDW Std Deviation RDW Coeff of [place] Plt Count MPV APTT 60.2 H* PTT Ratio 2.3 Sodium Potassium Chloride Carbon Dioxide Anion Gap BUN Creatinine Est Cr Clr Drug Dosing Est GFR ( Amer) Est GFR (Non-Af Amer) BUN/Creatinine Ratio Glucose POC Glucose 204 H 304 H* Calcium AST ALT C-Reactive Protein Triglycerides Cholesterol LDL Cholesterol, Calc VLDL Cholesterol, Calc HDL Cholesterol Cholesterol/HDL Ratio 08/08/21 17:12 WBC RBC Hgb Hct MCV MCH MCHC RDW Std Deviation RDW Coeff of [place] Plt Count MPV APTT PTT Ratio Sodium Potassium Chloride Carbon Dioxide Anion Gap BUN Creatinine Est Cr Clr Drug Dosing Est GFR ( Amer) Est GFR (Non-Af Amer) BUN/Creatinine Ratio Glucose POC Glucose 297 H Calcium AST ALT C-Reactive Protein Triglycerides Cholesterol LDL Cholesterol, Calc VLDL Cholesterol, Calc HDL Cholesterol Cholesterol/HDL Ratio PG Care Time/CCT Total # of Minutes Spent Total Time Spent with Patient: Total time spent is greater than 50% in coordination of care (as documented) at patient's floor/unit and/or counseling patient: Coding Level of Care Code 91977 Subseq Hosp Care Lvl 3 Diagnoses Pneumonia due to 2019-nCoV U07.1; J12.82 Acute respiratory failure with hypoxia J96.01 Non-ST elevation AK (NSTEMI) I21.4 Sepsis A41.9 Hx of CABG Z95.1 Bipolar disorder F31.9 S/P splenectomy Z90.81 Chronic kidney disease, stage III (moderate) N18.3 Diabetes mellitus, type 2 E11.9 Post concussion syndrome F07.81 Metabolic encephalopathy G93.41 DVT prophylaxis Z29.9 Elevated C-reactive protein (CRP) R79.82 Acute systolic CHF (congestive heart failure) I50.21
[2021-08-08] MEDS: SODIUM CHLORIDE 0.9% 10ML FLUSH IV SCH (20:47)
[2021-08-08] MEDS: ROSUVASTATIN CALCIUM 20 MG TAB PO SCH (20:52)
[2021-08-08] MEDS: cefTRIAXone SODIUM 2,000 MG in DEXTROSE 5% 50 ML IV SCH (22:15)
[2021-08-08] MEDS: AZITHROMYCIN 500 MG in DEXTROSE 5% 250 ML IV SCH (22:58)
[2021-08-09] MEDS ORDERED: SODIUM CHLORIDE 0.65% NA SOLN 45 ML (OCEAN) ONE (05:28)
[2021-08-09 06:23] LABS: Hemoglobin 9.8 g/dL (14.0-18.0); Mean Corpuscular Hgb Conc 32.7 g/dL (32-36); Mean Corpuscular Volume 88.8 fL (80-100); Mean Platelet Volume 10.8 fL (7.4-10.4); Platelet Count 395 K/uL (130-400); RDW Coefficient of Variation 16.6 % (11.5-14.5); RDW Standard Deviation 53.6 fL (36.4-46.3); Red Blood Count 3.38 M/uL (4.7-6.1); White Blood Count 14.75 K/uL (4.8-10.8)
[2021-08-09 06:43] LABS: Partial Thromboplastin Ratio 2.5
[2021-08-09 07:05] LABS: BUN Creatinine Ratio 29.2 (10-20); Calcium 9.2 mg/dl (8.5-10.1); Creatinine Clr Calc Pharmacy 43.7 ml/min; Est GFR (African American) 52.3 ml/min; Est GFR (Non-African American) 45.1 ml/min; Potassium 4.1 mmol/L (3.5-5.1)
[2021-08-09] MEDS: ALBUTEROL HFA 8 GM INHALER INH SCH ×4 (07:29→19:18)
[2021-08-09] MEDS: IPRATROPIUM BROMIDE HFA INHALER INH SCH ×4 (07:29→19:18)
[2021-08-09] MEDS: ASPIRIN 81 MG ECTAB PO SCH (08:37)
[2021-08-09] MEDS: CLOPIDOGREL BISULFATE 75 MG TAB PO SCH (08:37)
[2021-08-09] MEDS: dexAMETHasone 6 MG in SYRINGE 0 ML IV SCH (08:37)
[2021-08-09] MEDS: 2 mg Once Daily x14 days PO SCH (08:37)
[2021-08-09] MEDS: FUROSEMIDE 40 MG in SYRINGE 0 ML IV SCH (08:38)
[2021-08-09] MEDS: DIVALPROEX DELAY RELEASE 500 MG TAB PO SCH ×2 (08:38→20:47)
[2021-08-09] MEDS: FAMOTIDINE 20 MG TAB PO SCH ×2 (08:38→20:47)
[2021-08-09] MEDS: guaiFENesin 600 MG TABCR PO SCH ×2 (08:38→20:48)
[2021-08-09] MEDS: METOPROLOL TARTRATE 50 MG TAB PO SCH ×2 (08:39→20:48)
[2021-08-09] MEDS: lamoTRIgine 100 MG TAB PO SCH (08:39)
[2021-08-09] MEDS: MULTIVITAMIN TAB PO SCH ×2 (08:39→20:49)
[2021-08-09] MEDS: INSULIN GLARGINE SOLOSTAR 100 UNITS/ML 3 ML PEN SC SCH (08:55)
[2021-08-09] MEDS: INSULIN ASPART 100 UNITS/ML 3 ML PEN SC SCH ×4 (08:55→21:19)
[2021-08-09] MEDS: INSULIN HUMAN NPH SC SCH (08:56)
[2021-08-09] MEDS ORDERED: INSULIN HUMAN NPH SC SCH (09:00)
--- NOTE | 2021-08-09 10:01 | Pulmonology Progress Note ---
Date of Service August 09, 2021 Assessment & Plan (1) Pneumonia due to 2019-nCoV: (2) COVID-19: (3) Acute respiratory failure with hypoxia: (4) Pleural effusion: Plan: Chest x-ray 08/06/21 personally reviewed: Portable film, fair inspiratory effort, increased cardiac silhouette, haziness in the left lower lobe, left costophrenic angle is blunted, minimal blunting of the right costophrenic angle as well --Acute hypoxic respiratory failure Secondary to multilobar COVID-19 pneumonia Patient is vaccinated against COVID-19. COVID-19 PCR positive CRP 18.8 --> 12.5 Procalcitonin 1.1 (patient does have CKD) BNP 3095 08/07/2021 Baricitinib started 08/08/2021 Continue with O2 supplementation to keep oxygen saturation between 90-92%. Awake proning will be helpful Continue with incentive spirometry Continue with flutter valve. Recommend patient to be kept euvolemic to negative balance Patient is agreeable to intubation if need be. He is at very high risk for opportunistic infection given the history of splenectomy. Giving any immunosuppressive medication will be high risk. Given the high requirement of oxygen I think benefit outweighs the risk. 2D echo August 03, 2021: EF 50-55%, mild concentric LVH, right ventricle normal in size and function. Inferobasal akinesis/dyskinesis with wall thinning --Bilateral pleural effusion More in the left side Likely from underlying diastolic CHF Continue with diuresis --History of splenectomy Secondary to trauma Plan: In/out: -1 L, urine output 2540 Patient is clinically doing better when it comes to his oxygen requirement Continue with Lasix to keep the patient negative balance Recommend continuing with baricitinib till the patient is ready to go home. Would recommend discontinuing it on discharge No further recommendation from pulmonary perspective. Will sign off Please call directly with any questions Please note the above document was generated using voice recognition software. It may contain grammatical, syntax or spelling errors.Any formal questions or concerns about the content, text or information contained within the body of this dictation should be directly addressed to the provider for clarification. Admission and Anticipated Discharge Date Admission Date: August 05, 2021 Subjective Patient seen and examined at bedside. No acute distress, no adverse events overnight Patient states that he is feeling better compared to yesterday Using incentive spirometer as well as flutter well Bringing up clear phlegm. No hemoptysis Patient was saturating 88-90% on 8 L oxygen mask at the time of examination Review of Systems Review of Systems: All systems reviewed & are unremarkable except as noted in Subjective Physical Exam Physical Exam: Constitutional: No acute distress HEENT: EOMI, PERRLA Respiratory system: Decreased air entry bilaterally, no wheeze, rhonchi, positive crackles bilaterally CVS: S1-S2 positive, no murmurs or gallops Abdomen: Soft, nontender, nondistended, positive bowel sounds x4 Extremities: +2 pulses bilaterally radialis/ dorsalis pedis, no cyanosis, no ed patricia Neuro: Awake alert oriented x3 Psych: Normal mood and affect G/U: Positive Malone Skin: no rashes, warm and dry Lymphatic: no cervical or axillary lymphadenopathy Results & Data Results & Data ([facility]) Vital Signs (Past 12 Hours) Vital Signs Temp Pulse Pulse Resp BP Pulse Ox 08/09/21 07:46 37.6 C H 73 16 135/62 94 08/09/21 07:30 67 20 95 08/09/21 04:34 36.2 C L 67 16 119/68 93 08/08/21 23:35 36.9 C 63 16 125/62 95 08/09/21 05:54 08/09/21 05:54 PG Care Time/CCT Total # of Minutes Spent Total Time Spent with Patient: Total time spent is greater than 50% in coordination of care (as documented) at patient's floor/unit and/or counseling patient: Coding Level of Care Code 89830 Subseq Hosp Care Lvl 2 Diagnoses Pneumonia due to 2019-nCoV U07.1; J12.82 COVID-19 U07.1 Acute respiratory failure with hypoxia J96.01 Pleural effusion J90
[2021-08-09] MEDS ORDERED: INSULIN HUMAN NPH SC ONE (12:00)
[2021-08-09] MEDS: POLYETHYLENE (MIRALAX) 17 GM PACK PO SCH (13:38)
[2021-08-09] MEDS: HEPARIN SODIUM/DEXTROSE 25,000 UNITS/500 ML BAG IV SCH (17:45)
[2021-08-09] MEDS: NYSTATIN SUSP 500,000 U/5 ML UDC PO SCH ×2 (18:16→20:50)
[2021-08-09] MEDS: REMDESIVIR 100 MG in SODIUM CHLORIDE 0.9% 230 ML IV SCH (19:26)
[2021-08-09] MEDS: SODIUM CHLORIDE 0.9% 10ML FLUSH IV SCH (20:45)
[2021-08-09] MEDS: ROSUVASTATIN CALCIUM 20 MG TAB PO SCH (20:50)
--- NOTE | 2021-08-09 22:46 | Hospitalist Progress Note ---
Date of Service August 09, 2021 Assessment & Plan (1) Pneumonia due to 2019-nCoV: Plan: Severe. Was on high-flow NC -- following aggressive diuresis over the last 48 hours his O2 requirements have improved. However still with significant cough, wheezing, and fatigue. Needing ~7-8 L to maintain O2 sats >92%. Patient was fully vaccinated - thus this is a "breakthrough" case. 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 Appreciate Dr Trimble's consult from [facility] Pulmonary. Given his escalating O2 requirements, elevated CRP, etc he was felt to be a candidate for immune-based therapy. * cont baricitinib 2mg daily up to 14 days; day #2 today; Dr Trimble ordered (Tocilizumab stock essentially gone in-house) * cont dexamethasone IV daily; day 5 today * today is day 5 of Remdesivir; d/c after today's dose * keep sats 92% or greater given his heart disease (CAD) and NSTEMI * cont flutter and incentive * cont bronchodilators given his rhonchi/wheezes * he cannot prone -- thus, continue to encourage side positioning * procal mildly high at admissioni - and given asplenic state - could have bacterial superinfection; Day 4 of rocephin, Day 4 of zithromax * DVT proph - heparin drip (see below) (2) Acute respiratory failure with hypoxia: Plan: 2nd to COVID-19 pneumonia and acute systolic CHF. Can't exclude bacterial component (procal elevated, copious purulent sputum, asplenic state). See #1 above and #3, #4 below. (3) Non-ST elevation SD (NSTEMI): Plan: EKGs at admission showed anterior T wave inversions. Prior EKGs demonstrated either upright or mildly flat T waves anteriorly. His troponin was already high at time of ER presentation (1.6, trending down to 1 thereafter). Possible he could have had a small NSTEMI event in the days leading up to the admission. Echo shows old inferior wall akinesis with low-normal EF. His grafts are 27 years old and thus there is a strong likelihood that one or more grafts could be significantly diseased. Would treat as if he had small NSTEMI. IV heparin x minimum 48 hours. Started 08/06. Cont Asa, plavix, BB, statin. LDL 98 in May 2021 - is on max dose of crestor. LDL rechecked and remains <70. He is too sick pulmonary-jackson from COVID to entertain invasive procedures (cath, etc). Dr Balbuena his primary watch technician is aware. Can likely d/c heparin infusion tomorrow; change back to lovenox. (4) Acute systolic CHF (congestive heart failure): Plan: Cont diuresis with lasix 40mg IV daily. BMP in am. Mild CHF is on basis of ischemic cardiomyopathy. (5) Sepsis: Plan: 2nd to COVID-19 pneumonia, possible bacterial pneumonia component, etc. Sepsis improved. Cont supportive care, IV abx, etc. Blood cultures cont to be negative. (6) Hx of CABG: Plan: 4-vessel, 27 years ago [facility]. No stents or SD events since. Follows w/ Dr Balbuena [facility] Cardiology. Now with probable mild NSTEMI. (7) Bipolar disorder: Plan: Cont Depakote. Cont Lamictal. Depakote level 40 on 08/05/21. Son reports he has not seen psych in some time - will need to get him linked back up with psychiatry post-d/c. 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 combo of NPH, lantus, and novolog. BSGs labile. defer management to pharmacy. (11) Post concussion syndrome: Plan: following with [facility] concussion clinic and [facility] neurology locally. concussion occurred early summer 2020 - fell & struck his head at home. some mild memory difficulties & cognitive issues since then. (12) Metabolic encephalopathy: Plan: improved; orientation improved (13) DVT prophylaxis: Plan: heparin infusion Plan: sonJerald - lives in [facility] - extensively updated by phone 08/06 extensively updated by phone 08/07, 08/08, and 08/09 will need PT/OT once pulmonary status allows such Admission and Anticipated Discharge Date Admission Date: August 05, 2021 Subjective tele overnight stable he was on HFNC up until overnight - changed to oxymask at that time during my visit he was satting upper 80s/90 on 7 L oxymask he c/o fatigue and weakness cough continues - some production, but the sputum is much less than previous no dyspnea at rest but TAPIA with little activity eating fair Review of Systems Review of Systems: gen - no fevers, no chills CV - no chest pain pulm - no hemoptysis, wheezing improved GI - no diarrhea or emesis; he feels constipated Physical Exam Physical Exam: gen - awake and alert, but he seems more tired and fatigued relative to yesterday HEENT - MMM; hoarse voice remains; tongue with ?thrush neck - no JVD heart - RRR, s1 s2, no murmur lungs - diffuse wheezes b/l - improved from yesterday; no rales abd - soft NT ND BS+ ext - no edema, pulses 2+ b/l Results & Data Results & Data ([facility]) Vital Signs (Past 12 Hours) Vital Signs Temp Pulse Pulse Pulse Resp BP BP 08/09/21 19:22 74 18 08/09/21 19:09 36.7 C 63 20 121/58 L 08/09/21 18:50 08/09/21 18:04 08/09/21 15:38 36.4 C L 69 20 100/52 L 08/09/21 15:04 69 18 08/09/21 14:20 71 08/09/21 11:46 37.4 C 66 20 91/46 L 08/09/21 10:56 71 18 Pulse Ox 08/09/21 19:22 94 08/09/21 19:09 91 08/09/21 18:50 93 08/09/21 18:04 92 08/09/21 15:38 91 08/09/21 15:04 90 08/09/21 14:20 08/09/21 11:46 91 08/09/21 10:56 94 Laboratory Results Laboratory Results - last 24 hr 08/09/21 08/09/21 08/09/21 05:54 05:54 05:54 WBC 14.75 H RBC 3.38 L Hgb 9.8 L Hct 30.0 L MCV 88.8 MCH 29.0 MCHC 32.7 RDW Std Deviation 53.6 H RDW Coeff of [place] 16.6 H Plt Count 395 MPV 10.8 H APTT 65.0 H* PTT Ratio 2.5 Sodium 135 L Potassium 4.1 Chloride 98 Carbon Dioxide 29 Anion Gap 8.0 BUN 43 H Creatinine 1.46 H Est Cr Clr Drug Dosing 43.7 Est GFR ( Amer) 52.3 Est GFR (Non-Af Amer) 45.1 BUN/Creatinine Ratio 29.2 H Glucose 120 H POC Glucose Calcium 9.2 Magnesium 2.0 AST 53 H ALT 23 08/09/21 08/09/21 08/09/21 05:54 07:27 11:27 WBC RBC Hgb Hct MCV MCH MCHC RDW Std Deviation RDW Coeff of [place] Plt Count MPV APTT PTT Ratio Sodium Potassium Chloride Carbon Dioxide Anion Gap BUN Creatinine Est Cr Clr Drug Dosing Est GFR ( Amer) Est GFR (Non-Af Amer) BUN/Creatinine Ratio Glucose POC Glucose 122 H 199 H Calcium Magnesium Cancelled AST ALT 08/09/21 08/09/21 16:53 20:35 WBC RBC Hgb Hct MCV MCH MCHC RDW Std Deviation RDW Coeff of [place] Plt Count MPV APTT PTT Ratio Sodium Potassium Chloride Carbon Dioxide Anion Gap BUN Creatinine Est Cr Clr Drug Dosing Est GFR ( Amer) Est GFR (Non-Af Amer) BUN/Creatinine Ratio Glucose POC Glucose 253 H 279 H Calcium Magnesium AST ALT PG Care Time/CCT Total # of Minutes Spent Total Time Spent with Patient: Total time spent is greater than 50% in coordination of care (as documented) at patient's floor/unit and/or counseling patient: Coding Level of Care Code 46589 Subseq Hosp Care Lvl 3 Diagnoses Pneumonia due to 2019-nCoV U07.1; J12.82 Acute respiratory failure with hypoxia J96.01 Non-ST elevation SD (NSTEMI) I21.4 Acute systolic CHF (congestive heart failure) I50.21 Sepsis A41.9 Hx of CABG Z95.1 Bipolar disorder F31.9 S/P splenectomy Z90.81 Chronic kidney disease, stage III (moderate) N18.3 Diabetes mellitus, type 2 E11.9 Post concussion syndrome F07.81 Metabolic encephalopathy G93.41 DVT prophylaxis Z29.9
[2021-08-09] MEDS: cefTRIAXone SODIUM 2,000 MG in DEXTROSE 5% 50 ML IV SCH (22:52)
[2021-08-09] MEDS: AZITHROMYCIN 500 MG in DEXTROSE 5% 250 ML IV SCH (23:42)
[2021-08-10 07:00] LABS: Hematocrit (blood only) 29.5 % (42-52); Hemoglobin 9.6 g/dL (14.0-18.0); Mean Corpuscular Hemoglobin 28.9 pg (25-34); Mean Corpuscular Hgb Conc 32.5 g/dL (32-36); Mean Corpuscular Volume 88.9 fL (80-100); Mean Platelet Volume 10.6 fL (7.4-10.4); Nucleated RBC # (auto) 0.02 K/uL (0-0); Nucleated RBC % (auto) 0.2 %; Platelet Count 374 K/uL (130-400); RDW Coefficient of Variation 16.4 % (11.5-14.5); RDW Standard Deviation 53.4 fL (36.4-46.3); Red Blood Count 3.32 M/uL (4.7-6.1); White Blood Count 13.03 K/uL (4.8-10.8)
[2021-08-10 07:19] LABS: Partial Thromboplastin Ratio 2.9
[2021-08-10 07:20] LABS: Partial Thromboplastin Time 75.4 Seconds (21.0-31.0)
[2021-08-10 07:28] LABS: BUN Creatinine Ratio 29.3 (10-20); Calcium 8.9 mg/dl (8.5-10.1); Est GFR (African American) 50.2 ml/min; Est GFR (Non-African American) 43.3 ml/min; Potassium 4.3 mmol/L (3.5-5.1)
[2021-08-10] MEDS: IPRATROPIUM BROMIDE HFA INHALER INH SCH (08:06)
[2021-08-10] MEDS: ALBUTEROL HFA 8 GM INHALER INH SCH (08:06)
[2021-08-10] MEDS ORDERED: ALBUTEROL HFA 8 GM INHALER INH PRN (08:28)
[2021-08-10] MEDS ORDERED: IPRATROPIUM BROMIDE HFA INHALER INH PRN (08:28)
[2021-08-10] MEDS: FUROSEMIDE 40 MG in SYRINGE 0 ML IV SCH (09:07)
[2021-08-10] MEDS: DIVALPROEX DELAY RELEASE 500 MG TAB PO SCH ×2 (09:07→20:55)
[2021-08-10] MEDS: dexAMETHasone 6 MG in SYRINGE 0 ML IV SCH ×2 (09:07→09:58)
[2021-08-10] MEDS: guaiFENesin 600 MG TABCR PO SCH ×2 (09:07→20:56)
[2021-08-10] MEDS: METOPROLOL TARTRATE 50 MG TAB PO SCH ×2 (09:07→20:57)
[2021-08-10] MEDS: MULTIVITAMIN TAB PO SCH ×2 (09:07→20:57)
[2021-08-10] MEDS: ASPIRIN 81 MG ECTAB PO SCH (09:08)
[2021-08-10] MEDS: CLOPIDOGREL BISULFATE 75 MG TAB PO SCH (09:08)
[2021-08-10] MEDS: lamoTRIgine 100 MG TAB PO SCH (09:08)
[2021-08-10] MEDS: FAMOTIDINE 20 MG TAB PO SCH ×2 (09:08→20:56)
[2021-08-10] MEDS: POLYETHYLENE (MIRALAX) 17 GM PACK PO SCH (09:09)
[2021-08-10] MEDS: NYSTATIN SUSP 500,000 U/5 ML UDC PO SCH ×4 (09:09→20:58)
[2021-08-10] MEDS: INSULIN ASPART 100 UNITS/ML 3 ML PEN SC SCH ×4 (09:57→21:14)
[2021-08-10] MEDS: INSULIN GLARGINE SOLOSTAR 100 UNITS/ML 3 ML PEN SC SCH (09:57)
[2021-08-10] MEDS: INSULIN HUMAN NPH SC SCH (09:58)
[2021-08-10] MEDS: 2 mg Once Daily x14 days PO SCH (10:48)
[2021-08-10] MEDS ORDERED: INSULIN ASPART 100 UNITS/ML 3 ML PEN SC SCH ×2 (11:30)
--- NOTE | 2021-08-10 11:31 | Pharmacy Report ---
Pharmacy Glycemic Short Note 2 - Date of Service August 10, 2021 - Glycemic Short BSG Results (Last 24 hours): 08/09/21 08/09/21 08/09/21 11:27 16:53 20:35 Glucose POC Glucose 199 H 253 H 279 H 08/09/21 08/10/21 08/10/21 23:55 06:36 08:02 Glucose 124 H POC Glucose 195 H 116 H OUTPATIENT ANTIDIABETIC REGIMEN: * Lantus 6 units SQ daily * Novolin R per sliding scale (5-15 units per meal) * Metformin 1000mg PO BID * A1c = 7.3% ASSESSMENT: 08/10 * 86 units SQ given over last 24 hours while tolerating a diet * Fasting BSG at goal this AM, FBS 116, with 13 units Lantus and 23 units NPH given yesterday. - Will continue basal doses * Post-prandial hyperglycemia noted 3 of 3 checks yesterday - will increase prandial Novolog doses today, maintain same NPH dose * Will decrease HS and overnight Novolog doses to decrease risk of fasting AM hypoglycemia if overcorrected at these times of day as steroid induced insulin resistant less at these times PLAN FOR INPATIENT GLYCEMIC CONTROL: * Hold outpatient oral diabetes medications (metformin) * Basal insulin * Lantus 13 units SQ Q AM * NPH 23 units once daily in the AM when IV dexamethasone given * Bolus insulin * NovoLog per scale ACHS and at 0200 * Goal Range: Low 110 mg/dL - High 140 mg/dL * Correction Factor: 12 mg/dL/unit with meals; 25mg/dL/unit at HS and overnight * Nutritional / Prandial insulin per carb ratio of 1 unit per 3 grams CHO consumed w/ meals; 1 unit per 8 grams CHO consumed HS and overnight PLAN FOR DISCHARGE: * A1c 7.3% is at or near goal for this patient given age. Would recommend resuming outpt insulin and metformin regimen on discharge if not experiencing hypoglycemic episodes and if no contraindications to metformin therapy present at time of discharge.
--- NOTE | 2021-08-10 11:43 | Hospitalist Progress Note ---
Date of Service August 10, 2021 Assessment & Plan (1) Pneumonia due to 2019-nCoV: Plan: Severe. Was on high-flow NC -- continue to diurese aggressively today he is on 11L oxy mask, no distress, very fatigued increase Lasix to 40mg IV BID with a dose this afternoon Patient was fully vaccinated - thus this is a "breakthrough" case. 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 Given his escalating O2 requirements, elevated CRP, etc he was felt to be a candidate for immune-based therapy. * cont baricitinib 2mg daily up to 14 days; day #3 today; Dr Trimble ordered * cont dexamethasone IV daily; day 6 today * completed 5 days of Remdesivir * keep sats 92% or greater given his heart disease (CAD) and NSTEMI * cont flutter and incentive * cont bronchodilators given his rhonchi/wheezes * he cannot prone -- thus, continue to encourage side positioning * procal mildly high at admission - and given asplenic state - could have bacterial superinfection; Day 5 of rocephin and Zithromax * DVT proph - heparin drip (see below) (2) Acute respiratory failure with hypoxia: Plan: 2nd to COVID-19 pneumonia and acute systolic CHF. Can't exclude bacterial component (procal elevated, copious purulent sputum, asplenic state). See #1 above and #3, #4 below. (3) Non-ST elevation AK (NSTEMI): Plan: EKGs at admission showed anterior T wave inversions. Prior EKGs demonstrated either upright or mildly flat T waves anteriorly. His troponin was already high at time of ER presentation (1.6, trending down to 1 thereafter). Possible he could have had a small NSTEMI event in the days leading up to the admission. Echo shows old inferior wall akinesis with low-normal EF. His grafts are 27 years old and thus there is a strong likelihood that one or more grafts could be significantly diseased. Would treat as if he had small NSTEMI. IV heparin for three days, change to Lovenox DVT prophylaxis dose today Cont Asa, plavix, BB, statin. LDL 98 in May 2021 - is on max dose of crestor. LDL rechecked and remains <70. (4) Acute systolic CHF (congestive heart failure): Plan: increase lasix 40mg IV to BID since his Cr is 1.5 and he already filled the bag this morning appears volume overloaded still, could help breathing further BMP in am. Mild CHF is on basis of ischemic cardiomyopathy. (5) Sepsis: Plan: 2nd to COVID-19 pneumonia, possible bacterial pneumonia component, etc. Sepsis improved. Cont supportive care, IV abx, etc. Blood cultures cont to be negative. 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 No stents or AK events since. Follows w/ Dr Balbuena [facility]. Now with probable mild NSTEMI. (7) Bipolar disorder: Plan: Cont Depakote. Cont Lamictal. Depakote level 40 on 08/05/21. Son reports he has not seen psych in some time - will need to get him linked back up with psychiatry post-d/c. 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 combo of NPH, lantus, and novolog. BSGs labile. defer management to pharmacy. (11) Post concussion syndrome: Plan: following with [facility] concussion clinic and [facility] [place]. concussion occurred early summer 2020 - fell & struck his head at home. some mild memory difficulties & cognitive issues since then. wants him to get back to physical therapy once stable (12) Metabolic encephalopathy: Plan: improved; orientation improved (13) DVT prophylaxis: Plan: Lovenox 0.5mg/kg q12 Plan: son, Jerald - lives in [facility] - extensively updated by phone 08/[address] Rutherford extensively updated by phone today will need PT/OT once pulmonary status allows such Admission and Anticipated Discharge Date Admission Date: August 05, 2021 Subjective patient is a little frustrated today, he was stable on 9L over night, now up to 11L after eating breakfast assured him that this can be normal, don't get down, typical for COVID infections to get a little worse before getting better he does not feel like he is in distress, minimal cough he is laying on his right side, cannot lay prone eating well, no diarrhea, no nausea/vomiting, no fever he is responding really well to Lasix 40mg IV this morning, will give additional dose this afternoon to promote diuresis Cr is stable at 1.5 updated his Melly over the phone, assured her that he just needs time and rest, sleeping a lot today reviewed the chart and labs, appreciate pulmonology consult from Dr. Trimble Review of Systems Review of Systems: All systems reviewed & are unremarkable except as noted in Subjective Physical Exam Physical Exam: General: well developed, well nourished, ill appearing male, no distress Neck: supple, trachea midline, normal thyroid Lungs: clear to auscultation bilaterally, normal respiratory effort, no accessory muscle use, no distress Heart: regular S1 and S2, no murmur, peripheral pulses normal, capillary refill normal, no edema Abdomen: soft, NT, ND, + BS, no hepatomegaly, normal to percussion Extremities: normal in appearance, no cyanosis, no petechiae, strength is 5/5 bilaterally Neuro: awake, cooperative, moves all extremities, no focal motor deficits, CN II-XII intact, sensation in extremities intact, normal speech Skin: warm, dry, no rash, normal turgor Psych: Awake, alert oriented x 3, euthymic affect Results & Data Results & Data ([facility]) Vital Signs (Past 12 Hours) Vital Signs Temp Pulse Resp BP Pulse Ox Pulse Ox 08/10/21 08:06 54 L 18 90 08/10/21 08:00 88 L 08/10/21 07:18 36.6 C 55 L 19 134/67 95 08/10/21 03:29 36.5 C 50 L 24 132/58 L 96 Laboratory Results Laboratory Results - last 24 hr 08/09/21 08/09/21 08/09/21 16:53 20:35 23:55 WBC RBC Hgb Hct MCV MCH MCHC RDW Std Deviation RDW Coeff of [place] Plt Count MPV Absolute Nucleated RBC Nucleated RBC % (auto) APTT PTT Ratio Sodium Potassium Chloride Carbon Dioxide Anion Gap BUN Creatinine Est Cr Clr Drug Dosing Est GFR ( Amer) Est GFR (Non-Af Amer) BUN/Creatinine Ratio Glucose POC Glucose 253 H 279 H 195 H Calcium AST ALT 08/10/21 08/10/21 08/10/21 06:36 06:36 06:36 WBC 13.03 H RBC 3.32 L Hgb 9.6 L Hct 29.5 L MCV 88.9 MCH 28.9 MCHC 32.5 RDW Std Deviation 53.4 H RDW Coeff of [place] 16.4 H Plt Count 374 MPV 10.6 H Absolute Nucleated RBC 0.02 H Nucleated RBC % (auto) 0.2 APTT 75.4 H* PTT Ratio 2.9 Sodium 134 L Potassium 4.3 Chloride 98 Carbon Dioxide 29 Anion Gap 7.0 BUN 44 H Creatinine 1.51 H Est Cr Clr Drug Dosing 46.0 Est GFR ( Amer) 50.2 Est GFR (Non-Af Amer) 43.3 BUN/Creatinine Ratio 29.3 H Glucose 124 H POC Glucose Calcium 8.9 AST 43 H ALT 20 08/10/21 08:02 WBC RBC Hgb Hct MCV MCH MCHC RDW Std Deviation RDW Coeff of [place] Plt Count MPV Absolute Nucleated RBC Nucleated RBC % (auto) APTT PTT Ratio Sodium Potassium Chloride Carbon Dioxide Anion Gap BUN Creatinine Est Cr Clr Drug Dosing Est GFR ( Amer) Est GFR (Non-Af Amer) BUN/Creatinine Ratio Glucose POC Glucose 116 H Calcium AST ALT Medications Administered Current Inpatient Medications Acetaminophen (Acetaminophen 325 Mg Tab) 650 mg PO Q4H PRN PRN Reason: Pain or Fever Stop: 09/04/21 22:15 Last Admin: 08/07/21 11:32 Dose: 650 mg Documented by: Al Hydrox/Mg Hydrox/Simethicone (Aluminum/Magnesium Susp 30 Ml Udc) 15 ml PO Q4H PRN PRN Reason: Dyspepsia Stop: 09/04/21 22:15 Albuterol (Albuterol Hfa 8 Gm Inhaler) 1 puffs INH Q4R PRN PRN Reason: Shortness Of Breath Or Wheezing Stop: 09/09/21 08:27 Aspirin (Aspirin 81 Mg Ectab) 81 mg PO QAM [facility] Stop: 09/05/21 08:59 Last Admin: 08/10/21 09:08 Dose: 81 mg Documented by: Baricitinib (2 Mg Once Daily X14 Days) 2 mg PO DAILY [facility]; Protocol Stop: 08/21/21 23:59 Clopidogrel Bisulfate (Clopidogrel Bisulfate 75 Mg Tab) 75 mg PO QAM [facility] Stop: 09/05/21 08:59 Last Admin: 08/10/21 09:08 Dose: 75 mg Documented by: Dextrose (Dextrose 50% 50 Ml Syringe) 25 - 50 ml IV UD PRN; Protocol PRN Reason: Hypoglycemia Protocol Stop: 09/04/21 22:15 Divalproex Sodium (Divalproex Delay Release 500 Mg Tab) 500 mg PO BID [facility] Stop: 09/04/21 22:15 Last Admin: 08/10/21 09:07 Dose: 500 mg Documented by: Famotidine (Famotidine 20 Mg Tab) 20 mg PO BID [facility] Stop: 09/04/21 22:15 Last Admin: 08/10/21 09:08 Dose: 20 mg Documented by: Glucagon (Glucagon For Inj 1 Mg Vial) 1 mg SQ UD PRN; Protocol PRN Reason: Hypoglycemia Protocol Stop: 09/04/21 22:15 Glucose (Glucose 10 Tabs/Tube) 4 - 8 tabs PO UD PRN; Protocol PRN Reason: Hypoglycemia Protocol Stop: 09/04/21 22:15 Glucose (Glucose 40% Gel 15 Gm Tube) 15 - 30 gm PO UD PRN; Protocol PRN Reason: Hypoglycemia Protocol Stop: 09/04/21 22:15 Guaifenesin (Guaifenesin 600 Mg Tabcr) 600 mg PO Q12 [facility] Stop: 09/06/21 20:59 Last Admin: 08/10/21 09:07 Dose: 600 mg Documented by: Azithromycin 500 mg/ Dextrose 255 mls @ 125 mls/hr IV Q24H [facility] Stop: 08/13/21 00:00 Last Infusion: 08/10/21 01:40 Dose: Infused Documented by: Ceftriaxone Sodium 2,000 mg/ (Dextrose) 70 mls @ 100 mls/hr IV Q24H [facility]; Protocol Stop: 08/12/21 22:59 Last Infusion: 08/09/21 23:43 Dose: Infused Documented by: Heparin Sodium/Dextrose (Heparin Sodium/Dextrose) 25,000 units in 500 mls @ 23 mls/hr IV .[id number] [facility]; Protocol Stop: 09/05/21 15:59 Last Titration: 08/10/21 09:59 Dose: 1,150 units/hr, 23 mls/hr Documented by: Dexamethasone 6 mg/ Syringe 1.5 mls @ 1 mls/min IV DAILY [facility] Stop: 09/07/21 08:59 Last Admin: 08/10/21 09:07 Dose: 1 mls/min Documented by: Furosemide 40 mg/ Syringe 4 mls @ 4 mls/min IV DAILY [facility] Stop: 09/07/21 11:29 Last Admin: 08/10/21 09:07 Dose: 4 mls/min Documented by: Insulin Aspart (Insulin Aspart 100 Units/Ml 3 Ml Pen) 0 units SC AC [facility] Stop: 09/09/21 07:29 Last Admin: 08/10/21 09:57 Dose: 13 units Documented by: Insulin Aspart (Insulin Aspart 100 Units/Ml 3 Ml Pen) 0 units SC 0200,2100 [facility] Stop: 09/09/21 20:59 Insulin Glargine (Insulin Glargine Solostar 100 Units/Ml 3 Ml Pen) 13 units SC QAM [facility] Stop: 09/07/21 09:44 Last Admin: 08/10/21 09:57 Dose: 13 units Documented by: Insulin Human NPH (Insulin Human Nph) [facility] Stop: 09/09/21 08:59 Last Admin: 08/10/21 09:58 Dose: 23 units Documented by: Ipratropium [place] (Ipratropium [place] Hfa Inhaler) 1 puffs INH Q4R PRN PRN Reason: Shortness Of Breath Or Wheezing Stop: 09/09/21 08:27 Lamotrigine (Lamotrigine 100 Mg Tab) 200 mg PO DAILY [facility] Stop: 09/05/21 08:59 Last Admin: 08/10/21 09:08 Dose: 200 mg Documented by: Metoprolol Tartrate (Metoprolol Tartrate 50 Mg Tab) 50 mg PO BID [facility] Stop: 09/04/21 22:15 Last Admin: 08/10/21 09:07 Dose: 50 mg Documented by: Miscellaneous (Carbohydrates For Hypoglycemia ) 15 - 30 gm PO UD PRN PRN Reason: Hypoglycemia Protocol Stop: 09/04/21 22:15 Miscellaneous Information (Pharmacy Glycemic Mgmt Consult) 1 ea N/A UD PRN; Protocol PRN Reason: Consult Stop: 09/04/21 22:15 Multivitamins (Multivitamin Tab) 1 tab PO BID [facility] Stop: 09/04/21 22:15 Last Admin: 08/10/21 09:07 Dose: 1 tab Documented by: Nitroglycerin (Nitroglycerin Sl 0.4 Mg/Tab Tab) 0.4 mg SL UD PRN PRN Reason: Chest Pain Stop: 09/04/21 22:15 Nystatin (Nystatin Susp 500,000 U/5 Ml Udc) 5 ml PO QID [facility] Stop: 08/19/21 16:59 Last Admin: 08/10/21 09:09 Dose: 5 ml Documented by: Ondansetron HCl (Ondansetron Inj 2 Mg/Ml 2 Ml Vial) 4 mg IV Q6H PRN PRN Reason: Nausea Stop: 09/04/21 22:15 Polyethylene Glycol (Polyethylene (Miralax) 17 Gm Pack) 17 gm PO DAILY [facility] Stop: 09/08/21 13:44 Last Admin: 08/10/21 09:09 Dose: Not Given Documented by: Rosuvastatin Calcium (Rosuvastatin Calcium 20 Mg Tab) 40 mg PO PM [facility] Stop: 09/04/21 22:15 Last Admin: 08/09/21 20:50 Dose: 40 mg Documented by: PG Care Time/CCT Total # of Minutes Spent Total Time Spent with Patient: Total time spent is greater than 50% in c oordination of care (as documented) at patient's floor/unit and/or counseling patient: Coding Level of Care Code 58426 Subseq Hosp Care Lvl 3 Diagnoses Pneumonia due to 2019-nCoV U07.1; J12.82 Acute respiratory failure with hypoxia J96.01 Non-ST elevation AK (NSTEMI) I21.4 Acute systolic CHF (congestive heart failure) I50.21 Sepsis A41.9 Hx of CABG Z95.1 Bipolar disorder F31.9 S/P splenectomy Z90.81 Chronic kidney disease, stage III (moderate) N18.3 Diabetes mellitus, type 2 E11.9 Post concussion syndrome F07.81 Metabolic encephalopathy G93.41 DVT prophylaxis Z29.9
[2021-08-10] MEDS ORDERED: 2 mg Once Daily x14 days PO ONE (13:30)
[2021-08-10] MEDS: HEPARIN SODIUM/DEXTROSE 25,000 UNITS/500 ML BAG IV SCH ×3 (14:16→18:16)
[2021-08-10] MEDS ORDERED: ENOXAPARIN 0.5 MG/KG SQ SCH (17:00)
[2021-08-10] MEDS ORDERED: FUROSEMIDE 40 MG in SYRINGE 0 ML IV SCH (17:00)
[2021-08-10] MEDS: ENOXAPARIN INJ 60 MG/0.6 ML SYR SQ SCH (17:52)
[2021-08-10] MEDS: FUROSEMIDE 40 MG/4 ML VIAL IV SCH (18:21)
[2021-08-10] MEDS: ROSUVASTATIN CALCIUM 20 MG TAB PO SCH (20:58)
[2021-08-10] MEDS: cefTRIAXone SODIUM 2,000 MG in DEXTROSE 5% 50 ML IV SCH (23:13)
[2021-08-10] MEDS: AZITHROMYCIN 500 MG in DEXTROSE 5% 250 ML IV SCH (23:35)
[2021-08-11] MEDS: INSULIN ASPART 100 UNITS/ML 3 ML PEN SC SCH ×5 (02:04→20:48)
[2021-08-11] MEDS: ENOXAPARIN INJ 60 MG/0.6 ML SYR SQ SCH ×2 (04:58→17:54)
[2021-08-11 08:25] LABS: Hematocrit (blood only) 31.1 % (42-52); Hemoglobin 9.9 g/dL (14.0-18.0); Mean Corpuscular Hemoglobin 28.7 pg (25-34); Mean Corpuscular Hgb Conc 31.8 g/dL (32-36); Mean Corpuscular Volume 90.1 fL (80-100); Mean Platelet Volume 11.1 fL (7.4-10.4); Platelet Count 437 K/uL (130-400); RDW Coefficient of Variation 16.5 % (11.5-14.5); RDW Standard Deviation 54.1 fL (36.4-46.3); Red Blood Count 3.45 M/uL (4.7-6.1); White Blood Count 13.77 K/uL (4.8-10.8)
[2021-08-11 08:57] LABS: BUN Creatinine Ratio 32.5 (10-20); C Reactive Protein 2.94 mg/dl (0-0.29); Calcium 9.5 mg/dl (8.5-10.1); Creatinine Clr Calc Pharmacy 38.7 ml/min; Est GFR (African American) 45.1 ml/min; Est GFR (Non-African American) 38.9 ml/min; Potassium 4.2 mmol/L (3.5-5.1)
--- NOTE | 2021-08-11 09:02 | XRay Report ---
XR chest 1V portable INDICATION: MN ^Y ^LDS ^covid pneumonia. TECHNIQUE: Single frontal radiograph of the chest was obtained. Comparison: Comparison is made to chest one view 31/01/2021 FINDINGS: Median sternotomy wires are unchanged. The cardiomediastinal silhouette is stable. Bilateral airspace opacities are less distinct than on the prior exam. There is a small left pleural effusion, likely i mproved from prior exam. IMPRESSION: Likely improvement in small left pleural effusion and bilateral airspace opacities compatible with im proving viral pneumonia. ACT 112: Negative or not required by law. Electronically signed by: Thanh Ware M.D. 08/11/2021 9:01 AM
[2021-08-11] MEDS: dexAMETHasone 6 MG in SYRINGE 0 ML IV SCH (09:08)
[2021-08-11] MEDS: FAMOTIDINE 20 MG TAB PO SCH ×2 (09:09→20:07)
[2021-08-11] MEDS: guaiFENesin 600 MG TABCR PO SCH ×2 (09:09→20:08)
[2021-08-11] MEDS: MULTIVITAMIN TAB PO SCH ×2 (09:09→20:09)
[2021-08-11] MEDS: lamoTRIgine 100 MG TAB PO SCH (09:09)
[2021-08-11] MEDS: CLOPIDOGREL BISULFATE 75 MG TAB PO SCH (09:09)
[2021-08-11] MEDS: ASPIRIN 81 MG ECTAB PO SCH (09:09)
[2021-08-11] MEDS: DIVALPROEX DELAY RELEASE 500 MG TAB PO SCH ×2 (09:10→20:06)
[2021-08-11] MEDS: POLYETHYLENE (MIRALAX) 17 GM PACK PO SCH (09:13)
[2021-08-11] MEDS: METOPROLOL TARTRATE 50 MG TAB PO SCH ×2 (09:13→20:08)
[2021-08-11] MEDS: NYSTATIN SUSP 500,000 U/5 ML UDC PO SCH ×4 (09:13→20:10)
--- NOTE | 2021-08-11 09:14 | Hospitalist Progress Note ---
Date of Service August 11, 2021 Assessment & Plan (1) Pneumonia due to 2019-nCoV: Plan: Severe. Was on high-flow NC -- continue to diurese aggressively today he is on 12L oxy mask, no distress increased Lasix to 40mg IV BID on 08/10, good response, Cr is 1.65 continue BID dosing today and check BMP in the morning Patient was fully vaccinated - thus this is a "breakthrough" case. 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 Given his escalating O2 requirements, elevated CRP, etc he was felt to be a candidate for immune-based therapy. * cont baricitinib 2mg daily up to 14 days; day #4 today * cont dexamethasone IV daily; day 7 today * completed 5 days of Remdesivir * cont flutter and incentive * he cannot prone -- thus, continue to encourage side positioning * procal mildly high at admission - and given asplenic state - could have bacterial superinfection; Day 6 of rocephin and Zithromax, finish tomorrow * DVT proph - Lovenox (2) Acute respiratory failure with hypoxia: Plan: 2nd to COVID-19 pneumonia and acute systolic CHF. Can't exclude bacterial component (procal elevated, copious purulent sputum, asplenic state). stable on 12L mask, no distress at all would really benefit from prone position but he cannot lay like that, he can lay on right side (3) Non-ST elevation SC (NSTEMI): Plan: EKGs at admission showed anterior T wave inversions. Prior EKGs demonstrated either upright or mildly flat T waves anteriorly. His troponin was already high at time of ER presentation (1.6, trending down to 1 thereafter). Possible he could have had a small NSTEMI event in the days leading up to the admission. Echo shows old inferior wall akinesis with low-normal EF 50-55% His grafts are 27 years old and thus there is a strong likelihood that one or more grafts could be significantly diseased. Would treat as if he had small NSTEMI. completed 3 days of heparin drip, now on Lovenox Cont Asa, plavix, BB, statin. LDL 98 in May 2021 - is on max dose of crestor. LDL rechecked and remains <70. (4) Acute systolic CHF (congestive heart failure): Plan: increase lasix 40mg IV to BID on 08/10 responded very well, negative 2 liters yesterday Cr is 1.6 continue BID for today, likely go back to daily dosing tomorrow CXR today without obvious pulmonary edema (5) Sepsis: Plan: 2nd to COVID-19 pneumonia, possible bacterial pneumonia component, etc. Sepsis improved. Cont supportive care, IV abx, etc. Blood cultures cont to be negative. 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 No stents or SC events since. Follows w/ Dr Balbuena [facility] Card[facility]. Now with probable mild NSTEMI. (7) Bipolar disorder: Plan: Cont Depakote. Cont Lamictal. Depakote level 40 on 08/05/21. Son reports he has not seen psych in some time - will need to get him linked tanesha k up with psychiatry post-d/c. 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 combo of NPH, lantus, and novolog. monitor for hypoglycemia (11) Post concussion syndrome: Plan: following with [facility] concussion clinic and [facility] neurology locally. concussion occurred early summer 2020 - fell & struck his head at home. some mild memory difficulties & cognitive issues since then. wants him to get back to physical therapy once stable (12) Metabolic encephalopathy: Plan: improved; orientation improved (13) DVT prophylaxis: Plan: Lovenox 0.5mg/kg q12 Plan: sonJerald - lives in [facility] - extensively updated by phone 08/[address] Rutherford extensively updated by phone today will need PT/OT once pulmonary status allows such Admission and Anticipated Discharge Date Admission Date: August 05, 2021 Subjective patient is feeling well this morning, says he slept well from midnight to 5am he is eating really well, all of his breakfast and drinking his Ensure no chest pain, no fever, minimal cough CXR this morning does not show significant infiltrates, no obvious pulmonary edema CBC is stable, K is 4.2 and Cr is 1.65 with the increased dose of Lasix yeste rday, will continue BID for today he responded really well, negative 2 liters yesterday via [place] he is asking about discharge, discussed that he needs to be here until oxygen down to 2-3 L he is fatigued, frustrated by being here Review of Systems Review of Systems: All systems reviewed & are unremarkable except as noted in Subjective Constitutional: + fatigue and + weakness; no fever Respiratory: + cough, + dyspnea and + dyspnea on exertion; no sputum p roduction Cardiovascular: no chest pain Gastrointestinal: no abdominal pain, no nausea, no vomiting, no constipation and no diarrhea/loose stools Physical Exam Physical Exam: General: well developed, well nourished, ill appearing male, no distress Neck: supple, trachea midline, normal thyroid Lungs: clear to auscultation bilaterally, normal respiratory effort, no accessory muscle use, no distress Heart: regular S1 and S2, no murmur, peripheral pulses normal, capillary refill normal, no edema Abdomen: soft, NT, ND, + BS, no hepatomegaly, normal to percussion Extremities: normal in appearance, no cyanosis, no petechiae, strength is 5/5 bilaterally Neuro: awake, cooperative, moves all extremities, no focal motor deficits, CN II-XII intact, sensation in extremities intact, normal speech Skin: warm, dry, no rash, normal turgor Psych: Awake, alert oriented x 3, euthymic affect Results & Data Results & Data ([facility]) Vital Signs (Past 12 Hours) Vital Signs Temp Pulse Pulse Resp BP Pulse Ox 08/11/21 08:00 36.3 C L 55 L 22 149/66 H 93 08/11/21 04:17 36.3 C L 54 L 18 120/63 93 08/11/21 02:12 52 L 08/10/21 23:37 36.9 C 55 L 19 102/54 L 92 PG Care Time/CCT Total # of Minutes Spent Total Time Spent with Patient: Total time spent is greater than 50% in coordination of care (as documented) at patient's floor/unit and/or counseling patient: Coding Level of Care Code 47016 Subseq Hosp Care Lvl 3 Diagnoses Pneumonia due to 2019-nCoV U07.1; J12.82 Acute respiratory failure with hypoxia J96.01 Non-ST elevation SC (NSTEMI) I21.4 Acute systolic CHF (congestive heart failure) I50.21 Sepsis A41.9 Hx of CABG Z95.1 Bipolar disorder F31.9 S/P splenectomy Z90.81 Chronic kidney disease, stage III (moderate) N18.3 Diabetes mellitus, type 2 E11.9 Post concussion syndrome F07.81 Metabolic encephalopathy G93.41 DVT prophylaxis Z29.9
[2021-08-11] MEDS: INSULIN GLARGINE SOLOSTAR 100 UNITS/ML 3 ML PEN SC SCH (10:10)
[2021-08-11] MEDS: INSULIN HUMAN NPH SC SCH (10:10)
--- NOTE | 2021-08-11 10:26 | Pharmacy Report ---
Pharmacy Glycemic Short Note 2 - Date of Service August 11, 2021 - Glycemic Short BSG Results (Last 24 hours): 08/08/21 08/10/21 08/10/21 19:34 11:34 16:17 Glucose POC Glucose 301 H* 171 H 127 H 08/10/21 08/11/21 08/11/21 20:55 02:02 07:22 Glucose POC Glucose 167 H 134 H 121 H 08/11/21 08:06 Glucose 109 H POC Glucose OUTPATIENT ANTIDIABETIC REGIMEN: * Lantus 6 units SQ daily * Novolin R per sliding scale (5-15 units per meal) * Metformin 1000mg PO BID * A1c = 7.3% ASSESSMENT: 08/11 * Pt has received 86 units of insulin over the past 24hrs * 13 units of basal with Lantus * 23 units of NPH for steroid induced hyperglycemia with dexamethasone 6mg IV daily in AM * 50 units of bolus with NovoLog * BSGs [id number] mg/dl * All BSGs in goal range. No changes needed at this time. 08/10 * 86 units SQ given over last 24 hours while tolerating a diet * Fasting BSG at goal this AM, FBS 116, with 13 units Lantus and 23 units NPH given yesterday. - Will continue basal doses * Post-prandial hyperglycemia noted 3 of 3 checks yesterday - will increase prandial Novolog doses today, maintain same NPH dose * Will decrease HS and overnight Novolog doses to decrease risk of fasting AM hypoglycemia if overcorrected at these times of day as steroid induced insulin resistant less at these times PLAN FOR INPATIENT GLYCEMIC CONTROL: * Hold outpatient oral diabetes medications (metformin) * Basal insulin * Lantus 13 units SQ Q AM * NPH 23 units daily in the AM when IV dexamethasone given * Bolus insulin * NovoLog per scale ACHS and at 0200 * Goal Range: Low 110 mg/dL - High 140 mg/dL * Correction Factor: 12 mg/dL/unit with meals; 25mg/dL/unit at HS and overnight * Nutritional / Prandial insulin per carb ratio of 1 unit per 3 grams CHO consumed w/ meals; 1 unit per 8 grams CHO consumed HS and overnight PLAN FOR DISCHARGE: * A1c 7.3% is at or near goal for this patient given age. Would recommend resuming outpt insulin and metformin regimen on discharge if not experiencing hypoglycemic episodes and if no contraindications to metformin therapy present at time of discharge.
[2021-08-11] MEDS: FUROSEMIDE 40 MG/4 ML VIAL IV SCH ×2 (11:30→18:12)
[2021-08-11] MEDS: 2 mg Once Daily x14 days PO SCH (15:40)
[2021-08-11] MEDS: ROSUVASTATIN CALCIUM 20 MG TAB PO SCH (20:11)
[2021-08-11] MEDS: cefTRIAXone SODIUM 2,000 MG in DEXTROSE 5% 50 ML IV SCH (22:53)
[2021-08-11] MEDS: AZITHROMYCIN 500 MG in DEXTROSE 5% 250 ML IV SCH (22:53)
[2021-08-12] MEDS: INSULIN ASPART 100 UNITS/ML 3 ML PEN SC SCH ×5 (02:03→22:03)
[2021-08-12] MEDS: ENOXAPARIN INJ 60 MG/0.6 ML SYR SQ SCH ×2 (04:32→18:05)
[2021-08-12] MEDS: ASPIRIN 81 MG ECTAB PO SCH (08:43)
[2021-08-12] MEDS: DIVALPROEX DELAY RELEASE 500 MG TAB PO SCH ×2 (08:43→21:59)
[2021-08-12] MEDS: METOPROLOL TARTRATE 50 MG TAB PO SCH ×2 (08:44→22:01)
[2021-08-12] MEDS: FAMOTIDINE 20 MG TAB PO SCH ×2 (08:44→22:00)
[2021-08-12] MEDS: CLOPIDOGREL BISULFATE 75 MG TAB PO SCH (08:44)
[2021-08-12] MEDS: MULTIVITAMIN TAB PO SCH ×2 (08:46→22:01)
[2021-08-12] MEDS: dexAMETHasone 6 MG in SYRINGE 0 ML IV SCH (08:46)
[2021-08-12] MEDS: lamoTRIgine 100 MG TAB PO SCH (08:46)
[2021-08-12] MEDS: guaiFENesin 600 MG TABCR PO SCH ×2 (08:46→22:00)
[2021-08-12] MEDS: NYSTATIN SUSP 500,000 U/5 ML UDC PO SCH ×4 (08:47→22:02)
[2021-08-12] MEDS: INSULIN GLARGINE SOLOSTAR 100 UNITS/ML 3 ML PEN SC SCH (08:47)
[2021-08-12 08:48] LABS: BUN Creatinine Ratio 34.7 (10-20); Calcium 9.7 mg/dl (8.5-10.1); Creatinine Clr Calc Pharmacy 36.2 ml/min; Est GFR (African American) 41.7 ml/min; Magnesium 2.3 mg/dl (1.8-2.4); Potassium 4.2 mmol/L (3.5-5.1)
[2021-08-12] MEDS: POLYETHYLENE (MIRALAX) 17 GM PACK PO SCH (08:50)
[2021-08-12] MEDS ORDERED: INSULIN HUMAN NPH SC SCH (09:00)
[2021-08-12] MEDS ORDERED: FUROSEMIDE 40 MG/4 ML VIAL IV ONE (10:21)
[2021-08-12] MEDS: FUROSEMIDE 40 MG/4 ML VIAL IV SCH (10:26)
[2021-08-12] MEDS: 2 mg Once Daily x14 days PO SCH (10:26)
--- NOTE | 2021-08-12 10:26 | Hospitalist Progress Note ---
Date of Service August 12, 2021 Assessment & Plan (1) Pneumonia due to 2019-nCoV: Plan: Severe. Was on high-flow NC -- continue to diurese aggressively today he remains stable on 12L oxy mask, no distress at all will try to get him OOB to a chair increased Lasix to 40mg IV BID for two days, good response, Cr is 1.7 today back to daily dosing today Patient was fully vaccinated - thus this is a "breakthrough" case. 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 Given his escalating O2 requirements, elevated CRP, etc he was felt to be a candidate for immune-based therapy. * cont baricitinib 2mg daily up to 14 days; day #5 today * cont dexamethasone IV daily; day 8 today * completed 5 days of Remdesivir * cont flutter and incentive * he cannot prone -- thus, continue to encourage side positioning * procal mildly high at admission - and given asplenic state - could have bacterial superinfection; Day 7 of rocephin and Zithromax, stop after today * DVT proph - Lovenox (2) Acute respiratory failure with hypoxia: Plan: 2nd to COVID-19 pneumonia and acute systolic CHF. Can't exclude bacterial component (procal elevated, copious purulent sputum, asplenic state). stable on 12L mask, no distress at all would really benefit from prone position but he cannot lay like that, he can lay on right side will continue to diurese with Lasix, get OOB to chair today if he can (3) Non-ST elevation MD (NSTEMI): Plan: EKGs at admission showed anterior T wave inversions. Prior EKGs demonstrated either upright or mildly flat T waves anteriorly. His troponin was already high at time of ER presentation (1.6, trending down to 1 thereafter). Possible he could have had a small NSTEMI event in the days leading up to the admission. Echo shows old inferior wall akinesis with low-normal EF 50-55% His grafts are 27 years old and thus there is a strong likelihood that one or more grafts could be significantly diseased. Would treat as if he had small NSTEMI. completed 3 days of heparin drip, now on Lovenox Cont Asa, plavix, BB, statin. LDL 98 in May 2021 - is on max dose of crestor. LDL rechecked and remains <70. (4) Acute systolic CHF (congestive heart failure): Plan: increased lasix 40mg IV to BID on 08/10 and 08/11 back to 40mg IV daily today with Cr 1.7 responded very well, negative 3.5 liters the past two days CXR 08/11 without obvious pulmonary edema (5) Sepsis: Plan: 2nd to COVID-19 pneumonia, possible bacterial pneumonia component, etc. Sepsis improved. Cont supportive care, IV abx, etc. Blood cultures cont to be negative. 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 No stents or MD events since. Follows w/ Dr Balbuena [facility] Cardiology. Now with probable mild NSTEMI. (7) Bipolar disorder: Plan: Cont Depakote. Cont Lamictal. Depakote level 40 on 08/05/21. Son reports he has not seen psych in some time - will need to get him linked back up with psychiatry post-d/c. 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 combo of NPH, lantus, and novolog. monitor for hypoglycemia, no episodes (11) Post concussion syndrome: Plan: following with [facility] concussion clinic and [facility] neurology locally. concussion occurred early summer 2020 - fell & struck his head at home. some mild memory difficulties & cognitive issues since then. wants him to get back to physical therapy once stable, will order PT/OT today (12) Metabolic encephalopathy: Plan: improved; orientation improved (13) DVT prophylaxis: Plan: Lovenox 0.5mg/kg q12 Plan: sonJerald - lives in [facility] - extensively updated by phone 08/[address] Rutherford extensively updated by phone today will need PT/OT, try to get OOB to chair today Admission and Anticipated Discharge Date Admission Date: August 05, 2021 Subjective patient doing better today, stable on 12L, he feels fatigued he wants to get moving, sit in a chair, will order PT/OT eating well, this morning he had an omelette, croatian toast, marcial, chocolate milk labs show Cr is 1.7, will back Lasix to once a day in morning, K is 4.3 minimal cough, no fever, says he feels weak Review of Systems Review of Systems: All systems reviewed & are unremarkable except as noted in Subjective Constitutional: + fatigue and + weakness; no fever, no chills and no sweats Respiratory: + cough, + dyspnea and + dyspnea on exertion Cardiovascular: no chest pain and no edema Gastrointestinal: no abdominal pain, no nausea, no vomiting, no constipation and no diarrhea/loose stools Physical Exam Physical Exam: General: well developed, well nourished, ill appearing male, no distress Neck: supple, trachea midline, normal thyroid Lungs: clear to auscultation bilaterally, normal respiratory effort, no accessory muscle use, no distress Heart: regular S1 and S2, no murmur, peripheral pulses normal, capillary refill normal, no edema Abdomen: soft, NT, ND, + BS, no hepatomegaly, normal to percussion Extremities: normal in appearance, no cyanosis, no petechiae, strength is 5/5 bilaterally Neuro: awake, cooperative, moves all extremities, no focal motor deficits, CN II-XII intact, sensation in extremities intact, normal speech Skin: warm, dry, no rash, normal turgor Psych: Awake, alert oriented x 3, euthymic affect Results & Data Results & Data ([facility]) Vital Signs (Past 12 Hours) Vital Signs Temp Pulse Pulse Resp BP BP Pulse Ox 08/12/21 08:10 36.4 C L 54 L 20 104/57 L 91 08/12/21 05:31 57 L 08/12/21 05:05 36.3 C L 50 L 20 115/55 L 92 08/11/21 23:48 36.7 C 55 L 20 111/62 95 Laboratory Results Laboratory Results - last 24 hr 08/11/21 08/11/21 08/11/21 11:45 16:42 20:34 Sodium Potassium Chloride Carbon Dioxide Anion Gap BUN Creatinine Est Cr Clr Drug Dosing Est GFR ( Amer) Est GFR (Non-Af Amer) BUN/Creatinine Ratio Glucose POC Glucose 173 H 250 H 233 H Calcium Magnesium 08/12/21 08/12/21 08/12/21 02:00 07:27 07:53 Sodium 132 L Potassium 4.2 Chloride 96 L Carbon Dioxide 29 Anion Gap 7.0 BUN 61 H Creatinine 1.76 H Est Cr Clr Drug Dosing 36.2 Est GFR ( Amer) 41.7 Est GFR (Non-Af Amer) 36.0 BUN/Creatinine Ratio 34.7 H Glucose 102 H POC Glucose 132 H 104 H Calcium 9.7 Magnesium 2.3 Medications Administered Current Inpatient Medications Acetaminophen (Acetaminophen 325 Mg Tab) 650 mg PO Q4H PRN PRN Reason: Pain or Fever Stop: 09/04/21 22:15 Last Admin: 08/07/21 11:32 Dose: 650 mg Documented by: Al Hydrox/Mg Hydrox/Simethicone (Aluminum/Magnesium Susp 30 Ml Udc) 15 ml PO Q4H PRN PRN Reason: Dyspepsia Stop: 09/04/21 22:15 Albuterol (Albuterol Hfa 8 Gm Inhaler) 1 puffs INH Q4R PRN PRN Reason: Shortness Of Breath Or Wheezing Stop: 09/09/21 08:27 Aspirin (Aspirin 81 Mg Ectab) 81 mg PO QAM [facility] Stop: 09/05/21 08:59 Last Admin: 08/12/21 08:43 Dose: 81 mg Documented by: Baricitinib (2 Mg Once Daily X14 Days) 2 mg PO DAILY [facility]; Protocol Stop: 08/21/21 23:59 Last Admin: 08/12/21 10:26 Dose: 2 mg Documented by: Clopidogrel Bisulfate (Clopidogrel Bisulfate 75 Mg Tab) 75 mg PO QAM [facility] Stop: 09/05/21 08:59 Last Admin: 08/12/21 08:44 Dose: 75 mg Documented by: Dextrose (Dextrose 50% 50 Ml Syringe) 25 - 50 ml IV UD PRN; Protocol PRN Reason: Hypoglycemia Protocol Stop: 09/04/21 22:15 Divalproex Sodium (Divalproex Delay Release 500 Mg Tab) 500 mg PO BID [facility] Stop: 09/04/21 22:15 Last Admin: 08/12/21 08:43 Dose: 500 mg Documented by: Enoxaparin Sodium (Enoxaparin Inj 60 Mg/0.6 Ml Syr) 50 mg SQ Q12H [facility]; Protocol Stop: 09/09/21 16:59 Last Admin: 08/12/21 04:32 Dose: 50 mg Documented by: Famotidine (Famotidine 20 Mg Tab) 20 mg PO BID [facility] Stop: 09/04/21 22:15 Last Admin: 08/12/21 08:44 Dose: 20 mg Documented by: Furosemide (Furosemide 40 Mg/4 Ml Vial) 40 mg IV DAILY [facility] Stop: 09/12/21 08:59 Glucagon (Glucagon For Inj 1 Mg Vial) 1 mg SQ UD PRN; Protocol PRN Reason: Hypoglycemia Protocol Stop: 09/04/21 22:15 Glucose (Glucose 10 Tabs/Tube) 4 - 8 tabs PO UD PRN; Protocol PRN Reason: Hypoglycemia Protocol Stop: 09/04/21 22:15 Glucose (Glucose 40% Gel 15 Gm Tube) 15 - 30 gm PO UD PRN; Protocol PRN Reason: Hypoglycemia Protocol Stop: 09/04/21 22:15 Guaifenesin (Guaifenesin 600 Mg Tabcr) 600 mg PO Q12 [facility] Stop: 09/06/21 20:59 Last Admin: 08/12/21 08:46 Dose: 600 mg Documented by: Azithromycin 500 mg/ Dextrose 255 mls @ 125 mls/hr IV Q24H [facility] Stop: 08/13/21 00:00 Last Infusion: 08/12/21 00:53 Dose: Infused Documented by: Ceftriaxone Sodium 2,000 mg/ (Dextrose) 70 mls @ 100 mls/hr IV Q24H [facility]; Protocol Stop: 08/12/21 22:59 Last Infusion: 08/11/21 23:38 Dose: Infused Documented by: Dexamethasone 6 mg/ Syringe 1.5 mls @ 1 mls/min IV DAILY [facility] Stop: 09/07/21 08:59 Last Admin: 08/12/21 08:46 Dose: 1 mls/min Documented by: Insulin Aspart (Insulin Aspart 100 Units/Ml 3 Ml Pen) 0 units SC AC [facility] Stop: 09/09/21 07:29 Last Admin: 08/12/21 08:41 Dose: 20 units Documented by: Insulin Aspart (Insulin Aspart 100 Units/Ml 3 Ml Pen) 0 units SC 2100 [facility] Stop: 09/11/21 20:59 Insulin Glargine (Insulin Glargine Solostar 100 Units/Ml 3 Ml Pen) 6 units SC QAM [facility] Stop: 09/12/21 08:59 Insulin Human NPH (Insulin Human Nph) 27 units SC QAM [facility] Stop: 09/11/21 08:59 Last Admin: 08/12/21 08:47 Dose: 27 units Documented by: Ipratropium [place] (Ipratropium [place] Hfa Inhaler) 1 puffs INH Q4R PRN PRN Reason: Shortness Of Breath Or Wheezing Stop: 09/09/21 08:27 Lamotrigine (Lamotrigine 100 Mg Tab) 200 mg PO DAILY [facility] Stop: 09/05/21 08:59 Last Admin: 08/12/21 08:46 Dose: 200 mg Documented by: Metoprolol Tartrate (Metoprolol Tartrate 50 Mg Tab) 50 mg PO BID [facility] Stop: 09/04/21 22:15 Last Admin: 08/12/21 08:44 Dose: 50 mg Documented by: Miscellaneous (Carbohydrates For Hypoglycemia ) 15 - 30 gm PO UD PRN PRN Reason: Hypoglycemia Protocol Stop: 09/04/21 22:15 Miscellaneous Information (Pharmacy Glycemic Mgmt Consult) 1 ea N/A UD PRN; Protocol PRN Reason: Consult Stop: 09/04/21 22:15 Multivitamins (Multivitamin Tab) 1 tab PO BID [facility] Stop: 09/04/21 22:15 Last Admin: 08/12/21 08:46 Dose: 1 tab Documented by: Nitroglycerin (Nitroglycerin Sl 0.4 Mg/Tab Tab) 0.4 mg SL UD PRN PRN Reason: Chest Pain Stop: 09/04/21 22:15 Nystatin (Nystatin Susp 500,000 U/5 Ml Udc) 5 ml PO QID [facility] Stop: 08/19/21 16:59 Last Admin: 08/12/21 08:47 Dose: 5 ml Documented by: Ondansetron HCl (Ondansetron Inj 2 Mg/Ml 2 Ml Vial) 4 mg IV Q6H PRN PRN Reason: Nausea Stop: 09/04/21 22:15 Polyethylene Glycol (Polyethylene (Miralax) 17 Gm Pack) 17 gm PO DAILY [facility] Stop: 09/08/21 13:44 Last Admin: 08/12/21 08:50 Dose: 17 gm Documented by: Rosuvastatin Calcium (Rosuvastatin Calcium 20 Mg Tab) 40 mg PO PM [facility] Stop: 09/04/21 22:15 Last Admin: 09/28/21 20:11 Dose: 40 mg Documented by: PG Care Time/CCT Total # of Minutes Spent Total Time Spent with Patient: Total time spent is greater than 50% in coordination of care (as documented) at patient's floor/unit and/or counseling patient: Coding Level of Care Code 22141 Subseq Hosp Care Lvl 3 Diagnoses Pneumonia due to 2019-nCoV U07.1; J12.82 Acute respiratory failure with hypoxia J96.01 Non-ST elevation MD (NSTEMI) I21.4 Acute systolic CHF (congestive heart failure) I50.21 Sepsis A41.9 Hx of CABG Z95.1 Bipolar disorder F31.9 S/P splenectomy Z90.81 Chronic kidney disease, stage III (moderate) N18.3 Diabetes mellitus, type 2 E11.9 Post concussion syndrome F07.81 Metabolic encephalopathy G93.41 DVT prophylaxis Z29.9
--- NOTE | 2021-08-12 10:28 | Pharmacy Report ---
Pharmacy Glycemic Short Note 2 - Date of Service August 12, 2021 - Glycemic Short BSG Results (Last 24 hours): 08/11/21 08/11/21 08/11/21 11:45 16:42 20:34 Glucose POC Glucose 173 H 250 H 233 H 08/12/21 08/12/21 08/12/21 02:00 07:27 07:53 Glucose 102 H POC Glucose 132 H 104 H OUTPATIENT ANTIDIABETIC REGIMEN: * Lantus 6 units SQ daily * Novolin R per sliding scale (5-15 units per meal) * Metformin 1000mg PO BID * A1c = 7.3% ASSESSMENT: 08/12 * Last day of dexamethasone today- Will taper insulin tomorrow back to outpatient dosing of Lantus 6 units and loosen NovoLog parameters. Last dose of NPH today with dexamethasone. * Most BSGs above 180mg/dl yesterday - will increase NPH from 23 to 27 units and then dc tomorrow. Also tighten CR slightly from 4 to 3.5 * Fasting BSG in goal range - no changes needed to Lantus 08/11 * Pt has received 86 units of insulin over the past 24hrs * 13 units of basal with Lantus * 23 units of NPH for steroid induced hyperglycemia with dexamethasone 6mg IV daily in AM * 50 units of bolus with NovoLog * BSGs [phone] mg/dl * All BSGs in goal range. No changes needed at this time. 08/10 * 86 units SQ given over last 24 hours while tolerating a diet * Fasting BSG at goal this AM, FBS 116, with 13 units Lantus and 23 units NPH given yesterday. - Will continue basal doses * Post-prandial hyperglycemia noted 3 of 3 checks yesterday - will increase prandial Novolog doses today, maintain same NPH dose * Will decrease HS and overnight Novolog doses to decrease risk of fasting AM hypoglycemia if overcorrected at these times of day as steroid induced insulin resistant less at these times PLAN FOR INPATIENT GLYCEMIC CONTROL: * Hold outpatient oral diabetes medications (metformin) * Basal insulin * Lantus 13 units SQ Q AM * NPH 27 units daily in the AM when IV dexamethasone given * Bolus insulin * NovoLog per scale ACHS and at 0200 * Goal Range: Low 110 mg/dL - High 140 mg/dL * Correction Factor: 12 mg/dL/unit with meals; 25mg/dL/unit at HS and overnight * Nutritional / Prandial insulin per carb ratio of 1 unit per 3.5 grams CHO consumed w/ meals; 1 unit per 8 grams CHO consumed HS PLAN FOR DISCHARGE: * A1c 7.3% is at or near goal for this patient given age. Would recommend resuming outpt insulin and metformin regimen on discharge if not experiencing hypoglycemic episodes and if no contraindications to metformin therapy present at time of discharge.
[2021-08-12] MEDS: ROSUVASTATIN CALCIUM 20 MG TAB PO SCH (22:02)
[2021-08-13] MEDS: AZITHROMYCIN 500 MG in DEXTROSE 5% 250 ML IV SCH (00:57)
[2021-08-13] MEDS: ENOXAPARIN INJ 60 MG/0.6 ML SYR SQ SCH ×2 (06:14→17:54)
[2021-08-13] MEDS: INSULIN ASPART 100 UNITS/ML 3 ML PEN SC SCH ×4 (08:43→20:47)
[2021-08-13] MEDS: INSULIN HUMAN NPH SC SCH (08:44)
[2021-08-13] MEDS: INSULIN GLARGINE SOLOSTAR 100 UNITS/ML 3 ML PEN SC SCH (08:44)
[2021-08-13] MEDS: ASPIRIN 81 MG ECTAB PO SCH (08:47)
[2021-08-13] MEDS: NYSTATIN SUSP 500,000 U/5 ML UDC PO SCH ×4 (08:47→20:43)
[2021-08-13] MEDS: dexAMETHasone 6 MG in SYRINGE 0 ML IV SCH (08:47)
[2021-08-13] MEDS: lamoTRIgine 100 MG TAB PO SCH (08:48)
[2021-08-13] MEDS: CLOPIDOGREL BISULFATE 75 MG TAB PO SCH (08:48)
[2021-08-13] MEDS: METOPROLOL TARTRATE 50 MG TAB PO SCH ×2 (08:48→20:43)
[2021-08-13] MEDS: DIVALPROEX DELAY RELEASE 500 MG TAB PO SCH ×2 (08:49→20:42)
[2021-08-13] MEDS: FAMOTIDINE 20 MG TAB PO SCH ×2 (08:49→20:42)
[2021-08-13] MEDS: POLYETHYLENE (MIRALAX) 17 GM PACK PO SCH (08:49)
[2021-08-13] MEDS: MULTIVITAMIN TAB PO SCH ×2 (08:49→20:41)
[2021-08-13] MEDS: guaiFENesin 600 MG TABCR PO SCH ×2 (08:49→20:41)
[2021-08-13 09:00] LABS: BUN Creatinine Ratio 37.3 (10-20); Calcium 9.3 mg/dl (8.5-10.1); Creatinine Clr Calc Pharmacy 35.6 ml/min; Est GFR (African American) 40.9 ml/min; Est GFR (Non-African American) 35.3 ml/min; Potassium 4.4 mmol/L (3.5-5.1)
[2021-08-13] MEDS ORDERED: INSULIN GLARGINE SOLOSTAR 100 UNITS/ML 3 ML PEN SC SCH (09:00)
[2021-08-13] MEDS: FUROSEMIDE 40 MG/4 ML VIAL IV SCH (09:12)
[2021-08-13] MEDS: 2 mg Once Daily x14 days PO SCH (09:53)
--- NOTE | 2021-08-13 10:44 | Pharmacy Report ---
Pharmacy Glycemic Short Note 2 - Date of Service August 13, 2021 - Glycemic Short BSG Results (Last 24 hours): 08/12/21 08/12/21 08/12/21 12:03 16:35 19:47 Glucose POC Glucose 203 H 169 H 153 H 08/13/21 08/13/21 07:42 07:51 Glucose 95 POC Glucose 114 H OUTPATIENT ANTIDIABETIC REGIMEN: * Lantus 6 units SQ daily * Novolin R per sliding scale (5-15 units per meal) * Metformin 1000mg PO BID * A1c = 7.3% ASSESSMENT: 08/13 * Error in assessment yesterday - day 10 of dexamethasone will be tomorrow 08/14. Will taper insulin 08/15 after steroids dc * BSGs [phone] over the past 24hrs. All in range other than pre- lunch BSG. Just tightened CR yesterday- will increase NPH slightly today. 08/12 * Last day of dexamethasone today- Will taper insulin tomorrow back to outpatie nt dosing of Lantus 6 units and loosen NovoLog parameters. Last dose of NPH today with dexamethasone. * Most BSGs above 180mg/dl yesterday - will increase NPH from 23 to 27 units and then dc tomorrow. Also tighten CR slightly from 4 to 3.5 * Fasting BSG in goal range - no changes needed to Lantus 08/11 * Pt has received 86 units of insulin over the past 24hrs * 13 units of basal with Lantus * 23 units of NPH for steroid induced hyperglycemia with dexamethasone 6mg IV daily in AM * 50 units of bolus with NovoLog * BSGs [phone] mg/dl * All BSGs in goal range. No changes needed at this time. 08/10 * 86 units SQ given over last 24 hours while tolerating a diet * Fasting BSG at goal this AM, FBS 116, with 13 units Lantus and 23 units NPH given yesterday. - Will continue basal doses * Post-prandial hyperglycemia noted 3 of 3 checks yesterday - will increase prandial Novolog doses today, maintain same NPH dose * Will decrease HS and overnight Novolog doses to decrease risk of fasting AM hypoglycemia if overcorrected at these times of day as steroid induced insulin resistant less at these times PLAN FOR INPATIENT GLYCEMIC CONTROL: * Hold outpatient oral diabetes medications (metformin) * Basal insulin * Lantus 13 units SQ Q AM * increase NPH from 27 to 30 units daily in the AM when IV dexamethasone given * Bolus insulin * NovoLog per scale ACHS and at 0200 * Goal Range: Low 110 mg/dL - High 140 mg/dL * Correction Factor: 15 mg/dL/unit with meals; 25mg/dL/unit at HS and overnight * Nutritional / Prandial insulin per carb ratio of 1 unit per 3.5 grams CHO consumed w/ meals; 1 unit per 8 grams CHO consumed HS PLAN FOR DISCHARGE: * A1c 7.3% is at or near goal for this patient given age. Would recommend resuming outpt insulin and metformin regimen on discharge if not experiencing hypoglycemic episodes and if no contraindications to metformin therapy present at time of discharge.
--- NOTE | 2021-08-13 11:05 | Hospitalist Progress Note ---
Date of Service August 13, 2021 Assessment & Plan (1) Pneumonia due to 2019-nCoV: Plan: Severe. Was on high-flow NC -- continue to diurese aggressively today he remains stable on 12L oxy mask, no distress at all will try to get him OOB to a chair increased Lasix to 40mg IV BID for two days, good response, Cr is 1.7 again today Lasix daily on 08/12 and 08/13 Patient was fully vaccinated - thus this is a "breakthrough" case. 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 Given his escalating O2 requirements, elevated CRP, etc he was felt to be a candidate for immune-based therapy. * cont baricitinib 2mg daily up to 14 days; day #6 today, can stop baricitinib on discharge * cont dexamethasone IV daily; day 9 today * completed 5 days of Remdesivir * cont flutter and incentive * he cannot prone -- thus, continue to encourage side positioning * procal mildly high at admission - and given asplenic state - could have bacterial superinfection; completed 7 days of Rocephin and Zithromax * DVT proph - Lovenox (2) Acute respiratory failure with hypoxia: Plan: 2nd to COVID-19 pneumonia and acute systolic CHF. Can't exclude bacterial component (procal elevated, copious purulent sputum, asplenic state). improved down to 9L mask, no distress at all would really benefit from prone position but he cannot lay like that, he can lay on right side will continue to diurese with Lasix, get OOB to chair, ambulate (3) Non-ST elevation ND (NSTEMI): Plan: EKGs at admission showed anterior T wave inversions. Prior EKGs demonstrated either upright or mildly flat T waves anteriorly. His troponin was already high at time of ER presentation (1.6, trending down to 1 thereafter). Possible he could have had a small NSTEMI event in the days leading up to the admission. Echo shows old inferior wall akinesis with low-normal EF 50-55% His grafts are 27 years old and thus there is a strong likelihood that one or more grafts could be significantly diseased. treated as if he had small NSTEMI. completed 3 days of heparin drip, now on Lovenox Cont Asa, plavix, BB, statin. LDL 98 in May 2021 - is on max dose of crestor. LDL rechecked and remains <70. (4) Acute systolic CHF (congestive heart failure): Plan: increased lasix 40mg IV to BID on 08/10 and 08/11 back to 40mg IV daily Cr is still 1.7 today responded very well, negative 3.5 liters the past two days CXR 08/11 without obvious pulmonary edema (5) Sepsis: Plan: 2nd to COVID-19 pneumonia, possible bacterial pneumonia component, etc. Sepsis resolved quickly Cont supportive care, IV abx, etc. Blood cultures cont to be negative. 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 No stents or ND events since. Follows w/ Dr Balbuena [facility] Cardiology. Now with probable mild NSTEMI. (7) Bipolar disorder: Plan: Cont Depakote. Cont Lamictal. Depakote level 40 on 08/05/21. Son reports he has not seen psych in some time - will need to get him linked back up with psychiatry post-d/c. 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 combo of NPH, lantus, and novolog. monitor for hypoglycemia, no episodes (11) Post concussion syndrome: Plan: following with [facility] concussion clinic and [facility] neurology locally. concussion occurred early summer 2020 - fell & struck his head at home. some mild memory difficulties & cognitive issues since then. wants him to get back to physical therapy once stable, will order PT/OT today (12) Metabolic encephalopathy: Plan: improved; orientation improved (13) DVT prophylaxis: Plan: Lovenox 0.5mg/kg q12 Plan: sonJerald - lives in [facility] - extensively updated by phone 08/[address] Rutherford extensively updated by phone every day PT OT initiated, getting OOB in chair for meals, ambulated a few steps likely needs rehab, is looking into [facility] Admission and Anticipated Discharge Date Admission Date: August 05, 2021 Subjective patient doing really well today, likely his best day so far down to 9L on the mask, no distress eating well, was up in the chair this morning, tolerating lasix every morning Cr is 1.7 again today, no chest pain, no fever, minimal cough he has a lot more energy, sleeping really well at night he agrees to consider going to [facility] for rehab, discussed that he would be in the hospital through the weekend Review of Systems Review of Systems: All systems reviewed & are unremarkable except as noted in Subjective Respiratory: + dyspnea on exertion; no cough and no dyspnea Cardiovascular: no chest pain and no edema Gastrointestinal: + constipation; no abdominal pain, no nausea, no vomiting and no diarrhea/loose stools Physical Exam Physical Exam: General: well developed, well nourished, elderly male, comfortable, no distress Neck: supple, trachea midline, normal thyroid Lungs: clear to auscultation bilaterally, normal respiratory effort, no accessory muscle use, no distress Heart: regular S1 and S2, no murmur, peripheral pulses normal, capillary refill normal, no edema Abdomen: soft, NT, ND, + BS, no hepatomegaly, normal to percussion Extremities: normal in appearance, no cyanosis, no petechiae, strength is 5/5 bilaterally Neuro: awake, cooperative, moves all extremities, no focal motor deficits, CN II-XII intact, sensation in extremities intact, normal speech Skin: warm, dry, no rash, normal turgor Psych: Awake, alert oriented x 3, euthymic affect Results & Data Results & Data ([facility]) Vital Signs (Past 12 Hours) Vital Signs Temp Pulse Resp BP Pulse Ox 08/13/21 07:43 37.0 C 51 L 19 116/58 L 91 08/13/21 03:35 37.0 C 51 L 20 115/56 L 94 Laboratory Results Laboratory Results - last 24 hr 08/12/21 08/12/21 08/12/21 12:03 16:35 19:47 Sodium Potassium Chloride Carbon Dioxide Anion Gap BUN Creatinine Est Cr Clr Drug Dosing Est GFR ( Amer) Est GFR (Non-Af Amer) BUN/Creatinine Ratio Glucose POC Glucose 203 H 169 H 153 H Calcium 08/13/21 08/13/21 07:42 07:51 Sodium 134 L Potassium 4.4 Chloride 99 Carbon Dioxide 29 Anion Gap 7.0 BUN 67 H Creatinine 1.79 H Est Cr Clr Drug Dosing 35.6 Est GFR ( Amer) 40.9 Est GFR (Non-Af Amer) 35.3 BUN/Creatinine Ratio 37.3 H Glucose 95 POC Glucose 114 H Calcium 9.3 Medications Administered Current Inpatient Medications Acetaminophen (Acetaminophen 325 Mg Tab) 650 mg PO Q4H PRN PRN Reason: Pain or Fever Stop: 09/04/21 22:15 Last Admin: 08/07/21 11:32 Dose: 650 mg Documented by: Al Hydrox/Mg Hydrox/Simethicone (Aluminum/Magnesium Susp 30 Ml Udc) 15 ml PO Q4H PRN PRN Reason: Dyspepsia Stop: 09/04/21 22:15 Albuterol (Albuterol Hfa 8 Gm Inhaler) 1 puffs INH Q4R PRN PRN Reason: Shortness Of Breath Or Wheezing Stop: 09/09/21 08:27 Aspirin (Aspirin 81 Mg Ectab) 81 mg PO QAM [facility] Stop: 09/05/21 08:59 Last Admin: 08/13/21 08:47 Dose: 81 mg Documented by: Baricitinib (2 Mg Once Daily X14 Days) 2 mg PO DAILY [facility]; Protocol Stop: 08/21/21 23:59 Last Admin: 08/13/21 09:53 Dose: 2 mg Documented by: Clopidogrel Bisulfate (Clopidogrel Bisulfate 75 Mg Tab) 75 mg PO QAM [facility] Stop: 09/05/21 08:59 Last Admin: 08/13/21 08:48 Dose: 75 mg Documented by: Dextrose (Dextrose 50% 50 Ml Syringe) 25 - 50 ml IV UD PRN; Protocol PRN Reason: Hypoglycemia Protocol Stop: 09/04/21 22:15 Divalproex Sodium (Divalproex Delay Release 500 Mg Tab) 500 mg PO BID [facility] Stop: 09/04/21 22:15 Last Admin: 08/13/21 08:49 Dose: 500 mg Documented by: Enoxaparin Sodium (Enoxaparin Inj 60 Mg/0.6 Ml Syr) 50 mg SQ Q12H [facility]; Protocol Stop: 09/09/21 16:59 Last Admin: 08/13/21 06:14 Dose: 50 mg Documented by: Famotidine (Famotidine 20 Mg Tab) 20 mg PO BID [facility] Stop: 09/04/21 22:15 Last Admin: 08/13/21 08:49 Dose: 20 mg Documented by: Furosemide (Furosemide 40 Mg/4 Ml Vial) 40 mg IV DAILY [facility] Stop: 09/12/21 08:59 Last Admin: 08/13/21 09:12 Dose: 40 mg Documented by: Glucagon (Glucagon For Inj 1 Mg Vial) 1 mg SQ UD PRN; Protocol PRN Reason: Hypoglycemia Protocol Stop: 09/04/21 22:15 Glucose (Glucose 10 Tabs/Tube) 4 - 8 tabs PO UD PRN; Protocol PRN Reason: Hypoglycemia Protocol Stop: 09/04/21 22:15 Glucose (Glucose 40% Gel 15 Gm Tube) 15 - 30 gm PO UD PRN; Protocol PRN Reason: Hypoglycemia Protocol Stop: 09/04/21 22:15 Guaifenesin (Guaifenesin 600 Mg Tabcr) 600 mg PO Q12 [facility] Stop: 09/06/21 20:59 Last Admin: 08/13/21 08:49 Dose: 600 mg Documented by: Dexamethasone 6 mg/ Syringe 1.5 mls @ 1 mls/min IV DAILY [facility] Stop: 08/14/21 12:00 Last Admin: 08/13/21 08:47 Dose: 1 mls/min Documented by: Insulin Aspart (Insulin Aspart 100 Units/Ml 3 Ml Pen) 0 units SC AC [facility] Stop: 09/09/21 07:29 Last Admin: 08/13/21 08:43 Dose: 21 units Documented by: Insulin Aspart (Insulin Aspart 100 Units/Ml 3 Ml Pen) 0 units SC 2100 [facility] Stop: 09/11/21 20:59 Last Admin: 08/12/21 22:03 Dose: Not Given Documented by: Insulin Glargine (Insulin Glargine Solostar 100 Units/Ml 3 Ml Pen) 13 units SC QAM [facility] Stop: 09/07/21 09:44 Last Admin: 08/13/21 08:44 Dose: 13 units Documented by: Insulin Human NPH (Insulin Human [facility]ph) [facility] Stop: 08/14/21 12:00 Last Admin: 08/13/21 08:44 Dose: 30 units Documented by: Ipratropium [place] (Ipratropium [place] Hfa Inhaler) 1 puffs INH Q4R PRN PRN Reason: Shortness Of Breath Or Wheezing Stop: 09/09/21 08:27 Lamotrigine (Lamotrigine 100 Mg Tab) 200 mg PO DAILY [facility] Stop: 09/05/21 08:59 Last Admin: 08/13/21 08:48 Dose: 200 mg Documented by: Metoprolol Tartrate (Metoprolol Tartrate 50 Mg Tab) 50 mg PO BID [facility] Stop: 09/04/21 22:15 Last Admin: 08/13/21 08:48 Dose: 50 mg Documented by: Miscellaneous (Carbohydrates For Hypoglycemia ) 15 - 30 gm PO UD PRN PRN Reason: Hypoglycemia Protocol Stop: 09/04/21 22:15 Miscellaneous Information (Pharmacy Glycemic Mgmt Consult) 1 ea N/A UD PRN; Protocol PRN Reason: Consult Stop: 09/04/21 22:15 Multivitamins (Multivitamin Tab) 1 tab PO BID [facility] Stop: 09/04/21 22:15 Last Admin: 08/13/21 08:49 Dose: 1 tab Documented by: Nitroglycerin (Nitroglycerin Sl 0.4 Mg/Tab Tab) 0.4 mg SL UD PRN PRN Reason: Chest Pain Stop: 09/04/21 22:15 Nystatin (Nystatin Susp 500,000 U/5 Ml Udc) 5 ml PO QID [facility] Stop: 08/19/21 16:59 Last Admin: 08/13/21 08:47 Dose: 5 ml Documented by: Ondansetron HCl (Ondansetron Inj 2 Mg/Ml 2 Ml Vial) 4 mg IV Q6H PRN PRN Reason: Nausea Stop: 09/04/21 22:15 Polyethylene Glycol (Polyethylene (Miralax) 17 Gm Pack) 17 gm PO DAILY [facility] Stop: 09/08/21 13:44 Last Admin: 08/13/21 08:49 Dose: 17 gm Documented by: Rosuvastatin Calcium (Rosuvastatin Calcium 20 Mg Tab) 40 mg PO PM [facility] Stop: 09/04/21 22:15 Last Admin: 08/12/21 22:02 Dose: 40 mg Documented by: PG Care Time/CCT Total # of Minutes Spent Total Time Spent with Patient: Total time spent is greater than 50% in coordination of care (as documented) at patient's floor/unit and/or counseling patient: Coding Level of Care Code 62424 Subseq Hosp Care Lvl 3 Diagnoses Pneumonia due to 2019-nCoV U07.1; J12.82 Acute respiratory failure with hypoxia J96.01 Non-ST elevation ND (NSTEMI) I21.4 Acute systolic CHF (congestive heart failure) I50.21 Sepsis A41.9 Hx of CABG Z95.1 Bipolar disorder F31.9 S/P splenectomy Z90.81 Chronic kidney disease, stage III (moderate) N18.3 Diabetes mellitus, type 2 E11.9 Post concussion syndrome F07.81 Metabolic encephalopathy G93.41 DVT prophylaxis Z29.9
[2021-08-13] MEDS: ROSUVASTATIN CALCIUM 20 MG TAB PO SCH (20:43)
[2021-08-14] MEDS ORDERED: LORazepam 0.25 MG/0.5 ML VIAL IV STA (00:31)
[2021-08-14] MEDS: ENOXAPARIN INJ 60 MG/0.6 ML SYR SQ SCH ×2 (06:22→18:02)
[2021-08-14 07:49] LABS: BUN Creatinine Ratio 32.4 (10-20); Calcium 9.1 mg/dl (8.5-10.1); Creatinine Clr Calc Pharmacy 32.1 ml/min; Est GFR (African American) 35.9 ml/min; Potassium 4.5 mmol/L (3.5-5.1)
[2021-08-14] MEDS: NYSTATIN SUSP 500,000 U/5 ML UDC PO SCH ×4 (08:49→21:53)
[2021-08-14] MEDS: METOPROLOL TARTRATE 50 MG TAB PO SCH ×2 (08:50→21:59)
[2021-08-14] MEDS: lamoTRIgine 100 MG TAB PO SCH (08:50)
[2021-08-14] MEDS: MULTIVITAMIN TAB PO SCH ×2 (08:50→22:01)
[2021-08-14] MEDS: CLOPIDOGREL BISULFATE 75 MG TAB PO SCH (08:51)
[2021-08-14] MEDS: ASPIRIN 81 MG ECTAB PO SCH (08:51)
[2021-08-14] MEDS: DIVALPROEX DELAY RELEASE 500 MG TAB PO SCH ×2 (08:51→22:00)
[2021-08-14] MEDS: FAMOTIDINE 20 MG TAB PO SCH ×2 (08:51→22:01)
[2021-08-14] MEDS: guaiFENesin 600 MG TABCR PO SCH ×2 (08:52→21:53)
[2021-08-14] MEDS: dexAMETHasone 6 MG in SYRINGE 0 ML IV SCH (08:52)
[2021-08-14] MEDS: INSULIN GLARGINE SOLOSTAR 100 UNITS/ML 3 ML PEN SC SCH (09:00)
[2021-08-14] MEDS: INSULIN HUMAN NPH SC SCH (09:00)
[2021-08-14] MEDS: INSULIN ASPART 100 UNITS/ML 3 ML PEN SC SCH ×4 (09:00→21:55)
[2021-08-14] MEDS: POLYETHYLENE (MIRALAX) 17 GM PACK PO SCH (09:05)
[2021-08-14] MEDS: FUROSEMIDE 40 MG/4 ML VIAL IV SCH (09:30)
[2021-08-14] MEDS: 2 mg Once Daily x14 days PO SCH (12:04)
--- NOTE | 2021-08-14 12:39 | Hospitalist Progress Note ---
Date of Service August 14, 2021 Assessment & Plan (1) Pneumonia due to 2019-nCoV: Plan: Severe. Was on high-flow NC -- continue to diurese aggressively today he is down to 7L oxy mask, no distress at all OOB to chair, moving more, better strength Cr up to 1.9 from 1.7, will hold Lasix tomorrow Lasix daily on 08/12 and 08/13, got BID dosing on 08/10 and 08/11 Patient was fully vaccinated - thus this is a "breakthrough" case. 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 Given his escalating O2 requirements, elevated CRP, etc he was felt to be a candidate for immune-based therapy. * cont baricitinib 2mg daily up to 14 days; day #7 today, can stop baricitinib on discharge * completed dexamethasone IV daily for 10 days on 08/14 * completed 5 days of Remdesivir * cont flutter and incentive * he cannot prone -- thus, continue to encourage side positioning * procal mildly high at admission - and given asplenic state - could have bacterial superinfection; completed 7 days of Rocephin and Zithromax * DVT proph - Lovenox (2) Acute respiratory failure with hypoxia: Plan: 2nd to COVID-19 pneumonia and acute systolic CHF. Can't exclude bacterial component (procal elevated, copious purulent sputum, asplenic state). improved down to 7L mask, no distress at all would really benefit from prone position but he cannot lay like that, he can lay on right side hold lasix tomorrow due to Cr of 1.9 (3) Non-ST elevation [place] (NSTEMI): Plan: EKGs at admission showed anterior T wave inversions. Prior EKGs demonstrated either upright or mildly flat T waves anteriorly. His troponin was already high at time of ER presentation (1.6, trending down to 1 thereafter). Possible he could have had a small NSTEMI event in the days leading up to the admission. Echo shows old inferior wall akinesis with low-normal EF 50-55% His grafts are 27 years old and thus there is a strong likelihood that one or more grafts could be significantly diseased. treated as if he had small NSTEMI. completed 3 days of heparin drip, now on Lovenox Cont Asa, plavix, BB, statin. LDL 98 in May 2021 - is on max dose of crestor. LDL rechecked and remains <70. (4) Acute systolic CHF (congestive heart failure): Plan: increased lasix 40mg IV to BID on 08/10 and 08/11 back to 40mg IV daily on 08/12 and 08/13 and 08/14 Cr is 1.0 hold Lasix tomorrow, check BMP negative fluid balance every day CXR 08/11 without obvious pulmonary edema (5) Sepsis: Plan: 2nd to COVID-19 pneumonia, possible bacterial pneumonia component, etc. Sepsis resolved quickly Cont supportive care, IV abx, etc. Blood cultures cont to be negative. 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 No stents or [place] events since. Follows w/ Dr Balbuena [facility] Card[facility]. Now with probable mild NSTEMI. (7) Bipolar disorder: Plan: Cont Depakote. Cont Lamictal. Depakote level 40 on 08/05/21. Son reports he has not seen psych in some time - will need to get him linked back up with psychiatry post-d/c. 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 combo of NPH, lantus, and novolog. monitor for hypoglycemia, no episodes (11) Post concussion syndrome: Plan: following with [facility] concussion clinic and [facility] neurology locally. concussion occurred early summer 2020 - fell & struck his head at home. some mild memory difficulties & cognitive issues since then. wants him to get back to physical therapy once stable PTOT ordered, he wants to go to [facility] (12) Metabolic encephalopathy: Plan: improved; orientation improved (13) DVT prophylaxis: Plan: Lovenox 0.5mg/kg q12 Plan: sonJerald - lives in [facility] - extensively updated by phone 08/[address] Rutherford extensively updated by phone every day PT OT initiated, getting OOB in chair for meals, ambulated a few steps likely needs rehab, is looking into [facility] Admission and Anticipated Discharge Date Admission Date: August 05, 2021 Subjective patient is doing really well, down to 7L and was then down to 5L eating really well, sitting up in a chair, ambulating with therapy minimal cough, no fever Cr up to 1.9, discussed that we will hold AM Sharita called his Melly and provided update Review of Systems Review of Systems: All systems reviewed & are unremarkable except as noted in Subjective Constitutional: no fever and no body aches Respiratory: + dyspnea and + dyspnea on exertion; no cough Cardiovascular: no chest pain and no edema Physical Exam Physical Exam: General: well developed, well nourished, elderly male, comfortable, no distress Neck: supple, trachea midline, normal thyroid Lungs: clear to auscultation bilaterally, normal respiratory effort, no accessory muscle use, no distress Heart: regular S1 and S2, no murmur, peripheral pulses normal, capillary refill normal, no edema Abdomen: soft, NT, ND, + BS, no hepatomegaly, normal to percussion Extremities: normal in appearance, no cyanosis, no petechiae, strength is 5/5 bilaterally Neuro: awake, cooperative, moves all extremities, no focal motor deficits, CN II-XII intact, sensation in extremities intact, normal speech Skin: warm, dry, no rash, normal turgor Psych: Awake, alert oriented x 3, euthymic affect Results & Data Results & Data ([facility]) Vital Signs (Past 12 Hours) Vital Signs Temp Pulse Pulse Resp BP Pulse Ox 08/14/21 11:21 36.5 C 71 18 101/60 95 08/14/21 08:00 61 08/14/21 07:08 36.4 C L 52 L 18 107/53 L 95 08/14/21 03:25 37.0 C 53 L 17 118/53 L 96 Laboratory Results Laboratory Results - last 24 hr 08/13/21 08/13/21 08/14/21 16:49 20:01 06:56 Sodium 135 L Potassium 4.5 Chloride 100 Carbon Dioxide 30 Anion Gap 5.0 BUN 65 H Creatinine 1.99 H Est Cr Clr Drug Dosing 32.1 Est GFR ( Amer) 35.9 Est GFR (Non-Af Amer) 31.0 BUN/Creatinine Ratio 32.4 H Glucose 92 POC Glucose 114 H 180 H Calcium 9.1 08/14/21 08/14/21 07:06 11:19 Sodium Potassium Chloride Carbon Dioxide Anion Gap BUN Creatinine Est Cr Clr Drug Dosing Est GFR ( Amer) Est GFR (Non-Af Amer) BUN/Creatinine Ratio Glucose POC Glucose 110 H 228 H Calcium Medications Administered Current Inpatient Medications Acetaminophen (Acetaminophen 325 Mg Tab) 650 mg PO Q4H PRN PRN Reason: Pain or Fever Stop: 09/04/21 22:15 Last Admin: 08/07/21 11:32 Dose: 650 mg Documented by: Al Hydrox/Mg Hydrox/Simethicone (Aluminum/Magnesium Susp 30 Ml Udc) 15 ml PO Q4H PRN PRN Reason: Dyspepsia Stop: 09/04/21 22:15 Albuterol (Albuterol Hfa 8 Gm Inhaler) 1 puffs INH Q4R PRN PRN Reason: Shortness Of Breath Or Wheezing Stop: 09/09/21 08:27 Aspirin (Aspirin 81 Mg Ectab) 81 mg PO QAM [facility] Stop: 09/05/21 08:59 Last Admin: 08/14/21 08:51 Dose: 81 mg Documented by: Baricitinib (2 Mg Once Daily X14 Days) 2 mg PO DAILY [facility]; Protocol Stop: 08/21/21 23:59 Last Admin: 08/14/21 12:04 Dose: 2 mg Documented by: Clopidogrel Bisulfate (Clopidogrel Bisulfate 75 Mg Tab) 75 mg PO QAM [facility] Stop: 09/05/21 08:59 Last Admin: 08/14/21 08:51 Dose: 75 mg Documented by: Dextrose (Dextrose 50% 50 Ml Syringe) 25 - 50 ml IV UD PRN; Protocol PRN Reason: Hypoglycemia Protocol Stop: 09/04/21 22:15 Divalproex Sodium (Divalproex Delay Release 500 Mg Tab) 500 mg PO BID [facility] Stop: 09/04/21 22:15 Last Admin: 08/14/21 08:51 Dose: 500 mg Documented by: Enoxaparin Sodium (Enoxaparin Inj 60 Mg/0.6 Ml Syr) 50 mg SQ Q12H [facility]; Protocol Stop: 09/09/21 16:59 Last Admin: 08/14/21 06:22 Dose: 50 mg Documented by: Famotidine (Famotidine 20 Mg Tab) 20 mg PO BID [facility] Stop: 09/04/21 22:15 Last Admin: 08/14/21 08:51 Dose: 20 mg Documented by: Glucagon (Glucagon For Inj 1 Mg Vial) 1 mg SQ UD PRN; Protocol PRN Reason: Hypoglycemia Protocol Stop: 09/04/21 22:15 Glucose (Glucose 10 Tabs/Tube) 4 - 8 tabs PO UD PRN; Protocol PRN Reason: Hypoglycemia Protocol Stop: 09/04/21 22:15 Glucose (Glucose 40% Gel 15 Gm Tube) 15 - 30 gm PO UD PRN; Protocol PRN Reason: Hypoglycemia Protocol Stop: 09/04/21 22:15 Guaifenesin (Guaifenesin 600 Mg Tabcr) 600 mg PO Q12 [facility] Stop: 09/06/21 20:59 Last Admin: 08/14/21 08:52 Dose: 600 mg Documented by: Insulin Aspart (Insulin Aspart 100 Units/Ml 3 Ml Pen) 0 units SC AC [facility] Stop: 09/09/21 07:29 Last Admin: 08/14/21 09:00 Dose: 20 units Documented by: Insulin Aspart (Insulin Aspart 100 Units/Ml 3 Ml Pen) 0 units SC 2100 [facility] Stop: 09/11/21 20:59 Last Admin: 08/13/21 20:47 Dose: Not Given Documented by: Insulin Glargine (Insulin Glargine Solostar 100 Units/Ml 3 Ml Pen) 13 units SC QAM [facility] Stop: 09/07/21 09:44 Last Admin: 08/14/21 09:00 Dose: 13 units Documented by: Ipratropium [place] (Ipratropium [place] Hfa Inhaler) 1 puffs INH Q4R PRN PRN Reason: Shortness Of Breath Or Wheezing Stop: 09/09/21 08:27 Lamotrigine (Lamotrigine 100 Mg Tab) 200 mg PO DAILY [facility] Stop: 09/05/21 08:59 Last Admin: 08/14/21 08:50 Dose: 200 mg Documented by: Metoprolol Tartrate (Metoprolol Tartrate 50 Mg Tab) 50 mg PO BID [facility] Stop: 09/04/21 22:15 Last Admin: 08/14/21 08:50 Dose: Not Given Documented by: Miscellaneous (Carbohydrates For Hypoglycemia ) 15 - 30 gm PO UD PRN PRN Reason: Hypoglycemia Protocol Stop: 09/04/21 22:15 Miscellaneous Information (Pharmacy Glycemic Mgmt Consult) 1 ea N/A UD PRN; Protocol PRN Reason: Consult Stop: 09/04/21 22:15 Multivitamins (Multivitamin Tab) 1 tab PO BID [facility] Stop: 09/04/21 22:15 Last Admin: 08/14/21 08:50 Dose: 1 tab Documented by: Nitroglycerin (Nitroglycerin Sl 0.4 Mg/Tab Tab) 0.4 mg SL UD PRN PRN Reason: Chest Pain Stop: 09/04/21 22:15 Nystatin (Nystatin Susp 500,000 U/5 Ml Udc) 5 ml PO QID [facility] Stop: 08/19/21 16:59 Last Admin: 08/14/21 08:49 Dose: 5 ml Documented by: Ondansetron HCl (Ondansetron Inj 2 Mg/Ml 2 Ml Vial) 4 mg IV Q6H PRN PRN Reason: Nausea Stop: 09/04/21 22:15 Polyethylene Glycol (Polyethylene (Miralax) 17 Gm Pack) 17 gm PO DAILY [facility] Stop: 09/08/21 13:44 Last Admin: 08/14/21 09:05 Dose: 17 gm Documented by: Rosuvastatin Calcium (Rosuvastatin Calcium 20 Mg Tab) 40 mg PO PM [facility] Stop: 09/04/21 22:15 Last Admin: 08/13/21 20:43 Dose: 40 mg Documented by: PG Care Time/CCT Total # of Minutes Spent Total Time Spent with Patient: Total time spent is greater than 50% in coordination of care (as documented) at patient's floor/unit and/or counseling patient: Coding Level of Care Code 61961 Subseq Hosp Care Lvl 3 Diagnoses Pneumonia due to 2019-nCoV U07.1; J12.82 Acute respiratory failure with hypoxia J96.01 Non-ST elevation [place] (NSTEMI) I21.4 Acute systolic CHF (congestive heart failure) I50.21 Sepsis A41.9 Hx of CABG Z95.1 Bipolar disorder F31.9 S/P splenectomy Z90.81 Chronic kidney disease, stage III (moderate) N18.3 Diabetes mellitus, type 2 E11.9 Post concussion syndrome F07.81 Metabolic encephalopathy G93.41 DVT prophylaxis Z29.9
--- NOTE | 2021-08-14 14:28 | Pharmacy Report ---
Pharmacy Glycemic Short Note 2 - Date of Service August 14, 2021 - Glycemic Short BSG Results (Last 24 hours): 08/13/21 08/13/21 08/14/21 16:49 20:01 06:56 Glucose 92 POC Glucose 114 H 180 H 08/14/21 08/14/21 07:06 11:19 Glucose POC Glucose 110 H 228 H OUTPATIENT ANTIDIABETIC REGIMEN: * Lantus 6 units SQ daily * Novolin R per sliding scale (5-15 units per meal) * Metformin 1000mg PO BID * A1c = 7.3% ASSESSMENT: 08/14 * Patient received total of 96 units of insulin yesterday, of which 30 units were NPH to cover steroids and 13 units basal * Fasting BSG 110 mg/dL - will continue same basal insulin * Last day of DXM, will continue same parameters - will D/C NPH after today and loosen CF/CR starting tomorrow 08/13 * Error in assessment yesterday - day 10 of dexamethasone will be tomorrow 08/14. Will taper insulin 08/15 after steroids dc * BSGs [phone] over the past 24hrs. All in range other than pre- lunch BSG. Just tightened CR yesterday- will increase NPH slightly today. 08/12 * Last day of dexamethasone today- Will taper insulin tomorrow back to outpatient dosing of Lantus 6 units and loosen NovoLog parameters. Last dose of NPH today with dexamethasone. * Most BSGs above 180mg/dl yesterday - will increase NPH from 23 to 27 units and then dc tomorrow. Also tighten CR slightly from 4 to 3.5 * Fasting BSG in goal range - no changes needed to Lantus 08/11 * Pt has received 86 units of insulin over the past 24hrs * 13 units of basal with Lantus * 23 units of NPH for steroid induced hyperglycemia with dexamethasone 6mg IV daily in AM * 50 units of bolus with NovoLog * BSGs [phone] mg/dl * All BSGs in goal range. No changes needed at this time. 08/10 * 86 units SQ given over last 24 hours while tolerating a diet * Fasting BSG at goal this AM, FBS 116, with 13 units Lantus and 23 units NPH given yesterday. - Will continue basal doses * Post-prandial hyperglycemia noted 3 of 3 checks yesterday - will increase prandial Novolog doses today, maintain same NPH dose * Will decrease HS and overnight Novolog doses to decrease risk of fasting AM hypoglycemia if overcorrected at these times of day as steroid induced insulin resistant less at these times PLAN FOR INPATIENT GLYCEMIC CONTROL: * Hold outpatient oral diabetes medications (metformin) * Basal insulin * Lantus 13 units SQ Q AM * increase NPH from 27 to 30 units daily in the AM when IV dexamethasone given - will D/C NPH tomorrow as steroids D/C * Bolus insulin * NovoLog per scale ACHS and at 0200 * Goal Range: Low 110 mg/dL - High 140 mg/dL * Correction Factor: 15 mg/dL/unit with meals; 25mg/dL/unit at HS and overnight * Nutritional / Prandial insulin per carb ratio of 1 unit per 3.5 grams CHO consumed w/ meals; 1 unit per 8 grams CHO consumed HS PLAN FOR DISCHARGE: * A1c 7.3% is at or near goal for this patient given age. Would recommend resuming outpt insulin and metformin regimen on discharge if not experiencing hypoglycemic episodes and if no contraindications to metformin therapy present at time of discharge.
[2021-08-14] MEDS: ROSUVASTATIN CALCIUM 20 MG TAB PO SCH (21:54)
[2021-08-15] MEDS: ENOXAPARIN INJ 60 MG/0.6 ML SYR SQ SCH ×2 (05:51→18:19)
[2021-08-15] MEDS: POLYETHYLENE (MIRALAX) 17 GM PACK PO SCH (09:07)
[2021-08-15] MEDS: ASPIRIN 81 MG ECTAB PO SCH (09:08)
[2021-08-15] MEDS: NYSTATIN SUSP 500,000 U/5 ML UDC PO SCH ×4 (09:08→21:02)
[2021-08-15] MEDS: lamoTRIgine 100 MG TAB PO SCH (09:09)
[2021-08-15] MEDS: FAMOTIDINE 20 MG TAB PO SCH ×2 (09:09→23:11)
[2021-08-15] MEDS: DIVALPROEX DELAY RELEASE 500 MG TAB PO SCH ×2 (09:09→21:00)
[2021-08-15] MEDS: CLOPIDOGREL BISULFATE 75 MG TAB PO SCH (09:09)
[2021-08-15] MEDS: guaiFENesin 600 MG TABCR PO SCH ×2 (09:10→20:59)
[2021-08-15] MEDS: METOPROLOL TARTRATE 50 MG TAB PO SCH ×2 (09:11→20:59)
[2021-08-15] MEDS: INSULIN ASPART 100 UNITS/ML 3 ML PEN SC SCH ×4 (09:54→20:50)
[2021-08-15] MEDS: INSULIN GLARGINE SOLOSTAR 100 UNITS/ML 3 ML PEN SC SCH (09:57)
[2021-08-15] MEDS: MULTIVITAMIN TAB PO SCH ×2 (09:57→21:00)
[2021-08-15] MEDS: 2 mg Once Daily x14 days PO SCH (11:43)
--- NOTE | 2021-08-15 12:40 | Hospitalist Progress Note ---
Date of Service August 15, 2021 Assessment & Plan (1) Pneumonia due to 2019-nCoV: Plan: Severe. Was on high-flow NC -- continue to diurese aggressively today he is down to 3L nasal canula, no distress OOB to chair, moving more, better strength Cr bumped to 1.9 yesterday, Lasix held this morning, awaiting BMP Lasix daily on 08/12 and 08/13, got BID dosing on 08/10 and 08/11 Patient was fully vaccinated - thus this is a "breakthrough" case. 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 Given his escalating O2 requirements, elevated CRP, etc he was felt to be a candidate for immune-based therapy. * cont baricitinib 2mg daily up to 14 days; day #8 today, can stop baricitinib on discharge * completed dexamethasone IV daily for 10 days on 08/14 * completed 5 days of Remdesivir * cont flutter and incentive * he cannot prone -- thus, continue to encourage side positioning * procal mildly high at admission - and given asplenic state - could have bacterial superinfection; completed 7 days of Rocephin and Zithromax * DVT proph - Lovenox (2) Acute respiratory failure with hypoxia: Plan: 2nd to COVID-19 pneumonia and acute systolic CHF. Can't exclude bacterial component (procal elevated, copious purulent sputum, asplenic state). improved a lot since Tuesday, down to 3L NC would really benefit from prone position but he cannot lay like that, he can lay on right side holding Lasix today (3) Non-ST elevation MA (NSTEMI): Plan: EKGs at admission showed anterior T wave inversions. Prior EKGs demonstrated either upright or mildly flat T waves anteriorly. His troponin was already high at time of ER presentation (1.6, trending down to 1 thereafter). Possible he could have had a small NSTEMI event in the days leading up to the admission. Echo shows old inferior wall akinesis with low-normal EF 50-55% His grafts are 27 years old and thus there is a strong likelihood that one or more grafts could be significantly diseased. treated as if he had small NSTEMI. completed 3 days of heparin drip, now on Lovenox Cont Asa, plavix, BB, statin. LDL 98 in May 2021 - is on max dose of crestor. LDL rechecked and remains <70. (4) Acute systolic CHF (congestive heart failure): Plan: increased lasix 40mg IV to BID on 08/10 and 08/11 back to 40mg IV daily on 08/12 and 08/13 and 08/14 Cr is 1.9 hold Lasix today, awaiting repeat BMP negative fluid balance every day CXR 08/11 without obvious pulmonary edema (5) Sepsis: Plan: 2nd to COVID-19 pneumonia, possible bacterial pneumonia component, etc. Sepsis resolved quickly Cont supportive care, IV abx, etc. Blood cultures cont to be negative. 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 No stents or MA events since. Follows w/ Dr Balbuena [facility]. had probable mild NSTEMI., resolved (7) Bipolar disorder: Plan: Cont Depakote. Cont Lamictal. Depakote level 40 on 08/05/21. Son reports he has not seen psych in some time - will need to get him linked back up with psychiatry post-d/c. 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 combo of NPH, lantus, and novolog. monitor for hypoglycemia, no episodes (11) Post concussion syndrome: Plan: following with [facility] conc[facility] and [facility] [place]. concussion occurred early summer 2020 - fell & struck his head at home. some mild memory difficulties & cognitive issues since then. wants him to get back to physical therapy once stable PTOT ordered, he wants to go to [facility] (12) Metabolic encephalopathy: Plan: improved; orientation improved (13) DVT prophylaxis: Plan: Lovenox 0.5mg/kg q12 Plan: sonJerald - lives in [facility] - extensively updated by phone 08/[address] Rutherford extensively updated by phone every day PT OT initiated, getting OOB in chair for meals, ambulated a few steps try for [facility] on Friday 08/17 Admission and Anticipated Discharge Date Admission Date: August 05, 2021 Subjective patient doing great, down to 3L and he is 94%, RN going to get him down to 2L sitting in a chair, eating well, breathing comfortably, sleeping well he says it is remarkable how much better he feels since Tuesday awaiting lab work this morning, will follow up his Cr, held his Lasix this morning discussed that we should pull his andersen, he understands, was nervous about that will call his later Review of Systems Review of Systems: All systems reviewed & are unremarkable except as noted in Subjective Physical Exam Physical Exam: General: well developed, well nourished, elderly male, comfortable, no distress Neck: supple, trachea midline, normal thyroid Lungs: clear to auscultation bilaterally, normal respiratory effort, no accessory muscle use, no distress Heart: regular S1 and S2, no murmur, peripheral pulses normal, capillary refill normal, no edema Abdomen: soft, NT, ND, + BS, no hepatomegaly, normal to percussion Extremities: normal in appearance, no cyanosis, no petechiae, strength is 5/5 bilaterally Neuro: awake, cooperative, moves all extremities, no focal motor deficits, CN II-XII intact, sensation in extremities intact, normal speech Skin: warm, dry, no rash, normal turgor Psych: Awake, alert oriented x 3, euthymic affect Results & Data Results & Data ([facility]) Vital Signs (Past 12 Hours) Vital Signs Temp Pulse Resp BP BP Pulse Ox 08/15/21 12:05 36.5 C 73 20 111/59 L 95 08/15/21 09:11 96 08/15/21 06:10 36.3 C L 54 L 18 133/60 94 08/15/21 04:27 36.6 C 50 L 17 116/58 L 97 Medications Administered Current Inpatient Medications Acetaminophen (Acetaminophen 325 Mg Tab) 650 mg PO Q4H PRN PRN Reason: Pain or Fever Stop: 09/04/21 22:15 Last Admin: 08/07/21 11:32 Dose: 650 mg Documented by: Al Hydrox/Mg Hydrox/Simethicone (Aluminum/Magnesium Susp 30 Ml Udc) 15 ml PO Q4H PRN PRN Reason: Dyspepsia Stop: 09/04/21 22:15 Albuterol (Albuterol Hfa 8 Gm Inhaler) 1 puffs INH Q4R PRN PRN Reason: Shortness Of Breath Or Wheezing Stop: 09/09/21 08:27 Aspirin (Aspirin 81 Mg Ectab) 81 mg PO QAM [facility] Stop: 09/05/21 08:59 Last Admin: 08/15/21 09:08 Dose: 81 mg Documented by: Baricitinib (2 Mg Once Daily X14 Days) 2 mg PO DAILY [facility]; Protocol Stop: 08/21/21 23:59 Last Admin: 08/15/21 11:43 Dose: 2 mg Documented by: Clopidogrel Bisulfate (Clopidogrel Bisulfate 75 Mg Tab) 75 mg PO QAM [facility] Stop: 09/05/21 08:59 Last Admin: 08/15/21 09:09 Dose: 75 mg Documented by: Dextrose (Dextrose 50% 50 Ml Syringe) 25 - 50 ml IV UD PRN; Protocol PRN Reason: Hypoglycemia Protocol Stop: 09/04/21 22:15 Divalproex Sodium (Divalproex Delay Release 500 Mg Tab) 500 mg PO BID [facility] Stop: 09/04/21 22:15 Last Admin: 08/15/21 09:09 Dose: 500 mg Documented by: Enoxaparin Sodium (Enoxaparin Inj 60 Mg/0.6 Ml Syr) 50 mg SQ Q12H [facility]; Protocol Stop: 09/09/21 16:59 Last Admin: 08/15/21 05:51 Dose: 50 mg Documented by: Famotidine (Famotidine 20 Mg Tab) 20 mg PO BID [facility] Stop: 09/04/21 22:15 Last Admin: 08/15/21 09:09 Dose: 20 mg Documented by: Glucagon (Glucagon For Inj 1 Mg Vial) 1 mg SQ UD PRN; Protocol PRN Reason: Hypoglycemia Protocol Stop: 09/04/21 22:15 Glucose (Glucose 10 Tabs/Tube) 4 - 8 tabs PO UD PRN; Protocol PRN Reason: Hypoglycemia Protocol Stop: 09/04/21 22:15 Glucose (Glucose 40% Gel 15 Gm Tube) 15 - 30 gm PO UD PRN; Protocol PRN Reason: Hypoglycemia Protocol Stop: 09/04/21 22:15 Guaifenesin (Guaifenesin 600 Mg Tabcr) 600 mg PO Q12 [facility] Stop: 09/06/21 20:59 Last Admin: 08/15/21 09:10 Dose: 600 mg Documented by: Insulin Aspart (Insulin Aspart 100 Units/Ml 3 Ml Pen) 0 units SC 2100 [facility] Stop: 09/11/21 20:59 Last Admin: 08/14/21 21:55 Dose: 1 units Documented by: Insulin Aspart (Insulin Aspart 100 Units/Ml 3 Ml Pen) 0 units SC AC [facility] Stop: 09/14/21 07:29 Last Admin: 08/15/21 09:54 Dose: 13 units Documented by: Insulin Glargine (Insulin Glargine Solostar 100 Units/Ml 3 Ml Pen) 13 units SC QAM [facility] Stop: 09/07/21 09:44 Last Admin: 08/15/21 09:57 Dose: 13 units Documented by: Ipratropium [place] (Ipratropium [place] Hfa Inhaler) 1 puffs INH Q4R PRN PRN Reason: Shortness Of Breath Or Wheezing Stop: 09/09/21 08:27 Lamotrigine (Lamotrigine 100 Mg Tab) 200 mg PO DAILY [facility] Stop: 09/05/21 08:59 Last Admin: 08/15/21 09:09 Dose: 200 mg Documented by: Metoprolol Tartrate (Metoprolol Tartrate 50 Mg Tab) 50 mg PO BID [facility] Stop: 09/04/21 22:15 Last Admin: 08/15/21 09:11 Dose: Not Given Documented by: Miscellaneous (Carbohydrates For Hypoglycemia ) 15 - 30 gm PO UD PRN PRN Reason: Hypoglycemia Protocol Stop: 09/04/21 22:15 Miscellaneous Information (Pharmacy Glycemic Mgmt Consult) 1 ea N/A UD PRN; Protocol PRN Reason: Consult Stop: 09/04/21 22:15 Multivitamins (Multivitamin Tab) 1 tab PO BID [facility] Stop: 09/04/21 22:15 Last Admin: 08/15/21 09:57 Dose: Not Given Documented by: Nitroglycerin (Nitroglycerin Sl 0.4 Mg/Tab Tab) 0.4 mg SL UD PRN PRN Reason: Chest Pain Stop: 09/04/21 22:15 Nystatin (Nystatin Susp 500,000 U/5 Ml Udc) 5 ml PO QID [facility] Stop: 08/19/21 16:59 Last Admin: 08/15/21 09:08 Dose: 5 ml Documented by: Ondansetron HCl (Ondansetron Inj 2 Mg/Ml 2 Ml Vial) 4 mg IV Q6H PRN PRN Reason: Nausea Stop: 09/04/21 22:15 Polyethylene Glycol (Polyethylene (Miralax) 17 Gm Pack) 17 gm PO DAILY [facility] Stop: 09/08/21 13:44 Last Admin: 08/15/21 09:07 Dose: 17 gm Documented by: Rosuvastatin Calcium (Rosuvastatin Calcium 20 Mg Tab) 40 mg PO PM [facility] Stop: 09/04/21 22:15 Last Admin: 08/14/21 21:54 Dose: 40 mg Documented by: PG Care Time/CCT Total # of Minutes Spent Total Time Spent with Patient: Total time spent is greater than 50% in coordination of care (as documented) at patient's floor/unit and/or counseling patient: Coding Level of Care Code 65577 Subseq Hosp Care Lvl 3 Diagnoses Pneumonia due to 2019-nCoV U07.1; J12.82 Acute respiratory failure with hypoxia J96.01 Non-ST elevation MA (NSTEMI) I21.4 Acute systolic CHF (congestive heart failure) I50.21 Sepsis A41.9 Hx of CABG Z95.1 Bipolar disorder F31.9 S/P splenectomy Z90.81 Chronic kidney disease, stage III (moderate) N18.3 Diabetes mellitus, type 2 E11.9 Post concussion syndrome F07.81 Metabolic encephalopathy G93.41 DVT prophylaxis Z29.9
[2021-08-15 12:59] LABS: BUN Creatinine Ratio 35.2 (10-20); Calcium 9.3 mg/dl (8.5-10.1); Est GFR (African American) 44.1 ml/min; Est GFR (Non-African American) 38.1 ml/min; Potassium 4.6 mmol/L (3.5-5.1)
[2021-08-15] MEDS: ROSUVASTATIN CALCIUM 20 MG TAB PO SCH (21:01)
[2021-08-16] MEDS: ENOXAPARIN INJ 60 MG/0.6 ML SYR SQ SCH ×2 (06:20→17:54)
[2021-08-16 08:10] LABS: BUN Creatinine Ratio 33.9 (10-20); Calcium 8.9 mg/dl (8.5-10.1); Creatinine Clr Calc Pharmacy 42.5 ml/min; Est GFR (African American) 50.6 ml/min; Est GFR (Non-African American) 43.7 ml/min; Potassium 4.7 mmol/L (3.5-5.1)
[2021-08-16] MEDS: NYSTATIN SUSP 500,000 U/5 ML UDC PO SCH ×4 (08:35→20:05)
[2021-08-16] MEDS: FAMOTIDINE 20 MG TAB PO SCH ×2 (08:35→20:02)
[2021-08-16] MEDS: guaiFENesin 600 MG TABCR PO SCH ×2 (08:36→20:03)
[2021-08-16] MEDS: ASPIRIN 81 MG ECTAB PO SCH (08:36)
[2021-08-16] MEDS: lamoTRIgine 100 MG TAB PO SCH (08:36)
[2021-08-16] MEDS: MULTIVITAMIN TAB PO SCH ×2 (08:36→20:04)
[2021-08-16] MEDS: CLOPIDOGREL BISULFATE 75 MG TAB PO SCH (08:37)
[2021-08-16] MEDS: DIVALPROEX DELAY RELEASE 500 MG TAB PO SCH ×2 (08:37→20:02)
[2021-08-16] MEDS: POLYETHYLENE (MIRALAX) 17 GM PACK PO SCH (08:39)
--- NOTE | 2021-08-16 08:47 | Hospitalist Progress Note ---
Date of Service August 16, 2021 Assessment & Plan (1) Pneumonia due to 2019-nCoV: Plan: Severe. Was on high-flow NC -- responded well to Lasix IV down to room air this morning!! OOB to chair, moving more, better strength move to medical floor today, try for [facility] as soon as they have a bed, insurance approves Cr bumped to 1.9 two days ago, down to 1.5 today give Lasix 40mg PO today, can hod on further dosing now that he is down to room air Patient was fully vaccinated - thus this is a "breakthrough" case. 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 Pul[facility]. Given his escalating O2 requirements, elevated CRP, etc he was felt to be a candidate for immune-based therapy. * cont baricitinib 2mg daily up to 14 days; day #9 today, can stop baricitinib on discharge * completed dexamethasone IV daily for 10 days on 08/14 * completed 5 days of Remdesivir * cont flutter and incentive * he cannot prone -- thus, continue to encourage side positioning * procal mildly high at admission - and given asplenic state - could have bacterial superinfection; completed 7 days of Rocephin and Zithromax * DVT proph - Lovenox (2) Acute respiratory failure with hypoxia: Plan: 2nd to COVID-19 pneumonia and acute systolic CHF. Can't exclude bacterial component (procal elevated, copious purulent sputum, a splenic state). improved a lot since Tuesday, down to room air today stable to discharge to [facility] (3) Non-ST elevation [place] (NSTEMI): Plan: EKGs at admission showed anterior T wave inversions. Prior EKGs demonstrated either upright or mildly flat T waves anteriorly. His troponin was already high at time of ER presentation (1.6, trending down to 1 thereafter). Possible he could have had a small NSTEMI event in the days leading up to the admission. Echo shows old inferior wall akinesis with low-normal EF 50-55% His grafts are 27 years old and thus there is a strong likelihood that one or more grafts could be significantly diseased. treated as if he had small NSTEMI. completed 3 days of heparin drip, now on Lovenox Cont Asa, plavix, BB, statin. LDL 98 in May 2021 - is on max dose of crestor. LDL rechecked and remains <70. (4) Acute systolic CHF (congestive heart failure): Plan: increased lasix 40mg IV to BID on 08/10 and 08/11 back to 40mg IV daily on 08/12 and 08/13 and 08/14 Cr is 1.5 negative fluid balance every day CXR 08/11 without obvious pulmonary edema (5) Sepsis: Plan: 2nd to COVID-19 pneumonia, possible bacterial pneumonia component, etc. Sepsis resolved quickly Cont supportive care, IV abx, etc. Blood cultures cont to be negative. 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 No stents or [place] events since. Follows w/ Dr Balbuena [facility] Cardiology. had probable mild NSTEMI., resolved (7) Bipolar disorder: Plan: Cont Depakote. Cont Lamictal. Depakote level 40 on 08/05/21. Son reports he has not seen psych in some time - will need to get him linked back up with psychiatry post-d/c. 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 combo of NPH, lantus, and novolog. monitor for hypoglycemia, no episodes (11) Post concussion syndrome: Plan: following with [facility] concussion clinic and [facility] neurology locally. concussion occurred early summer 2020 - fell & struck his head at home. some mild memory difficulties & cognitive issues since then. wants him to get back to physical therapy once stable PTOT ordered, he wants to go to [facility] (12) Metabolic encephalopathy: Plan: improved; orientation improved (13) DVT prophylaxis: Plan: Lovenox 0.5mg/kg q12 Plan: sonJerald - lives in [facility] - extensively updated by phone 08/[address] Rutherford Melly extensively updated by phone every day PT OT initiated, getting OOB in chair for meals, ambulated a few steps try for [facility] on Friday 08/17 but that would depend on insurance auth and bed availability can move to medical 3rd floor COVID unit, transfer order in Admission and Anticipated Discharge Date Admission Date: August 05, 2021 Subjective patient has a slight nose bleed this morning, left nostril, starting to stop with pressure told him to keep nostril moist with saline, will add Bactroban ointment q12 he is off oxygen!! breathing comfortably sitting in a chair, watching videos on his laptop he is asking about [facility] told him that tomorrow we will contact [facility], will need to apply for insurance auth depends on whether [facility] has a bed available and if insurance approves it explained that there is a good chance he won't go tomorrow discussed that he can move to medical floor, can make room for other patients who are more sick labs: Cr down to 1.5, his baseline, stop Lasix after today's dose Review of Systems Review of Systems: All systems reviewed & are unremarkable except as noted in Subjective Ear, Nose, Mouth, Throat: + epistaxis Physical Exam Physical Exam: General: well developed, well nourished, elderly male, comfortable, no distress Neck: supple, trachea midline, normal thyroid Lungs: clear to auscultation bilaterally, normal respiratory effort, no accessory muscle use, no distress Heart: regular S1 and S2, no murmur, peripheral pulses normal, capillary refill normal, no edema Abdomen: soft, NT, ND, + BS, no hepatomegaly, normal to percussion Extremities: normal in appearance, no cyanosis, no petechiae, strength is 5/5 bilaterally Neuro: awake, cooperative, moves all extremities, no focal motor deficits, CN II-XII intact, sensation in extremities intact, normal speech Skin: warm, dry, no rash, normal turgor Psych: Awake, alert oriented x 3, euthymic affect Results & Data Results & Data ([facility]) Vital Signs (Past 12 Hours) Vital Signs Temp Pulse Pulse Resp BP BP Pulse Ox 08/16/21 07:16 36.5 C 57 L 19 107/53 L 90 08/16/21 04:20 36.5 C 56 L 18 123/55 L 95 08/15/21 23:18 36.5 C 58 L 18 117/68 97 08/15/21 22:25 65 Laboratory Results Laboratory Results - last 24 hr 08/15/21 08/15/21 08/15/21 10:58 11:49 12:13 Sodium Cancelled 134 L Potassium Cancelled 4.6 Chloride Cancelled 99 Carbon Dioxide Cancelled 29 Anion Gap Cancelled 6.0 BUN Cancelled 59 H Creatinine Cancelled 1.68 H D Est Cr Clr Drug Dosing Cancelled 38.0 Est GFR ( Amer) Cancelled 44.1 Est GFR (Non-Af Amer) Cancelled 38.1 BUN/Creatinine Ratio Cancelled 35.2 H Glucose Cancelled 172 H POC Glucose 219 H Calcium Cancelled 9.3 08/15/21 08/15/21 08/16/21 16:29 20:01 07:05 Sodium 137 Potassium 4.7 Chloride 102 Carbon Dioxide 29 Anion Gap 6.0 BUN 51 H Creatinine 1.50 H Est Cr Clr Drug Dosing 42.5 Est GFR ( Amer) 50.6 Est GFR (Non-Af Amer) 43.7 BUN/Creatinine Ratio 33.9 H Glucose 86 POC Glucose 171 H 205 H Calcium 8.9 08/16/21 07:14 Sodium Potassium Chloride Carbon Dioxide Anion Gap BUN Creatinine Est Cr Clr Drug Dosing Est GFR ( Amer) Est GFR (Non-Af Amer) BUN/Creatinine Ratio Glucose POC Glucose 80 Calcium Medications Administered Current Inpatient Medications Acetaminophen (Acetaminophen 325 Mg Tab) 650 mg PO Q4H PRN PRN Reason: Pain or Fever Stop: 09/04/21 22:15 Last Admin: 08/07/21 11:32 Dose: 650 mg Documented by: Al Hydrox/Mg Hydrox/Simethicone (Aluminum/Magnesium Susp 30 Ml Udc) 15 ml PO Q4H PRN PRN Reason: Dyspepsia Stop: 09/04/21 22:15 Albuterol (Albuterol Hfa 8 Gm Inhaler) 1 puffs INH Q4R PRN PRN Reason: Shortness Of Breath Or Wheezing Stop: 09/09/21 08:27 Aspirin (Aspirin 81 Mg Ectab) [facility] Stop: 09/05/21 08:59 Last Admin: 08/16/21 08:36 Dose: 81 mg Documented by: Baricitinib (2 Mg Once Daily X14 Days) 2 mg PO DAILY [facility]; Protocol Stop: 08/21/21 23:59 Last Admin: 08/15/21 11:43 Dose: 2 mg Documented by: Clopidogrel Bisulfate (Clopidogrel Bisulfate 75 Mg Tab) [facility] Stop: 09/05/21 08:59 Last Admin: 08/16/21 08:37 Dose: 75 mg Documented by: Dextrose (Dextrose 50% 50 Ml Syringe) 25 - 50 ml IV UD PRN; Protocol PRN Reason: Hypoglycemia Protocol Stop: 09/04/21 22:15 Divalproex Sodium (Divalproex Delay Release 500 Mg Tab) 500 mg PO BID [facility] Stop: 09/04/21 22:15 Last Admin: 08/16/21 08:37 Dose: 500 mg Documented by: Enoxaparin Sodium (Enoxaparin Inj 60 Mg/0.6 Ml Syr) 50 mg SQ Q12H [facility]; Protocol Stop: 09/09/21 16:59 Last Admin: 08/16/21 06:20 Dose: 50 mg Documented by: Famotidine (Famotidine 20 Mg Tab) 20 mg PO BID [facility] Stop: 09/04/21 22:15 Last Admin: 08/16/21 08:35 Dose: 20 mg Documented by: Furosemide (Furosemide 40 Mg Tab) 40 mg PO QAM [facility] Stop: 09/15/21 08:59 Glucagon (Glucagon For Inj 1 Mg Vial) 1 mg SQ UD PRN; Protocol PRN Reason: Hypoglycemia Protocol Stop: 09/04/21 22:15 Glucose (Glucose 10 Tabs/Tube) 4 - 8 tabs PO UD PRN; Protocol PRN Reason: Hypoglycemia Protocol Stop: 09/04/21 22:15 Glucose (Glucose 40% Gel 15 Gm Tube) 15 - 30 gm PO UD PRN; Protocol PRN Reason: Hypoglycemia Protocol Stop: 09/04/21 22:15 Guaifenesin (Guaifenesin 600 Mg Tabcr) 600 mg PO Q12 [facility] Stop: 09/06/21 20:59 Last Admin: 08/16/21 08:36 Dose: 600 mg Documented by: Insulin Aspart (Insulin Aspart 100 Units/Ml 3 Ml Pen) 0 units SC 2100 [facility] Stop: 09/11/21 20:59 Last Admin: 08/15/21 20:50 Dose: 1 units Documented by: Insulin Aspart (Insulin Aspart 100 Units/Ml 3 Ml Pen) 0 units SC AC [facility] Stop: 09/14/21 07:29 Last Admin: 08/15/21 18:25 Dose: 20 units Documented by: Insulin Glargine (Insulin Glargine Solostar 100 Units/Ml 3 Ml Pen) 13 units SC QAM [facility] Stop: 09/07/21 09:44 Last Admin: 08/15/21 09:57 Dose: 13 units Documented by: Ipratropium [place] (Ipratropium [place] Hfa Inhaler) 1 puffs INH Q4R PRN PRN Reason: Shortness Of Breath Or Wheezing Stop: 09/09/21 08:27 Lamotrigine (Lamotrigine 100 Mg Tab) 200 mg PO DAILY [facility] Stop: 09/05/21 08:59 Last Admin: 08/16/21 08:36 Dose: 200 mg Documented by: Metoprolol Tartrate (Metoprolol Tartrate 50 Mg Tab) 50 mg PO BID [facility] Stop: 09/04/21 22:15 Last Admin: 08/15/21 20:59 Dose: 50 mg Documented by: Miscellaneous (Carbohydrates For Hypoglycemia ) 15 - 30 gm PO UD PRN PRN Reason: Hypoglycemia Protocol Stop: 09/04/21 22:15 Miscellaneous Information (Pharmacy Glycemic Mgmt Consult) 1 ea N/A UD PRN; Protocol PRN Reason: Consult Stop: 09/04/21 22:15 Multivitamins (Multivitamin Tab) 1 tab PO BID [facility] Stop: 09/04/21 22:15 Last Admin: 08/16/21 08:36 Dose: 1 tab Documented by: Nitroglycerin (Nitroglycerin Sl 0.4 Mg/Tab Tab) 0.4 mg SL UD PRN PRN Reason: Chest Pain Stop: 09/04/21 22:15 Nystatin (Nystatin Susp 500,000 U/5 Ml Udc) 5 ml PO QID [facility] Stop: 08/19/21 16:59 Last Admin: 08/16/21 08:35 Dose: 5 ml Documented by: Ondansetron HCl (Ondansetron Inj 2 Mg/Ml 2 Ml Vial) 4 mg IV Q6H PRN PRN Reason: Nausea Stop: 09/04/21 22:15 Polyethylene Glycol (Polyethylene (Miralax) 17 Gm Pack) 17 gm PO DAILY [facility] Stop: 09/08/21 13:44 Last Admin: 08/16/21 08:39 Dose: 17 gm Documented by: Rosuvastatin Calcium (Rosuvastatin Calcium 20 Mg Tab) 40 mg PO PM [facility] Stop: 09/04/21 22:15 Last Admin: 08/15/21 21:01 Dose: 40 mg Documented by: PG Care Time/CCT Total # of Minutes Spent Total Time Spent with Patient: Total time spent is greater than 50% in coord ination of care (as documented) at patient's floor/unit and/or counseling patient: Coding Level of Care Code 25816 Subseq Hosp Care Lvl 3 Diagnoses Pneumonia due to 2019-nCoV U07.1; J12.82 Acute respiratory failure with hypoxia J96.01 Non-ST elevation [place] (NSTEMI) I21.4 Acute systolic CHF (congestive heart failure) I50.21 Sepsis A41.9 Hx of CABG Z95.1 Bipolar disorder F31.9 S/P splenectomy Z90.81 Chronic kidney disease, stage III (moderate) N18.3 Diabetes mellitus, type 2 E11.9 Post concussion syndrome F07.81 Metabolic encephalopathy G93.41 DVT prophylaxis Z29.9
[2021-08-16] MEDS: INSULIN GLARGINE SOLOSTAR 100 UNITS/ML 3 ML PEN SC SCH (08:52)
[2021-08-16] MEDS: INSULIN ASPART 100 UNITS/ML 3 ML PEN SC SCH ×4 (08:52→20:52)
[2021-08-16] MEDS ORDERED: FUROSEMIDE 40 MG TAB PO SCH (09:00)
[2021-08-16] MEDS: 2 mg Once Daily x14 days PO SCH (09:14)
[2021-08-16] MEDS: METOPROLOL TARTRATE 50 MG TAB PO SCH ×2 (12:54→20:04)
[2021-08-16] MEDS: ROSUVASTATIN CALCIUM 20 MG TAB PO SCH (20:05)
[2021-08-16] MEDS: MUPIROCIN 2% OINT 22 GM TUBE EXT SCH (20:06)
[2021-08-17] MEDS: ENOXAPARIN INJ 60 MG/0.6 ML SYR SQ SCH (05:59)
[2021-08-17] MEDS: METOPROLOL TARTRATE 50 MG TAB PO SCH (09:15)
[2021-08-17] MEDS: INSULIN ASPART 100 UNITS/ML 3 ML PEN SC SCH ×2 (09:20→12:51)
[2021-08-17] MEDS: DIVALPROEX DELAY RELEASE 500 MG TAB PO SCH (09:22)
[2021-08-17] MEDS: POLYETHYLENE (MIRALAX) 17 GM PACK PO SCH (09:22)
[2021-08-17] MEDS: FAMOTIDINE 20 MG TAB PO SCH (09:23)
[2021-08-17] MEDS: MULTIVITAMIN TAB PO SCH (09:23)
[2021-08-17] MEDS: lamoTRIgine 100 MG TAB PO SCH (09:24)
[2021-08-17] MEDS: guaiFENesin 600 MG TABCR PO SCH (09:24)
[2021-08-17] MEDS: CLOPIDOGREL BISULFATE 75 MG TAB PO SCH (09:25)
[2021-08-17] MEDS: ASPIRIN 81 MG ECTAB PO SCH (09:25)
[2021-08-17] MEDS: MUPIROCIN 2% OINT 22 GM TUBE EXT SCH (09:26)
[2021-08-17] MEDS: NYSTATIN SUSP 500,000 U/5 ML UDC PO SCH ×2 (09:26→13:00)
[2021-08-17] MEDS: INSULIN GLARGINE SOLOSTAR 100 UNITS/ML 3 ML PEN SC SCH (10:20)
[2021-08-17] MEDS: 2 mg Once Daily x14 days PO SCH (10:49)
--- NOTE | 2021-08-17 15:12 | Discharge Summary ---
Date of Service August 17, 2021 Admission HPI Per Admitting Provider 81-year-old male who presents with upper respiratory symptoms fever x2 days. He is Covid positive. He is acute hypoxic respiratory failure requiring supplemental oxygen. His cough is expectorating significant amount of green mucus however does not have a lobar infiltrate on chest x-ray. There is a history of CABG but has elevated troponin to 1.6 with a nonacute EKG he has acute kidney injury with creatinine 1.7 typically chronic kidney disease stage III, elevated lactic acid in 2 Patient did have a virtual visit with his primary care physician on 08/04 was given Mucinex and Tessalon Perles does not help his cough or mucus production he has very significant mucus production and upper airway breath sounds during my examination. Principal Diagnosis COVID-19 Pneumonia Discharge Exam General: well developed, well nourished, elderly male, comfortable, no distress Neck: supple, trachea midline, normal thyroid Lungs: clear to auscultation bilaterally, normal respiratory effort, no accessory muscle use, no distress Heart: regular S1 and S2, no murmur, peripheral pulses normal, capillary refill normal, no edema Abdomen: soft, NT, ND, + BS, no hepatomegaly, normal to percussion Extremities: normal in appearance, no cyanosis, no petechiae, strength is 5/5 bilaterally Neuro: awake, cooperative, moves all extremities, no focal motor deficits, CN II-XII intact, sensation in extremities intact, normal speech Skin: warm, dry, no rash, normal turgor Psych: Awake, alert oriented x 3, euthymic affect Discharge Data Allergies Allergy/AdvReac Type Severity Reaction Status Date / Time sulfamethoxazole Allergy Severe SEVERE RASH Verified 08/05/21 16:28 trimethoprim Allergy Severe SEVERE RASH Verified 08/05/21 16:28 amoxicillin AdvReac Mild VOMITING Verified 08/05/21 16:28 clavulanic acid AdvReac Mild VOMITING Verified 08/05/21 16:28 Consultations 08/05/21 16:12 ED Decision to Admit Stat 08/07/21 09:58 Consult Pulmonology Routine Hospital Course (1) Pneumonia due to 2019-nCoV: Severe. Was on high-flow NC -- responded well to Lasix IV down to room air this morning!! OOB to chair, moving more, better strength move to medical floor today, try for [facility] as soon as they have a bed, insurance approves Cr bumped to 1.9 two days ago, down to 1.5 today give Lasix 40mg PO today, can hod on further dosing now that he is down to room air Patient was fully vaccinated - thus this is a "breakthrough" case. 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 Given his escalating O2 requirements, elevated CRP, etc he was felt to be a candidate for immune-based therapy. * cont baricitinib 2mg daily up to 14 days; day #9 today, can stop baricitinib on discharge * completed dexamethasone IV daily for 10 days on 08/14 * completed 5 days of Remdesivir * cont flutter and incentive * he cannot prone -- thus, continue to encourage side positioning * procal mildly high at admission - and given asplenic state - could have bacterial superinfection; completed 7 days of Rocephin and Zithromax * DVT proph - Lovenox * * * On day of discharge, Patient's baricitinib was discontinued. (2) Acute respiratory failure with hypoxia: 2nd to COVID-19 pneumonia and acute systolic CHF. Can't exclude bacterial component (procal elevated, copious purulent sputum, asplenic state). improved a lot since Tuesday, down to room air today stable to discharge to [facility] (3) Non-ST elevation [place] (NSTEMI): EKGs at admission showed anterior T wave inversions. Prior EKGs demonstrated either upright or mildly flat T waves anteriorly. His troponin was already high at time of ER presentation (1.6, trending down to 1 thereafter). Possible he could have had a small NSTEMI event in the days leading up to the admission. Echo shows old inferior wall akinesis with low-normal EF 50-55% His grafts are 27 years old and thus there is a strong likelihood that one or more grafts could be significantly diseased. treated as if he had small NSTEMI. completed 3 days of heparin drip, now on Lovenox Cont Asa, plavix, BB, statin. LDL 98 in May 2021 - is on max dose of crestor. LDL rechecked and remains <70. (4) Acute systolic CHF (congestive heart failure): increased lasix 40mg IV to BID on 08/10 and 08/11 back to 40mg IV daily on 08/12 and 08/13 and 08/14 Cr is 1.5 negative fluid balance every day CXR 08/11 without obvious pulmonary edema (5) Sepsis: 2nd to COVID-19 pneumonia, possible bacterial pneumonia component, etc. Sepsis resolved quickly Cont supportive care, IV abx, etc. Blood cultures cont to be negative. (6) Hx of CAB-vessel, 27 years ago [facility]. No stents or [place] events since. Follows w/ Dr Balbuena [facility]. had probable mild NSTEMI., resolved (7) Bipolar disorder: Cont Depakote. Cont Lamictal. Depakote level 40 on 08/05/21. Son reports he has not seen psych in some time - will need to get him linked back up with psychiatry post-d/c. 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 combo of NPH, lantus, and novolog. monitor for hypoglycemia, no episodes (11) Post concussion syndrome: following with [facility] concussion clinic and [facility] neurolog[facility] [place]. concussion occurred early summer 2020 - fell & struck his head at home. some mild memory difficulties & cognitive issues since then. wants him to get back to physical therapy once stable PTOT ordered, he wants to go to [facility] (12) Metabolic encephalopathy: improved; orientation improved (13) DVT prophylaxis: Lovenox 0.5mg/kg q12 sonJerald - lives in [facility] - extensively updated by phone 08/[address] Rutherford Melly extensively updated by phone every day PT OT initiated, getting OOB in chair for meals, ambulated a few steps Total Time Total Time Spent Total Time Spent (In Minutes): 32 Discharge Plan Discharge Items Patient Disposition: Transfer Inpatient Rehab Fac Reason For Visit: ACUTE REP FAILURE W/ HYPOXIA, COVID INFECT, RAMON TR Discharge Diagnosis: acute resp. failure w hypoxia, COVID Activity: Resume your previous activity Non-emergency contact: Primary Care Provider Call non-emergency contact if: you have any medication questions Follow-up/Referrals: Ml Matthews MD [Primary Care Provider] - (PLEASE CALL THE OFFICE TO SCHEDULE YOURSELF AN APPOINTMENT WITHIN 1-2 WEEKS) Diet: Carb Consistent or DM2 Addtl Attending Provider Instructions: recommend followup with PCP in 1-2 weeks Continue to followup with [facility] concussion clinic and [facility] [place] [place]. Pending Studies at Discharge: No Stand-Alone Forms: My [facility] [place] [employer] Skilled Items Patient informed of condition?: Yes DNR: No Discharge Level of Care: Acute rehab Communicable Disease: No Discharge Prognosis: Stable Lines: None Urinary Catheter: No Medications and DC Order Prescriptions: New guaifenesin [Mucinex] 600 mg Tablet Extended Release 12hr 600 mg PO Q12 Qty: 14 RF: 0 mupirocin 2 % Ointment 1 applic EXT Q12 7 Days Qty: 15 RF: 0 Continued lamotrigine 200 mg tablet 200 mg PO DAILY RF: 0 multivitamin [Daily Multi-Vitamin] tablet 1 tab PO BID RF: 0 (DME) insulin syringe-needle U-100 [BD Insulin Syringe Ultra-Fine] 0.5 mL 30 gauge x 1/2" syringe See Dose Instructions .ROUTE .MEDSUPPLY Qty: 1 RF: 0 lisinopril-hydrochlorothiazide 20-12.5 mg tablet 1 tab PO QAM RF: 0 clopidogrel 75 mg tablet 75 mg PO QAM RF: 0 divalproex 500 mg tablet,delayed release (DR/EC) 500 mg PO BID RF: 0 aspirin 81 mg Tablet,Delayed Release (Dr/Ec) 81 mg PO QAM RF: 0 metformin 1,000 mg tablet 1,000 mg PO BIDM RF: 0 metoprolol tartrate 50 mg tablet 50 mg PO BID RF: 0 rosuvastatin 40 mg tablet 40 mg PO PM RF: 0 Lantus Solostar U-100 Insulin 100 unit/mL (3 mL) insulin pen 6 unit subcut QAM RF: 0 Novolin R Flexpen 100 unit/mL (3 mL) insulin pen 5 - 15 unit SUBCUT TIDM RF: 0 famotidine 20 mg Tablet 20 mg PO BID RF: 0 nitroglycerin [Nitrostat] 0.4 mg tablet, sublingual 0.4 mg Sublingual DIRECTED PRN (Reason: Chest Pain) RF: 0 Discharge Orders: Discharge Order (Routine); Ordered 08/17/21 Ordered By: Himanshu Evans/Other Patient Handouts: A1C, Managing Type 2 Diabetes Admission Data Admit Date/Time: 08/05/21 16:41 Attending Provider: Himanshu Parra Admit Provider: Dontae Deal Primary Care Provider: Ml Matthews [facility] ; [facility]ont[facility] Deal ; Nicole Trimble Other Interventions: Discharge Summary Assessment (RN) Last Done: 08/17/21 15:52 Coding Level of Care Code D/C DAY MANAGEMENT >30 MINS Diagnoses Pneumonia due to 2019-nCoV U07.1; J12.82 Acute respiratory failure with hypoxia J96.01 Non-ST elevation [place] (NSTEMI) I21.4 Acute systolic CHF (congestive heart failure) I50.21 Sepsis A41.9 Hx of CABG Z95.1 Bipolar disorder F31.9 S/P splenectomy Z90.81 Chronic kidney disease, stage III (moderate) N18.3 Diabetes mellitus, type 2 E11.9 Post concussion syndrome F07.81 Metabolic encephalopathy G93.41 DVT prophylaxis Z29.9
== END 2021-08-17 17:30 | DRG 871 ==
LOC: ED 14:32 → SUATTDRO 16:41 → EDINP 16:41 → 2E 22:32 → 2S 08-06 18:59

== ENCOUNTER 2021-11-30 17:48 | Observation (INO) ==
--- NOTE | 2021-11-30 18:26 | Emergency Department Note ---
History of Present Illness General Chief complaint: Leg Injury/Pain Time Seen by Provider: 11/30/21 18:08 History of Present Illness This is a 81-year-old male that presents to the emergency department via EMS wit h complaints of "leg injury". The patient states that earlier today he was getting out of his car and heading into his house. As he was ambulating he notes that he put his cane into the snow and it seemed to be stuck there slightly causing him to slip on the ice and then fall down onto his right knee. He notes right knee pain since that time. This occurred around 4 PM. Unfortunately he was unable to stand/get up following this and was on the ground for about 20 minutes. Bystander then summoned EMS and he was brought here for evaluation. Patient denies any other areas of pain beyond the right knee. He denies striking the head or loss of consciousness. He does feel that his fingers feel cold but otherwise no signs of cold injury. No chest pain or shortness of breath. No syncope preceding this. Home Medications Medication Instructions Recorded Confirmed Type aspirin 81 mg tablet,delayed 81 mg PO QAM 01/26/19 11/30/21 History release clopidogrel 75 mg tablet 75 mg PO QAM 01/26/19 11/30/21 History divalproex 500 mg tablet,delayed 500 mg PO BID 01/26/19 11/30/21 History release metformin 1,000 mg tablet 1,000 mg PO BIDM 01/26/19 11/30/21 History metoprolol tartrate 50 mg tablet 50 mg PO BID 01/26/19 11/30/21 History rosuvastatin 40 mg tablet 40 mg PO PM 01/26/19 11/30/21 History multivitamin (Daily Multi-Vitamin) 1 tab PO BID tab 06/06/19 11/30/21 History insulin syringe-needle U-100 0.5 #1 ea 06/12/19 08/26/21 History mL 30 gauge x 1/2" (BD Insulin Syringe Ultra-Fine) nitroglycerin 0.4 mg sublingual 0.4 mg SUBLINGUAL DIRECTED PRN 06/01/21 11/30/21 History tablet (Nitrostat) lamotrigine 200 mg tablet 200 mg PO QPM 06/18/21 11/30/21 History insulin glargine 100 unit/mL (3 10 unit SUBCUT QAM ml 07/27/21 11/30/21 History mL) subcutaneous pen (Lantus Solostar U-100 Insulin) carbidopa 25 mg-levodopa 100 mg 1 tab PO TID 11/30/21 11/30/21 History tablet lisinopril 10 mg tablet 10 mg PO QAM 11/30/21 11/30/21 History tamsulosin 0.4 mg capsule 0.4 mg PO QAM 11/30/21 11/30/21 History Allergies Allergy/AdvReac Type Severity Reaction Status Date / Time sulfamethoxazole Allergy Severe SEVERE RASH Verified 11/30/21 22:26 trimethoprim Allergy Severe SEVERE RASH Verified 11/30/21 22:26 amoxicillin AdvReac Mild VOMITING Verified 11/30/21 22:26 clavulanic acid AdvReac Mild VOMITING Verified 11/30/21 22:26 Past Med/Surg History Medical History Bipolar disorder Chronic kidney disease, stage III (moderate) Confusion COVID-19 Diabetes Diarrhea Dyslipidemia Hypertension Hypoxia Intractable low back pain Lumbar spinal stenosis Metabolic encephalopathy Non-ST elevation MT (NSTEMI) Old inferior wall myocardial infarction Orthostatic hypotension Parotitis Vitamin D deficiency Weakness Surgical History H/O submandibular gland removal Hx of CABG (1994) Hx of decompressive lumbar laminectomy (03/2019) S/P cystoscopy S/P splenectomy (~1957) Family History Brother Prostate cancer Father , age 68 of GI cancer Cancer Mother , age 88 of non-Hodgkin's lymphoma Non Hodgkin's lymphoma Social History Smoking Status: Former smoker Tobacco Type: Cigarettes Second Hand Exposure: No; Hx Alcohol Use: Yes Alcohol type: hard liquor Alcohol Intake Frequency Comment: averages 2-3 drinks of vodka per day Hx Substance Use: No Preferred Language: Tristanian Communication Ability: Effective 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 Beliefs That Will Affect Care: None Current Living Situation: Spouse current occupational status: retired 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 Feels Safe at Home: Yes Assistive Devices: Walker Review of Systems A total of 10 systems reviewed and were otherwise negative Physical Exam Vital Signs Vital Signs - 24 hr 11/30/21 17:52 11/30/21 21:34 12/01/21 00:44 Temperature 36.9 C Temperature Source Oral Pulse Rate 65 Pulse Rate [Apical] 62 61 Pulse Rhythm [Apical] Regular Pulse Strength [Apical] Normal Respiratory Rate 20 16 16 Respiratory Effort / Characteristics Non-Labored Non-Labored Non-Labored Spontaneous Respiratory Depth Normal Normal Normal Respiratory Pattern Regular Blood Pressure 174/78 H Blood Pressure [Left Arm] 183/79 H 162/60 H Blood Pressure Mean 110 Blood Pressure Mean [Left Arm] 113 94 Blood Pressure Position Sitting Blood Pressure Position [Left Arm] Lying Semi-fowlers Pulse Oximetry 97 97 93 Oxygen Delivery Method Room Air Room Air Room Air Sepsis Recent Fever Within 48 Hours No Sepsis New/Unexplained Change in Mental Status No Sepsis Action Taken by Nursing No Action Required VITAL SIGNS - Vital signs and nursing notes were reviewed. Stable and afebrile. GENERAL -81-year-old male appearing his stated age. Communicates well with provider and answers questions appropriately. SKIN - Gross examination of the entire body surface demonstrates no lacerations to the body surface. Small abrasion with contusion overlying the right anterior knee. No deformity. HEAD - Normocephalic, Atraumatic. No Dunaway's Sign or Raccoon's Eyes. No depressed skull fractures palpable. EYES - PERRL with EOMI bilaterally. No hyphema. EARS - No deformities of external structures noted on gross examination bilaterally. No blood from the ear canals. NOSE - Midline and without cyanosis. No epistaxis or clear watery discharge noted. NECK -no C-spine tenderness. LUNGS -clear to auscultation. CARDIAC - RRR EXTREMITIES - No gross deformities noted of the extremities. There is tenderness to palpation overlying the patient's right anterior knee. Patient with full active flexion extension of the right knee. Mild tenderness to the soft tissues just proximal and medial to the right anterior knee. Patient well- perfused distal to this area. NEUROLOGIC - Cranial nerves II through XII grossly intact. PSYCH - A&O, and cooperates fully with examiner. Pt is very pleasant and interacts well with examiner. Medical Decision Making Laboratory Data Result diagrams: 11/30/21 22:10 11/30/21 22:10 Lab Results 11/30/21 11/30/21 11/30/21 Range/Units 22:08 22:10 22:10 WBC 11.56 H (4.8-10.8) K/uL RBC 4.37 L (4.7-6.1) M/uL Hgb 13.8 L (14.0-18.0) g/dL Hct 41.5 L (42-52) % MCV 95.0 (80-100) fL MCH 31.6 (25-34) pg MCHC 33.3 (32-36) g/dL RDW Std Deviation 50.2 H (36.4-46.3) fL RDW Coeff of [place] 14.4 (11.5-14.5) % Plt Count 303 (130-400) K/uL MPV 10.9 H (7.4-10.4) fL Immature Gran % (Auto) 0.1 % Neut % (Auto) 39.2 % Lymph % (Auto) 47.2 % [place] % (Auto) 10.2 % Eos % (Auto) 3.0 % Baso % (Auto) 0.3 % Neut # (Auto) 4.53 (1.4-6.5) K/uL Lymph # (Auto) 5.46 H (1.2-3.4) K/uL [place] # (Auto) 1.18 H (0.11-0.59) K/uL Eos # (Auto) 0.35 (0-0.5) K/uL Baso # (Auto) 0.03 (0-0.2) K/uL Immature Gran # (Auto) 0.01 (0.00-0.02) K/uL Sodium 133 L (136-145) mmol/L Potassium 4.3 (3.5-5.1) mmol/L Chloride 97 L (98-107) mmol/L Carbon Dioxide 28 (21-32) mmol/L Anion Gap 8 (3-11) BUN 27 H (6-23) mg/dl Creatinine 1.29 (0.6-1.4) mg/dl Est Cr Clr Drug Dosing Not Reportable Est GFR ( Amer) 60.7 ml/min Est GFR (Non-Af Amer) 52.4 ml/min BUN/Creatinine Ratio 20.9 H (10-20) Glucose 152 H (70-99(Fasting)) mg/dl Calcium 10.2 H (8.5-10.1) mg/dl Total Creatine Kinase (30-223) U/L SARS-CoV-2, RNA, NAAT NEGATIVE (NEGATIVE) 11/30/21 Range/Units 22:10 WBC (4.8-10.8) K/uL RBC (4.7-6.1) M/uL Hgb (14.0-18.0) g/dL Hct (42-52) % MCV (80-100) fL MCH (25-34) pg MCHC (32-36) g/dL RDW Std Deviation (36.4-46.3) fL RDW Coeff of [place] (11.5-14.5) % Plt Count (130-400) K/uL MPV (7.4-10.4) fL Immature Gran % (Auto) % Neut % (Auto) % Lymph % (Auto) % [place] % (Auto) % Eos % (Auto) % Baso % (Auto) % Neut # (Auto) (1.4-6.5) K/uL Lymph # (Auto) (1.2-3.4) K/uL [place] # (Auto) (0.11-0.59) K/uL Eos # (Auto) (0-0.5) K/uL Baso # (Auto) (0-0.2) K/uL Immature Gran # (Auto) (0.00-0.02) K/uL Sodium (136-145) mmol/L Potassium (3.5-5.1) mmol/L Chloride (98-107) mmol/L Carbon Dioxide (21-32) mmol/L Anion Gap (3-11) BUN (6-23) mg/dl Creatinine (0.6-1.4) mg/dl Est Cr Clr Drug Dosing Est GFR ( Amer) ml/min Est GFR (Non-Af Amer) ml/min BUN/Creatinine Ratio (10-20) Glucose (70-99(Fasting)) mg/dl Calcium (8.5-10.1) mg/dl Total Creatine Kinase 258 H (30-223) U/L SARS-CoV-2, RNA, NAAT (NEGATIVE) Imaging Data Radiologist's Impression: Femur X-Ray 11/30/21 18:25 XR femur RT 2V routine CLINICAL HISTORY: R knee pain COMPARISON: Right knee radiographs May 18, 2018. FINDINGS: No acute fracture within the right femur is noted. Alignment of the right hip and right knee is anatomic. Vascular calcification is incidentally noted. No evidence for right knee joint effusion. IMPRESSION: No acute fracture of the right femur. ACT 112: Negative or not required by law. Electronically signed by: Larry Ghosh M.D. 11/30/2021 6:[address] 11/30/21 18:25 CT OF THE HEAD WITHOUT CONTRAST CLINICAL HISTORY: Fall. COMPARISON STUDY: MRI of the brain June 02, 2021. Head CT June 12, 2021. CT DOSE: 614.27 mGy.cm TECHNIQUE: Helical axial images of the head were obtained without IV contrast. Automated exposure control was utilized for the study. A dose lowering technique was utilized adhering to the principles of ALARA. FINDINGS: No acute intracranial hemorrhage, midline shift or mass effect is present. White matter hypodensities are similar to prior exam and favor small vessel disease. The ventricular system is unremarkable. The basal cisterns are patent. No extra-axial collections are present. There are no findings to suggest acute dural sinus thrombosis or acute territorial infarct. No significant calvarial abnormalities are present. Visualized portions of the sinuses and mastoid air cells are clear. IMPRESSION: 1. No acute intracranial findings. No change in appearance of the brain. 2. No calvarial fracture. ACT 112: Negative or not required by law. Electronically signed by: Larry Ghosh M.D. 11/30/2021 7:56 PM Knee X-Ray 11/30/21 18:25 XR knee RT 3V CLINICAL HISTORY: Right knee pain following fall. COMPARISON: Right knee radiographs May 18, 2018. FINDINGS: Alignment of the right knee is anatomic. There is no acute fracture. Moderate vascular calcification is incidentally noted. There is mild osteophytosis within the right knee. No joint effusion is evident. IMPRESSION: No acute fracture or joint effusion of the right knee. ACT 112: Negative or not required by law. Electronically signed by: Larry Ghosh M.D. 11/30/2021 6:58 PM MDM Narrative Patient was seen and evaluated as above in room D06. Review was performed of nursing notes and vital signs. I did review pertinent previous visits and patient history. After obtaining a thorough history and physical examination the above work up was performed. Patient presents to us today status post mechanical fall with isolated right knee pain. He was unable to get up after the fall and a bystander summoned EMS. He was on the ground for about 20 minutes he estimates. He denies striking the head or loss of consciousness. He does take Plavix and aspirin. Patient also notes a recent diagnosis of Parkinson's. Options of care were discussed with the patient. X-ray of the right knee, right femur as well as CT scan of the head was obtained. Results as above. The x- rays of the patient's right knee and femur are without evidence of acute fracture or dislocation. No effusion. CT scan of the head was obtained noting the patient's fall in the setting of aspirin/Plavix use. CT scan of the head is negative for acute process. Right knee was cleansed and bandaged by staff. Options were discussed with the patient in regard to management. I also spoke with the patient's via phone. The patient initially was very adamant he wanted to be discharged home however he notes that he did have a discussion with his about this and she does prefer that he stay here in the hospital overnight as she is concerned that he is a high fall risk as he will be home alone tonight. At this time I do not see any indication for splinting noting the absence of fracture and preserve range of motion of the right knee. I believe that crutches would place him at a fall risk. Patient may benefit from a walker depending on ambulatory status moving forward. Orthopedic follow-up would be reasonable if he has persistence of discomfort. Case discussed this with the hospitalist. Please refer to further documentation regarding his stay. Labs reveal mild leukocytosis 11.56. Mild anemia 13.8. BUN elevated at 27. Creatinine 1.29. CK very minimally elevated at 258. COVID test negative. GCS: 15 In the evaluation and treatment of this patient the following differential diagnoses were entertained: Fracture, dislocation, subluxation, contusion, among others Impression & Plan Fall due to ice or snow, Contusion of knee, right Discharge Plan Visit Data Chief Complaint: Leg Injury/Pain ED Provider: Edgardo Enriquez ED Midlevel Provider: Andrea Patterson Patient Disposition: Admitted As Inpatient Condition: Good Prescriptions Prescriptions: No Action lamotrigine 200 mg tablet 200 mg PO QPM RF: 0 multivitamin [Daily Multi-Vitamin] tablet 1 tab PO BID RF: 0 (DME) insulin syringe-needle U-100 [BD Insulin Syringe Ultra-Fine] 0.5 mL 30 gauge x 1/2" syringe See Dose Instructions .ROUTE .MEDSUPPLY Qty: 1 RF: 0 clopidogrel 75 mg tablet 75 mg PO QAM RF: 0 divalproex 500 mg tablet,delayed release (DR/EC) 500 mg PO BID RF: 0 aspirin 81 mg Tablet,Delayed Release (Dr/Ec) 81 mg PO QAM RF: 0 metformin 1,000 mg tablet 1,000 mg PO BIDM RF: 0 metoprolol tartrate 50 mg tablet 50 mg PO BID RF: 0 rosuvastatin 40 mg tablet 40 mg PO PM RF: 0 Lantus Solostar U-100 Insulin 100 unit/mL (3 mL) insulin pen 10 unit subcut QAM RF: 0 nitroglycerin [Nitrostat] 0.4 mg tablet, sublingual 0.4 mg Sublingual DIRECTED PRN (Reason: Chest Pain) RF: 0 tamsulosin 0.4 mg capsule 0.4 mg PO QAM RF: 0 lisinopril 10 mg tablet 10 mg PO QAM RF: 0 carbidopa-levodopa 25-100 mg tablet 1 tab PO TID RF: 0
--- NOTE | 2021-11-30 19:00 | XRay Report ---
XR femur RT 2V routine CLINICAL HISTORY: R knee pain COMPARISON: Right knee radiographs May 18, 2018. FINDINGS: No acute fracture within the right femur is noted. Alignment of the right hip and right kn ee is anatomic. Vascular calcification is incidentally noted. No evidence for right knee joint effusi on. IMPRESSION: No acute fracture of the right femur. ACT 112: Negative or not required by law. Electronically signed by: Larry Ghosh M.D. 11/30/2021 6:59 PM
--- NOTE | 2021-11-30 19:00 | XRay Report ---
XR knee RT 3V CLINICAL HISTORY: Right knee pain following fall. COMPARISON: Right knee radiographs May 18, 2018. FINDINGS: Alignment of the right knee is anatomic. There is no acute fracture. Moderate vascular emanuel cification is incidentally noted. There is mild osteophytosis within the right knee. No joint effusio n is evident. IMPRESSION: No acute fracture or joint effusion of the right knee. ACT 112: Negative or not required by law. Electronically signed by: Larry Ghosh M.D. 11/30/2021 6:58 PM
--- NOTE | 2021-11-30 19:40 | Emergency Department Note ---
ED Visit Note Patient was seen and evaluated at the bedside w/ Andrea Patterson PA-C. Please see their note for history, physical, details, and disposition. Patient has a known history of Parkinson's was trying to get out of the car and walk patient's walker got stuck in his when he subsequently fell. The patient has negative x-rays. Patient is on aspirin and Plavix but no head strike or LOC. Patient was down outside for approximate 20 minutes with the patient is not hypothermic he is awake alert and following commands is not meningitic or encephalopathic. CT head negative. .
--- NOTE | 2021-11-30 19:57 | CT Scan Report ---
CT OF THE HEAD WITHOUT CONTRAST CLINICAL HISTORY: Fall. COMPARISON STUDY: MRI of the brain June 02, 2021. Head CT June 12, 2021. CT DOSE: 614.27 mGy.cm TECHNIQUE: Helical axial images of the head were obtained without IV contrast. Automated exposure con trol was utilized for the study. A dose lowering technique was utilized adhering to the principles o f ALARA. FINDINGS: No acute intracranial hemorrhage, midline shift or mass effect is present. White matter hyp odensities are similar to prior exam and favor small vessel disease. The ventricular system is unrema rkable. The basal cisterns are patent. No extra-axial collections are present. There are no findings to suggest acute dural sinus thrombosis or acute territorial infarct. No significant calvarial abnorm alities are present. Visualized portions of the sinuses and mastoid air cells are clear. IMPRESSION: 1. No acute intracranial findings. No change in appearance of the brain. 2. No calvarial fracture. ACT 112: Negative or not required by law. Electronically signed by: Larry Ghosh M.D. 11/30/2021 7:56 PM
[2021-11-30 22:23] LABS: Hematocrit (blood only) 41.5 % (42-52); Hemoglobin 13.8 g/dL (14.0-18.0); Mean Corpuscular Hemoglobin 31.6 pg (25-34); Mean Corpuscular Hgb Conc 33.3 g/dL (32-36); Mean Platelet Volume 10.9 fL (7.4-10.4); Platelet Count 303 K/uL (130-400); RDW Coefficient of Variation 14.4 % (11.5-14.5); RDW Standard Deviation 50.2 fL (36.4-46.3); Red Blood Count 4.37 M/uL (4.7-6.1); White Blood Count 11.56 K/uL (4.8-10.8)
[2021-11-30 22:38] LABS: Basophils # (auto) 0.03 K/uL (0-0.2); Basophils % (auto) 0.3 %; Eosinophils # (auto) 0.35 K/uL (0-0.5); Immature Granulocytes # (auto) 0.01 K/uL (0.00-0.02); Immature Granulocytes % (auto) 0.1 %; Lymphocytes # (auto) 5.46 K/uL (1.2-3.4); Lymphocytes % (auto) 47.2 %; Monocytes # (auto) 1.18 K/uL (0.11-0.59); Monocytes % (auto) 10.2 %; Neutrophils # (auto) 4.53 K/uL (1.4-6.5); Neutrophils % (auto) 39.2 %
[2021-11-30 22:44] LABS: Anion Gap 8 (3-11); BUN Creatinine Ratio 20.9 (10-20); Blood Urea Nitrogen 27 mg/dl (6-23); Calcium 10.2 mg/dl (8.5-10.1); Carbon Dioxide 28 mmol/L (21-32); Chloride 97 mmol/L (98-107); Est GFR (African American) 60.7 ml/min; Est GFR (Non-African American) 52.4 ml/min; Glucose 152 mg/dl (70-99(Fasting)); Potassium 4.3 mmol/L (3.5-5.1); Sodium 133 mmol/L (136-145)
--- NOTE | 2021-11-30 23:35 | History & Physical Report ---
Date of Service November 30, 2021 Assessment & Plan (1) Status post fall: Plan: Status post fall- Contributing factors include: Orthostatic hypotension, taking tamsulosin in a.m., diabetic peripheral neuropathy, Parkinson's, others Consult PT/OT Change tamsulosin to evening (2) Hypertension: Plan: Continue lisinopril and metoprolol tartrate (3) Bipolar disorder: Plan: Continue divalproex, and lamotrigine (4) Dyslipidemia: Plan: Continue simvastatin 40 mg in evening (5) Chronic kidney disease, stage III (moderate): Plan: Creatinine 1.29 upon admission, with range 1.43-1.99 (6) Diabetes mellitus, type 2: Plan: Continue insulin glargine 10 units subcu every morning. Hold metformin Place on Accu-Cheks before meals and at bedtime NovoLog coverage per scale Check hemoglobin A1c (7) Parkinson's disease: Plan: Continue carbidopa levodopa Suspect plays a part in ambulatory dysfunction issues This is a recent diagnosis for him (8) BPH w urinary obs/LUTS: Plan: Continue tamsulosin 0.4 mg daily but change from morning to evening History of Present Illness Chief Complaint: The patient presents to the emergency department after a fall getting out of a car and injuring his right leg. Primary Care Provider: Ml Matthews MD The patient is a 81-year-old male with a past medical history including diabetes mellitus, hypertension, CABG, parotitis, lumbar spinal stenosis, bipolar disorder, history of [place], dyslipidemia, vitamin D deficiency, CKD stage III, cerebrovascular disease, diabetic polyneuropathy and cognitive dysfunction. He has history of ambulatory dysfunction, was recently diagnosed with Parkinson's, and was attempting to walk out of his car into the snow and fell. He reportedly was crawling around on the snow for several minutes before a bystander came by and called EMS. Patient does have a history of ambulatory dysfunction. Allergies Allergy/AdvReac Type Severity Reaction Status Date / Time sulfamethoxazole Allergy Severe SEVERE RASH Verified 11/30/21 22:26 trimethoprim Allergy Severe SEVERE RASH Verified 11/30/21 22:26 amoxicillin AdvReac Mild VOMITING Verified 11/30/21 22:26 clavulanic acid AdvReac Mild VOMITING Verified 11/30/21 22:26 Home Medications Medication Instructions Recorded Confirmed Type aspirin 81 mg tablet,delayed 81 mg PO QAM 01/26/19 11/30/21 History release clopidogrel 75 mg tablet 75 mg PO QAM 01/26/19 11/30/21 History divalproex 500 mg tablet,delayed 500 mg PO BID 01/26/19 11/30/21 History release metformin 1,000 mg tablet 1,000 mg PO BIDM 01/26/19 11/30/21 History metoprolol tartrate 50 mg tablet 50 mg PO BID 01/26/19 11/30/21 History rosuvastatin 40 mg tablet 40 mg PO PM 01/26/19 11/30/21 History multivitamin (Daily Multi-Vitamin) 1 tab PO BID tab 06/06/19 11/30/21 History insulin syringe-needle U-100 0.5 #1 ea 06/12/19 08/26/21 History mL 30 gauge x 1/2" (BD Insulin Syringe Ultra-Fine) nitroglycerin 0.4 mg sublingual 0.4 mg SUBLINGUAL DIRECTED PRN 06/01/21 11/30/21 History tablet (Nitrostat) lamotrigine 200 mg tablet 200 mg PO QPM 06/18/21 11/30/21 History insulin glargine 100 unit/mL (3 10 unit SUBCUT QAM ml 07/27/21 11/30/21 History mL) subcutaneous pen (Lantus Solostar U-100 Insulin) carbidopa 25 mg-levodopa 100 mg 1 tab PO TID 11/30/21 11/30/21 History tablet lisinopril 10 mg tablet 10 mg PO QAM 11/30/21 11/30/21 History tamsulosin 0.4 mg capsule 0.4 mg PO QAM 11/30/21 11/30/21 History Past Med/Surg History Medical History (Updated 12/01/21 @ 04:38 by Dheeraj Stacy MD) Bipolar disorder Chronic kidney disease, stage III (moderate) Confusion COVID-19 Diabetes Diarrhea Dyslipidemia Hypertension Hypoxia Intractable low back pain Lumbar spinal stenosis Metabolic encephalopathy Non-ST elevation IA (NSTEMI) Old inferior wall myocardial infarction Orthostatic hypotension Parotitis Vitamin D deficiency Weakness Surgical History H/O submandibular gland removal Hx of CABG (1994) Hx of decompressive lumbar laminectomy (03/2019) S/P cystoscopy S/P splenectomy (~1957) Family History Brother Prostate cancer Father , age 68 of GI cancer Cancer Mother , age 88 of non-Hodgkin's lymphoma Non Hodgkin's lymphoma Social History Smoking Status: Former smoker Tobacco Type: Cigarettes Second Hand Exposure: No; Hx Alcohol Use: Yes Alcohol type: hard liquor Alcohol Intake Frequency Comment: averages 2-3 drinks of vodka per day Hx Substance Use: No Preferred Language: Irish Communication Ability: Effective Pole Inspector Required: No Beliefs That Will Affect Care: None Current Living Situation: Spouse current occupational status: retired 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 The review of systems is otherwise negative other than for that already noted above, and at least 10 systems have been reviewed. Physical Exam Physical Exam: The patient is awake, alert and oriented 3, well developed and well nourished, normocephalic and atraumatic, lying in bed and in no acute distress. HEENT--PERRL, EOMI, mucous membranes and oropharynx normal. Neck--supple. No JVD. No bruits. Thyroid normal, trachea midline, no adenopathy. Heart--normal S1 and S2. No murmurs, rubs or gallops. Lungs--clear bilaterally, no respiratory distress, no accessory muscle use. Abdomen--normal bowel sounds and soft. Nontender. Nondistended, no hernias or masses, no organomegaly. Extremities--no cyanosis or clubbing. No edema. Dermatologic--normal skin turgor, normal color, no abnormal lymph nodes, no rash. Neurologic--cranial nerves II through XII grossly intact. Rheumatologic--normal range of motion except for limitation of the right leg due to pain in the knee Psychiatric--normal affect. Results & Data Results & Data ([facility]) Vital Signs (Past 12 Hours) Vital Signs Temp Pulse Pulse Resp BP BP Pulse Ox 11/30/21 21:34 62 16 183/79 H 97 11/30/21 17:52 36.9 C 65 20 174/78 H 97 Laboratory Results Laboratory Results WBC 11.56 K/uL (4.8-10.8) H 11/30/21 22:10 RBC 4.37 M/uL (4.7-6.1) L 11/30/21 22:10 Hgb 13.8 g/dL (14.0-18.0) L 11/30/21 22:10 Hct 41.5 % (42-52) L 11/30/21 22:10 MCV 95.0 fL (80-100) 11/30/21 22:10 MCH 31.6 pg (25-34) 11/30/21 22:10 MCHC 33.3 g/dL (32-36) 11/30/21 22:10 RDW Std Deviation 50.2 fL (36.4-46.3) H 11/30/21 22:10 RDW Coeff of [place] 14.4 % (11.5-14.5) 11/30/21 22:10 Plt Count 303 K/uL (130-400) 11/30/21 22:10 MPV 10.9 fL (7.4-10.4) H 11/30/21 22:10 Immature Gran % (Auto) 0.1 % 11/30/21 22:10 Neut % (Auto) 39.2 % 11/30/21 22:10 Lymph % (Auto) 47.2 % 11/30/21 22:10 Piatt % (Auto) 10.2 % 11/30/21 22:10 Eos % (Auto) 3.0 % 11/30/21 22:10 Baso % (Auto) 0.3 % 11/30/21 22:10 Neut # (Auto) 4.53 K/uL (1.4-6.5) 11/30/21 22:10 Lymph # (Auto) 5.46 K/uL (1.2-3.4) H 11/30/21 22:10 Piatt # (Auto) 1.18 K/uL (0.11-0.59) H 11/30/21 22:10 Eos # (Auto) 0.35 K/uL (0-0.5) 11/30/21 22:10 Baso # (Auto) 0.03 K/uL (0-0.2) 11/30/21 22:10 Immature Gran # (Auto) 0.01 K/uL (0.00-0.02) 11/30/21 22:10 Sodium 133 mmol/L (136-145) L 11/30/21 22:10 Potassium 4.3 mmol/L (3.5-5.1) 11/30/21 22:10 Chloride 97 mmol/L (98-107) L 11/30/21 22:10 Carbon Dioxide 28 mmol/L (21-32) 11/30/21 22:10 Anion Gap 8 (3-11) 11/30/21 22:10 BUN 27 mg/dl (6-23) H 11/30/21 22:10 Creatinine 1.29 mg/dl (0.6-1.4) 11/30/21 22:10 Est Cr Clr Drug Dosing Not Reportable 11/30/21 22:10 Est GFR ( Amer) 60.7 ml/min 11/30/21 22:10 Est GFR (Non-Af Amer) 52.4 ml/min 11/30/21 22:10 BUN/Creatinine Ratio 20.9 (10-20) H 11/30/21 22:10 Glucose 152 mg/dl (70-99(Fasting)) H 11/30/21 22:10 Calcium 10.2 mg/dl (8.5-10.1) H 11/30/21 22:10 Total Creatine Kinase 258 U/L (30-223) H 11/30/21 22:10 SARS-CoV-2, RNA, NAAT NEGATIVE (NEGATIVE) 11/30/21 22:08 Impressions Femur X-Ray 11/30/21 18:25 XR femur RT 2V routine CLINICAL HISTORY: R knee pain COMPARISON: Right knee radiographs May 18, 2018. FINDINGS: No acute fracture within the right femur is noted. Alignment of the right hip and right knee is anatomic. Vascular calcification is incidentally noted. No evidence for right knee joint effusion. IMPRESSION: No acute fracture of the right femur. ACT 112: Negative or not required by law. Electronically signed by: Larry Ghosh M.D. 11/30/2021 6:[address] 11/30/21 18:25 CT OF THE HEAD WITHOUT CONTRAST CLINICAL HISTORY: Fall. COMPARISON STUDY: MRI of the brain June 02, 2021. Head CT June 12, 2021. CT DOSE: 614.27 mGy.cm TECHNIQUE: Helical axial images of the head were obtained without IV contrast. Automated exposure control was utilized for the study. A dose lowering technique was utilized adhering to the principles of ALARA. FINDINGS: No acute intracranial hemorrhage, midline shift or mass effect is present. White matter hypodensities are similar to prior exam and favor small vessel disease. The ventricular system is unremarkable. The basal cisterns are patent. No extra-axial collections are present. There are no findings to suggest acute dural sinus thrombosis or acute territorial infarct. No significant calvarial abnormalities are present. Visualized portions of the sinuses and mastoid air cells are clear. IMPRESSION: 1. No acute intracranial findings. No change in appearance of the brain. 2. No calvarial fracture. ACT 112: Negative or not required by law. Electronically signed by: Larry Ghosh M.D. 11/30/2021 7:56 PM Knee X-Ray 11/30/21 18:25 XR knee RT 3V CLINICAL HISTORY: Right knee pain following fall. COMPARISON: Right knee radiographs May 18, 2018. FINDINGS: Alignment of the right knee is anatomic. There is no acute fracture. Moderate vascular calcification is incidentally noted. There is mild osteophytosis within the right knee. No joint effusion is evident. IMPRESSION: No acute fracture or joint effusion of the right knee. ACT 112: Negative or not required by law. Electronically signed by: Larry Ghosh M.D. 11/30/2021 6:58 PM Code Status & VTE Plan Code Status Full code VTE Prophylaxis Plan VTE Prophylaxis will be ordered: Yes PG Care Time/CCT Total # of Minutes Spent Total Time Spent with Patient: Total time spent is greater than 50% in coordination of care (as documented) at patient's floor/unit and/or counseling patient: Coding Level of Care Code INT OBSERVATION CARE 70M LVL 3 Diagnoses Status post fall Z91.81 Hypertension I10 Bipolar disorder F31.9 Dyslipidemia E78.5 Chronic kidney disease, stage III (moderate) N18.3 Diabetes mellitus, type 2 E11.9 Parkinson's disease G20 BPH w urinary obs/LUTS N40.1; N13.8
[2021-12-01] MEDS ORDERED: DEXTROSE 50% 50 ML SYRINGE IV PRN (06:42)
[2021-12-01] MEDS ORDERED: CARBOHYDRATES FOR HYPOGLYCEMIA PO PRN (06:42)
[2021-12-01] MEDS ORDERED: GLUCOSE 10 TABS/TUBE PO PRN (06:42)
[2021-12-01] MEDS ORDERED: GLUCAGON FOR INJ 1 MG VIAL SQ PRN (06:42)
[2021-12-01] MEDS ORDERED: ACETAMINOPHEN 325 MG TAB PO PRN (06:42)
[2021-12-01] MEDS ORDERED: GLUCOSE 40% GEL 15 GM TUBE PO PRN (06:42)
[2021-12-01] MEDS ORDERED: ONDANSETRON INJ 2 MG/ML 2 ML VIAL IV PRN (06:42)
[2021-12-01] MEDS ORDERED: NITROGLYCERIN SL 0.4 MG/TAB TAB SL PRN (06:42)
[2021-12-01] MEDS ORDERED: DIVALPROEX DELAY RELEASE 500 MG TAB PO SCH (07:00)
[2021-12-01] MEDS ORDERED: METOPROLOL TARTRATE 50 MG TAB PO SCH (07:00)
[2021-12-01] MEDS ORDERED: INSULIN GLARGINE SOLOSTAR 100 UNITS/ML 3 ML PEN SQ SCH (09:00)
[2021-12-01] MEDS ORDERED: MULTIVITAMIN TAB PO SCH (09:00)
[2021-12-01] MEDS ORDERED: ASPIRIN 81 MG ECTAB PO SCH (09:00)
[2021-12-01] MEDS ORDERED: CLOPIDOGREL BISULFATE 75 MG TAB PO SCH (09:00)
[2021-12-01] MEDS ORDERED: lisinopril 10 MG TAB PO SCH (09:00)
[2021-12-01] MEDS: CARBIDOPA/LEVODOPA 25/100MG TAB PO SCH ×2 (10:43→13:26)
[2021-12-01] MEDS: INSULIN ASPART PER UNIT SC SCH ×2 (10:56→13:25)
--- NOTE | 2021-12-01 13:06 | Discharge Summary ---
Date of Service December 01, 2021 Admission HPI Per Admitting Provider The patient is a 81-year-old male with a past medical history including diabetes mellitus, hypertension, CABG, parotitis, lumbar spinal stenosis, bipolar disorder, history of [place], dyslipidemia, vitamin D deficiency, CKD stage III, cerebrovascular disease, diabetic polyneuropathy and cognitive dysfunction. He has history of ambulatory dysfunction, was recently diagnosed with Parkinson's, and was attempting to walk out of his car into the snow and fell. He reportedly was crawling around on the snow for several minutes before a bystander came by and called EMS. Patient does have a history of ambulatory dysfunction. Principal Diagnosis Mechanical fall, ambulatory dysfunction Parkinson's disease Discharge Exam General: well developed, well nourished, no acute distress, comfortable Neck: supple, trachea midline, normal thyroid Lungs: clear to auscultation bilaterally, normal respiratory effort, no accessory muscle use, no distress Heart: regular S1 and S2, no murmur, peripheral pulses normal, capillary refill normal, no edema Abdomen: soft, NT, ND, + BS, no hepatomegaly, normal to percussion Extremities: normal in appearance, no cyanosis, no petechiae, strength is 5/5 bilaterally Neuro: awake, cooperative, moves all extremities, no focal motor deficits, CN II-XII intact, sensation in extremities intact, normal speech Skin: warm, dry, no rash, normal turgor Psych: Awake, alert oriented x 3, euthymic affect Discharge Data Allergies Allergy/AdvReac Type Severity Reaction Status Date / Time sulfamethoxazole Allergy Severe SEVERE RASH Verified 11/30/21 22:26 trimethoprim Allergy Severe SEVERE RASH Verified 11/30/21 22:26 amoxicillin AdvReac Mild VOMITING Verified 11/30/21 22:26 clavulanic acid AdvReac Mild VOMITING Verified 11/30/21 22:26 Consultations 11/30/21 23:03 ED Decision to Admit Stat Ordered Studies 11/30/21 18:25 CT head/brain wo con Stat Hospital Course (1) Status post fall: Status post fall- Contributing factors include: possible orthostatic hypotension, taking tamsulosin in a.m., diabetic peripheral neuropathy, Parkinson's, others Consult PT/OT: he is at or near baseline, stable for discharge patient claims he slipped on ice, he has been ambulating to the bathroom without difficulty, walked up flight of stairs with therapy fortunately no injuries on imaging (2) Hypertension: Continue lisinopril and metoprolol tartrate (3) Bipolar disorder: Continue divalproex, and lamotrigine (4) Dyslipidemia: Continue simvastatin 40 mg in evening (5) Chronic kidney disease, stage III (moderate): Creatinine at baseline, electrolytes stable, making urine (6) Diabetes mellitus, type 2: Continue insulin glargine 10 units subcu every morning. resume Metformin (7) Parkinson's disease: Continue carbidopa levodopa Suspect plays a part in ambulatory dysfunction issues This is a recent diagnosis for him spoke with Dr. Mercado, he will get him an early follow up to assess if he needs any medication changes (8) BPH w urinary obs/LUTS: Continue tamsulosin 0.4 mg daily but change from morning to evening discharge to home continue outpatient therapy and exercises follow up with neurology, Dr. Mercado Total Time Total Time Spent Total Time Spent (In Minutes): 32 minutes Discharge Plan Discharge Items Patient Disposition: Home - Self-Care Reason For Visit: S/P FALL, AMBULATORY DYSFUNCTION Discharge Diagnosis: Mechanical fall Parkinson's disease Condition on Discharge: Good Goals: follow up with neurology about Sinemet dosing start taking Flomax at night Activity: Resume your previous activity Weightbearing: Full weightbearing Non-emergency contact: Primary Care Provider and Neurologist Call non-emergency contact if: you have any medication questions and your symptoms worsen Follow-up/Referrals: Ml Matthews MD [Primary Care Provider] - Add Attending Provider Instructions: Medications: Only change is that I recommend you take tamsulosin (FLOMAX) 0.4mg at bedtime instead of the morning Mechanical fall, slipped on ice fortunately no injuries found on imaging you did well with therapy, they found that you were at or close to your baseline functional status continue to work with numerous outpatient therapies and exercise regimens Parkinson's please call office of Dr. Mercado today or tomorrow to get first available follow up appointment he would like to examine you before deciding on dose change or other medication for Parkinson's he told his front office to expect your call and to squeeze you in Pending Studies at Discharge: No Stand-Alone Forms: My [employer], Smoking Cessation Medications and DC Order Prescriptions: New tamsulosin 0.4 mg Capsule 0.4 mg PO HS 30 Days Qty: 30 RF: 0 Continued lamotrigine 200 mg tablet 200 mg PO QPM RF: 0 multivitamin [Daily Multi-Vitamin] tablet 1 tab PO BID RF: 0 (DME) insulin syringe-needle U-100 [BD Insulin Syringe Ultra-Fine] 0.5 mL 30 gauge x 1/2" syringe See Dose Instructions .ROUTE .MEDSUPPLY Qty: 1 RF: 0 clopidogrel 75 mg tablet 75 mg PO QAM RF: 0 divalproex 500 mg tablet,delayed release (DR/EC) 500 mg PO BID RF: 0 aspirin 81 mg Tablet,Delayed Release (Dr/Ec) 81 mg PO QAM RF: 0 metformin 1,000 mg tablet 1,000 mg PO BIDM RF: 0 metoprolol tartrate 50 mg tablet 50 mg PO BID RF: 0 rosuvastatin 40 mg tablet 40 mg PO PM RF: 0 Lantus Solostar U-100 Insulin 100 unit/mL (3 mL) insulin pen 10 unit subcut QAM RF: 0 nitroglycerin [Nitrostat] 0.4 mg tablet, sublingual 0.4 mg Sublingual DIRECTED PRN (Reason: Chest Pain) RF: 0 lisinopril 10 mg tablet 10 mg PO QAM RF: 0 carbidopa-levodopa 25-100 mg tablet 1 tab PO TID RF: 0 Discontinued tamsulosin 0.4 mg capsule 0.4 mg PO QAM RF: 0 Discharge Orders: Discharge Order (Routine); Ordered 12/01/21 Ordered By: Thanh Diggs Admission Data Admit Date/Time: 11/30/21 23:34 Attending Provider: Thanh Diggs Admit Provider: Dheeraj Stacy Primary Care Provider: Ml Matthews Other Providers: Dheeraj Stacy Coding Level of Care Code D/C DAY MANAGEMENT >30 MINS Diagnoses Status post fall Z91.81 Hypertension I10 Bipolar disorder F31.9 Dyslipidemia E78.5 Chronic kidney disease, stage III (moderate) N18.3 Diabetes mellitus, type 2 E11.9 Parkinson's disease G20 BPH w urinary obs/LUTS N40.1; N13.8
[2021-12-01] MEDS ORDERED: lamoTRIgine 100 MG TAB PO SCH (21:00)
[2021-12-01] MEDS ORDERED: TAMSULOSIN HCL 0.4 MG CAP PO SCH (21:00)
[2021-12-01] MEDS ORDERED: ROSUVASTATIN CALCIUM 20 MG TAB PO SCH (21:00)
== END 2021-12-01 14:59 | disposition home or self-care (01) ==
LOC: ED 17:48 → EDINP 17:48 → SUATTDRO 23:34 → EDINP 12-01 05:53